=== PATIENT | female | born 1960 | race African-American/Black ===

== ENCOUNTER 2019-05-22 14:42 | Emergency (ER) | payer OTHER ==
--- OUTSIDE RECORDS SUMMARY | 2019-05-22 14:45 | XMS REPORT ---
:1960 [facility] Address [address] [place] [address] [address] [place] [address] Care Team Providers Name Role Phone Unavailable Unavailable Unavailable Problems This patient has no known problems. Allergies, Adverse Reactions, Alerts This patient has no known allergies or adverse reactions. Medications This patient has no known medications.
--- OUTSIDE RECORDS SUMMARY | 2019-05-22 14:45 | XMS REPORT | Summary of Care ---
:1960 Author Organization [facility] - [facility] Address [address] [place] [address] Care Team Providers Name Role Phone 1, Adc Lab Unavailable Unavailable Surinder Echols MD Unavailable Levy De Jesus Unavailable Provider, [facility] Unavailable Unavailable Abbie Chowdary Unavailable Chintan Palomino Primary Care Provider Reason for Visit Reason Comments New Evaluation ring worm Encounter Details Date Type Department Care Team Description 04/12/2019 Office Visit [facility] Yifan Whelan MD [address] [place] [phone] Abscess, neck (Primary Dx); Dermatology- Salvatore Dennis MD [address] [place] [address]. [place] [address] Central centrifugal scarring alopecia [facility] [address], [address] [place] [address] Allergies Active Allergy Reactions Severity Noted Date Comments Amoxicillin-Pot Other - See comments 03/30/2017 Tongue pain, Clavulanate swelling Cephalexin Itching, Rash 06/14/2017 Nitrofurantoin Dizziness 06/14/2017 Monohyd/M-Cryst Sulfa (Sulfonamide Hives 03/21/2007 Antibiotics) Tetracycline Rash 03/21/2007 Off balance, doesn't feel right. documented as of this encounter (statuses as of 04/12/2019) Medications Medication Sig Dispensed Refills Start Date End Date Status tiotropium (SPIRIVA WITH Inhale 1 30 capsule 2 06/04/2016 Active HANDIHALER) 18 mcg capsule daily. inhalation Estradiol (VAGIFEM) 10 mcg Insert 1 30 tablet 6 03/30/2017 Active tabletIndications: tablet into Post-menopause atrophic vagina vaginitis SEE-INSTRUCTIO NS. ipratropium 0.03 % nasal Use 2 Sprays 30 mL 11 02/02/2018 Active sprayIndications: Cough in each nostril 3 (three) times daily. fluticasone (FLONASE) 50 Use 2 Sprays 1 Bottle 11 02/02/2018 Active mcg/actuation nasal in each sprayIndications: Dyspnea nostril daily. on exertion, Upper airway cough syndrome, Gastroesophageal reflux disease without esophagitis ranitidine 300 mg Take 1 tablet 90 tablet 3 04/05/2018 Active tabletIndications: by mouth at Gastroesophageal reflux bedtime. disease, esophagitis presence not specified meloxicam 15 mg Take 1 tablet 30 tablet 5 04/17/2018 Active tabletIndications: by mouth Osteoarthritis of both daily. knees, unspecified osteoarthritis type levocetirizine 5 mg Take 1 tablet 30 tablet 3 06/03/2018 Active tabletIndications: by mouth every Post-nasal drip evening. Estradiol (VAGIFEM) 10 mcg Insert 1 8 tablet 5 06/16/2018 Active tablet tablet into vagina SEE-INSTRUCTIO NS. Twice a week Blood-Glucose Meter (BLOOD Use as 1 Kit 0 08/17/2018 Active GLUCOSE MONITORING) Kit directed, TID, DX:E11.9 blood sugar diagnostic Use as 100 Strip 0 08/17/2018 Active (BLOOD GLUCOSE TEST) strip directed, once daily, DX:E11.9 lancets 33 gauge Misc Use as 100 Each 0 08/17/2018 Active directed, TID, DX;E11.9 verapamil 100 mg 24 hr Take 1 capsule 90 capsule 3 10/10/2018 Active capsuleIndications: by mouth at Essential hypertension, bedtime. Generalized anxiety disorder with panic attacks, Carolina's cyst of knee, left hydrOXYzine 25 mg Take 1 tablet 120 tablet 3 10/14/2018 Active tabletIndications: Anxiety by mouth every 6 (six) hours as needed for Anxiety. traMADOL 50 mg Take 1 tablet 40 tablet 2 11/15/2018 Active tabletIndications: by mouth every Osteoarthritis of left 6 (six) hours knee, unspecified as needed for osteoarthritis type Pain (scale 4-6). atorvastatin 40 mg Take 1 tablet 30 tablet 5 12/22/2018 Active tabletIndications: Pure by mouth at hypercholesterolemia bedtime. fluticasone-salmeterol Inhale 1 Puff 60 Each 11 01/05/2019 Active (ADVAIR DISKUS) 250-50 every 12 mcg/dose inhalation disk (twelve) hours. 1 puff twice a day rinse mouth after use albuterol 90 mcg/actuation Inhale 2 Puffs 1 Inhaler 11 01/05/2019 Active inhaler every 6 (six) hours as needed for Wheezing or Shortness of Breath. ciprofloxacin HCl 500 mg Take 1 tablet 20 tablet 0 01/05/2019 Active tablet by mouth every 12 (twelve) hours. traMADOL 50 mg Take 1 tablet 40 tablet 2 02/17/2019 Active tabletIndications: by mouth every Arthritis of knee 6 (six) hours as needed for Pain (scale 4-6) or Pain (scale 7-10). ALPRAZolam 1 mg TAKE 1 TABLET 90 tablet 1 02/17/2019 Active tabletIndications: Anxiety BY MOUTH THREE TIMES DAILY STOOL SOFTENER 250 mg TAKE ONE 30 capsule 0 04/11/2019 Active capsuleIndications: CAPSULE BY Constipation, unspecified MOUTH EVERY constipation type DAY fluocinonide 0.05 % Apply to 20 mL 3 04/12/2019 Active solutionIndications: area(s) 2 Central centrifugal (two) times scarring alopecia daily. documented as of this encounter (statuses as of 04/12/2019) Active Problems Problem Noted Date Prediabetes 08/15/2018 Overactive bladder 05/27/2017 S/P hysterectomy 04/28/2017 Refractive error 03/05/2017 Early cataracts, bilateral 03/05/2017 Corneal arcus senilis, bilateral 03/05/2017 Family history of premature CAD 08/19/2016 Dyslipidemia 08/19/2016 Diastolic dysfunction 01/28/2016 Allergic rhinitis, unspecified allergic rhinitis type 12/20/2015 Dizziness 12/20/2015 Urethral stricture, unspecified location, unspecified stricture type 2015 Tobacco abuse disorder 12/08/2015 Fibromyalgia 12/08/2015 Hyperlipidemia 12/08/2015 Post-menopause atrophic vaginitis 12/08/2015 Hematuria, microscopic 12/08/2015 Depression 12/08/2015 Anxiety 12/08/2015 Facial pain 12/08/2015 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 COPD (chronic obstructive pulmonary disease) 11/08/2015 Pulmonary fibrosis 11/08/2015 Essential hypertension 10/17/2015 Urinary frequency 03/26/2008 Other unspecified back disorder 03/26/2008 Overview: Back stiffness (per patient) Functional disorder of stomach 03/26/2008 Overview: Discomfort in lower stomach (per patient) ICD10 Diagnosis Term Wool Hanker Utility Female genital symptoms 02/15/2008 Overview: ICD10 Diagnosis Term Wool Hanker Utility documented as of this encounter (statuses as of 04/12/2019) Resolved Problems Problem Noted Date Resolved Date Hematuria 12/20/2015 08/03/2016 Acute bronchitis, unspecified organism 11/08/2015 08/03/2016 Influenza with respiratory manifestation other than 02/15/2008 08/03/2016 pneumonia Overview: ICD10 Diagnosis Term Wool Hanker Utility documented as of this encounter (statuses as of 04/12/2019) Immunizations Name Administration Dates Next Due Pneumococcal 13 Conjugate, PCV13 (Prevnar 13) 08/15/2018 Pneumococcal Polysaccharide, PPSV23 (PNEUMOVAX) 06/04/2016 documented as of this encounter Social History Tobacco Use Types Packs/Day Years Used Date Former Smoker Quit: 01/07/2016 Smokeless Tobacco: Never Used Alcohol Use Drinks/Week oz/Week Comments Yes 0 Standard drinks or equivalent 0.0 Socially Sex Assigned at Date Recorded Not on file Job Start Date Occupation Industry Not on file Not on file Not on file Travel History Travel Start Travel End No recent travel history available. documented as of this encounter Last Filed Vital Signs Not on filedocumented in this encounter Progress Notes Salvatore Dennis MD - 04/12/2019 10:40 AM CDT Jessica Harrington is a 59 year old female Cc: ringworm on neck HPI Jessica Harrington is a 59 year old female with h/o CCCA who presents as a new patient, 02/03/16. - Itchy and tender bump on back of neck ongoing x 1 month. Patient thinks it is "ringworm". Patient had her son squeeze it before and it leaked clear fluid. Patient has tried treating with calamine lotion, listerine, tea tree oil without improvement. Notes her garcia will also run over it when cuttingher hair. 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 Currently flaring with itching. Patient asks for treatment. Histories Past Medical History: Diagnosis Date Abnormal uterine bleeding Allergic rhinitis, cause unspecified Anemia Anxiety disorder in conditions classified elsewhere Anxiety state, unspecified COPD (chronic obstructive pulmonary disease) slight COPD Depression Diastolic dysfunction 01/28/2016 Emphysema lung Esophageal reflux Essential hypertension 10/17/2015 Genital warts Leiomyoma of uterus Other and unspecified hyperlipidemia Pap smear abnormality of cervix Years ago STD (sexually transmitted disease) Unspecified essential hypertension Urinary incontinence Histories reviewed and as noted above. 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 Allergies Allergies Allergen Reactions Augmentin [Amoxicillin-Pot Clavulanate] Other - See comments Tongue pain, swelling Cephalexin Itching and Rash Macrobid [Nitrofurantoin Monohyd/M-Cryst] Dizziness Sulfa (Sulfonamide Antibiotics) Hives Tetracycline Rash Off balance, doesn't feel right. Medications Current Outpatient Medications on File Prior to Visit Medication Sig Dispense Refill STOOL SOFTENER 250 mg capsule TAKE ONE CAPSULE BY MOUTH EVERY DAY 30 capsule 0 ALPRAZolam 1 mg tablet TAKE 1 TABLET BY MOUTH THREE TIMES DAILY 90 tablet 1 traMADOL 50 mg tablet Take 1 tablet by mouth every 6 (six) hours as needed for Pain (scale 4-6) or Pain (scale 7-10). 40 tablet 2 albuterol 90 mcg/actuation inhaler Inhale 2 Puffs every 6 (six) hours as needed for Wheezing or Shortness of Breath. 1 Inhaler 11 ciprofloxacin HCl 500 mg tablet Take 1 tablet by mouth every 12 (twelve) hours. 20 tablet 0 fluticasone-salmeterol (ADVAIR DISKUS) 250-50 mcg/dose inhalation disk Inhale 1 Puff every 12 (twelve) hours. 1 puff twice a day rinse mouth after use 60 Each 11 atorvastatin 40 mg tablet Take 1 tablet by mouth at bedtime. 30 tablet 5 traMADOL 50 mg tablet Take 1 tablet by mouth every 6 (six) hours as needed for Pain (scale 4-6).40 tablet 2 hydrOXYzine 25 mg tablet Take 1 tablet by mouth every 6 (six) hours as needed for Anxiety. 120 tablet 3 verapamil 100 mg 24 hr capsule Take 1 capsule by mouth at bedtime. 90 capsule 3 blood sugar diagnostic (BLOOD GLUCOSE TEST) strip Use as directed, once daily, DX:E11.9 100 Strip 0 Blood-Glucose Meter (BLOOD GLUCOSE MONITORING) Kit Use as directed, TID, DX: E11.9 1 Kit 0 lancets 33 gauge Misc Use as directed, TID, DX;E11.9 100 Each 0 Estradiol (VAGIFEM) 10 mcg tablet Insert 1 tablet into vagina SEE- INSTRUCTIONS. Twice a week 8 tablet 5 levocetirizine 5 mg tablet Take 1 tablet by mouth every evening. 30 tablet 3 meloxicam 15 mg tablet Take 1 tablet by mouth daily. 30 tablet 5 ranitidine 300 mg tablet Take 1 tablet by mouth at bedtime. 90 tablet 3 fluticasone (FLONASE) 50 mcg/actuation nasal spray Use 2 Sprays in each nostril daily. 1 Bottle 11 ipratropium 0.03 % nasal spray Use 2 Sprays in each nostril 3 (three) times daily. 30 mL 11 Estradiol (VAGIFEM) 10 mcg tablet Insert 1 tablet into vagina SEE- INSTRUCTIONS. 30 tablet 6 tiotropium (SPIRIVA WITH HANDIHALER) 18 mcg inhalation Inhale 1 capsule daily. 30 capsule 2 No current facility-administered medications on file prior to visit. Review of Systems ROS: (-)=negative (+)=positive Constitutional: (-) Skin: itching (+), pain (+), growth (+) Immunosuppressed: (-) Physical Exam Constitutional: Pt appears well-developed and well-nourished. No distress. Skin: See image FACE: Negative EYES: Negative NOSE: Negative EARS: Negative SCALP: Positive NECK: Positive LELAND/LYMPH: Positive, Palpable 1cm firm postauricular lymph node (-)=Negative,(+)=Positive Actinic Keratosis (A): erythematous scaling papules Goodrich Hemaniogioma (CH): smooth red and purple papules Dermatitis Erythema (DE): mild to moderate erythema and scaling Dermatitis Lichenified (DL): lichenification and thickening Dermatitis Weeping (DW): weeping and excoriation Inflamed Seborrheic Keratosis (ISK): inflamed warty brown papules and plaques Millium (ML): Small white cystic papule Molluscum Contagiosum (MC): umbilicated papule Nevus Macular (NM): well circumscribed evenly pigmented macule Nevus Papular (PARK GUARD): well circumscribed evenly pigmented papule Psoriasis Circumscribed (PC): well circumscribed erythema and scaling Psoriasis Diffuse (PD): diffuse patches of erythema and scaling Seborrheic Keratosis (SK): verrucous brown papules and plaques Scar (SR): cicatricial change Verruca Vulgarus (W): warty hyperkeratotic papule Assessment/Plan 1. Kerion vs Abscess vs Ruptured EIC vs other - R posterior scalp - Suspect possible infectious etiology due to clinical picture of patient having palpable R post auricular lymph node I&D PROCEDURE - Verbal consent for I&D obtained. Risks and benefits of procedure discussed with patient. Localanesthesia obtained with 1% lidocaine with epinephrine. Simple I and D performed with #11 blade. Contents expressed minimal so wound culture performed and procedure aborted for incisional biopsy. INCISIONAL BIOPSY PROCEDURE x1 - Verbal consent was obtained. Discussed that scarring, infection, recurrence, pain, bleeding - are all possible side effects of the biopsy. - R posterior scalp Site anesthetized with lidocaine. A 1.0 x 0.5 insional biopsy was taken and sentto microbiology (Fungal Culture) and closed with 4-0 prolene. - Sutures to be removed in 7-10 days at the unit, wound care provided and discussed. 2. 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 - Start fluocinonide 0.05% solution BIDPRN symptoms itching/pain - Discussed doxycycline but patient notes allergies to tetracycline family of antibiotics. Patient was seen in clinic and plan of care discussed with Yifan Whelan MD RTC 2 weeks, 7-10 days S/R Salvatore Dennis MD [facility] Dermatology, PGY4 04/11/2019 20:49 documented in this encounter Plan of Treatment Date Type Specialty Care Team Description 04/24/2019 Nurse Visit Dermatology Visit, [facility] Dermatology Nurse 05/09/2019 Office Visit Orthopedic Surgery Reza Galo MD [id number] [place] [address] [phone] 05/25/2019 Office Visit Cardiology Jose Maria Brown MD [address]ARY [address] [place] [phone] 06/02/2019 Office Visit Orthopedic Surgery Reza Galo MD [id number] [place] [address] [phone] 06/27/2019 Office Visit Endocrinology Diabetes & Beverly Stack MD Metabolism 07/07/2019 Office Visit Pulmonary Disease Leonardo Garza DO [facility] [place] [phone] Name Type Priority Associated Diagnoses Order Schedule WOUND/ASPIRATE OR ABSCESS LAB Routine Abscess, neck Ordered: 04/12/2019 CULTURE FUNGUS (ROUTINE) CULTURE LAB Routine Abscess, neck Ordered: 04/12/2019 Health Maintenance Due Date Last Done Comments DTaP,Tdap,and Td Vaccines 1979 (1 - Tdap) Zoster Recombinant Vaccine 2010 (SHINGRIX) (1 of 2) LUNG CANCER SCREEN: 05/12/2017 05/12/2016 Recommended for age 55-80 with 30 + pack year history INFLUENZA VACCINE 05/16/2019 Postponed from 05/14/2019 (Patient Refused) MAMMOGRAM 09/12/2019 09/12/2018, 09/10/2017, 09/04/2016, Additional history exists PNEUMOCOCCAL 0-64 YEARS 06/04/2021 08/15/2018, 06/04/2016 COMBINED SERIES (3 of 3 - PPSV23) COLONOSCOPY 07/30/2021 07/30/2011 (Previously completed) PAP SMEAR Discontinued 03/19/2008 HEPATITIS C (HCV) SCREEN Completed 10/14/2016 documented as of this encounter Results Not on filedocumented in this encounter Visit Diagnoses Diagnosis Abscess, neck - Primary Cellulitis and abscess of neck Central centrifugal scarring alopecia Other alopecia documented in this encounter Insurance Payer Benefit Plan Subscriber ID Effective Phone Address Type / Group Dates [employer] UHC MEDICARE [id number] 2019-Pres Medicare Adv HEALTHCARE COMPLETE ent PPO MEDICARE CHOICE ADVANTAGE [facility] MEDICAID OF xxxxxxxxx 2019-Pres [phone] [place] ent [id number] [place] [address] documented as of this encounter
--- OUTSIDE RECORDS SUMMARY | 2019-05-22 14:45 | XMS REPORT | Summary of Care ---
:1960 Author Organization [facility] Address [address] [place] [address] Care Team Providers Name Role Phone 1, Adc Lab Unavailable Unavailable Surinder Echols MD Unavailable Levy De Jesus Unavailable Provider, [facility] Unavailable Unavailable Abbie Chowdary Unavailable Chintan Palomino Primary Care Provider Reason for Visit Reason Comments New Evaluation ring worm Encounter Details Date Type Department Care Team Description 04/12/2019 Office Visit [facility] Yifan Whelan MD [address] [place] [phone] Abscess, neck (Primary Dx); Dermatology- Salvatore Dennis MD [address] [place] [address]. [place] [address] Central centrifugal scarring alopecia [facility] [address] [place] [address] Allergies Active Allergy Reactions Severity [...] lower stomach (per patient) ICD10 Diagnosis Term Group Home Counselor Utility Female genital symptoms 02/15/2008 Overview: ICD10 Diagnosis Term Group Home Counselor Utility documented as of this encounter (statuses as of 04/12/2019) Resolved Problems Problem Noted Date Resolved Date Hematuria 12/20/2015 08/03/2016 Acute bronchitis, unspecified organism 11/08/2015 08/03/2016 Influenza with respiratory manifestation other than 02/15/2008 08/03/2016 pneumonia Overview: ICD10 Diagnosis Term Group Home Counselor Utility documented as of this encounter (statuses [...] Alopecia (CCCA) (biopsy 02/03/16) SH: lives in [facility] Allergies Allergies Allergen Reactions Augmentin [Amoxicillin-Pot [...] well circumscribed evenly pigmented macule Nevus Papular (DIRECTOR OF PRODUCT MARKETING): well circumscribed evenly pigmented papule Psoriasis Circumscribed [...] clinic and plan of care discussed with MD Salvatore Theodore MD [facility] Dermatology, PGY4 04/11/2019 20:49 documented in this encounter Plan of Treatment Date Type Specialty Care Team Description 04/24/2019 Nurse Visit Dermatology Visit, [facility] Dermatology Nurse 05/09/2019 Office Visit Orthopedic Surgery Reza Galo MD [address] [facility] [id number] [place] [address] [phone] 05/25/2019 Office Visit Cardiology Jose Maria Brown MD [address] [place] [phone] 06/02/2019 Office Visit Orthopedic Surgery Reza Galo MD [address] [facility] [id number] [place] [address] [phone] 06/27/2019 Office Visit Endocrinology Diabetes & Beverly Stack MD Metabolism 07/07/2019 Office Visit Pulmonary Disease Leonardo Garza, [address] [place] [phone] Name Type Priority Associated Diagnoses Order Schedule [...] Type / Group Dates [employer] UHC MEDICARE [id number] 2019-Pres Medicare Adv HEALTHCARE COMPLETE ent PPO MEDICARE CHOICE ADVANTAGE [facility] MEDICAID OF xxxxxxxxx 2019-Pres [phone] [place] ent [id number] [place] [address] documented as of this encounter
--- OUTSIDE RECORDS SUMMARY | 2019-05-22 14:45 | XMS REPORT | Summary of Care ---
:1960 Author Organization [facility] Address [address] [place] [address] Care Team Providers Name Role Phone 1, [facility] Unavailable Unavailable Surinder Echols MD Unavailable Levy De Jesus Unavailable Provider, [facility] Unavailable Unavailable Abbie Chowdary Unavailable Chintan Palomino Primary Care Provider Reason for Visit Reason Comments Refill Request Encounter Details Date Type Department Care Team Description 03/31/2019 Refill [facility] Urgent Leanna Greenberg FNP Refill Request Care [address] [place] [address] [place], [place] [id number] Allergies Active Allergy Reactions Severity Noted Date Comments Amoxicillin-Pot Other - See comments 03/30/2017 Tongue pain, Clavulanate swelling Cephalexin Itching, Rash 06/14/2017 Nitrofurantoin Dizziness 06/14/2017 Monohyd/M-Cryst Sulfa (Sulfonamide Hives 03/21/2007 Antibiotics) Tetracycline Rash 03/21/2007 Off balance, doesn't feel right. documented as of this encounter (statuses as of 04/11/2019) Medications Medication Sig Dispensed Refills Start End Status Date Date tiotropium (SPIRIVA WITH Inhale 1 30 capsule 2 Active HANDIHALER) 18 mcg capsule 6 inhalation daily. Estradiol (VAGIFEM) 10 Insert 1 30 tablet 6 Active mcg tabletIndications: tablet into 7 Post-menopause atrophic vagina vaginitis SEE-INSTRUCTI ONS. ipratropium 0.03 % nasal Use 2 Sprays 30 mL 11 Active sprayIndications: Cough in each 8 nostril 3 (three) times daily. fluticasone (FLONASE) 50 Use 2 Sprays 1 Bottle 11 Active mcg/actuation nasal in each 8 sprayIndications: nostril Dyspnea on exertion, daily. Upper airway cough syndrome, Gastroesophageal reflux disease without esophagitis ranitidine 300 mg Take 1 tablet 90 tablet 3 Active tabletIndications: by mouth at 8 Gastroesophageal reflux bedtime. disease, esophagitis presence not specified meloxicam 15 mg Take 1 tablet 30 tablet 5 Active tabletIndications: by mouth 8 Osteoarthritis of both daily. knees, unspecified osteoarthritis type levocetirizine 5 mg Take 1 tablet 30 tablet 3 Active tabletIndications: by mouth 8 Post-nasal drip every evening. Estradiol (VAGIFEM) 10 Insert 1 8 tablet 5 Active mcg tablet tablet into 8 vagina SEE-INSTRUCTI ONS. Twice a week Blood-Glucose Meter Use as 1 Kit 0 Active (BLOOD GLUCOSE directed, 8 MONITORING) Kit TID, DX:E11.9 blood sugar diagnostic Use as 100 Strip 0 Active (BLOOD GLUCOSE TEST) directed, 8 strip once daily, DX:E11.9 lancets 33 gauge Misc Use as 100 Each 0 Active directed, 8 TID, DX;E11.9 verapamil 100 mg 24 hr Take 1 90 capsule 3 Active capsuleIndications: capsule by 9 Essential hypertension, mouth at Generalized anxiety bedtime. disorder with panic attacks, Carolina's cyst of knee, left hydrOXYzine 25 mg Take 1 tablet 120 tablet 3 Active tabletIndications: by mouth 9 Anxiety every 6 (six) hours as needed for Anxiety. traMADOL 50 mg Take 1 tablet 40 tablet 2 Active tabletIndications: by mouth 9 Osteoarthritis of left every 6 (six) knee, unspecified hours as osteoarthritis type needed for Pain (scale 4-6). atorvastatin 40 mg Take 1 tablet 30 tablet 5 Active tabletIndications: Pure by mouth at 9 hypercholesterolemia bedtime. fluticasone-salmeterol Inhale 1 Puff 60 Each 11 Active (ADVAIR DISKUS) 250-50 every 12 9 mcg/dose inhalation disk (twelve) hours. 1 puff twice a day rinse mouth after use albuterol 90 Inhale 2 1 Inhaler 11 Active mcg/actuation inhaler Puffs every 6 9 (six) hours as needed for Wheezing or Shortness of Breath. ciprofloxacin HCl 500 mg Take 1 tablet 20 tablet 0 Active tablet by mouth 9 every 12 (twelve) hours. traMADOL 50 mg Take 1 tablet 40 tablet 2 Active tabletIndications: by mouth 9 Arthritis of knee every 6 (six) hours as needed for Pain (scale 4-6) or Pain (scale 7-10). ALPRAZolam 1 mg TAKE 1 TABLET 90 tablet 1 Active tabletIndications: BY MOUTH 9 Anxiety THREE TIMES DAILY STOOL SOFTENER 250 mg TAKE ONE 30 capsule 0 Active capsuleIndications: CAPSULE BY 9 Constipation, MOUTH EVERY unspecified constipation DAY type docusate sodium 250 mg Take 1 30 capsule 5 Discontinued capsule capsule by 9 019 mouth daily. documented as of this encounter (statuses as of 04/11/2019) Active Problems Problem Noted Date Prediabetes 08/15/2018 [...] lower stomach (per patient) ICD10 Diagnosis Term International Sales Manager Utility Female genital symptoms 02/15/2008 Overview: ICD10 Diagnosis Term International Sales Manager Utility documented as of this encounter (statuses as of 04/11/2019) Resolved Problems Problem Noted Date Resolved Date Hematuria 12/20/2015 08/03/2016 Acute bronchitis, unspecified organism 11/08/2015 08/03/2016 Influenza with respiratory manifestation other than 02/15/2008 08/03/2016 pneumonia Overview: ICD10 Diagnosis Term International Sales Manager Utility documented as of this encounter (statuses as of 04/11/2019) Immunizations Name Administration Dates Next Due Pneumococcal [...] Signs Not on filedocumented in this encounter Plan of Treatment Date Type Specialty Care Team Description 04/12/2019 Office Visit Dermatology Yifan Whelan MD [address] [place] [phone] Salvatore Dennis MD [address] [place] [phone] 04/12/2019 Office Visit Internal Medicine Chintan Palomino [address] [facility] [id number] [place], [place] [phone] 05/09/2019 Office Visit Orthopedic Surgery Reza Galo MD [address] [facility] [id number] [place] [address] [phone] 05/25/2019 Office Visit Cardiology Jose Maria Brown MD [address] [place] [phone] 06/02/2019 Office Visit Orthopedic Surgery Reza Galo MD [id number] [place] [address] [phone] 06/27/2019 Office Visit Endocrinology Diabetes & Beverly Stack MD Metabolism 07/07/2019 Office Visit Pulmonary Disease Leonardo Garza DO [address] [place] [address] Health Maintenance Due Date Last Done Comments [...] filedocumented in this encounter Visit Diagnoses Diagnosis Constipation, unspecified constipation type documented in this encounter Insurance Payer Benefit Plan Subscriber ID Effective Phone Address Type / Group Dates [facility] MEDIC[facility] [id number] 2019-Pres Medicare Adv HEALTHCARE COMPLETE ent PPO MEDICARE CHOICE ADVANTAGE [facility] MEDICAID OF xxxxxxxxx 2019-Pres [phone] [place] ent [address] [id number] [place] [address] documented as of this encounter
--- OUTSIDE RECORDS SUMMARY | 2019-05-22 14:45 | XMS REPORT | Summary of Care ---
:[address] [facility] Address [address] [place] [address] Care Team Providers Name Role Phone 1, [facility] Unavailable Unavailable Surinder Echols MD Unavailable Levy De Jesus Unavailable Provider, [facility] Unavailable Unavailable Abbie Chowdary Unavailable Chintan Palomino Primary Care Provider Reason for Visit Reason Comments New Evaluation ring worm Encounter Details Date Type Department Care Team Description 04/12/2019 Office Visit [facility] Yifan Whelan MD [address] [place] [phone] Abscess, neck (Primary Dx); Dermatology- Salvatore Dennis MD [address] [place] [address]. [place] [phone] Central centrifugal scarring alopecia [facility] [address] [place] [phone] Allergies Active Allergy Reactions Severity [...] lower stomach (per patient) ICD10 Diagnosis Term Packing Inspector Utility Female genital symptoms 02/15/2008 Overview: ICD10 Diagnosis Term Packing Inspector Utility documented as of this encounter (statuses as of 04/12/2019) Resolved Problems Problem Noted Date Resolved Date Hematuria 12/20/2015 08/03/2016 Acute bronchitis, unspecified organism 11/08/2015 08/03/2016 Influenza with respiratory manifestation other than 02/15/2008 08/03/2016 pneumonia Overview: ICD10 Diagnosis Term Packing Inspector Utility documented as of this encounter (statuses [...] 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 Dermatology, PGY4 04/11/2019 20:49 documented in this encounter Plan of Treatment Date Type Specialty Care Team Description 04/24/2019 Nurse Visit Dermatology Visit, [facility] Dermatology Nurse 05/09/2019 Office Visit Orthopedic Surgery Reza Galo MD [address] [facility] [id number] [place] [address] [phone] 05/25/2019 Office Visit Cardiology Jose Maria Brown MD [address] [place] [phone] 06/02/2019 Office Visit Orthopedic Surgery Reza Galo MD 301 [facility] [id number] [place] [address] [phone] 06/27/2019 Office Visit Endocrinology Diabetes & Beverly Stack MD Metabolism 07/07/2019 Office Visit Pulmonary Disease Leonardo Garza, [address] [place] [phone] Name Type Priority Associated Diagnoses Order Schedule [...] Type / Group Dates UNITED UHC MEDICARE [id number] 2019-Pres Medicare Adv HEALTHCARE COMPLETE ent PPO MEDICARE CHOICE ADVANTAGE [facility] MEDICAID OF xxxxxxxxx 2019-Pres [phone] [place] ent 900 [id number] [place] [address] documented as of this encounter
--- OUTSIDE RECORDS SUMMARY | 2019-05-22 14:46 | XMS REPORT | Summary of Care ---
:1960 Author Organization [facility] Address [address] [place] [address] Care Team Providers Name Role Phone 1, [facility] Unavailable Unavailable Surinder Echols MD Unavailable Levy De Jesus Unavailable Provider, [facility] Unavailable Unavailable Abbie Chowdary Unavailable Chintan Palomino Primary Care Provider Reason for Referral (Routine) Status Reason Specialty Diagnoses / Referred By Referred To Contact Procedures Contact New Request Psychiatry Diagnoses Panic disorder Chintan Palomino Psych Staff-Pcp Procedures CONSULT/REFERRAL PSYCHIATRY ADULT A Primary Care [address] [facility], [place], [place] [address] [address] [place], [place] Phone: [phone] Reason for Visit Reason Comments Hypertension Encounter Details Date Type Department Care Team Description 04/12/2019 Office Visit [facility] Internal Chintan Palomino Panic disorder (Primary Dx); Medicine- [place] [address] [facility] [address] Anxiety; Primary Care [place], [place] Chronic obstructive pulmonary disease, unspecified COPD type [address], [address] [address] [place] [address] Allergies Active Allergy Reactions Severity Noted Date Comments Amoxicillin-Pot Other - See comments 03/30/2017 Tongue pain, Clavulanate swelling Cephalexin Itching, Rash 06/14/2017 Nitrofurantoin Dizziness 06/14/2017 Monohyd/M-Cryst Sulfa (Sulfonamide Hives 03/21/2007 Antibiotics) Tetracycline Rash 03/21/2007 Off balance, doesn't feel right. documented as of this encounter (statuses as of 04/26/2019) Medications Medication Sig Dispensed Refills Start End Status Date Date Estradiol (VAGIFEM) 10 Insert 1 30 tablet [...] 6 (six) hours as needed for Anxiety. atorvastatin 40 mg Take 1 tablet 30 [...] needed for Wheezing or Shortness of Breath. traMADOL 50 mg Take 1 tablet 40 tablet 2 Active tabletIndications: by mouth 9 Arthritis of knee every 6 (six) hours as needed for Pain (scale 4-6) or Pain (scale 7-10). STOOL SOFTENER 250 mg TAKE ONE 30 capsule 0 Active capsuleIndications: CAPSULE BY 9 Constipation, MOUTH EVERY unspecified constipation DAY type fluocinonide 0.05 % Apply to 20 mL 3 Active solutionIndications: area(s) 2 9 Central centrifugal (two) times scarring alopecia daily. ALPRAZolam 1 mg TAKE 1 TABLET 90 tablet 1 Active tabletIndications: BY MOUTH 9 Anxiety THREE TIMES DAILY tiotropium (SPIRIVA WITH Inhale 1 30 capsule 11 Active HANDIHALER) 18 mcg capsule 9 inhalationIndications: daily. Chronic obstructive pulmonary disease, unspecified COPD type tiotropium (SPIRIVA WITH Inhale 1 30 capsule 2 Discontinued HANDIHALER) 18 mcg capsule 6 019 inhalation daily. traMADOL 50 mg Take 1 tablet 40 tablet 2 Discontinued tabletIndications: by mouth 9 019 Osteoarthritis of left every 6 (six) knee, unspecified hours as osteoarthritis type needed for Pain (scale 4-6). ciprofloxacin HCl 500 mg Take 1 tablet 20 tablet 0 Discontinued tablet by mouth 9 019 every 12 (twelve) hours. ALPRAZolam 1 mg TAKE 1 TABLET 90 tablet 1 Discontinued tabletIndications: BY MOUTH 9 019 Anxiety THREE TIMES DAILY documented as of this encounter (statuses as of 04/26/2019) Active Problems Problem Noted Date Prediabetes 08/15/2018 [...] lower stomach (per patient) ICD10 Diagnosis Term Machine Filler Shredder Utility Female genital symptoms 02/15/2008 Overview: ICD10 Diagnosis Term Machine Filler Shredder Utility documented as of this encounter (statuses as of 04/26/2019) Resolved Problems Problem Noted Date Resolved Date Hematuria 12/20/2015 08/03/2016 Acute bronchitis, unspecified organism 11/08/2015 08/03/2016 Influenza with respiratory manifestation other than 02/15/2008 08/03/2016 pneumonia Overview: ICD10 Diagnosis Term Machine Filler Shredder Utility documented as of this encounter (statuses as of 04/26/2019) Immunizations Name Administration Dates Next Due Pneumococcal 13 Conjugate, PCV13 (Prevnar 13) 08/15/2018 Pneumococcal Polysaccharide, PPSV23 (PNEUMOVAX) 06/04/2016 documented as of this encounter Social History Tobacco Use Types Packs/Day Years Used Date Former Smoker Cigarettes 0.5 39 04/12/1977 - 01/07/2016 Smokeless Tobacco: Never Used Alcohol Use Drinks/Week oz/Week Comments Yes 0 Standard drinks or equivalent 0.0 Socially Sex Assigned at Date Recorded Not on file Job Start Date Occupation Industry Not on file Not on file Not on file Travel History Travel Start Travel End No recent travel history available. documented as of this encounter Last Filed Vital Signs Vital Sign Reading Time Taken Comments Blood Pressure 123/81 04/12/2019 1:50 PM CDT Pulse 75 04/12/2019 1:50 PM CDT Temperature 37.4 C (99.4 F) 04/12/2019 1:50 PM CDT Respiratory Rate 18 04/12/2019 1:50 PM CDT Oxygen Saturation 100% 04/12/2019 1:50 PM CDT room air Inhaled Oxygen Concentration - - Weight 66.2 kg (146 lb) 04/12/2019 1:50 PM CDT Height 157.5 cm (5' 2") 04/12/2019 1:50 PM CDT Body Mass Index 26.7 04/12/2019 1:50 PM CDT documented in this encounter Progress Notes Chintan Palomino - 04/12/2019 1:45 PM CDT Internal Medicine Clinic Note 04/12/19 Chief Complaint: Hypertension HPI: Jessica Harrington is a 59 year old female with PMH of below presents for follow up visit of anxiety/depression bilateral knee pain and HTN. 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 . Previously patient developed memory loss with Effexor and thinks she still has side effects, last taken Effexor 2 years ago. Also reports she has not been taking lipitor, now taking OTC medication for HLD. She is recalcitrant to ssRI type medication. Regarding anxiety, started more than 15 years ago, from her ex-, failed citalopram, Effexor. Patient declines Paxil, prozac, zoloft HTN: reports her BP is controlled at home, denies chest pain change in vision or headache. "COPD" - restrictive defect on PFT with desat to 88 with exercise. Responds to spiriva/anticholinergics per her report. Leg - injhection not helpful. Outpatient Encounter Medications as of 04/12/2019 Medication Sig Dispense Refill ALPRAZolam 1 mg tablet TAKE 1 TABLET BY MOUTH THREE TIMES DAILY 90 tablet 1 tiotropium (SPIRIVA WITH HANDIHALER) 18 mcg inhalation Inhale 1 capsule daily. 30 capsule 11 fluocinonide 0.05 % solution Apply to area(s) 2 (two) times daily. 20 mL 3 STOOL SOFTENER 250 mg capsule TAKE ONE CAPSULE BY MOUTH EVERY DAY 30 capsule 0 traMADOL 50 mg tablet Take 1 tablet by mouth every 6 (six) hours as needed for Pain (scale 4-6) or Pain (scale 7-10). 40 tablet 2 [DISCONTINUED] ALPRAZolam 1 mg tablet TAKE 1 TABLET BY MOUTH THREE TIMES DAILY 90 tablet 1 albuterol 90 mcg/actuation inhaler Inhale 2 Puffs every 6 (six) hours as needed for Wheezing or Shortness of Breath. 1 Inhaler 11 fluticasone-salmeterol (ADVAIR DISKUS) 250-50 mcg/dose inhalation disk Inhale 1 Puff every 12 (twelve) hours. 1 puff twice a day rinse mouth after use 60 Each 11 [DISCONTINUED] ciprofloxacin HCl 500 mg tablet Take 1 tablet by mouth every 12 (twelve) hours. 20 tablet 0 [DISCONTINUED] docusate sodium 250 mg capsule Take 1 capsule by mouth daily. 30 capsule 5 atorvastatin 40 mg tablet Take 1 tablet by mouth at bedtime. 30 tablet 5 [DISCONTINUED] traMADOL 50 mg tablet Take 1 tablet by mouth every 6 (six) hours as needed for Pain (scale 4-6). 40 tablet 2 hydrOXYzine 25 mg tablet Take [...] into vagina SEE- INSTRUCTIONS. 30 tablet 6 [DISCONTINUED] tiotropium (SPIRIVA WITH HANDIHALER) 18 mcg inhalation Inhale 1 capsule daily. 30capsule 2 No facility-administered encounter medications on file as of 04/12/2019. Past Medical Hx: Past Medical History: Diagnosis Date Abnormal uterine [...] transmitted disease) Unspecified essential hypertension Urinary incontinence ROS: See HPI Physical Exam: Vitals: 04/12/19 1350 BP: 123/81 BP Location: Left arm Patient Position: Sitting BP CUFF SIZE: Adult Medium Pulse: 75 Resp: 18 Temp: 37.4 C (99.4 F) TempSrc: Oral SpO2: 100% Weight: 146 lb (66.2 kg) Height: 5' 2" (1.575 m) General: patient alert and in no acute distress Eyes: EOMI, anicteric Cardiovascular: Heart regular, rate, rhythm, no murmurs; no edema Respiratory: clear to auscultation bilaterally, no respiratory distress Musc: left knee with crepitus, minimal edema, normal ROM, left carolina cyst, unchanged from previous Chart Review (Labs / Radiology): See HPI ASSESSMENT/PLAN Jessica Harrington is a 58 year old female with PMH as above presenting with 1. Essential hypertension Well controlled, continue with - verapamil 100 mg 24 hr capsule; Take 1 capsule by mouth at bedtime. Dispense : 90 capsule; Refill:3 2. Generalized anxiety disorder with panic attacks Has been on xanax since 2006, reluctant to change, failed citalopram, effexor. Will referral to psychiatry - CONSULT/REFERRAL PSYCHIATRY ADULT - reminded her that I will not give BZD chronically iwthout psych eval. 3. Carolina's cyst of knee, left Stable, injection not helpful. NSAIDS for pain. Health Maintenance: - Mammogram (F 50-74 q2y): 08/2018 neg - Pap Smear (F 21-65 q3y/ F 30-65 + HPV q5y): s/p hysterectomy - Immunizations: - Influenza (q1y): 2018 - Pneumococcal (65+/ younger at risk): completed "COPD" - refill spiriva. Echocardiogram was ok. SOB cause unclear. documented in this encounter Plan of Treatment Date Type Specialty Care Team Description 05/09/2019 Office Visit Orthopedic Surgery Reza Galo MD [address] [phone] 05/25/2019 Office Visit Cardiology Jose Maria Brown MD [address] [phone] 06/02/2019 Office Visit Orthopedic Surgery Reza Galo MD [address] [facility] [id number] [place] [phone] 06/12/2019 Office Visit Dermatology Salvatore Dennis MD [address] [place] [phone] 06/27/2019 Office Visit Endocrinology Diabetes & Beverly Stack MD Metabolism 07/07/2019 Office Visit Pulmonary Disease Leonardo Garza, [address] [place] [phone] 07/14/2019 Office Visit Internal Medicine Chintan Palomino [address] [place] [address] [address] [place], [place] [phone] Health Maintenance Due Date Last Done Comments [...] filedocumented in this encounter Visit Diagnoses Diagnosis Panic disorder - Primary Panic disorder without agoraphobia Anxiety Anxiety state, unspecified Chronic obstructive pulmonary disease, unspecified COPD type documented in this encounter Insurance Payer Benefit Plan Subscriber ID Effective Phone Address Type / Group Dates UNITED UHC MEDICARE [id number] 2019-Pres Medicare Adv HEALTHCARE COMPLETE ent PPO MEDICARE CHOICE ADVANTAGE [facility] MEDICAID OF xxxxxxxxx 2019-Pres [phone] [address] [place] ent [phone] [id number] [place] [address] documented as of this encounter
--- OUTSIDE RECORDS SUMMARY | 2019-05-22 14:46 | XMS REPORT | Summary of Care ---
:1960 Author Organization [facility] - [facility] Address [address] [place] [address] 187[address] Care Team Providers Name Role Phone 1, [facility] Unavailable Unavailable Surinder Echols MD Unavailable Levy De Jesus Unavailable Provider, [facility] Unavailable Unavailable Abbie Chowdary Unavailable Chintan Palomino Primary Care Provider Reason for Visit Reason Comments New Evaluation ring worm Encounter Details Date Type Department Care Team Description 04/12/2019 Office Visit [facility] Yifan Whelan MD [address] [place] [address] Abscess, neck (Primary Dx); Dermatology- Salvatore Dennis MD [address] [place] [address]. [place] [address] Central centrifugal scarring alopecia [facility] [address], [address] [place] [address] Allergies Active Allergy Reactions Severity Noted Date Comments Amoxicillin-Pot Other - See comments 03/30/2017 Tongue pain, Clavulanate swelling Cephalexin Itching, Rash 06/14/2017 Nitrofurantoin Dizziness 06/14/2017 Monohyd/M-Cryst Sulfa (Sulfonamide Hives 03/21/2007 Antibiotics) Tetracycline Rash 03/21/2007 Off balance, doesn't feel right. documented as of this encounter (statuses as of 04/12/2019) Medications Medication Sig Dispensed Refills Start End [...] Central centrifugal (two) times scarring alopecia daily. tiotropium (SPIRIVA WITH Inhale 1 30 capsule [...] lower stomach (per patient) ICD10 Diagnosis Term Hand I Blocker Utility Female genital symptoms 02/15/2008 Overview: ICD10 Diagnosis Term Hand I Blocker Utility documented as of this encounter (statuses as of 04/12/2019) Resolved Problems Problem Noted Date Resolved Date Hematuria 12/20/2015 08/03/2016 Acute bronchitis, unspecified organism 11/08/2015 08/03/2016 Influenza with respiratory manifestation other than 02/15/2008 08/03/2016 pneumonia Overview: ICD10 Diagnosis Term Hand I Blocker Utility documented as of this encounter (statuses [...] CCCA who presents as a new patient, LV 02/03/16. 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/16) SH: lives in [facility] Allergies Allergies Allergen Reactions Augmentin [Amoxicillin-Pot Clavulanate] [...] well circumscribed evenly pigmented macule Nevus Papular (MILITARY SCIENCE INSTRUCTOR): well circumscribed evenly pigmented papule Psoriasis Circumscribed [...] weeks, 7-10 days S/R Salvatore Dennis MD [facility] Dermatology, PGY4 04/11/2019 20:49 documented in this encounter Plan of Treatment Date Type Specialty Care Team Description 04/24/2019 Nurse Visit Dermatology Visit, [facility] Dermatology Nurse 05/09/2019 Office Visit Orthopedic Surgery Reza Galo MD 301 [facility] [id number] [place] [address] [phone] 05/25/2019 Office Visit Cardiology Jose Maria Brown MD [address] [phone] 06/02/2019 Office Visit Orthopedic Surgery Reza Galo MD 301 [facility] [id number] [place] [address] [phone] 06/27/2019 Office Visit Endocrinology Diabetes & Beverly Stack MD Metabolism 07/07/2019 Office Visit Pulmonary Disease Leonardo Garza, [facility] [place] [phone] 07/14/2019 Office Visit Internal Medicine Chintan Palomino [address] [facility] [address] [place], [place] [phone] Name Type Priority Associated Diagnoses Order Schedule [...] Type / Group Dates UNITED UHC MEDICARE [id number] 2019-Pres Medicare Adv HEALTHCARE COMPLETE ent PPO MEDICARE CHOICE ADVANTAGE [facility] MEDICAID OF xxxxxxxxx 2019-Pres [phone] Medicaid [place] ent 900 [id number] [place] [address] documented as of this encounter
--- OUTSIDE RECORDS SUMMARY | 2019-05-22 14:46 | XMS REPORT | Summary of Care ---
:1960 Author Organization [facility] Address [address] [place] [address] Care Team Providers Name Role Phone Unavailable Primary Care Provider Unavailable Reason for Visit Reason Comments Fungus Encounter Details Date Type Department Care Team Description 04/26/2019 Case Management [facility] Salvatore Dennis MD Fungus Dermatology-[address] [place] [address] [address] [address] [place], [place] [phone] [address] [phone] Allergies Active Allergy Reactions Severity Noted Date Comments Amoxicillin-Pot Other - See comments 03/30/2017 Tongue pain, Clavulanate swelling Cephalexin Itching, Rash 06/14/2017 Nitrofurantoin Dizziness 06/14/2017 Monohyd/M-Cryst Sulfa (Sulfonamide Hives 03/21/2007 Antibiotics) Tetracycline Rash 03/21/2007 Off balance, doesn't feel right. documented as of this encounter (statuses as of 04/26/2019) Medications Medication Sig Dispensed Refills Start Date End Date Status Estradiol (VAGIFEM) 10 mcg Insert 1 30 [...] mg TAKE 1 TABLET 90 tablet 1 04/12/2019 Active tabletIndications: Anxiety BY MOUTH THREE TIMES DAILY tiotropium (SPIRIVA WITH Inhale 1 30 capsule 11 04/12/2019 Active HANDIHALER) 18 mcg capsule daily. inhalationIndications: Chronic obstructive pulmonary disease, unspecified COPD type terbinafine HCl 250 mg Take 1 tablet 28 tablet 0 04/26/2019 Active tabletIndications: Kerion by mouth daily 9 due to trichophyton for 28 days. ketoconazole 2 % Apply to 120 mL 1 04/26/2019 Active shampooIndications: Kerion area(s) once due to trichophyton daily as needed for Itching. documented as of this encounter (statuses as [...] lower stomach (per patient) ICD10 Diagnosis Term Ferry Hand Utility Female genital symptoms 02/15/2008 Overview: ICD10 Diagnosis Term Ferry Hand Utility documented as of this encounter (statuses as of 04/26/2019) Resolved Problems Problem Noted Date Resolved Date Hematuria 12/20/2015 08/03/2016 Acute bronchitis, unspecified organism 11/08/2015 08/03/2016 Influenza with respiratory manifestation other than 02/15/2008 08/03/2016 pneumonia Overview: ICD10 Diagnosis Term Ferry Hand Utility documented as of this encounter (statuses [...] Treatment Date Type Specialty Care Team Description 05/03/2019 Office Visit Dermatology Yifan Whelan MD 301 [place] [address] Salvatore Dennis MD [address] [place] [address] 05/09/2019 Office Visit Orthopedic Surgery Reza Galo MD [address] [phone] 05/25/2019 Office Visit Cardiology Jose Maria Brown MD [address] [phone] 06/02/2019 Office Visit Orthopedic Surgery Reza Galo MD [address] [phone] 06/27/2019 Office Visit Endocrinology Diabetes & Beverly Stack MD Metabolism 07/07/2019 Office Visit Pulmonary Disease Leonardo Garza DO [address] [place] [phone] 07/14/2019 Office Visit Internal Medicine Chintan Palomino 301 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
--- OUTSIDE RECORDS SUMMARY | 2019-05-22 14:46 | XMS REPORT | Summary of Care ---
:1960 Author Organization [facility] - [facility] Address [address] [place] [address] 32450 Care Team Providers Name Role Phone Chintan Palomino Massiel Primary Care Provider Reason for Visit Reason Comments NURSE VISIT Suture Removal Encounter Details Date Type Department Care Team Description 04/24/2019 Nurse Visit [facility] Leyda Duran MD 301 [facility] [id number] [place] [address] Encounter for removal Dermatology- Visit, [facility] Dermatology Nurse of sutures (Primary Effie Dx) [facility] [address] [facility], 5th [place] [address] Allergies Active Allergy Reactions Severity Noted Date Comments Amoxicillin-Pot Other - See comments 03/30/2017 Tongue pain, Clavulanate swelling Cephalexin Itching, Rash 06/14/2017 Nitrofurantoin Dizziness 06/14/2017 Monohyd/M-Cryst Sulfa (Sulfonamide Hives 03/21/2007 Antibiotics) Tetracycline Rash 03/21/2007 Off balance, doesn't feel right. documented as of this encounter (statuses as of 04/24/2019) Medications Medication Sig Dispensed Refills Start Date [...] obstructive pulmonary disease, unspecified COPD type documented as of this encounter (statuses as of 04/24/2019) Active Problems Problem Noted Date Prediabetes 08/15/2018 [...] lower stomach (per patient) ICD10 Diagnosis Term Digital Advisor Utility Female genital symptoms 02/15/2008 Overview: ICD10 Diagnosis Term Digital Advisor Utility documented as of this encounter (statuses as of 04/24/2019) Resolved Problems Problem Noted Date Resolved Date Hematuria 12/20/2015 08/03/2016 Acute bronchitis, unspecified organism 11/08/2015 08/03/2016 Influenza with respiratory manifestation other than 02/15/2008 08/03/2016 pneumonia Overview: ICD10 Diagnosis Term Digital Advisor Utility documented as of this encounter (statuses as of 04/24/2019) Immunizations Name Administration Dates Next Due Pneumococcal [...] on filedocumented in this encounter Progress Notes Karoline Boss MA - 04/24/2019 2:30 PM CDTPatient presents for suture removal. The wound is well healed without signs of infection. The sutures are removed. Return prn. 2 sutures were removed from the right side of head. Patient stated that she was concerned with the wound. She stated that she still feels a lump to the right side of the head. I had Dr. Wolf come in tosee it and Dr. Wolf stated that the wound looks good and that there was not infection And to followup with Dr. Russell. documented in this encounter Plan of Treatment Date Type Specialty Care Team Description 05/03/2019 Office Visit Dermatology Salvatore Dennis MD [address] [place] [address]. [place] [address] 05/09/2019 Office Visit Orthopedic Surgery Reza Galo MD 301 [facility] [id number] [place] [address] [phone] 05/25/2019 Office Visit Cardiology Jose Maria Brown MD [address] MARY [address] [place] [phone] 06/02/2019 Office Visit Orthopedic Surgery Reza Galo MD [address] [id number] [place] [address] [phone] 06/27/2019 Office Visit Endocrinology Diabetes & Beverly Stack MD Metabolism 07/07/2019 Office Visit Pulmonary Disease Leonardo Garza DO [address] [place] [phone] 07/14/2019 Office Visit Internal Medicine Chintan Palomino [address] [place], [place] 194085 Health Maintenance Due Date Last Done Comments [...] filedocumented in this encounter Visit Diagnoses Diagnosis Encounter for removal of sutures - Primary documented in this encounter Insurance Payer Benefit Plan Subscriber ID Effective Phone Address Type / Group Dates [facility] MEDICARE [id number] 2019-Pres Medicare Adv HEALTHCARE COMPLETE ent PPO MEDICARE CHOICE ADVANTAGE [facility] MEDICAID OF xxxxxxxxx 2019-Pres [phone] [address] Medicaid [place] ent [phone] [id number] [place] [address] documented as of this encounter
--- OUTSIDE RECORDS SUMMARY | 2019-05-22 14:47 | XMS REPORT | Summary of Care ---
:1960 Author Organization [facility] Address [address] [place] [address] Care Team Providers Name Role Phone 1, [...] CONSULT/REFERRAL PSYCHIATRY ADULT A Primary Care 301 [facility], [place], [place] [address] [place] [address] [place] Phone: [phone] Reason for Visit Reason Comments Hypertension Encounter Details Date Type Department Care Team Description 04/12/2019 Office Visit [facility] Internal Chintan Palomino Panic disorder (Primary Dx); Medicine- [place] 301 [facility] [address]67 Anxiety; Primary Care [place], [place] Chronic obstructive pulmonary disease, unspecified COPD type [address], [address] [place] [address] Allergies Active Allergy Reactions Severity [...] lower stomach (per patient) ICD10 Diagnosis Term Radio Electronics Officer Utility Female genital symptoms 02/15/2008 Overview: ICD10 Diagnosis Term Radio Electronics Officer Utility documented as of this encounter (statuses as of 04/26/2019) Resolved Problems Problem Noted Date Resolved Date Hematuria 12/20/2015 08/03/2016 Acute bronchitis, unspecified organism 11/08/2015 08/03/2016 Influenza with respiratory manifestation other than 02/15/2008 08/03/2016 pneumonia Overview: ICD10 Diagnosis Term Radio Electronics Officer Utility documented as of this encounter (statuses [...] she was prescribed Lexapro in attempt for terminal carman control, and follow up today for response. [...] Visit Orthopedic Surgery Reza Galo MD [address] [address] 05/25/2019 Office Visit Cardiology Jose Maria Brown MD [address] [address] 06/02/2019 Office Visit Orthopedic Surgery Reza Gaol MD 301 [facility] [id number] [place] [phone] 06/12/2019 Office Visit Dermatology Salvatore Dennis MD [address] [place] [phone] 06/27/2019 Office Visit Endocrinology Diabetes & Beverly Stack MD Metabolism 07/07/2019 Office Visit Pulmonary Disease Leonardo Garza, [address] [place] [address] 07/14/2019 Office Visit Internal Medicine Chintan Palomino [address] [place] [address] [address] [place], [place] [phone] Health Maintenance Due Date Last Done Comments [...] Type / Group Dates UNITED UHC MEDICARE [id number] 2019-Pres Medicare Adv HEALTHCARE COMPLETE ent PPO MEDICARE CHOICE ADVANTAGE [facility] MEDICAID OF xxxxxxxxx 2019-Pres [phone] [address] Medicaid [place] ent 900 [id number] [place] [address] documented as of this encounter
--- OUTSIDE RECORDS SUMMARY | 2019-05-22 14:47 | XMS REPORT | Summary of Care ---
:1960 Author Organization [facility] - [facility] Address [address] [place] [address] Care Team Providers Name Role Phone Pcp, Patient Does Not Have A Primary Care Provider Reason for Visit Reason Comments Refill Request Encounter Details Date Type Department Care Team Description 05/10/2019 Telephone [facility] Orthopaedic Reza Galo MD Refill Request Surgery- [place] [address] [place] [address] [id number] [address] [address] [place] [address] Allergies Active Allergy Reactions Severity Noted Date Comments Amoxicillin-Pot Other - See comments 03/30/2017 Tongue pain, Clavulanate swelling Cephalexin Itching, Rash 06/14/2017 Nitrofurantoin Dizziness 06/14/2017 Monohyd/M-Cryst Sulfa (Sulfonamide Hives 03/21/2007 Antibiotics) Tetracycline Rash 03/21/2007 Off balance, doesn't feel right. documented as of this encounter (statuses as of 05/12/2019) Medications Medication Sig Dispensed Refills Start End [...] bedtime. fluticasone-salmeterol Inhale 1 Puff 60 Each Active (ADVAIR DISKUS) 250-50 every 12 9 mcg/dose inhalation disk (twelve) hours. 1 puff twice a day rinse mouth after use albuterol 90 Inhale 2 1 Inhaler Active mcg/actuation inhaler Puffs every 6 9 (six) hours as needed for Wheezing or Shortness of Breath. STOOL SOFTENER 250 mg TAKE ONE 30 [...] mg Take 1 tablet 28 tablet 0 Active tabletIndications: by mouth 9 019 Kerion due to daily for 28 trichophyton days. ketoconazole 2 % Apply to 120 mL 1 Active shampooIndications: area(s) once 9 Kerion due to daily as trichophyton needed for Itching. traMADol 50 mg Take 1 tablet 40 tablet 0 Active tabletIndications: by mouth 9 Arthritis of knee every 6 (six) hours as needed for Pain (scale 4-6) or Pain (scale 7-10). traMADOL 50 mg Take 1 tablet 40 tablet 2 Discontinued tabletIndications: by mouth 9 019 Arthritis of knee every 6 (six) hours as needed for Pain (scale 4-6) or Pain (scale 7-10). documented as of this encounter (statuses as of 05/12/2019) Active Problems Problem Noted Date Prediabetes 08/15/2018 [...] lower stomach (per patient) ICD10 Diagnosis Term Cvicu Nurse Utility Female genital symptoms 02/15/2008 Overview: ICD10 Diagnosis Term Cvicu Nurse Utility documented as of this encounter (statuses as of 05/12/2019) Resolved Problems Problem Noted Date Resolved Date Hematuria 12/20/2015 08/03/2016 Acute bronchitis, unspecified organism 11/08/2015 08/03/2016 Influenza with respiratory manifestation other than 02/15/2008 08/03/2016 pneumonia Overview: ICD10 Diagnosis Term Cvicu Nurse Utility documented as of this encounter (statuses as of 05/12/2019) Immunizations Name Administration Dates Next Due Pneumococcal [...] Treatment Date Type Specialty Care Team Description 06/02/2019 Office Visit Orthopedic Surgery Reza Galo MD [address] [place] [address] [id number] [place] [address] [phone] 06/12/2019 Office Visit Dermatology Salvatore Dennis MD [address] [place] [address]. [place] [address] 06/27/2019 Office Visit Endocrinology Diabetes & Beverly Stack MD [facility] 07/07/2019 Office Visit Pulmonary Disease Leonardo Garza DO [address] [place] [address] [phone] 07/14/2019 Office Visit Internal Medicine Chintan Palomino [facility] [address] [place], [place] [phone] Health Maintenance Due Date Last Done Comments DTaP,Tdap,and Td Vaccines (1 - 1979 Tdap) Zoster Recombinant Vaccine 2010 (SHINGRIX) (1 of 2) LUNG CANCER SCREEN: Recommended 05/12/2017 05/12/2016 for age 55-80 with 30 + pack year history INFLUENZA VACCINE (#1) 2019 MAMMOGRAM 09/12/2019 09/12/2018, 09/10/2017, 09/04/2016, Additional history exists PNEUMOCOCCAL 0-64 YEARS COMBINED 06/04/2021 08/15/2018, 06/04/2016 SERIES (3 of 3 - PPSV23) COLONOSCOPY 07/30/2021 07/30/2011 (Previously completed) PAP SMEAR Discontinued 03/19/2008 HEPATITIS C (HCV) SCREEN Completed 10/14/2016 documented as of this encounter Results Not on filedocumented in this encounter Visit Diagnoses Diagnosis Arthritis of knee Unspecified arthropathy, lower leg documented in this encounter Insurance Payer Benefit Plan Subscriber ID Effective Phone Address Type / Group Dates [facility] MEDICARE [id number] 2019-Pres Medicare Adv HEALTHCARE COMPLETE ent PPO MEDICARE CHOICE ADVANTAGE [facility] MEDICAID OF xxxxxxxxx 2019-Pres [phone] Medicaid [place] ent [phone] [id number] [place] [address] documented as of this encounter
--- OUTSIDE RECORDS SUMMARY | 2019-05-22 14:47 | XMS REPORT | Summary of Care ---
:1960 Author Organization [facility] Address [address] [place] [address] Care Team Providers Name Role Phone Pcp, Patient Does Not Have A Primary Care Provider Reason for Visit Reason Comments Forms Encounter Details Date Type Department Care Team Description 05/10/2019 Telephone [facility] Cardiology- Jose Maria Brown MD Forms [place] [address], [address] [place] [address] [place] [address] Allergies Active Allergy Reactions Severity Noted Date Comments Amoxicillin-Pot Other - See comments 03/30/2017 Tongue pain, Clavulanate swelling Cephalexin Itching, Rash 06/14/2017 Nitrofurantoin Dizziness 06/14/2017 Monohyd/M-Cryst Sulfa (Sulfonamide Hives 03/21/2007 Antibiotics) Tetracycline Rash 03/21/2007 Off balance, doesn't feel right. 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 Furnace Operator Utility Female genital symptoms 02/15/2008 Overview: ICD10 Diagnosis Term Brazing Furnace Operator Utility documented as of this encounter (statuses as of 05/11/2019) Resolved Problems Problem Noted Date Resolved Date Hematuria 12/20/2015 08/03/2016 Acute bronchitis, unspecified organism 11/08/2015 08/03/2016 Influenza with respiratory manifestation other than 02/15/2008 08/03/2016 pneumonia Overview: ICD10 Diagnosis Term Brazing Furnace Operator Utility documented as of this encounter (statuses as of 05/11/2019) Immunizations Name Administration Dates Next Due Pneumococcal [...] Surgery Reza Galo MD 301 [facility] [address] [place] [address] [phone] 06/12/2019 Office Visit Dermatology Salvatore Dennis MD [address] [place] [address]. [place] [phone] 06/27/2019 Office Visit Endocrinology Diabetes & Beverly Stack MD Metabolism 07/07/2019 Office Visit Pulmonary Disease Leonardo Garza DO [address] [place] [phone] 07/14/2019 Office Visit Internal Medicine Chintan Palomino 301 [facility] [address] [place], [place] [address]25[address] Health Maintenance Due Date Last Done Comments [...] Results Not on filedocumented in this encounter Insurance Payer Benefit Plan Subscriber ID Effective Phone Address Type / Group Dates [place] UHC MEDICARE [id number] 2019-Pres Medicare Adv HEALTHCARE COMPLETE ent PPO MEDICARE CHOICE ADVANTAGE [facility] MEDICAID OF xxxxxxxxx 2019-Pres [phone] Medicaid [place] ent 900 [id number] [place] [address] documented as of this encounter
--- OUTSIDE RECORDS SUMMARY | 2019-05-22 14:47 | XMS REPORT | Summary of Care ---
:1960 Author Organization [facility] - [facility] Address [address] [place] [id number] Care Team Providers Name Role Phone Unavailable Primary Care Provider Unavailable Reason for Visit Reason Comments Rx Concern/Question Encounter Details Date Type Department Care Team Description 05/02/2019 Telephone [facility] Orthopaedic Reza Galo MD Rx Concern/Question Surgery- [facility] [address] [place] [address] [id number] [address] [address] [place] [phone] Allergies Active Allergy Reactions Severity Noted Date Comments Amoxicillin-Pot Other - See comments 03/30/2017 Tongue pain, Clavulanate swelling Cephalexin Itching, Rash 06/14/2017 Nitrofurantoin Dizziness 06/14/2017 Monohyd/M-Cryst Sulfa (Sulfonamide Hives 03/21/2007 Antibiotics) Tetracycline Rash 03/21/2007 Off balance, doesn't feel right. documented as of this encounter (statuses as of 05/08/2019) Medications Medication Sig Dispensed Refills Start Date End Date Status Estradiol (VAGIFEM) 10 mcg Insert 1 30 tablet 6 03/30/2017 Active tabletIndications: tablet into Post-menopause atrophic vagina vaginitis SEE-INSTRUCTIO NEYMAR. ipratropium 0.03 % nasal Use 2 Sprays [...] as of this encounter (statuses as of 05/08/2019) Active Problems Problem Noted Date Prediabetes 08/15/2018 [...] lower stomach (per patient) ICD10 Diagnosis Term Cafeteria Table Attendant Utility Female genital symptoms 02/15/2008 Overview: ICD10 Diagnosis Term Cafeteria Table Attendant Utility documented as of this encounter (statuses as of 05/08/2019) Resolved Problems Problem Noted Date Resolved Date Hematuria 12/20/2015 08/03/2016 Acute bronchitis, unspecified organism 11/08/2015 08/03/2016 Influenza with respiratory manifestation other than 02/15/2008 08/03/2016 pneumonia Overview: ICD10 Diagnosis Term Cafeteria Table Attendant Utility documented as of this encounter (statuses as of 05/08/2019) Immunizations Name Administration Dates Next Due Pneumococcal [...] Office Visit Orthopedic Surgery Reza Galo MD [address] [place] [address] [phone] 06/02/2019 Office Visit Orthopedic Surgery Reza Galo MD [address] [place] [address] [phone] 06/12/2019 Office Visit Dermatology Salvatore Dennis MD [address] [place] [phone] 06/27/2019 Office Visit Endocrinology Diabetes & Beverly Stack MD Metabolism 07/07/2019 Office Visit Pulmonary Disease Leonardo Garza DO [address] [place] [address] [phone] 07/14/2019 Office Visit Internal Medicine Chintan Palomino [address] [place] [address] [id number] [place] [address] [phone] Health Maintenance Due Date Last Done Comments [...] Effective Phone Address Type / Group Dates [facility] MEDICARE [id number] 2019-Pres Medicare Adv HEALTHCARE COMPLETE ent PPO MEDICARE CHOICE ADVANTAGE [facility] MEDICAID OF xxxxxxxxx 2019-Pres [phone] Medicaid [place] ent [id number] [place] [address] documented as of this encounter
[2019-05-22 15:20] LABS: Urine Blood NEGATIVE (NEG); Urine Glucose NEGATIVE (NEG); Urine Protein NEGATIVE (NEG); Urine pH 5.5 (5.0-7.0)
[2019-05-22 15:26] LABS: Urine RBC <5 /HPF (NONE SEEN)
[2019-05-22 15:27] LABS: Urine Bacteria 20-50 /HPF (<20); Urine Culture Reflex Order REFLEXED; Urine Mucus 3+ /HPF (NONE SEEN)
--- NOTE | 2019-05-22 16:07 | ER ---
Nurse's Notes [facility] Name: Jessica Harrington Age: 59 yrs Sex: Female : 1960 Arrival Date: 05/22/2019 Time: 14:50 Bed 20 Private MD: Diagnosis: Urinary tract infection, site not specified Presentation: 05/22 14:54 Presenting complaint: Patient states: "I just got done taking some antibiotics for aa5 dental work and now I think I have a yeast infection". Pt also reports urinary frequency. Transition of care: patient was not received from another setting of care. Onset of symptoms was May 2019. Risk Assessment: Do you want to hurt yourself or someone else? Patient reports no desire to harm self or others. Initial Sepsis Screen: Does the patient meet any 2 criteria? No. Patient's initial sepsis screen is negative. Does the patient have a suspected source of infection? No. Patient's initial sepsis screen is negative. Care prior to arrival: None. 14:54 Acuity: JE 4 aa5 14:54 Method Of Arrival: Ambulatory aa5 Triage Assessment: 15:00 General: Appears in no apparent distress. comfortable, Behavior is calm, cooperative, bp appropriate for age. Pain: Complains of pain in pelvis. EENT: No deficits noted. Neuro: No deficits noted. Cardiovascular: No deficits noted. Respiratory: No deficits noted. GI: No signs and/or symptoms were reported involving the gastrointestinal system. : Reports vaginal itching. Derm: No deficits noted. Musculoskeletal: No deficits noted. Historical: - Allergies: 14:58 Sulfa (Sulfonamide Antibiotics); aa5 - Home Meds: 14:58 Enalapril Oral [Active]; Xanax Oral [Active]; atorvastatin oral oral [Active]; aa5 Omeprazole Oral [Active]; Ranitidine Oral [Active]; - PMHx: 14:58 Hypertension; Anxiety; Hyperlipidemia; Acid Reflux; aa5 - PSHx: 14:58 Appendectomy; Tonsillectomy; ; exploratory sx; aa5 - Immunization history:: Pneumococcal vaccine is up to date, Flu vaccine is not up to date. - Social history:: Smoking status: Patient uses tobacco products, denies chronic smoking, but will smoke occasionally. - Ebola Screening: : No symptoms or risks identified at this time. Screenin:01 Abuse screen: Denies threats or abuse. Denies injuries from another. Nutritional bp screening: No deficits noted. Tuberculosis screening: No symptoms or risk factors identified. Fall Risk None identified. Assessment: 15:01 General: SEE TRIAGE NOTE. bp 16:26 Reassessment: PT D/C HOME AMBULATORY, DX WITH UTI AND YEAST INFECTION. bp Vital Signs: 14:58 BP 139 / 90; Pulse 78; Resp 16 S; Temp 98.3(TE); Pulse Ox 98% on R/A; Weight 63.5 kg aa5 (R); Height 5 ft. 2 in. (157.48 cm) (R); 16:27 BP 141 / 85; Pulse 82; Resp 17; Temp 98.5; Pulse Ox 98% ; bp 14:58 Body Mass Index 25.61 (63.50 kg, 157.48 cm) aa5 ED Course: 14:50 Patient arrived in ED. mr 14:54 Arm band placed on. aa5 14:55 Triage completed. aa5 15:00 Reza Farnsworth, LARRY is Primary Nurse. bp 15:01 Patient has correct armband on for positive identification. Bed in low position. Call bp light in reach. Side rails up X2. 15:02 Alex Dennis NP is PHCP. pm1 15:02 Miguelito Romeo MD is Attending Physician. pm1 15:13 Urine Microscopic Only Sent. mh5 16:27 No provider procedures requiring assistance completed. Patient did not have IV access bp during this emergency room visit. Administered Medications: No medications were administered Outcome: 16:06 Discharge ordered by MD. pm1 16:27 Discharged to home ambulatory. bp 16:27 Condition: stable 16:27 Discharge instructions given to patient, Instructed on discharge instructions, follow up and referral plans. medication usage, Demonstrated understanding of instructions, follow-up care, medications, Prescriptions given X 3. 16:28 Patient left the ED. bp Signatures: Elli Dailey mr PooleCrystal RN RN 5 Alex Dennis NP PRINT PRODUCTION ASSOCIATE pm1 Alisson Clark 5 Reza Farnsworth, LARRY RN bp Corrections: (The following items were deleted from the chart) 14:55 14:54 Presenting complaint: Patient states: "I just got done taking some antibiotics aa5 for dental work and now I think I have a yeast infection" aa5
--- NOTE | 2019-05-22 16:07 | EDPHYS ---
Physician Documentation [facility] Name: Jessica Harrington Age: 59 yrs Sex: Female : 1960 Arrival Date: 05/22/2019 Time: 14:50 Bed 20 Private MD: ED Physician Miguelito Romeo HPI: 05/22 15:22 This 59 yrs old Black Female presents to ER via Ambulatory with complaints of Urinary pm1 Problem. 15:22 The patient presents with itching and burning with urination. Onset: The pm1 symptoms/episode began/occurred yesterday. Modifying factors: The symptoms are alleviated by nothing, the symptoms are aggravated by urinating. Associated signs and symptoms: Pertinent positives: dysuria, Pertinent negatives: fever, nausea, vomiting. Severity of symptoms: in the emergency department the symptoms are actually worse. The patient has experienced similar episodes in the past, antibiotics give her yeast infections often. Patient also douched due to symptoms of yeast infection that gave some relief. Patient completed antibiotics, Cipro, for dental issues. Historical: - Allergies: 14:58 Sulfa (Sulfonamide Antibiotics); aa5 - Home Meds: 14:58 Enalapril Oral [Active]; Xanax Oral [Active]; atorvastatin oral oral [Active]; aa5 Omeprazole Oral [Active]; Ranitidine Oral [Active]; - PMHx: 14:58 Hypertension; Anxiety; Hyperlipidemia; Acid Reflux; aa5 - PSHx: 14:58 Appendectomy; Tonsillectomy; ; exploratory sx; aa5 - Immunization history:: Pneumococcal vaccine is up to date, Flu vaccine is not up to date. - Social history:: Smoking status: Patient uses tobacco products, denies chronic smoking, but will smoke occasionally. - Ebola Screening: : No symptoms or risks identified at this time. ROS: 15:22 Positive for burning with urination, vaginal itching, Negative for pelvic pain, pm1 flank pain. 15:22 Constitutional: Negative for fever, chills, and weight loss, Eyes: Negative for injury, pain, redness, and discharge, ENT: Negative for injury, pain, and discharge, Neck: Negative for injury, pain, and swelling, Cardiovascular: Negative for chest pain, palpitations, and edema, Respiratory: Negative for shortness of breath, cough, wheezing, and pleuritic chest pain, Abdomen/GI: Negative for abdominal pain, nausea, vomiting, diarrhea, and constipation, Back: Negative for injury and pain, MS/Extremity: Negative for injury and deformity, Skin: Negative for injury, rash, and discoloration, Neuro: Negative for headache, weakness, numbness, tingling, and seizure. Exam: 15:22 Constitutional: This is a well developed, well nourished patient who is awake, alert, pm1 and in no acute distress. Head/Face: Normocephalic, atraumatic. Chest/axilla: Normal chest wall appearance and motion. Nontender with no deformity. No lesions are appreciated. Cardiovascular: Regular rate and rhythm with a normal S1 and S2. No gallops, murmurs, or rubs. Normal PMI, no JVD. No pulse deficits. Respiratory: Lungs have equal breath sounds bilaterally, clear to auscultation and percussion. No rales, rhonchi or wheezes noted. No increased work of breathing, no retractions or nasal flaring. Abdomen/GI: Soft, non-tender, with normal bowel sounds. No distension or tympany. No guarding or rebound. No evidence of tenderness throughout. Back: No spinal tenderness. No costovertebral tenderness. Full range of motion. Skin: Warm, dry with normal turgor. Normal color with no rashes, no lesions, and no evidence of cellulitis. MS/ Extremity: Pulses equal, no cyanosis. Neurovascular intact. Full, normal range of motion. 15:22 Neuro: Orientation: is normal, Motor: is normal, moves all fours, Sensation: is normal, no obvious gross deficits. Vital Signs: 14:58 BP 139 / 90; Pulse 78; Resp 16 S; Temp 98.3(TE); Pulse Ox 98% on R/A; Weight 63.5 kg aa5 (R); Height 5 ft. 2 in. (157.48 cm) (R); 16:27 BP 141 / 85; Pulse 82; Resp 17; Temp 98.5; Pulse Ox 98% ; bp 14:58 Body Mass Index 25.61 (63.50 kg, 157.48 cm) aa5 MDM: 15:03 Patient medically screened. pm1 15:26 Data reviewed: vital signs. Data interpreted: Pulse oximetry: on room air is 98 %. pm1 Interpretation: normal. 16:04 Counseling: I had a detailed discussion with the patient and/or guardian regarding: the pm1 historical points, exam findings, and any diagnostic results supporting the discharge/admit diagnosis, lab results, the need for outpatient follow up, to return to the emergency department if symptoms worsen or persist or if there are any questions or concerns that arise at home. 05/22 15:03 Order name: Urine Microscopic Only; Complete Time: 15:57 pm1 05/22 15:13 Order name: Urine Dipstick--Ancillary (enter results); Complete Time: 15:57 bd 05/22 15:03 Order name: Urine Dipstick-Ancillary (obtain specimen); Complete Time: 15:07 pm1 05/22 15:03 Order name: Urine Test (obtain specimen); Complete Time: 15:07 pm1 05/22 15:31 Order name: Urine Culture EDMS Administered Medications: No medications were administered Disposition: 17:09 Co-signature as Attending Physician, Miguelito Romeo MD. rn Disposition: 05/22/19 16:06 Discharged to Home. Impression: Urinary tract infection, site not specified. - Condition is Stable. - Discharge Instructions: Urinary Tract Infection, Adult, Vaginal Yeast Infection, Adult. - Prescriptions for Pyridium 200 mg Oral Tablet - take 1 tablet by ORAL route every 8 hours for 3 days; 9 tablet. Diflucan 150 mg Oral Tablet - take 1 tablet by ORAL route one time for 1 day; 1 tablet. Macrobid 100 mg Oral Capsule - take 1 capsule by ORAL route every 12 hours for 7 days; 14 capsule. Ibuprofen 600 mg Oral Tablet - take 1 tablet by ORAL route every 6 hours As needed take with food; 30 tablet. - Medication Reconciliation Form, Thank You Letter, Antibiotic Education, Prescription Opioid Use form. - Follow up: Emergency Department; When: As needed; Reason: Worsening of condition. Follow up: Private Physician; When: 2 - 3 days; Reason: Recheck today's complaints, Continuance of care, Re-evaluation by your physician. - Problem is new. - Symptoms have improved. Signatures: Dispatcher [employer] EDMS Miguelito Romeo MD MD rn Calderon, Audri, RN RN aa5 Alex Dennis, ROSAURA RESIDENT PHYSICIAN IN RADIOLOGY pm1 Reza Farnsworth RN RN bp Corrections: (The following items were deleted from the chart) 16:28 16:06 05/22/2019 16:06 Discharged to Home. Impression: Urinary tract infection, site bp not specified. Condition is Stable. Forms are Medication Reconciliation Form, Thank You Letter, Antibiotic Education, Prescription Opioid Use. Follow up: Emergency Department; When: As needed; Reason: Worsening of condition. Follow up: Private Physician; When: 2 - 3 days; Reason: Recheck today's complaints, Continuance of care, Re-evaluation by your physician. Problem is new. Symptoms have improved. pm1
[2019-05-22 18:41] VITALS: O2SAT 98
[2019-05-22 18:43] VITALS: BP 141/85; TEMP 98.5
== END 2019-05-22 16:28 | disposition home or self-care (01) ==
LOC: ER 14:42
DX: N39.0 Urinary tract infection, site not specified (principal); I10 Essential (primary) hypertension; F41.9 Anxiety disorder, unspecified; E78.5 Hyperlipidemia, unspecified; Z88.2 Allergy status to sulfonamides
CPT/HCPCS: 81003; 81015; 87086; 87088; 99283

== ENCOUNTER 2019-06-28 06:34 | Emergency (ER) | payer OTHER ==
[2019-06-28 08:04] LABS: Absolute Lymphocytes (CBC) 2.1 K/uL (0.7-4.9); Basophils % 1.2 % (0-1.3); Hematocrit 44.2 % (36.0-45.0); Lymphocytes % 29.1 % (15.3-44.8); MPV 7.8 fL (7.6-11.3); RBC Red Blood Cell Count 5.12 M/uL (3.86-4.86)
[2019-06-28 08:20] LABS: ALT/SGPT 7 U/L (12-78); AST/SGOT 11 U/L (15-37); Albumin 4.3 g/dL (3.4-5.0); Alkaline Phosphatase 143 U/L (45-117); BUN Blood Urea Nitrogen 10 mg/dL (7-18); Bicarbonate 27 mmol/L (21-32); Bilirubin Direct 0.1 mg/dL (0-0.2); Bilirubin Total 0.6 mg/dL (0.2-1.0); Glucose Level 104 mg/dL (74-106); Lipase 70 U/L (73-393); Potassium 3.7 mmol/L (3.5-5.1); Sodium Level 140 mmol/L (136-145)
[2019-06-28] MEDS ORDERED: NA CHLORIDE 0.9% 0 ML ONE (08:22)
[2019-06-28] MEDS ORDERED: NA CHLORIDE 0.9% 1,000 ML ONE (08:35)
[2019-06-28 08:47] LABS: Urine Blood TRACE (NEG); Urine Glucose NEGATIVE (NEG); Urine Protein NEGATIVE (NEG)
--- NOTE | 2019-06-28 09:01 | ER ---
Nurse's Notes [facility] Name: Jessica Harrington Age: 59 yrs Sex: Female : 1960 Arrival Date: 06/28/2019 Time: 06:37 Bed 6 Private MD: Diagnosis: Diarrhea, unspecified Presentation: 06/28 06:52 Presenting complaint: Patient states: Indigestion x 2 days, took Milk of Magnesia for lp1 constipation with some relief but is now having lower abdominal pain; "I feel like I'm running a low grade fever since I have the chills". Transition of care: patient was not received from another setting of care. Onset of symptoms was June 28, 2019. Risk Assessment: Do you want to hurt yourself or someone else? Patient reports no desire to harm self or others. Initial Sepsis Screen: Does the patient meet any 2 criteria? No. Patient's initial sepsis screen is negative. Does the patient have a suspected source of infection? No. Patient's initial sepsis screen is negative. Care prior to arrival: None. 06:52 Method Of Arrival: Ambulatory lp1 06:52 Acuity: JE 3 lp1 Triage Assessment: 06:57 General: Appears in no apparent distress. Behavior is calm, cooperative. Pain: lp1 Complains of pain in right lower quadrant and left lower quadrant. GI: Abdomen is non-distended, Bowel sounds present X 4 quads. Abdomen is tender to palpation in right lower quadrant and left lower quadrant. Derm: Skin is intact, Skin is dry, Skin is normal. Historical: - Allergies: 06:57 Sulfa (Sulfonamide Antibiotics); lp1 - Home Meds: 06:57 Omeprazole Oral [Active]; Xanax 1 mg oral tab PRN for Anxiety [Active]; verapamil 100 lp1 mg Oral CPCT 1 cap once daily [Active]; Hydroxyzine Oral [Active]; - PMHx: 06:57 acid reflux; Anxiety; Hyperlipidemia; Hypertension; lp1 - PSHx: 06:57 Appendectomy; Tonsillectomy; ; Hysterectomy; lp1 - Immunization history:: Adult Immunizations up to date. - Social history:: Smoking status: Patient uses tobacco products, denies chronic smoking, but will smoke occasionally. - Ebola Screening: : No symptoms or risks identified at this time. Screenin:57 Abuse screen: Denies threats or abuse. Denies injuries from another. Nutritional lp1 screening: No deficits noted. Tuberculosis screening: No symptoms or risk factors identified. Fall Risk None identified. Assessment: 07:40 General: Appears in no apparent distress. comfortable, Behavior is calm, cooperative, sv appropriate for age. Pain: Complains of pain in left lower quadrant and right lower quadrant Pain currently is 2 out of 10 on a pain scale. Is intermittent. Neuro: Level of Consciousness is awake, alert, obeys commands, Oriented to person, place, time, situation, Moves all extremities. Full function. Respiratory: Respiratory effort is even, unlabored, Respiratory pattern is regular, symmetrical. GI: Reports lower abdominal pain, constipation, indigestion. Derm: Skin is normal. 08:36 Reassessment: Patient appears in no apparent distress at this time. No changes from sv previously documented assessment. Patient and/or family updated on plan of care and expected duration. Pain level reassessed. Patient is alert, oriented x 3, equal unlabored respirations, skin warm/dry/pink. Vital Signs: 06:55 BP 169 / 82; Pulse 71; Resp 18; Temp 98(O); Pulse Ox 100% on R/A; Weight 61.23 kg; lp1 Height 5 ft. 2 in. (157.48 cm); Pain 2/10; 08:05 BP 155 / 105; Pulse 62; Resp 16; Pulse Ox 100% ; sv 08:36 BP 155 / 90; Pulse 58; Resp 16; Pulse Ox 99% ; sv 09:43 BP 174 / 80; Pulse 58; Resp 17; Temp 97.6(TE); Pulse Ox 100% on R/A; mh5 06:55 Body Mass Index 24.69 (61.23 kg, 157.48 cm) lp1 ED Course: 06:37 Patient arrived in ED. ds1 06:42 Lil[facility]ay[facility]C [facility] kb 06:42 Miguelito Romeo MD is Attending Physician. kb 06:55 Triage completed. lp1 06:55 Arm band placed on. lp1 06:57 Patient has correct armband on for positive identification. lp1 07:41 Esperanza Gibbs RN is Primary Nurse. sv 07:45 Missed attempt(s): 22 gauge in right antecubital area. Bleeding controlled, band aid sv applied, catheter tip intact. 07:50 Inserted saline lock: 20 gauge in right wrist, using aseptic technique. Blood sv collected. Flushed right with 5 ml normal saline. 08:07 Awaiting lab results. sv 09:38 IV discontinued, Pressure dressing applied. mh5 09:40 No provider procedures requiring assistance completed. IV discontinued, intact, sg bleeding controlled, No redness/swelling at site. Pressure dressing applied. Administered Medications: 08:36 Drug: NS 0.9% 1000 ml Route: IV; Rate: 1000 ml; Site: right wrist; sv Outcome: 09:00 Discharge ordered by . kb 09:40 Discharged to home ambulatory, with family. sg 09:40 Condition: good 09:40 Discharge instructions given to patient, Instructed on discharge instructions, follow up and referral plans. safety practices, Demonstrated understanding of instructions, follow-up care. 09:44 Patient left the ED. sg Signatures: Liliana Tamayo, FORENSIC SCIENTIST-C FORENSIC SCIENTIST-CkEsperanza Mills RN RN sv Gay, Steven, RN RN Lorena Mcfadden Caro Garcia RN RN [facility] Alisson Clark [facility]
--- NOTE | 2019-06-28 09:01 | EDPHYS ---
Physician Documentation [facility] Name: Jessica Harrington Age: 59 yrs Sex: Female : 1960 Arrival Date: 06/28/2019 Time: 06:37 Bed 6 Private MD: ED Physician Miguelito Romeo HPI: 06/28 06:50 This 59 yrs old Black Female presents to ER via Unassigned with complaints of Abdominal kb Pain, Chills. 06:50 The patient presents with abdominal pain in the lower abdomen. Onset: The kb symptoms/episode began/occurred this morning. The symptoms do not radiate. Associated signs and symptoms: Pertinent positives: diarrhea. The symptoms are described as vague. Modifying factors: The symptoms are alleviated by nothing, the symptoms are aggravated by nothing. Severity of pain: At its worst the pain was moderate in the emergency department the pain is unchanged. The patient has not experienced similar symptoms in the past. The patient has not recently seen a physician. Pt reports she was feeling bloated and constipated so she took some milk of magnesia and now she has diarrhea. Reports she has also had chills and suprapubic discomfort. Came in because she was worried about getting dehydrated from the diarrhea. . Historical: - Allergies: 06:57 Sulfa (Sulfonamide Antibiotics); lp1 - Home Meds: 06:57 Omeprazole Oral [Active]; Xanax 1 mg oral tab PRN for Anxiety [Active]; verapamil 100 lp1 mg Oral CPCT 1 cap once daily [Active]; Hydroxyzine Oral [Active]; - PMHx: 06:57 acid reflux; Anxiety; Hyperlipidemia; Hypertension; lp1 - PSHx: 06:57 Appendectomy; Tonsillectomy; ; Hysterectomy; lp1 - Immunization history:: Adult Immunizations up to date. - Social history:: Smoking status: Patient uses tobacco products, denies chronic smoking, but will smoke occasionally. - Ebola Screening: : No symptoms or risks identified at this time. ROS: 06:50 Cardiovascular: Negative for chest pain, palpitations, and edema, Respiratory: Negative kb for shortness of breath, cough, wheezing, and pleuritic chest pain, Back: Negative for injury and pain, : Negative for injury, bleeding, discharge, and swelling, MS/Extremity: Negative for injury and deformity, Skin: Negative for injury, rash, and discoloration, Neuro: Negative for headache, weakness, numbness, tingling, and seizure. 06:50 Constitutional: Positive for chills. 06:50 Abdomen/GI: Positive for abdominal pain, diarrhea. Exam: 06:50 Constitutional: This is a well developed, well nourished patient who is awake, alert, kb and in no acute distress. Head/Face: Normocephalic, atraumatic. Neck: Trachea midline, no thyromegaly or masses palpated, and no cervical lymphadenopathy. Supple, full range of motion without nuchal rigidity, or vertebral point tenderness. No Meningismus. Chest/axilla: Normal chest wall appearance and motion. Nontender with no deformity. No lesions are appreciated. Cardiovascular: Regular rate and rhythm with a normal S1 and S2. No gallops, murmurs, or rubs. Normal PMI, no JVD. No pulse deficits. Respiratory: Lungs have equal breath sounds bilaterally, clear to auscultation and percussion. No rales, rhonchi or wheezes noted. No increased work of breathing, no retractions or nasal flaring. Abdomen/GI: Soft, non-tender, with normal bowel sounds. No distension or tympany. No guarding or rebound. No evidence of tenderness throughout. Back: No spinal tenderness. No costovertebral tenderness. Full range of motion. Skin: Warm, dry with normal turgor. Normal color with no rashes, no lesions, and no evidence of cellulitis. MS/ Extremity: Pulses equal, no cyanosis. Neurovascular intact. Full, normal range of motion. Neuro: Awake and alert, GCS 15, oriented to person, place, time, and situation. Cranial nerves II-XII grossly intact. Motor strength 5/5 in all extremities. Sensory grossly intact. Cerebellar exam normal. Normal gait. Vital Signs: 06:55 BP 169 / 82; Pulse 71; Resp 18; Temp 98(O); Pulse Ox 100% on R/A; Weight 61.23 kg; lp1 Height 5 ft. 2 in. (157.48 cm); Pain 2/10; 08:05 BP 155 / 105; Pulse 62; Resp 16; Pulse Ox 100% ; sv 08:36 BP 155 / 90; Pulse 58; Resp 16; Pulse Ox 99% ; sv 09:43 BP 174 / 80; Pulse 58; Resp 17; Temp 97.6(TE); Pulse Ox 100% on R/A; mh5 06:55 Body Mass Index 24.69 (61.23 kg, 157.48 cm) lp1 MDM: 06:42 Patient medically screened. kb 06:54 Data reviewed: vital signs, nurses notes. Data interpreted: Pulse oximetry: on room air kb is 100 %. Interpretation: normal. 08:58 Counseling: I had a detailed discussion with the patient and/or guardian regarding: the kb historical points, exam findings, and any diagnostic results supporting the discharge/admit diagnosis, lab results, the need for outpatient follow up, a family practitioner, to return to the emergency department if symptoms worsen or persist or if there are any questions or concerns that arise at home. ED course: Educated to increase fluids to stay hydrated. 06/28 06:48 Order name: Basic Metabolic Panel; Complete Time: 08:21 kb 06/28 06:48 Order name: CBC with Diff; Complete Time: 08:18 kb 06/28 06:48 Order name: Hepatic Function; Complete Time: 08:21 kb 06/28 06:48 Order name: Lipase; Complete Time: 08:21 kb 06/28 07:16 Order name: Urine Dipstick--Ancillary (enter results); Complete Time: 08:49 bd 06/28 06:48 Order name: IV Saline Lock; Complete Time: 07:58 kb 06/28 06:48 Order name: Labs collected and sent; Complete Time: 07:58 kb 06/28 06:48 Order name: Urine Dipstick-Ancillary (obtain specimen); Complete Time: 07:58 kb Administered Medications: 08:36 Drug: NS 0.9% 1000 ml Route: IV; Rate: 1000 ml; Site: right wrist; sv Disposition: 21:21 Co-signature as Attending Physician, Miguelito Romeo MD. rn Disposition: 06/28/19 09:00 Discharged to Home. Impression: Diarrhea, unspecified. - Condition is Stable. - Discharge Instructions: Diarrhea, Adult, [id number]. - Medication Reconciliation Form, Thank You Letter, Antibiotic Education, Prescription Opioid Use form. - Follow up: Private Physician; When: 2 - 3 days; Reason: Recheck today's complaints, Continuance of care, Re-evaluation by your physician. Follow up: Emergency Department; When: As needed; Reason: Worsening of condition. Signatures: Dispatcher [employer] EDLiliana Lua, REVIEWER SALES-C REVIEWER SALES-Esperanza Arenas, RN RN Kendrick Pemberton RN RN Miguelito Villela MD MD rn Pena, Laura, RN RN lp1 Corrections: (The following items were deleted from the chart) 09:44 09:00 06/28/2019 09:00 Discharged to Home. Impression: Diarrhea, unspecified. Condition sg is Stable. Forms are Medication Reconciliation Form, Thank You Letter, Antibiotic Education, Prescription Opioid Use. Follow up: Private Physician; When: 2 - 3 days; Reason: Recheck today's complaints, Continuance of care, Re-evaluation by your physician. Follow up: Emergency Department; When: As needed; Reason: Worsening of condition. kb
[2019-06-28 09:57] VITALS: BP 174/80; TEMP 97.6; O2SAT 100
== END 2019-06-28 09:44 | disposition home or self-care (01) ==
LOC: ER 06:34
DX: R19.7 Diarrhea, unspecified (principal); Z88.2 Allergy status to sulfonamides; K21.9 Gastro-esophageal reflux disease without esophagitis; Z72.0 Tobacco use; F41.9 Anxiety disorder, unspecified
CPT/HCPCS: 85025; 80048; 36415; 80076; 81003; 83690; 99284; J7030

== ENCOUNTER 2019-09-29 07:46 | Emergency (ER) | payer OTHER ==
--- OUTSIDE RECORDS SUMMARY | 2019-09-29 07:48 | XMS REPORT ---
:1960 [facility] Organization [facility] Address [address] [place] [address] [address] [place] [address] Care Team Providers Name Role Phone Unavailable Unavailable Unavailable Problems This patient has no known problems. Allergies, Adverse Reactions, Alerts This patient has no known allergies or adverse reactions. Medications This patient has no known medications.
[2019-09-29] MEDS ORDERED: NA CHLORIDE 0.9% 1,000 ML ONE (08:26)
[2019-09-29 08:52] LABS: Urine Blood TRACE (NEG); Urine Glucose NEGATIVE (NEG); Urine Protein NEGATIVE (NEG); Urine pH 7.5 (5.0-7.0)
[2019-09-29 08:55] LABS: Absolute Lymphocytes (CBC) 1.8 K/uL (0.7-4.9); Basophils % 0.7 % (0-1.3); Hematocrit 40.3 % (36.0-45.0); Lymphocytes % 23.2 % (15.3-44.8); MPV 7.8 fL (7.6-11.3); RBC Red Blood Cell Count 4.58 M/uL (3.86-4.86)
[2019-09-29 09:07] LABS: ALT/SGPT 12 U/L (12-78); AST/SGOT 12 U/L (15-37); Albumin 3.8 g/dL (3.4-5.0); Alkaline Phosphatase 114 U/L (45-117); BUN Blood Urea Nitrogen 9 mg/dL (7-18); Bicarbonate 30 mmol/L (21-32); Bilirubin Direct 0.2 mg/dL (0-0.2); Bilirubin Total 0.5 mg/dL (0.2-1.0); Glucose Level 81 mg/dL (74-106); Lipase 60 U/L (73-393); Potassium 3.7 mmol/L (3.5-5.1); Protein, Total 7.8 g/dL (6.4-8.2); Sodium Level 143 mmol/L (136-145)
[2019-09-29 09:11] LABS: Urine Bacteria <20 /HPF (<20); Urine Culture Reflex Order NOT NEEDED; Urine Mucus 1+ /HPF (NONE SEEN); Urine RBC <5 /HPF (NONE SEEN)
--- NOTE | 2019-09-29 09:12 | RAD REPORT ---
EXAM DESCRIPTION: US - Abdomen Exam Limited - 09/29/2019 9:02 am CLINICAL HISTORY: Abdominal pain. COMPARISON: None. FINDINGS: The gallbladder wall is not thickened. A gallstone is not seen. The biliary tree is normal caliber. IMPRESSION: Unremarkable gallbladder ultrasound.
--- NOTE | 2019-09-29 09:12 | RAD REPORT ---
EXAM DESCRIPTION: CT - Stone Protocol - 09/29/2019 9:02 am CLINICAL HISTORY: Abdominal pain. COMPARISON: None. TECHNIQUE: Computed axial tomography of the abdomen pelvis was obtained without oral or IV contrast. Lack of IV and oral contrast limits evaluation of solid organs, bowel, and vessels. Coronal reformat adeline images were obtained and reviewed. All CT scans are performed using dose optimization technique as appropriate and may include automated exposure control or mA/KV adjustment according to patient size. FINDINGS: A renal calculus is not seen. An ureteral calculus is not noted. A bladder calculus is not present. The liver, spleen, pancreas and adrenals appear grossly normal There is no evidence of diverticulitis. The appendix appears normal Small ventral hernia contains fat. Hysterectomy IMPRESSION: Negative for a genitourinary calculus
--- NOTE | 2019-09-29 09:17 | EDPHYS ---
Physician Documentation [facility] Name: Jessica Harrington Age: 59 yrs Sex: Female : 1960 Arrival Date: 09/29/2019 Time: 07:47 Bed 18 Private MD: CHANTEL Physician Juve Navarro HPI: 09/29 08:30 This 59 yrs old Black Female presents to ER via Ambulatory with complaints of Abdominal snw Pain. 08:30 The patient presents with abdominal pain in the right upper quadrant, right lower snw quadrant. Onset: The symptoms/episode began/occurred intermittent x 1 year. The symptoms do not radiate. Associated signs and symptoms: none. The symptoms are described as crampy, intermittent. Severity of pain: At its worst the pain was moderate. The patient has experienced similar episodes in the past, chronically. It is unknown whether or not the patient has recently seen a physician. Historical: - Allergies: 08:08 Sulfa (Sulfonamide Antibiotics); hb - Home Meds: 08:08 Hydroxyzine Oral [Active]; Omeprazole Oral [Active]; verapamil 100 mg Oral CPCT 1 cap hb once daily [Active]; Xanax 1 mg Oral tab PRN for Anxiety [Active]; Bentyl Oral [Active]; - PMHx: 08:08 acid reflux; Anxiety; Hyperlipidemia; Hypertension; hb - PSHx: 08:08 Appendectomy; Tonsillectomy; ; Hysterectomy; hb - Immunization history:: Adult Immunizations up to date. - Social history:: Smoking status: Patient/guardian denies using tobacco. - Ebola Screening: : No symptoms or risks identified at this time. ROS: 08:30 Constitutional: Negative for fever, chills, and weight loss, Eyes: Negative for injury, snw pain, redness, and discharge, ENT: Negative for injury, pain, and discharge, Neck: Negative for injury, pain, and swelling, Cardiovascular: Negative for chest pain, palpitations, and edema, Respiratory: Negative for shortness of breath, cough, wheezing, and pleuritic chest pain, Back: Negative for injury and pain, : Negative for injury, bleeding, discharge, and swelling, MS/Extremity: Negative for injury and deformity, Skin: Negative for injury, rash, and discoloration, Neuro: Negative for headache, weakness, numbness, tingling, and seizure. 08:30 Abdomen/GI: Positive for abdominal pain, of the right lower quadrant. Exam: 08:30 Constitutional: This is a well developed, well nourished patient who is awake, alert, snw and in no acute distress. Head/Face: Normocephalic, atraumatic. Eyes: Pupils equal round and reactive to light, extra-ocular motions intact. Lids and lashes normal. Conjunctiva and sclera are non-icteric and not injected. Cornea within normal limits. Periorbital areas with no swelling, redness, or edema. ENT: Nares patent. No nasal discharge, no septal abnormalities noted. Tympanic membranes are normal and external auditory canals are clear. Oropharynx with no redness, swelling, or masses, exudates, or evidence of obstruction, uvula midline. Mucous membranes moist. Neck: Trachea midline, no thyromegaly or masses palpated, and no cervical lymphadenopathy. Supple, full range of motion without nuchal rigidity, or vertebral point tenderness. No Meningismus. Chest/axilla: Normal chest wall appearance and motion. Nontender with no deformity. No lesions are appreciated. Cardiovascular: Regular rate and rhythm with a normal S1 and S2. No gallops, murmurs, or rubs. Normal PMI, no JVD. No pulse deficits. Respiratory: Lungs have equal breath sounds bilaterally, clear to auscultation and percussion. No rales, rhonchi or wheezes noted. No increased work of breathing, no retractions or nasal flaring. Back: No spinal tenderness. No costovertebral tenderness. Full range of motion. Skin: Warm, dry with normal turgor. Normal color with no rashes, no lesions, and no evidence of cellulitis. MS/ Extremity: Pulses equal, no cyanosis. Neurovascular intact. Full, normal range of motion. Neuro: Awake and alert, GCS 15, oriented to person, place, time, and situation. Cranial nerves II-XII grossly intact. Motor strength 5/5 in all extremities. Sensory grossly intact. Cerebellar exam normal. Normal gait. Psych: Awake, alert, with orientation to person, place and time. Behavior, mood, and affect are within normal limits. 08:30 Abdomen/GI: Inspection: Bowel sounds: hyperactive, in all quadrants, Palpation: mild abdominal tenderness, in the right lower quadrant. Vital Signs: 08:02 BP 140 / 85; Pulse 68; Resp 16; Temp 98.1; Pulse Ox 100% on R/A; Weight 74.84 kg; hb Height 5 ft. 2 in. (157.48 cm); Pain 4/10; 09:00 BP 136 / 82; Pulse 70; Resp 17; Temp 98.1; Pulse Ox 100% on R/A; Pain 4/10; sg 08:02 Body Mass Index 30.18 (74.84 kg, 157.48 cm) hb MDM: 08:14 Patient medically screened. [facility] 09:17 Data reviewed: vital signs, nurses notes. Data interpreted: Pulse oximetry: on room air snw is 100 %. Interpretation: normal. Counseling: I had a detailed discussion with the patient and/or guardian regarding: the historical points, exam findings, and any diagnostic results supporting the discharge/admit diagnosis, lab results, radiology results, the need for outpatient follow up, to return to the emergency department if symptoms worsen or persist or if there are any questions or concerns that arise at home. Special discussion: Based on the patient's Hx, exam, and Dx evaluation, there is no indication for emergent surgery or inpatient Tx. It is understood by the patient/guardian that if the Sx's persist or worsen they need to return immediately for re-evaluation. Based on the history and exam findings, there is no indication for further emergent testing or inpatient evaluation. I discussed with the patient/guardian the need to see the campus director for further evaluation of the symptoms. I discussed with the patient/guardian the need to see the primary care provider for further evaluation of the symptoms. 09/29 08:08 Order name: Urine Culture [facility] 09/29 08:08 Order name: Urine Microscopic Only; Complete Time: 09:13 [facility] 09/29 08:22 Order name: Basic Metabolic Panel; Complete Time: 09: [facility] 09/29 08:22 Order name: CBC with Diff; Complete Time: 09: [facility] 09/29 08:22 Order name: Hepatic Function; Complete Time: 09:13 [facility] 09/29 08:22 Order name: Lipase; Complete Time: 09: [facility] 09/29 08:08 Order name: CT Stone Protocol; Complete Time: 09: [facility] 09/29 08:08 Order name: Urine Dipstick-Ancillary (obtain specimen); Complete Time: 08:26 snw 09/29 08:22 Order name: US Abdomen Limited; Complete Time: 09:14 snw 09/29 08:24 Order name: Urine Dipstick--Ancillary (enter results); Complete Time: 09:01 eb 09/29 08:22 Order name: Labs collected and sent; Complete Time: 08:48 snw Administered Medications: 09:18 CANCELLED (Other Intervention Used): TORadol 30 mg IVP once snw 09:23 Drug: TORadol 30 mg Route: IM; Site: right ventrogluteal; sg 09:50 Follow up: Response: No adverse reaction; Pain is decreased sg 09:24 Not Given (NO IV ACCESS established, pt eating and drinking): NS 0.9% 1000 ml IV at 125 sg ml/hr continuous 09:24 CANCELLED (Duplicate Order): TORadol 30 mg IM once snw Disposition: 15:09 Co-signature as Attending Physician, Juve Navarro MD I agree with the assessment and sierra plan of care. Disposition: 09/29/19 09:15 Discharged to Home. Impression: Unspecified abdominal pain. - Condition is Stable. - Discharge Instructions: Sciatica, [id number], Abdominal Pain, Adult, Biliary Colic, Adult, Food Choices for Gastroesophageal Reflux Disease, Adult, Fat and Cholesterol Restricted Diet, Hypertension. - Prescriptions for Diclofenac Sodium 75 mg Oral Tablet Sustained Release - take 1 tablet by ORAL route 2 times per day; 30 tablet. - Medication Reconciliation Form, Thank You Letter, Antibiotic Education, Prescription Opioid Use form. - Follow up: Emergency Department; When: As needed; Reason: Worsening of condition. Follow up: Private Physician; When: 2 - 3 days; Reason: Recheck today's complaints, Continuance of care, Re-evaluation by your physician. Signatures: Dispatcher [employer] EDKendrick Pacheco RN RN sg Anderson, Corey, MD MD cha Therrien, Shelly, ALUMNI RELATIONS OFFICER-C ALUMNI RELATIONS OFFICER-Csnw Ly Figueroa RN RN Corrections: (The following items were deleted from the chart) 09:18 09:15 TORadol 30 mg IVP once ordered. snw snw 09:18 09:18 TORadol 30 mg IVP once ordered. snw snw 09:24 08:22 IV Saline Lock ordered. snw sg 09:24 09:23 TORadol 30 mg IM once ordered. sg sn 09:56 09:15 09/29/2019 09:15 Discharged to Home. Impression: Unspecified abdominal pain. sg Condition is Stable. Forms are Medication Reconciliation Form, Thank You Letter, Antibiotic Education, Prescription Opioid Use. Follow up: Emergency Department; When: As needed; Reason: Worsening of condition. Follow up: Private Physician; When: 2 - 3 days; Reason: Recheck today's complaints, Continuance of care, Re-evaluation by your physician. snw
--- NOTE | 2019-09-29 09:17 | ER ---
Nurse's Notes [facility] Name: Jessica Harrington Age: 59 yrs Sex: Female : 1960 Arrival Date: 09/29/2019 Time: 07:47 Bed 18 Private MD: Diagnosis: Unspecified abdominal pain Presentation: 09/29 08:04 Presenting complaint: Diffuse abdominal pain x 1 year, right sided pain 4/10 today. hb Also reports nausea and decreased appetite. Hx of diverticulitis. Transition of care: patient was not received from another setting of care. Onset of symptoms is unknown. Risk Assessment: Do you want to hurt yourself or someone else? Patient reports no desire to harm self or others. Initial Sepsis Screen: Does the patient meet any 2 criteria? No. Patient's initial sepsis screen is negative. Does the patient have a suspected source of infection? No. Patient's initial sepsis screen is negative. Care prior to arrival: None. 08:04 Method Of Arrival: Ambulatory hb 08:04 Acuity: JE 3 hb Historical: - Allergies: 08:08 Sulfa (Sulfonamide Antibiotics); hb - Home Meds: 08:08 Hydroxyzine Oral [Active]; Omeprazole Oral [Active]; verapamil 100 mg Oral CPCT 1 cap hb once daily [Active]; Xanax 1 mg Oral tab PRN for Anxiety [Active]; Bentyl Oral [Active]; - PMHx: 08:08 acid reflux; Anxiety; Hyperlipidemia; Hypertension; hb - PSHx: 08:08 Appendectomy; Tonsillectomy; ; Hysterectomy; hb - Immunization history:: Adult Immunizations up to date. - Social history:: Smoking status: Patient/guardian denies using tobacco. - Ebola Screening: : No symptoms or risks identified at this time. Screenin:15 Abuse screen: Denies threats or abuse. Denies injuries from another. Nutritional sg screening: No deficits noted. Tuberculosis screening: No symptoms or risk factors identified. Never had TB. Fall Risk None identified. Assessment: 08:15 General: Appears in no apparent distress. well groomed, well developed, well nourished, sg Behavior is calm, cooperative, appropriate for age. Pain: Complains of pain in abdomen Quality of pain is described as aching. Neuro: Level of Consciousness is awake, alert, obeys commands, Oriented to person, place, time, Road Grader are equal bilaterally Moves all extremities. Cardiovascular: Capillary refill is brisk in bilateral fingers Patient's skin is warm and dry. Chest pain is denied. Respiratory: Airway is patent Respiratory effort is even, unlabored, Respiratory pattern is regular, symmetrical. GI: Bowel sounds present X 4 quads. Abd is soft X 4 quads Reports tolerance of fluids, tolerance of food, pt requesting to eat candy bar at this time, pt instructed to please wait until test results are completed, pt stated understanding. : No signs and/or symptoms were reported regarding the genitourinary system. EENT: No signs and/or symptoms were reported regarding the EENT system. Derm: Skin is pink, warm \T\ dry. Musculoskeletal: No signs and/or symptoms reported regarding the musculoskeletal system. Vital Signs: 08:02 BP 140 / 85; Pulse 68; Resp 16; Temp 98.1; Pulse Ox 100% on R/A; Weight 74.84 kg; hb Height 5 ft. 2 in. (157.48 cm); Pain 4/10; 09:00 BP 136 / 82; Pulse 70; Resp 17; Temp 98.1; Pulse Ox 100% on R/A; Pain 4/10; sg 08:02 Body Mass Index 30.18 (74.84 kg, 157.48 cm) hb ED Course: 07:47 Patient arrived in ED. rg4 07:58 Kendrick Og, RN is Primary Nurse. sg 08:03 Arm band placed on. hb 08:05 Triage completed. hb 08:06 Sahra Brewer FNP-C [facility]. snw 08:06 Juve Navarro MD is Attending Physician. snw 08:15 Patient has correct armband on for positive identification. Placed in gown. Bed in low sg position. Call light in reach. Pulse ox on. NIBP on. Warm blanket given. Head of bed elevated. 08:25 Urine Dipstick--Ancillary (enter results) Sent. mh5 08:25 Urine Culture Sent. mh5 08:26 Urine Microscopic Only Sent. mh5 08:40 Initial lab(s) drawn, by me, sent to lab. Missed attempt(s): 22 gauge in right wrist. sg Bleeding controlled, band aid applied, catheter tip intact. 09:02 CT Stone Protocol In Process Unspecified. EDMS 09:03 US Abdomen Limited In Process Unspecified. EDMS 09:50 No provider procedures requiring assistance completed. Patient did not have IV access sg during this emergency room visit. Administered Medications: 09:18 CANCELLED (Other Intervention Used): TORadol 30 mg IVP once snw 09:23 Drug: TORadol 30 mg Route: IM; Site: right ventrogluteal; sg 09:50 Follow up: Response: No adverse reaction; Pain is decreased sg 09:24 Not Given (NO IV ACCESS established, pt eating and drinking): NS 0.9% 1000 ml IV at 125 sg ml/hr continuous 09:24 CANCELLED (Duplicate Order): TORadol 30 mg IM once snw Outcome: 09:15 Discharge ordered by MD. snw 09:50 Discharged to home ambulatory. sg 09:50 Condition: good 09:50 Discharge instructions given to patient, Instructed on discharge instructions, follow up and referral plans. medication usage, safety practices, Demonstrated understanding of instructions, follow-up care, medications, Prescriptions given X 1. 09:56 Patient left the ED. sg Addendum: 10/02/2019 15:31 Addendum: Culture Results: Positive urine culture. Patient was not prescribed s s antibiotics at discharge. Report given to WENDI for further evaluation and then to waiter/waitress dining car for follow up with patient. Phone call Attempt #1 called patient. Macrobid 100 mg PO BID x 10 days #20 prescribed by Sahra Brewer NP to [facility], [facility] in [place]. Signatures: Dispatcher [employer] EDDC Kendrick Og RN Sahra Cornejo, JAGDISH-C BILINGUAL COUNTER SALES RETAIL-Feleciaw Carol Lerner RN LARRY yL Figueroa, Clara Covarrubias RN Alisson Clark [facility]
[2019-09-29] MEDS ORDERED: KETOROLAC 30 MG/ML INJ ONE (09:21)
[2019-09-29 10:01] VITALS: TEMP 98.1; O2SAT 100
[2019-09-29 10:02] VITALS: BP 136/82
== END 2019-09-29 09:56 | disposition home or self-care (01) ==
LOC: ER 07:46
DX: R10.31 Right lower quadrant pain (principal); I10 Essential (primary) hypertension; E78.5 Hyperlipidemia, unspecified; F41.9 Anxiety disorder, unspecified; Z88.2 Allergy status to sulfonamides
CPT/HCPCS: 87088; 85025; 87086; 80048; 36415; 80076; 87077; 87186; 83690; 76377; 74176; 76705; 96372; 99284; J7030; 81003; 81015

== ENCOUNTER 2020-08-09 13:28 | Emergency (ER) | payer OTHER ==
--- OUTSIDE RECORDS SUMMARY | 2020-08-09 13:30 | XMS REPORT | Summary of Care ---
:1960 Author Organization [facility] Address [address] [place] [address] Care Team Providers Name Role Phone Massiel Palomino MD Primary Care Provider Reason for Visit Reason Comments Refill Request Encounter Details Date Type Department Care Team Description 05/13/2020 Refill Formerly [facility], 1928–1983 Urgent Mene Leanna arnold FNP Refill Request Care [address] [place] [address], [address] [place] [address] [place] [address] [phone] Allergies Active Allergy Reactions Severity Noted Date Comments Amoxicillin-Pot Other - See comments 03/30/2017 Tong ue pain, Clavulanate swelling Cephalexin Itching, Rash 06/14/2017 Nitrofurantoin Dizziness 06/14/2017 Monohyd/M-Cryst Sulfa (Sulfonamide Hives 03/21/2007 Antibiotics) Tetracycline Rash 03/21/2007 Off balance, doesn't feel ri ght. documented as of this encounter (statuses as of 05/14/2020) Medications Medication Sig Dispensed Refills Start Date End Date Status fluticasone (FLONASE) 50 Use 2 Sprays in 1 Bottle 11 8 Active mcg/actuation nasal each nostril sprayIndications: Dyspnea daily. on exertion, Upper airway cough syndrome, Gastroesophageal reflux disease without esophagitis levocetirizine 5 mg Take 1 tablet by 30 tablet 3 06/03/2018 Active tabletIndications: mouth every Post-nasal drip evening. albuterol 90 Inhale 2 Puffs 1 Inhaler 11 01/05/2019 A ctive mcg/actuation inhaler every 6 (six) hours as needed for Wheezing or Shortness of Breath. STOOL SOFTENER 250 mg TAKE ONE CAPSULE 30 capsule 0 04/11/2019 Active capsuleIndications: BY MOUTH EVERY Constipation, unspecified DAY constipation type ketoconazole 2 % Apply to 120 mL 6 06/12/2019 Ac tive shampooIndications: area(s) once Post-inflammatory daily as needed hyperpigmentation for Itching. fluocinonide 0.05 % Apply to 20 mL 3 06/12/2019 Active solutionIndications: area(s) 2 (two) Central centrifugal times daily. scarring alopecia Estradiol (VAGIFEM) 10 Insert 1 tablet 30 tablet 6 07/05/2019 Active mcg tabletIndications: into vagina 2 Post-menopause atrophic (two) times per vaginitis week for Other (vaginial). verapamil 100 mg 24 hr Take 1 capsule 90 capsule 3 07/14/2019 Active capsuleIndications: by mouth at Essential hypertension, bedtime. Generalized anxiety disorder with panic attacks, Carolina's cyst of knee, left peg-electrolyte soln Take as directed 4000 mL 0 10/16/2019 Active [id number] -5.86 gram before solutionIndications: colonoscopy Colon cancer screening, Gastroesophageal reflux disease, esophagitis presence not specified atorvastatin 40 mg Take 1 tablet by 90 tablet 5 10/25/2019 Active tabletIndications: Pure mouth at hypercholesterolemia bedtime. albuterol-ipratropium Inhale 1 Puff 4 3 Inhaler 11 01/04/2020 Active (COMBIVENT RESPIMAT) (four) times 20-100 mcg/actuation daily. inhalerIndications: Dyspnea on exertion fluticasone Inhale 1 Puff 60 Each 11 01/04/2020 Act zan propion-salmeterol every 12 (ADVAIR DISKUS) 250-50 (twelve) hours. mcg/dose inhalation 1 puff twice a diskIndications: Dyspnea day rinse mouth on exertion after use dicyclomine 10 mg 1 cap Q6h prn 60 capsule 3 01/24/2020 Active capsuleIndications: abdominal Abdominal cramping cramping pantoprazole 40 mg EC Take 1 tablet by 90 tablet 01/24/2020 Active tabletIndications: mouth daily. Dysphagia, unspecified type, Gastroesophageal reflux disease without esophagitis peg-electrolyte soln Take as directed 4000 mL 0 02/21/2020 Active [id number] -5.86 gram before solution colonoscopy ALPRAZolam 1 mg TAKE 1 TABLET BY 90 tablet 1 02/27/2020 Active tabletIndications: MOUTH THREE Anxiety TIMES DAILY NEEDED FOR ANXIETY modafinil 100 mg Take 1 tablet by 60 tablet 1 04/26/2020 Active tabletIndications: mouth daily. For Depression, unspecified 1 week then depression type increase to 200 mg by mouth daily metroNIDAZOLE 500 mg Take 1 tablet by 14 tablet 0 04/26/2020 Active tabletIndications: mouth 2 (two) Vaginal discharge times daily. documented as of this encounter (statuses as of 05/14/2020) Active Problems Problem Noted Date Heartburn 10/16/2019 Colon cancer screening 10/16/2019 Overview: Added automatically from request for lalita nasra [id number] Gastroesophageal reflux disease, esophagitis presence not specified 10/16/2019 Overview: Added automatically from request for lalita nasra [id number] Prediabetes 08/15/2018 Overactive bladder 05/27/2017 S/P hysterectomy 04/28/2017 Refractive error 03/05/2017 Early cataracts, bilateral 03/05/2017 Corneal arcus senilis, bilateral 03/05/2017 Family history of premature CAD 08/19/2016 Dyslipidemia 08/19/2016 Diastolic dysfunction 01/28/2016 Allergic rhinitis, unspecified allergic rhinitis type 12/20/2015 Dizziness 12/20/2015 Urethral stricture, unspecified location, unspecified stricture type 12/20/2015 Tobacco abuse disorder 12/08/2015 Fibromyalgia 12/08/2015 Hyperlipidemia 12/08/2015 Post-menopause atrophic vaginitis 12/08/2015 Hematuria, microscopic 12/08/2015 Depression 12/08/2015 Anxiety 12/08/2015 Facial pain 12/08/2015 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 COPD (chronic obstructive pulmonary disease) 6 Pulmonary fibrosis 11/08/2015 Essential hypertension 10/17/2015 Urinary frequency 03/26/2008 Other unspecified back disorder 03/26/2008 Overview: Back stiffness (per patient) Functional disorder of stomach 03/26/2008 Overview: Discomfort in lower stomach (per patient) ICD10 Diagnosis Term Bill Adjuster Utility Female genital symptoms 02/15/2008 Overview: ICD10 Diagnosis Term Bill Adjuster Utility documented as of this encounter (statuses as of 05/14/2020) Resolved Problems Problem Noted Date Resolved Date Hematuria 12/20/2015 08/03/2016 Acute bronchitis, unspecified organism 11/08/2015 1 10/03/2015 Influenza with respiratory manifestation other than 02/15/20 08 08/03/2016 pneumonia Overview: ICD10 Diagnosis Term Bill Adjuster Utility documented as of this encounter (statuses as of 05/14/2020) Immunizations Name Administration Dates Next Due Pneumococcal 13 Conjugate, PCV13 (Prevnar 13) 08/15/2018 Pneumococcal Polysaccharide, PPSV23 (PNEUMOVAX) 06/04/2016 documented as of this encounter Social History Tobacco Use Types Packs/Day Years Used Date Current Some Day Smoker Cigarettes 0.5 39 03/15 - 01/07/2016 Smokeless Tobacco: Never Used Alcohol Use Drinks/Week oz/Week Comments Yes 0 Standard drinks or equivalent 0.0 Socially Sex Assigned at Date Recorded Not on file COVID-19 Exposure Response Date Recorded In the last month, have you been in contact with No / Unsure 04/26/2020 10:46 AM CDT someone who was confirmed or suspected to have Coronavirus / COVID-19? documented as of this encounter Last Filed Vital Signs Not on filedocumented in this encounter Plan of Treatment Date Type Specialty Care Team Description 05/14/2020 Office Visit Obstetrics & Gynecology Alonzo Bustos MD [address] [place] [phone] 06/13/2020 Office Visit Cardiology Jose Maria Brown MD [address] [place] [phone] 06/14/2020 Office Visit Internal Medicine Anderson Palomino MD [address] [facility] [address] [place], [place] [address] 07/05/2020 Office Visit Pulmonary Disease Leonardo Garza DO [address] [place] [phone] 07/09/2020 Office Visit Endocrinology Diabetes & Carrillo Alvarez MD Metabolism [address] [place] [address] [phone] 08/20/2020 Office Visit Endocrinology Diabetes & Carrillo Alvarez MD Metabolism [address] [place] [address] [phone] Health Maintenance Due Date Last Done Comments DTaP,Tdap,and Td Vaccines (1 - 1979 Tdap) COLON CANCER SCREENING ANNUAL 2010 FIT/FOBT COLON CANCER SCREENING FIT DNA 2010 EVERY 3 YEARS COLON CANCER SCREENING 2010 SIGMOIDOSCOPY EVERY 5 YEARS Zoster Recombinant Vaccine 2010 (SHINGRIX) (1 of 2) LUNG CANCER SCREEN: Recommended 05/12/2017 05/12/2016 for age 55-80 with 30 + pack year history Breast Cancer Screening 09/12/2019 09/12/2018, 09/10/2017, (MAMMOGRAM) 09/04/2016, Additional history exists INFLUENZA VACCINE (#1) 2020 Depression Screening 03/06/2021 03/06/2020 PNEUMOCOCCAL 0-64 YEARS COMBINED 06/04/2021 08/15/2018, SERIES (3 of 3 - PPSV23) COLONOSCOPY 03/06/2030 03/06/2020, 07/30/2011 (Previously completed) Colorectal Cancer Screening 03/06/2030 PAP SMEAR Discontinued 03/19/2008 HEPATITIS C (HCV) SCREEN Completed 10/14/2016 documented as of this encounter Results Not on filedocumented in this encounter Visit Diagnoses Diagnosis Constipation, unspecified constipation t ype documented in this encounter Insurance Payer Benefit Plan / Subscriber ID Effective Phone Address T ype Group Dates [facility] MEDICARE [id number] 2019-Pre Medi care Adv HEALTHCARE COMPLETE sent PPO MEDICARE CHOICE [facility] MEDICAID OF [id number] 2019-Pre [phone] O BOX Medic aid [place] sent [phone] [id number] [place] [address] [facility] [id number] 2019-Pre P O BOX Beh avioral [facility] sent [id number] [employer] [place] [address] documented as of this encounter
--- OUTSIDE RECORDS SUMMARY | 2020-08-09 13:30 | XMS REPORT | Continuity of Care Document ---
:[address] [facility] t Address [address] [place] [address] [address] [place] [address] Care Team Providers Name Role Phone Unavailable Unavailable Unavailable Problems This patient has no known problems. Allergies, Adverse Reactions, Alerts This patient has no known allergies or adverse reactions. Medications This patient has no known medications. Procedures This patient has no known procedures. Results This patient has no known results.
--- OUTSIDE RECORDS SUMMARY | 2020-08-09 13:31 | XMS REPORT | Summary of Care ---
:1960 Author Organization [facility] Address [address] [place] [address] Care Team Providers Name Role Phone Massiel Palomino MD Primary Care Provider Reason for Visit Reason Comments Rx Concern/Question Encounter Details Date Type Department Care Team Description 05/15/2020 Telephone [facility] ADC Leonardo Garza DO Rx Concern/Question Pulmonary Clinic [address], [address] [place] [phone] Allergies Active Allergy Reactions Severity Noted Date Comments Amoxicillin-Pot Other - See comments 03/30/2017 Tong ue pain, Clavulanate swelling Cephalexin Itching, Rash 06/14/2017 Nitrofurantoin Dizziness 06/14/2017 Monohyd/M-Cryst Sulfa (Sulfonamide Hives 03/21/2007 Antibiotics) Tetracycline Rash 03/21/2007 Off balance, doesn't feel ri ght. documented as of this encounter (statuses as of 05/16/2020) Medications Medication Sig Dispensed Refills Start End Status Date Date fluticasone (FLONASE) Use 2 Sprays 1 Bottle 11 02/03/20 Active 50 mcg/actuation nasal in each 18 sprayIndications: nostril daily. Dyspnea on exertion, Upper airway cough syndrome, Gastroesophageal reflux disease without esophagitis levocetirizine 5 mg Take 1 tablet 30 tablet 3 06/03/20 Active tabletIndications: by mouth every 18 Post-nasal drip evening. albuterol 90 Inhale 2 Puffs 1 Inhaler 11 01/06/20 Ac tive mcg/actuation inhaler every 6 (six) 19 hours as needed for Wheezing or Shortness of Breath. STOOL SOFTENER 250 mg TAKE ONE 30 capsule 0 04/11/20 Active capsuleIndications: CAPSULE BY 19 Constipation, MOUTH EVERY unspecified DAY constipation type ketoconazole 2 % Apply to 120 mL 6 06/12/20 Act zan shampooIndications: area(s) once 19 Post-inflammatory daily as hyperpigmentation needed for Itching. 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 Estradiol (VAGIFEM) 10 Insert 1 30 tablet 6 07/05/20 Active mcg tabletIndications: tablet into 19 Post-menopause atrophic vagina 2 (two) vaginitis times per week for Other (vaginial). verapamil 100 mg 24 hr Take 1 capsule 90 capsule 3 07/14/20 Active capsuleIndications: by mouth at 19 Essential hypertension, bedtime. Generalized anxiety disorder with panic attacks, Carolina's cyst of knee, left peg-electrolyte soln Take as 4000 mL 0 10/16/19 Active [id number] -5.86 directed 20 gram before solutionIndications: colonoscopy Colon cancer screening, Gastroesophageal reflux disease, esophagitis presence not specified atorvastatin 40 mg Take 1 tablet 90 tablet 5 10/25/19 Active tabletIndications: Pure by mouth at 20 hypercholesterolemia bedtime. fluticasone Inhale 1 Puff 60 Each 11 01/04/20 Acti ve propion-salmeterol every 12 20 (ADVAIR DISKUS) 250-50 (twelve) mcg/dose inhalation hours. 1 puff diskIndications: twice a day Dyspnea on exertion rinse mouth after use dicyclomine 10 mg 1 cap Q6h prn 60 capsule 3 01/24/20 Active capsuleIndications: abdominal 20 Abdominal cramping cramping pantoprazole 40 mg EC Take 1 tablet 90 tablet 01/24/20 Active tabletIndications: by mouth 20 Dysphagia, unspecified daily. type, Gastroesophageal reflux disease without esophagitis peg-electrolyte soln Take as 4000 mL 0 02/21/20 Active [id number] -5.86 directed 20 gram solution before colonoscopy ALPRAZolam 1 mg TAKE 1 TABLET 90 tablet 1 02/27/20 Active tabletIndications: BY MOUTH THREE 20 Anxiety TIMES DAILY NEEDED FOR ANXIETY modafinil 100 mg Take 1 tablet 60 tablet 1 04/26/20 Active tabletIndications: by mouth 20 Depression, unspecified daily. For 1 depression type week then increase to 200 mg by mouth daily metroNIDAZOLE 500 mg Take 1 tablet 14 tablet 0 04/26/20 Active tabletIndications: by mouth 2 20 Vaginal discharge (two) times daily. albuterol-ipratropium Inhale 1 Puff 3 Inhaler 11 05/16/20 Active (COMBIVENT RESPIMAT) 4 (four) times 20 20-100 mcg/actuation daily. inhalerIndications: Dyspnea on exertion albuterol-ipratropium Inhale 1 Puff 3 Inhaler 11 01/04/20/ 3/2 Discontinued (COMBIVENT RESPIMAT) 4 (four) times 20 020 (Reorder) 20-100 mcg/actuation daily. 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 Female genital symptoms 02/15/2008 Overview: ICD10 Diagnosis 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 documented as of this encounter (statuses as of 05/16/2020) Resolved Problems Problem Noted Date Resolved Date Hematuria 12/20/2015 08/03/2016 Acute bronchitis, unspecified organism 11/08/2015 1 10/03/2015 Influenza with respiratory manifestation other than 02/15/20 08 08/03/2016 pneumonia Overview: ICD10 Diagnosis 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 documented as of this encounter Last Filed Vital Signs Not on filedocumented in this encounter Miscellaneous Notes Telephone Encounter - Leonor Shi MA - 05/16/2020 9:02 AM CDTPA received from [employer]. PA filled out and faxed to [phone] signed by Leonor Shi MA at 05/16/2020 9:07 AM CDTTelephone Encounter - Leonor Shi MA - 05/16/2020 8:41 AM CDTI have not received PA request for this medication for patient. Rx was sent back in 12/2019. I re-sent Rx so if a PA is needed the pharmacy can initiate it and send me the request. elephone Encounter - Latricia Berger - 05/15/2020 3:56 PM CDTPatient is checking on the status of the PA for albuterol-ipratropium (COMBIVENT RESPIMAT) 20-100 mcg/actuation inhaler to get 3 per month. [id number] - [place], [place] - [address] [facility] JAROD Vazquezamp; FRANCISCA [address] [facility] [phone] documented in this encounter Plan of Treatment Date Type Specialty Care Team Description 06/13/2020 Office Visit Cardiology Jose Maria Brown MD [address] [place] [phone] 06/14/2020 Office Visit Internal Medicine Chintan Palomino MD [address] [place], [place] [address] 07/05/2020 Office Visit Pulmonary Disease Leonardo Garza DO [address] [place] [address] [phone] 07/09/2020 Office Visit Endocrinology Diabetes & Carrillo Alvarez MD Metabolism [address] [place] [address] [phone] 08/20/2020 Office Visit Endocrinology Diabetes & Carrillo Alvarez MD Metabolism [facility] [place], [place] [phone] Health Maintenance Due Date Last Done Comments [...] filedocumented in this encounter Visit Diagnoses Diagnosis Dyspnea on exertion Other dyspnea and respiratory abnormalit y documented in this encounter Insurance Payer Benefit Plan / Subscriber ID Effective Phone Address T ype Group Dates [facility] MEDICARE [id number] 2019-Pre Medi care Adv HEALTHCARE COMPLETE sent PPO MEDICARE CHOICE ADVANTAGE [facility] MEDICAID OF [id number] 2019-Pre [phone] P O BOX Medic aid [place] sent [id number] [place] [address] [facility] [id number] 2019-Pre P O BOX Beh avioral [facility] sent [id number] [place] [address] documented as of this encounter
--- OUTSIDE RECORDS SUMMARY | 2020-08-09 13:31 | XMS REPORT | Summary of Care ---
:1960 Author Organization [facility] Address [address] [place] [address] Care Team Providers Name Role Phone Massiel Palomino MD Primary Care Provider Reason for Visit Reason Comments Results Encounter Details Date Type Department Care Team Description 05/16/2020 Telephone [facility] Asmita Bustos MD Results [facility] [phone] [place], [place] [address] 50-4665 [place] [address] Allergies Active Allergy Reactions Severity Noted Date Comments Amoxicillin-Pot Other - See comments 03/30/2017 Tong ue pain, Clavulanate swelling Cephalexin Itching, Rash 06/14/2017 Nitrofurantoin Dizziness 06/14/2017 Monohyd/M-Cryst Sulfa (Sulfonamide Hives 03/21/2007 Antibiotics) Tetracycline Rash 03/21/2007 Off balance, doesn't feel ri ght. documented as of this encounter (statuses as of 05/16/2020) Medications Medication Sig Dispensed Refills Start Date [...] Active tabletIndications: Pure mouth at hypercholesterolemia bedtime. fluticasone Inhale 1 Puff 60 [...] mouth 2 (two) Vaginal discharge times daily. albuterol-ipratropium Inhale 1 Puff 4 3 Inhaler 11 05/16/2020 Active (COMBIVENT RESPIMAT) (four) times 20-100 mcg/actuation daily. 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 Female genital symptoms 02/15/2008 Overview: ICD10 Diagnosis 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 elephone Encounter - José Desai - 05/16/2020 11:50 AM CDTPatient is requesting her UA results from Wednesday. documented in this encounter Plan of Treatment Date Type Specialty Care Team Description 06/13/2020 Office Visit Cardiology Jose Maria Brown MD [address] [address] 06/14/2020 Office Visit Internal Medicine Chintan Palomino MD [address] [place], [place] [address] [phone] 07/05/2020 Office Visit Pulmonary Disease Leonardo Garza DO [address] [place] [phone] 07/09/2020 Office Visit Endocrinology Diabetes & Carrillo Alvarez MD Metabolism [address] [place], [place] [phone] 08/20/2020 Office Visit Endocrinology Diabetes & AlvarezCarrillo MD Metabolism [address] [place], [place] [address] Health Maintenance Due Date Last Done Comments [...] Effective Phone Address T ype Group Dates [facility] MEDICARE [id number] 2019-Pre Medi care Adv HEALTHCARE COMPLETE sent PPO MEDICARE CHOICE ADVANTAGE [facility] MEDICAID OF [id number] 2019-Pre [phone] P O BOX Medic aid [place] sent [phone] [id number] [place] [address] [facility] [id number] 2019-Pre P O BOX Beh avioral [facility] sent [phone] [place] [address] documented as of this encounter
--- OUTSIDE RECORDS SUMMARY | 2020-08-09 13:31 | XMS REPORT | Summary of Care ---
:1960 Author Organization [facility] Address [address] [place] [address] Care Team Providers Name Role Phone Massiel Palomino MD Primary Care Provider Reason for Visit Reason Comments Rx Concern/Question Encounter Details Date Type Department Care Team Description 05/15/2020 Telephone [facility] ADC Leonardo Garza DO Rx Concern/Question Pulmonary Clinic [address] [place] [phone] Allergies Active Allergy Reactions Severity Noted Date [...] Added automatically from request for lalita nasra [id number] Gastroesophageal reflux disease, esophagitis presence not specified 10/16/2019 Overview: Added automatically from request for lalita nasra [id number] Prediabetes 08/15/2018 Overactive bladder 05/27/2017 S/P hysterectomy [...] lower stomach (per patient) ICD10 Diagnosis 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 elephone Encounter - Berger Latricia - 05/15/2020 3:56 PM CDTPatient is checking on the status of the PA for albuterol-ipratropium (COMBIVENT RESPIMAT) 20-100 mcg/actuation inhaler to get 3 per month. [id number] - [place], [place] - [address] [facility] V JAROD Vazquezamp; FRANCISCA [address] [facility] [address] documented in this encounter Plan of Treatment Date Type Specialty Care Team Description 06/13/2020 Office Visit Cardiology Jose Maria Brown MD [address] [place] [address] 06/14/2020 Office Visit Internal Medicine Chintan Palomino MD [address] [place], [place] [address] 07/05/2020 Office Visit Pulmonary Disease Leonardo Garza, DO 2660 [place] [address] [phone] 07/09/2020 Office Visit Endocrinology Diabetes & Carrillo Alvarez MD Metabolism 2660 [place], [place] [address] 08/20/2020 Office Visit Endocrinology Diabetes & Carrillo Alvarez MD Metabolism [facility] [place] [address] [phone] Health Maintenance Due Date Last Done Comments [...] Effective Phone Address T ype Group Dates [facility] MEDICARE [id number] 2019-Pre [facility] care Adv HEALTHCARE COMPLETE sent PPO MEDICARE CHOICE ADVANTAGE [facility] MEDICAID OF [id number] 2019-Pre [phone] Medic aid [place] sent [phone] [place] [address] [facility] [id number] 2019-Pre [address] BOX Beh avioral [facility] sent [id number] [place] [address] documented as of this encounter
--- OUTSIDE RECORDS SUMMARY | 2020-08-09 13:32 | XMS REPORT | Summary of Care ---
:[address] [facility] Address [address] [place] [address] Care Team Providers Name Role Phone Ashok Eckert MD Primary Care Provider Reason for Referral (Routine) Status Reason Specialty Diagnoses / Referred By Referred To Procedures Contact Contact Closed Obstetrics & Diagnoses Dyspareunia in female Chintan Palomino Gynecology Procedures CONSULT/REFERRAL COVER CUTTER Other (see comments) MD Massiel [address] [facility] [address] [place] [address] Reason for Visit Reason Comments Follow-up Encounter Details Date Type Department Care Team Description 04/26/2020 Office Visit [facility] Internal Chintan Palomino Dep ression, unspecified depression type (Primary Dx); Medicine- Jersey Rankin MD Anxiety; Primary Care Pavilio n [address] [address] Vaginal discharge; [address] , [place], [place] Dyspareu fausto in female [address] [address] [place], [place] [phone] [address] [phone] Allergies Active Allergy Reactions Severity Noted Date Comments Amoxicillin-Pot Other - See comments 03/30/2017 Tong ue pain, Clavulanate swelling Cephalexin Itching, Rash 06/14/2017 Nitrofurantoin Dizziness 06/14/2017 Monohyd/M-Cryst Sulfa (Sulfonamide Hives 03/21/2007 Antibiotics) Tetracycline Rash 03/21/2007 Off balance, doesn't feel ri ght. documented as of this encounter (statuses as of 05/17/2020) Medications Medication Sig Dispensed Refills Start End [...] 2 20 Vaginal discharge (two) times daily. Blood-Glucose Meter Use as 1 Kit 0 08/17/20 Discontinued (BLOOD GLUCOSE directed, TID, 18 020 MONITORING) Kit DX:E11.9 blood sugar diagnostic Use as 100 Strip 0 08/17/20 Discontinued (BLOOD GLUCOSE TEST) directed, once 18 020 strip daily, DX:E11.9 lancets 33 gauge Misc Use as 100 Each 0 08/17/20 Discontinued directed, TID, 18 020 DX;E11.9 traMADol 50 mg Take 1 tablet 40 tablet 3 06/30/20 D iscontinued tabletIndications: by mouth every 19 020 Osteoarthritis of left 6 (six) hours knee, unspecified as needed for osteoarthritis type Pain (scale 4-6). varenicline (CHANTIX Take one 0.5mg 1 Package 0 07/19/2004/13 Discontinued STARTING MONTH BOX) 0.5 tab by mouth 19 020 mg (11)- 1 mg (42) once daily for tabletIndications: 3 days, then Tobacco abuse one 0.5mg tab twice daily for 4 days, then one 1mg tab twice daily. varenicline 1 mg Take 1 tablet 60 tablet 07/19/20 Discontinued tabletIndications: by mouth 2 19 020 Tobacco abuse (two) times daily. Start after finishing starter pack clotrimazole 10 mg Take 1 tablet 70 Lozenge 0 10/25/19 Discontinued trocheIndications: by mouth 4 20 020 Mouth sores (four) times daily. naproxen 500 mg Take 1 tablet 30 tablet 0 11/07/19 Discontinued tabletIndications: by mouth 2 20 020 Sprain of ligaments of (two) times thoracic spine, initial daily with encounter meals. albuterol-ipratropium Inhale 1 Puff 3 Inhaler 11 01/04/20 090 11/12 Discontinued (COMBIVENT RESPIMAT) 4 (four) times 20 020 (Reorder) 20-100 mcg/actuation daily. inhalerIndications: Dyspnea on exertion documented as of this encounter (statuses as of 05/17/2020) Active Problems Problem Noted Date Heartburn 10/16/2019 Colon cancer screening 10/16/2019 Overview: Added automatically from request for lalita nasra [id number] Gastroesophageal reflux disease, esophagitis presence not specified 10/16/2019 Overview: Added automatically from request for lalita nasra [id number] Prediabetes 08/15/2018 Overactive bladder 05/27/2017 S/P hysterectomy [...] lower stomach (per patient) ICD10 Diagnosis Term Care Services Manager Utility Female genital symptoms 02/15/2008 Overview: ICD10 Diagnosis Term Care Services Manager Utility documented as of this encounter (statuses as of 05/17/2020) Resolved Problems Problem Noted Date Resolved Date Hematuria 12/20/2015 08/03/2016 Acute bronchitis, unspecified organism 11/08/2015 1 10/03/2015 Influenza with respiratory manifestation other than 02/15/20 08 08/03/2016 pneumonia Overview: ICD10 Diagnosis Term Care Services Manager Utility documented as of this encounter (statuses as of 05/17/2020) Immunizations Name Administration Dates Next Due Pneumococcal [...] Sign Reading Time Taken Comments Blood Pressure 126/86 04/26/2020 10:56 AM CDT Pulse 76 04/26/2020 10:56 AM CDT Temperature 36.8 C (98.2 F) 04/26/2020 10:56 AM CDT Respiratory Rate - - Oxygen Saturation 99% 04/26/2020 10:56 AM CDT room a ir Inhaled Oxygen Concentration - - Weight 59.9 kg (132 lb) 04/26/2020 10:56 AM CDT Height 157.5 cm (5' 2") 04/26/2020 10:56 AM CDT Body Mass Index 24.14 04/26/2020 10:56 AM CDT documented in this encounter Progress Notes Chintan Palomino MD - 04/26/2020 11:00 AM CDT Cc: Follow-up Jessica Harrington is a 60 year old female presenting to clinic for f/u for Anxiety/Palpitations Pt has hx of anxiety associated with palpitations. She states that she gets these symptoms occasionally. She uses alprazolam rather frequently, but has refills on her prescription. HTN Pt states that her b/p at home ranges around 130/80. She says that she is compliant with her medications. She denies headache, dizziness, weakness, swelling. - complains of same infection as previous. Allergies Jessica is allergic to augmentin [amoxicillin-pot clavulanate]; cephalexin; macrobid [nitrofurantoin monohyd/m-cryst]; sulfa (sulfonamide antibiotics); and tetracycline. BP 126/86 (BP Location: Right arm, Patient Position: Sitting, BP CUFF SIZE: Adult Medium) | Pulse 76 | Temp 36.8 C (98.2 F) (Temporal Artery) | Ht 5' 2" (1.575 m) | Wt 132 lb (59.9 kg) | LMP 09/13/1989 (Approximate) | SpO2 99% | BMI 24.14 kg/m Medications Outpatient Medications Prior to Visit Medication Sig Dispense Refill ALPRAZolam 1 mg tablet TAKE 1 TABLET BY MOUTH THREE TIMES DAILY NEEDED FOR ANXIETY 90 tablet 1 peg-electrolyte soln 236-22.74-6.74 -5.86 gram solution Take as directed before colonoscopy 4000mL 0 dicyclomine 10 mg capsule 1 cap Q6h prn abdominal cramping 60 capsule 3 pantoprazole 40 mg EC tablet Take 1 tablet by mouth daily. 90 tablet prn fluticasone propion-salmeterol (ADVAIR DISKUS) 250-50 mcg/dose inhalation disk Inhale 1 Puff every 12 (twelve) hours. 1 puff twice a day rinse mouth after use 60 Each 11 albuterol-ipratropium (COMBIVENT RESPIMAT) 20-100 mcg/actuation inhaler Inhale 1 Puff 4 (four) times daily. 3 Inhaler 11 naproxen 500 mg tablet Take 1 tablet by mouth 2 (two) times daily with meals. 30 tablet 0 atorvastatin 40 mg tablet Take 1 tablet by mouth at bedtime. 90 tablet 5 clotrimazole 10 mg douglas Take 1 tablet by mouth 4 (four) times daily. 70 Lozenge 0 peg-electrolyte soln 236-22.74-6.74 -5.86 gram solution Take as directed before colonoscopy 4000mL 0 varenicline (CHANTIX STARTING MONTH BOX) 0.5 mg (11)- 1 mg (42) tablet Take one 0.5mg tab by mouth once daily for 3 days, then one 0.5mg tab twice daily for 4 days, then one 1mg tab twice daily. 1 Package 0 varenicline 1 mg tablet Take 1 tablet by mouth 2 (two) times daily. Start after finishing starter pack 60 tablet prn verapamil 100 mg 24 hr capsule Take 1 capsule by mouth at bedtime. 90 capsule 3 Estradiol (VAGIFEM) 10 mcg tablet Insert 1 tablet into vagina 2 (two) times per week for Other (vaginial). 30 tablet 6 traMADol 50 mg tablet Take 1 tablet by mouth every 6 (six) hours as needed for Pain (scale 4-6).40 tablet 3 fluocinonide 0.05 % solution Apply to area(s) 2 (two) times daily. 20 mL 3 ketoconazole 2 % shampoo Apply to area(s) once daily as needed for Itching. 120 mL 6 STOOL SOFTENER 250 mg capsule TAKE ONE CAPSULE BY MOUTH EVERY DAY 30 capsule 0 albuterol 90 mcg/actuation inhaler Inhale 2 Puffs every 6 (six) hours as needed for Wheezing or Shortness of Breath. 1 Inhaler 11 blood sugar diagnostic (BLOOD GLUCOSE TEST) strip Use as directed, once daily, DX:E11.9 100 Strip 0 Blood-Glucose Meter (BLOOD GLUCOSE MONITORING) Kit Use as directed, TID, DX:E11.9 1 Kit 0 lancets 33 gauge Misc Use as directed, TID, DX;E11.9 100 Each 0 levocetirizine 5 mg tablet Take 1 tablet by mouth every evening. 30 tablet 3 fluticasone (FLONASE) 50 mcg/actuation nasal spray Use 2 Sprays in each nostril daily. 1 Bottle 11 No facility-administered medications prior to visit. Histories Past Medical History: Diagnosis Date Abnormal [...] transmitted disease) Unspecified essential hypertension Urinary incontinence Past Surgical History: Procedure Laterality Date ABDOMINAL HYSTERECTOMY 1990 APPENDECTOMY SECTION COLONOSCOPY N/A 03/06/2020 Surgeon: Flakito Stack MD; Location: Endoscopy ([facility]) OR Location ELBOW CLOSED REDUCTION WITH PERCUTANEOUS PINNING Left ESOPHAGOGASTRODUODENOSCOPY N/A 03/06/2020 Surgeon: Flakito Stack MD; Location: Endoscopy ([facility]) OR Location SALPINGO-OOPHORECTOMY TONSILLECTOMY 1991 Social History Socioeconomic History Marital status: Single Spouse name: Not on file Number of children: Not on file Years of education: Not on file Highest education level: Not on file Occupational History Not on file Social Needs Financial resource strain: Not on file Food insecurity Worry: Not on file Inability: Not on file Transportation needs Medical: Not on file Non-medical: Not on file Tobacco Use Smoking status: Current Some Day Smoker Packs/day: 0.50 Years: 39.00 Pack years: 19.50 Types: Cigarettes Start date: 04/12/1977 Last attempt to quit: 01/07/2016 Years since quittin.3 Smokeless tobacco: Never Used Substance and Sexual Activity Alcohol use: Yes Alcohol/week: 0.0 standard drinks Comment: Socially Drug use: No Sexual activity: Yes Partners: Male control/protection: Surgical Comment: FILI BSO Lifestyle Physical activity Days per week: Not on file Minutes per session: Not on file Stress: Not on file Relationships Social connections Talks on phone: Not on file Gets together: Not on file Attends sikh service: Not on file Active member of club or organization: Not on file Attends meetings of clubs or organizations: Not on file Relationship status: Not on file Intimate partner violence Fear of current or ex partner: Not on file Emotionally abused: Not on file Physically abused: Not on file Forced sexual activity: Not on file Other Topics Concern Not on file Social History Narrative Denies domestic violence or abuse Lives alone in [place] in an apartment. Son lives in [place]. Family History Problem Relation Age of Onset Hypertension Mother Arthritis Mother High cholesterol Mother Diabetes Mother Depression Mother Heart Mother Cancer Father Breast Cancer Maternal Aunt Asthma NoFHx defects NoFHx Genetic NoFHx Colon Cancer NoFHx Ovarian Cancer NoFHx Uterine Cancer NoFHx Mental retardation NoFHx Neurological NoFHx Osteoporosis NoFHx Psychiatry NoFHx Review of Systems Constitutional: Negative for chills and fever. Cardiovascular: Positive for palpitations. Negative for chest pain. Gastrointestinal: Negative for diarrhea, nausea and vomiting. Physical Exam Constitutional: She appears well-developed and well-nourished. HENT: Head: Normocephalic and atraumatic. Eyes: Conjunctivae and EOM are normal. Wt Readings from Last 6 Encounters: 05/14/20 131 lb 11.2 oz (59.7 kg) 04/26/20 132 lb (59.9 kg) 04/24/20 126 lb (57.2 kg) 03/06/20 126 lb (57.2 kg) 11/22/19 131 lb 6.4 oz (59.6 kg) 11/07/19 131 lb 3.2 oz (59.5 kg) Assessment/Plan Jessica Harrington is a 59 year old female presenting to clinic for: Sores in mouth - given clotrimazole, she thinks it is a fungus, I am not sure and we agreed to ENT evaluation before further testing. Has an outside founding partner, testing. Anxiety -Psych consult - tolerating hydroxyzine HTN -Verapamil 100 mg qd, excelloent today. verapmil seems tohave decreased palpitations. Health Maintainence Her body weight has been increasing a little since pandemic. continue meds. Outpatient Encounter Medications as of 04/26/2020 Medication Sig Dispense Refill metroNIDAZOLE 500 mg tablet Take 1 tablet by mouth 2 (two) times daily. 14 tablet 0 modafinil 100 mg tablet Take 1 tablet by mouth daily. For 1 week then increase to 200 mg by mouth daily 60 tablet 1 ALPRAZolam 1 mg tablet TAKE 1 TABLET BY MOUTH THREE TIMES DAILY NEEDED FOR ANXIETY 90 tablet 1 peg-electrolyte soln 236-22.74-6.74 -5.86 gram solution Take as directed before colonoscopy 4000mL 0 dicyclomine 10 mg capsule 1 cap Q6h prn abdominal cramping 60 capsule 3 pantoprazole 40 mg EC tablet Take 1 tablet by mouth daily. 90 tablet prn fluticasone propion-salmeterol (ADVAIR DISKUS) 250-50 mcg/dose inhalation disk Inhale 1 Puff every 12 (twelve) hours. 1 puff twice a day rinse mouth after use 60 Each 11 [DISCONTINUED] albuterol-ipratropium (COMBIVENT RESPIMAT) 20-100 mcg/actuation inhaler Inhale 1 Puff 4 (four) times daily. 3 Inhaler 11 [DISCONTINUED] naproxen 500 mg tablet Take 1 tablet by mouth 2 (two) times daily with meals. 30 tablet 0 atorvastatin 40 mg tablet Take 1 tablet by mouth at bedtime. 90 tablet 5 [DISCONTINUED] clotrimazole 10 mg douglas Take 1 tablet by mouth 4 (four) times daily. 70 Lozenge0 peg-electrolyte soln 236-22.74-6.74 -5.86 gram solution Take as directed before colonoscopy 4000mL 0 [DISCONTINUED] varenicline (CHANTIX STARTING MONTH BOX) 0.5 mg (11)- 1 mg (42) tablet Take one 0.5mg tab by mouth once daily for 3 days, then one 0.5mg tab twice daily for 4 days, then one 1mg tab twice daily. 1 Package 0 [DISCONTINUED] varenicline 1 mg tablet Take 1 tablet by mouth 2 (two) times daily. Start after finishing starter pack 60 tablet prn verapamil 100 mg 24 hr capsule Take 1 capsule by mouth at bedtime. 90 capsule 3 Estradiol (VAGIFEM) 10 mcg tablet Insert 1 tablet into vagina 2 (two) times per week for Other (vaginial). 30 tablet 6 [DISCONTINUED] traMADol 50 mg tablet Take 1 tablet by mouth every 6 (six) hours as needed for Pain (scale 4-6). 40 tablet 3 fluocinonide 0.05 % solution Apply to area(s) 2 (two) times daily. 20 mL 3 ketoconazole 2 % shampoo Apply to area(s) once daily as needed for Itching. 120 mL 6 STOOL SOFTENER 250 mg capsule TAKE ONE CAPSULE BY MOUTH EVERY DAY 30 capsule 0 albuterol 90 mcg/actuation inhaler Inhale 2 Puffs every 6 (six) hours as needed for Wheezing or Shortness of Breath. 1 Inhaler 11 [DISCONTINUED] blood sugar diagnostic (BLOOD GLUCOSE TEST) strip Use as directed, once daily, DX:E11.9 100 Strip 0 [DISCONTINUED] Blood-Glucose Meter (BLOOD GLUCOSE MONITORING) Kit Use as directed, TID, DX:E11.91 Kit 0 [DISCONTINUED] lancets 33 gauge Misc Use as directed, TID, DX;E11.9 100 Each 0 levocetirizine 5 mg tablet Take 1 tablet by mouth every evening. 30 tablet 3 fluticasone (FLONASE) 50 mcg/actuation nasal spray Use 2 Sprays in each nostril daily. 1 Bottle 11 No facility-administered encounter medications on file as of 04/26/2020. Wt Readings from Last 6 Encounters: 05/14/20 131 lb 11.2 oz (59.7 kg) 04/26/20 132 lb (59.9 kg) 04/24/20 126 lb (57.2 kg) 03/06/20 126 lb (57.2 kg) 11/22/19 131 lb 6.4 oz (59.6 kg) 11/07/19 131 lb 3.2 oz (59.5 kg) documented in this encounter Plan of Treatment Date Type Specialty Care Team Description 06/13/2020 Office Visit Cardiology Jose Maria Brown MD [address] [address] 06/14/2020 Office Visit Internal Medicine Chintan Palomino MD [address] [place], [place] [address] 07/05/2020 Office Visit Pulmonary Disease Leonardo Garza DO [address] [place] [address] [phone] 07/09/2020 Office Visit Endocrinology Diabetes & Carrillo Alvarez MD Metabolism [facility] [place] [address] [phone] 08/20/2020 Office Visit Endocrinology Diabetes & Carrillo Alvarez MD Metabolism [address] [place] [address] [phone] Health Maintenance Due Date Last Done Comments [...] filedocumented in this encounter Visit Diagnoses Diagnosis Depression, unspecified depression type - Primary Anxiety Anxiety state, unspecified Vaginal discharge Leukorrhea, not specified as infective Dyspareunia in female documented in this encounter Insurance Payer Benefit Plan Subscriber ID Effective Phone Address Typ e / Group Dates [facility] MEDICARE [id number] 2019-Pres Med icare Adv HEALTHCARE COMPLETE ent PPO MEDICARE CHOICE ADVANTAGE [facility] MEDICAID OF [id number] 2019-Pres [phone] Medi caid [place] ent [id number] [place] [address] [phone] [id number] (Work) documented as of this encounter
--- OUTSIDE RECORDS SUMMARY | 2020-08-09 13:32 | XMS REPORT | Summary of Care ---
:1960 Author Organization [facility] Address [address] [place] [address] Care Team Providers Name Role Phone Massiel Palomino MD Primary Care Provider Reason for Visit Reason Comments Rx Concern/Question Encounter Details Date Type Department Care Team Description 05/16/2020 Telephone [facility] ADC Leonardo Garza DO Rx Concern/Question Pulmonary Clinic [address] [place] [address] [phone] Allergies Active Allergy Reactions Severity Noted Date Comments Amoxicillin-Pot Other - See comments 03/30/2017 Tong ue pain, Clavulanate swelling Cephalexin Itching, Rash 06/14/2017 Nitrofurantoin Dizziness 06/14/2017 Monohyd/M-Cryst Sulfa (Sulfonamide Hives 03/21/2007 Antibiotics) Tetracycline Rash 03/21/2007 Off balance, doesn't feel ri ght. documented as of this encounter (statuses as of 05/17/2020) Medications Medication Sig Dispensed Refills Start Date [...] Added automatically from request for lalita nasra [id number] Gastroesophageal reflux disease, esophagitis presence not specified 10/16/2019 Overview: Added automatically from request for lalita nasra [id number] Prediabetes 08/15/2018 Overactive bladder 05/27/2017 S/P hysterectomy [...] lower stomach (per patient) ICD10 Diagnosis Term Behavioral Geneticist Utility Female genital symptoms 02/15/2008 Overview: ICD10 Diagnosis Term Behavioral Geneticist Utility documented as of this encounter (statuses as of 05/17/2020) Resolved Problems Problem Noted Date Resolved Date Hematuria 12/20/2015 08/03/2016 Acute bronchitis, unspecified organism 11/08/2015 1 10/03/2015 Influenza with respiratory manifestation other than 02/15/20 08 08/03/2016 pneumonia Overview: ICD10 Diagnosis Term Behavioral Geneticist Utility documented as of this encounter (statuses [...] Telephone Encounter - Leonor Shi MA - 05/17/2020 8:57 AM CDTSee previous telephone encounter elephone Encounter - Cindy Dietrich - 05/16/2020 4:37 PM CDT Patient calling to check on the PA for albuterol-ipratropium (COMBIVENT RESPIMAT) 20-100 mcg/actuation inhaler. Call back [phone] signed by Cindy Dietrich at 05/16/2020 4:38 PM CDTdocumented in this encounter Plan of Treatment Date Type Specialty Care Team Description 06/13/2020 Office Visit Cardiology Jose Maria Brown MD [address] [place] [phone] 06/14/2020 Office Visit Internal Medicine Chintan Palomino MD [address] [place], [place] [address] 07/05/2020 Office Visit Pulmonary Disease Aisha GarzabrettDO natalie [address] [place] [address] [phone] 07/09/2020 Office Visit Endocrinology Diabetes & Carrillo Alvarez MD Metabolism [address] [place], [place] [address] 08/20/2020 Office Visit Endocrinology Diabetes & Carrillo Alvarez MD Metabolism [address] [place], [place] [phone] Health Maintenance Due Date Last Done Comments [...] Effective Phone Address T ype Group Dates [facility] MEDICARE [id number] 2019-Pre [facility] care Adv HEALTHCARE COMPLETE sent PPO MEDICARE CHOICE ADVANTAGE [facility] MEDICAID OF [id number] 2019-Pre [phone] Medic aid [place] sent [id number] [place] [address] [facility] [id number] 2019-Pre [address] Beh avioral [facility] sent [phone] [place] [address] documented as of this encounter
--- OUTSIDE RECORDS SUMMARY | 2020-08-09 13:32 | XMS REPORT | Summary of Care ---
:1960 Author Organization [facility] - Health Address [address] [place] [address] Care Team Providers Name Role Phone Massiel Palomino MD Primary Care Provider Encounter Details Date Type Department Care Team Description 05/15/2020 Orders Only [facility] Doctor Unassigned, No [address] [facility] Name [place] [id number] [place] [address] Allergies Active Allergy Reactions Severity Noted Date [...] Added automatically from request for lalita nasra [id number] Gastroesophageal reflux disease, esophagitis presence not specified 10/16/2019 Overview: Added automatically from request for lalita nasra [id number] Prediabetes 08/15/2018 Overactive bladder 05/27/2017 S/P hysterectomy [...] lower stomach (per patient) ICD10 Diagnosis Term Supervisor Of Research Utility Female genital symptoms 02/15/2008 Overview: ICD10 Diagnosis Term Supervisor Of Research Utility documented as of this encounter (statuses as of 05/16/2020) Resolved Problems Problem Noted Date Resolved Date Hematuria 12/20/2015 08/03/2016 Acute bronchitis, unspecified organism 11/08/2015 1 10/03/2015 Influenza with respiratory manifestation other than 02/15/20 08 08/03/2016 pneumonia Overview: ICD10 Diagnosis Term Supervisor Of Research Utility documented as of this encounter (statuses [...] Jose Maria Brown MD [address] [address] 06/14/2020 Office Visit Internal Medicine Chintan Palomino MD [address] [place], [place] [address] 07/05/2020 Office Visit Pulmonary Disease Leonardo Garza, [address] [place] [phone] 07/09/2020 Office Visit Endocrinology Diabetes & Carrillo Alvarez MD Metabolism [address] [place] [address] [phone] 08/20/2020 Office Visit Endocrinology Diabetes & Carrillo Alvarez MD Metabolism [address] [place] [address] [phone] Health Maintenance Due Date Last Done Comments [...] Completed 10/14/2016 documented as of this encounter Procedures Procedure Name Priority Date/Time Associated Diagnosis Comme nts MEDICATION CORRESPONDENCE Routine 05/15/2020 12:01 AM CDT documented in this encounter Results Not on filedocumented in this encounter Insurance Payer Benefit Plan / Subscriber ID Effective Phone Address T ype Group Dates [facility] MEDICARE [id number] 2019-Pre Medi care Adv HEALTHCARE COMPLETE sent PPO MEDICARE CHOICE ADVANTAGE [facility] MEDICAID OF [id number] 2019-Pre [phone] BOX Medic aid [place] sent [phone] [place] [address] [facility] [id number] 2019-Pre P O BOX Beh avioral [facility] sent [id number] [place] [address] documented as of this encounter
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
--- OUTSIDE RECORDS SUMMARY | 2020-08-09 13:33 | XMS REPORT | Summary of Care ---
:1960 Author Organization [facility] - [facility] Address [address] [place] [address] Care Team Providers Name Role Phone Massiel Palomino MD Primary Care Provider Reason for Visit Reason Comments Assessment Encounter Details Date Type Department Care Team Description 05/17/2020 Telephone [facility] Women's Asmita Bustos MD Assessment Healthcare-[address] [phone] [place], [place] [phone] [phone] [place] [address] Allergies Active Allergy Reactions [...] Added automatically from request for lalita nasra [id number] Gastroesophageal reflux disease, esophagitis presence not specified 10/16/2019 Overview: Added automatically from request for lalita nasra [id number] Prediabetes 08/15/2018 Overactive bladder 05/27/2017 S/P hysterectomy [...] lower stomach (per patient) ICD10 Diagnosis Term Privacy Director Utility Female genital symptoms 02/15/2008 Overview: ICD10 Diagnosis Term Privacy Director Utility documented as of this encounter (statuses as of 05/17/2020) Resolved Problems Problem Noted Date Resolved Date Hematuria 12/20/2015 08/03/2016 Acute bronchitis, unspecified organism 11/08/2015 1 10/03/2015 Influenza with respiratory manifestation other than 02/15/20 08 08/03/2016 pneumonia Overview: ICD10 Diagnosis Term Privacy Director Utility documented as of this encounter (statuses [...] this encounter Miscellaneous Notes Telephone Encounter - Jennifer Davis RN - 05/17/2020 9:30 AM CDT Spoke /c patient. Pt ID by name and . Pt c/o lower back pain. Pt reports hx of UTIs and yeast. Pt states that she started Macrobid on her own, she states that she had some left over from a previous infection. Pt states that her symptoms have improved since she had taken one Macrobid. Pt states that she has 2 Macrobid pills left. Pt is requesting a prescription to continue Macrobid since she is going out of town next week. Advised patient that UA and C&S from her last visit were negative. Vaginal swab was positive foryeast. Advised patient that MD will not likely recommend continuing antibiotic because she does not have a documented UTI, but I will send message to her for advise. Advised patient that she may recommend treatment for yeast. Status: Final result Visible to patient: Yes (MyChart) Dx: Vaginal irritation Specimen Information: VAGINA; Fluid Component Ref Range & Units 3d ago Trichomonas vaginalis Negative Negative Jeanne species Negative Negative Jeanne glabrata Negative PositiveAbnormal Bacterial Vaginosis Negative Negative Pt verbalized understanding and agrees to POC. elephone Encounter - José Desai - 05/17/2020 8:20 AM CDTPatient c/o of back pain, she took some antibiotics that she had on hand. She would like to request a script. [employer] [id number] - [place], [place] - [address] [facility] [employer] documented in this encounter Plan of Treatment Date Type Specialty Care Team Description 06/13/2020 Office Visit Cardiology Jose Maria Brown MD [address] [place] [phone] 06/14/2020 Office Visit Internal Medicine Chintan Palomino MD [address] [place] [address] [address] [place], [place] [address] [phone] 07/05/2020 Office Visit Pulmonary Disease Leonardo Garza, [facility] [place] [phone] 07/09/2020 Office Visit Endocrinology Diabetes & Carrillo Alvarez MD Metabolism [address] [place] [phone] 08/20/2020 Office Visit Endocrinology Diabetes & Carrillo Alvarez MD Metabolism [address] [place] [address] [phone] Health Maintenance Due Date Last Done Comments DTaP,Tdap,and Td Vaccines ( - 1979 Tdap) COLON CANCER SCREENING ANNUAL [...] Effective Phone Address T ype Group Dates [facility] MEDICARE [id number] 2019-Pre Medi care Adv HEALTHCARE COMPLETE sent PPO MEDICARE CHOICE ADVANTAGE [facility] MEDICAID OF [id number] 2019-Pre [phone] BOX Medic aid [place] sent [phone] [place] [address] [facility] [id number] 2019-Pre P O BOX Beh avioral [facility] sent [phone] [place] [address] documented as of this encounter
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
--- OUTSIDE RECORDS SUMMARY | 2020-08-09 13:34 | XMS REPORT | Summary of Care ---
:1960 Author Organization [facility] Address [address] [place] [address] Care Team Providers Name Role Phone Massiel Palomino MD Primary Care Provider Reason for Visit Reason Comments Rx Concern/Question Encounter Details Date Type Department Care Team Description 05/17/2020 Telephone [facility] Internal Chintan Palomino, Rx Concern/Question Medicine- [place] [facility] [address] [place] [address] [address] [facility] [address], [place], [place] [address] [address] [place] [address] [phone] Allergies Active Allergy Reactions Severity Noted Date Comments Amoxicillin-Pot Other - See comments 03/30/2017 Tong ue pain, Clavulanate swelling Cephalexin Itching, Rash 06/14/2017 Nitrofurantoin Dizziness 06/14/2017 Monohyd/M-Cryst Sulfa (Sulfonamide Hives 03/21/2007 Antibiotics) Tetracycline Rash 03/21/2007 Off balance, doesn't feel ri ght. documented as of this encounter (statuses as of 05/17/2020) Medications Medication Sig Dispensed Refills Start End Date Status Date fluticasone (FLONASE) 50 Use 2 Sprays in 1 Bottle 11 Active mcg/actuation nasal each nostril 8 sprayIndications: Dyspnea daily. on exertion, Upper airway cough syndrome, Gastroesophageal reflux disease without esophagitis levocetirizine 5 mg Take 1 tablet by 30 tablet 3 Active tabletIndications: mouth every 8 Post-nasal drip evening. albuterol 90 Inhale 2 Puffs 1 Inhaler 11 Ac tive mcg/actuation inhaler every 6 (six) 9 hours as needed for Wheezing or Shortness of Breath. STOOL SOFTENER 250 mg TAKE ONE CAPSULE 30 capsule 0 Active capsuleIndications: BY MOUTH EVERY 9 Constipation, unspecified DAY constipation type ketoconazole 2 % Apply to 120 mL 6 Act zan shampooIndications: area(s) once 9 Post-inflammatory daily as needed hyperpigmentation for Itching. fluocinonide 0.05 % Apply to 20 mL 3 Active solutionIndications: area(s) 2 (two) 9 Central centrifugal times daily. scarring alopecia Estradiol (VAGIFEM) 10 Insert 1 tablet 30 tablet 6 Active mcg tabletIndications: into vagina 2 9 Post-menopause atrophic (two) times per vaginitis week for Other (vaginial). verapamil 100 mg 24 hr Take 1 capsule 90 capsule 3 Active capsuleIndications: by mouth at 9 Essential hypertension, bedtime. Generalized anxiety disorder with panic attacks, Carolina's cyst of knee, left peg-electrolyte soln Take as directed 4000 mL 0 Active 236-22.74-6.74 -5.86 gram before 0 solutionIndications: colonoscopy Colon cancer screening, Gastroesophageal reflux disease, esophagitis presence not specified atorvastatin 40 mg Take 1 tablet by 90 tablet 5 Active tabletIndications: Pure mouth at 0 hypercholesterolemia bedtime. fluticasone Inhale 1 Puff 60 Each 11 Acti ve propion-salmeterol every 12 0 (ADVAIR DISKUS) 250-50 (twelve) hours. mcg/dose inhalation 1 puff twice a diskIndications: Dyspnea day rinse mouth on exertion after use pantoprazole 40 mg EC Take 1 tablet by 90 tablet Active tabletIndications: mouth daily. 0 Dysphagia, unspecified type, Gastroesophageal reflux disease without esophagitis peg-electrolyte soln Take as directed 4000 mL 0 Active 236-22.74-6.74 -5.86 gram before 0 solution colonoscopy modafinil 100 mg Take 1 tablet by 60 tablet 1 Active tabletIndications: mouth daily. For 0 Depression, unspecified 1 week then depression type increase to 200 mg by mouth daily metroNIDAZOLE 500 mg Take 1 tablet by 14 tablet 0 Active tabletIndications: mouth 2 (two) 0 Vaginal discharge times daily. albuterol-ipratropium Inhale 1 Puff 4 3 Inhaler 11 Active (COMBIVENT RESPIMAT) (four) times 0 20-100 mcg/actuation daily. inhalerIndications: Dyspnea on exertion clidinium-chlordiazepoxid Take 1-2 100 capsule 1 Active e (LIBRAX, WITH capsules by 0 CLINIDIUM,) 5-2.5 mg mouth 3 (three) capsuleIndications: times daily as Esophageal spasm needed for Pain (scale 1-3) or Pain (scale 4-6). documented as of this encounter (statuses as of 05/17/2020) Active Problems Problem Noted Date Heartburn 10/16/2019 Colon cancer screening 10/16/2019 Overview: Added automatically from request for lalita nasra [id number] Gastroesophageal reflux disease, esophagitis presence not specified 10/16/2019 Overview: Added automatically from request for lalita nasra [id number] Prediabetes 08/15/2018 Overactive bladder 05/27/2017 S/P hysterectomy [...] lower stomach (per patient) ICD10 Diagnosis Term Rubber Process Hand Utility Female genital symptoms 02/15/2008 Overview: ICD10 Diagnosis Term Rubber Process Hand Utility documented as of this encounter (statuses as of 05/17/2020) Resolved Problems Problem Noted Date Resolved Date Hematuria 12/20/2015 08/03/2016 Acute bronchitis, unspecified organism 11/08/2015 1 10/03/2015 Influenza with respiratory manifestation other than 02/15/20 08 08/03/2016 pneumonia Overview: ICD10 Diagnosis Term Rubber Process Hand Utility documented as of this encounter [...] this encounter Miscellaneous Notes Telephone Encounter - Leyda Steen, LARRY - 05/17/2020 4:30 PM CDTSpoke with and he advised he would like for patient to try the librax with clindium as directed and then if patient takes as directed and she has panic issues and feels she needs to take a xanax she can but he does not want patient taking xanax every day throughout the day. Spoke with patient and explained this. She states she will try the librax as directed to and that she will only take the xanax as needed. States she will Be needing a refill of xanax on the and will be calling next week for the refill. States she is very scared to be without the xanax. Called librax with clididium to the pharmacy as on NOV. Explained to patient how wants her to take the medications. Pt verbalized undertsanding elephone Encounter - Leyda Steen RN - 05/17/2020 3:50 PM CDT has denied increasing xanax Chintan Palomino MD 12:39 PM Note Well, this a good reason to change to a medication that does the same things, but stays at least a little active for 24 hours. She should take this new medication every morning and up to twice a day for symptoms - or if she knows something will set the problem off. We titrate up. The medication also contains a medication more specific for the esophagus. It will need to be called in, it cannot be faxed. Pt states she does not want to switch from xanax to librax. States xanax works well for her and she does not want to stop the xanax and start librax unless both of them can be taken together elephone Encounter - Betsy Phillips - 05/17/2020 2:11 PM CDTPatient is calling back regarding change in medication. documented in this encounter Plan of Treatment Date Type Specialty Care Team Description 06/13/2020 Office Visit Cardiology Jose Maria Brown MD [address]ARY [address] [place] [phone] 06/14/2020 Office Visit Internal Medicine Chintan Palomino MD [address] [place], [place] [address] 07/05/2020 Office Visit Pulmonary Disease Leonardo Garza DO [address] [place] [phone] 07/09/2020 Office Visit Endocrinology Diabetes & Carrillo Alvarez MD Metabolism [address] [place] [address] [phone] 08/20/2020 Office Visit Endocrinology Diabetes & Carrillo Alvarez MD Metabolism [address] [place] [address] [phone] Health Maintenance Due Date Last Done Comments [...] Effective Phone Address T ype Group Dates [facility] MEDICARE [id number] 2019-Pre Medi care Adv HEALTHCARE COMPLETE sent PPO MEDICARE CHOICE ADVANTAGE [place] MEDICAID OF [id number] 2019-Pre [phone] Medic aid [place] sent [phone] [place] [address] [facility] [id number] 2019-Pre [address] Beh [facility]ioral [facility] sent [id number] [place] [address] documented as of this encounter
--- OUTSIDE RECORDS SUMMARY | 2020-08-09 13:34 | XMS REPORT | Summary of Care ---
:1960 Author Organization [facility] - [facility] Address [address] [place] [address] Care Team Providers Name Role Phone Massiel Palomino MD Primary Care Provider Reason for Visit Reason Comments Rx Concern/Question ALPRAZolam 1 mg tablet Encounter Details Date Type Department Care Team Description 05/15/2020 Telephone [facility] Internal Chintan Palomino, Rx Concern/Question Medicine- [place] JORGE (ALPRAZolam 1 mg Primary Care Pavilio n [address] [facility] RTK67 tablet) [address] , [place] [address] [address] [place] [address] Allergies Active Allergy Reactions Severity Noted Date Comments Amoxicillin-Pot Other - See comments 03/30/2017 Juan Jose ue pain, Clavulanate swelling Cephalexin Itching, Rash [...] 2 20 Vaginal discharge (two) times daily. clidinium-chlordiazepox Take 1-2 100 capsule 1 05/17/20 Active alva (LIBRAX, WITH capsules by 20 CLINIDIUM,) 5-2.5 mg mouth 3 capsuleIndications: (three) times Esophageal spasm daily as needed for Pain (scale 1-3) or Pain (scale 4-6). dicyclomine 10 mg 1 cap Q6h prn 60 capsule 3 01/24/2005/17/ Discontinued capsuleIndications: abdominal 2019 (Reorder) Abdominal cramping cramping ALPRAZolam 1 mg TAKE 1 TABLET 90 tablet 1 02/27/2005/17/ Discontinued tabletIndications: BY MOUTH THREE 2019 (Reorder) Anxiety TIMES DAILY NEEDED FOR ANXIETY documented as of this encounter (statuses as of 05/17/2020) Active Problems Problem Noted Date Heartburn 10/16/2019 Colon cancer screening 10/16/2019 Overview: Added automatically from request for lalita nasra [id number] Gastroesophageal reflux disease, esophagitis presence not specified 10/16/2019 Overview: Added automatically from request for lalita nasra [id number] Prediabetes 08/15/2018 Overactive bladder 05/27/2017 S/P hysterectomy [...] lower stomach (per patient) ICD10 Diagnosis Term Workers Compensation Paralegal Utility Female genital symptoms 02/15/2008 Overview: ICD10 Diagnosis Term Workers Compensation Paralegal Utility documented as of this encounter (statuses as of 05/17/2020) Resolved Problems Problem Noted Date Resolved Date Hematuria 12/20/2015 08/03/2016 Acute bronchitis, unspecified organism 11/08/2015 1 10/03/2015 Influenza with respiratory manifestation other than 02/15/20 08 08/03/2016 pneumonia Overview: ICD10 Diagnosis Term Workers Compensation Paralegal Utility documented as of this encounter (statuses [...] this encounter Miscellaneous Notes Telephone Encounter - Chintan Palomino MD - 05/17/2020 12:37 PM CDTWell, this a good reason to change to [...] be called in, it cannot be faxed. elephone Encounter - Leyda Steen RN - 05/16/2020 3:37 PM CDTPt calling again today asking about her medication please advise elephone Encounter - Leyda Steen RN - 05/15/2020 2:47 PM CDT Spoke with patient states she had her colonoscopy on yesterday. States she was told that she has really bad reflux but other than that they could not find anything. Gi doctors states patients reflux iseffecting her anxiety bad. States she has been experiencing bad reflux and will get tightness in herback and cannot get relief until she burps. States she has been taking 2 xanax at a time and noticedthat this helps her body relax and she is able to burp and release the reflux. States she counted her pills earlier today and she has about 20 pills left and is not due for her refill until the . States she used to get 120 pills a month a long time ago before she lost her insurance and was not able to see . States she would like for to prescribe 20 more pills and change directions to take two tabs tid and then this would hold her over until her next refill. Pt wants to know if after that can she start getting the script for xanax 1mg two po tid # 120 from now on since this medication helps both diagnosis the reflux and the anxiety. elephone Encounter - Betsy Phillips - 05/15/2020 2:38 PM CDT Patient wants to know if Dr. Garcia will increase the qty of her she's been having to take two a day. ALPRAZolam 1 mg tablet documented in this encounter Plan of Treatment Date Type Specialty Care Team Description 06/13/2020 Office Visit Cardiology Jose Maria Brown MD [address] [place] [address] 06/14/2020 Office Visit Internal Medicine Chintan Palomino MD [address] [place] [address] 07/05/2020 Office Visit Pulmonary Disease Leonardo Garza DO [address] [place] [address] [phone] 07/09/2020 Office Visit Endocrinology Diabetes & Carrillo Alvarez MD Metabolism 2660 [place], [place] [address] 08/20/2020 Office Visit Endocrinology Diabetes & Carrillo Alvarez MD Metabolism [address]60 [place], [place] [phone] Health Maintenance Due Date Last Done Comments [...] filedocumented in this encounter Visit Diagnoses Diagnosis Esophageal spasm - Primary Dyskinesia of esophagus documented in this encounter Insurance Payer Benefit Plan / Subscriber ID Effective Phone Address T e Group Dates [facility] MEDICARE [id number] 2019-Pre Medi care Adv HEALTHCARE COMPLETE sent PPO MEDICARE CHOICE ADVANTAGE [facility] MEDICAID OF [id number] 2019-Pre [phone] O BOX Medic aid [place] sent [id number] [place] [address] [facility] [id number] 2019-Pre P O BOX Beh avioral [facility] sent [phone] [place] [address] documented as of this encounter
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
--- OUTSIDE RECORDS SUMMARY | 2020-08-09 13:35 | XMS REPORT | Summary of Care ---
:1960 Author Organization [facility] Address [address] [place] [address] Care Team Providers Name Role Phone Massiel Palomino MD Primary Care Provider Reason for Visit Reason Comments Rx Concern/Question Encounter Details Date Type Department Care Team Description 05/15/[address] [facility] ADC Leonardo Garza DO Rx Concern/Question Pulmonary Clinic [address] [place] [phone] Allergies Active Allergy Reactions Severity Noted Date Comments Amoxicillin-Pot Other - See comments 03/30/2017 Tong ue pain, Clavulanate swelling Cephalexin Itching, Rash 06/14/2017 Nitrofurantoin Dizziness 06/14/2017 Monohyd/M-Cryst Sulfa (Sulfonamide Hives 03/21/2007 Antibiotics) Tetracycline Rash 03/21/2007 Off balance, doesn't feel ri ght. documented as of this encounter (statuses as of 05/23/2020) Medications Medication Sig Dispensed Refills Start End [...] albuterol-ipratropium Inhale 1 Puff 3 Inhaler 11 01/04/200 3/2 Discontinued (COMBIVENT RESPIMAT) 4 (four) times [...] as of this encounter (statuses as of 05/23/2020) Active Problems Problem Noted Date Heartburn 10/16/2019 Colon cancer screening 10/16/2019 Overview: Added automatically from request for lalita nasra [id number] Gastroesophageal reflux disease, esophagitis presence not specified 10/16/2019 Overview: Added automatically from request for lalita nasra [id number] Prediabetes 08/15/2018 Overactive bladder 05/27/2017 S/P hysterectomy [...] lower stomach (per patient) ICD10 Diagnosis Term Learning Program Manager Utility Female genital symptoms 02/15/2008 Overview: ICD10 Diagnosis Term Learning Program Manager Utility documented as of this encounter (statuses as of 05/23/2020) Resolved Problems Problem Noted Date Resolved Date Hematuria 12/20/2015 08/03/2016 Acute bronchitis, unspecified organism 11/08/2015 1 10/03/2015 Influenza with respiratory manifestation other than 02/15/20 08 08/03/2016 pneumonia Overview: ICD10 Diagnosis Term Learning Program Manager Utility documented as of this encounter (statuses as of 05/23/2020) Immunizations Name Administration Dates Next Due Pneumococcal [...] Telephone Encounter - Leonor Shi MA - 05/23/2020 9:47 AM CDTNote received from [employer] stating "This medication or product is on your plan's list of covered drugs. Prior Authorization is not required at this time." Note will be scanned into patients chart elephone Encounter - Leonor Shi MA - 05/16/2020 9:02 AM CDTPA received from [facility]. PA filled out and faxed to [phone] elephone Encounter - Leonor Shi MA - 05/16/2020 [...] the PA for albuterol-ipratropium (COMBIVENT RESPIMAT) 20-100 mcg /actuation inhaler to get 3 per month. [id number] - [place], [place] - [address] [facility]; [place] [address] [facility] [phone] documented in this encounter Plan of Treatment Date Type Specialty Care Team Description 06/13/2020 Office Visit Cardiology Jose Maria Brown MD [address] [place] [phone] 06/14/2020 Office Visit Internal Medicine Chintan Palomino MD [address] [facility] [facility] [address] [place], [place] [address] 07/05/2020 Office Visit Pulmonary Disease Leonardo Garza DO [address] [place] [phone] 07/09/2020 Office Visit Endocrinology Diabetes & Carrillo Alvarez MD [address] [place], [place] [phone] 08/20/2020 Office Visit Endocrinology Diabetes & Carrilol Alvarez MD Metabolism [address] [place] [address] [phone] Health Maintenance Due Date Last Done Comments [...] Effective Phone Address T ype Group Dates [facility] MEDICARE [id number] 2019-Pre Medi care Adv HEALTHCARE COMPLETE sent PPO MEDICARE CHOICE ADVANTAGE [facility] MEDICAID OF [id number] 2019-Pre [phone] O BOX Medic aid [place] sent [phone] [place] [address] [facility] [id number] 2019-Pre P O BOX Beh avioral [facility] sent [phone] [place] [address] documented as of this encounter
--- OUTSIDE RECORDS SUMMARY | 2020-08-09 13:35 | XMS REPORT | Summary of Care ---
:1960 Author Organization [facility] - [facility] Address [address] [place] [address] Care Team Providers Name Role Phone Massiel Palomino MD Primary Care Provider Reason for Visit Reason Comments Authorization chlordiazepoxide/clidinium 5 -2.5 mg Encounter Details Date Type Department Care Team Description 05/24/2020 Telephone [facility] [place] Rankin MD (chlordiazepoxide/clidin Primary Care Pavilio n [address] [facility] [address] ium 5-2.5 mg) [address] [facility], [place], [place] [address] [place] [address] [phone] [address] [phone] Allergies Active Allergy Reactions Severity Noted Date Comments Amoxicillin-Pot Other - See comments 03/30/2017 Juan Jose usolange pain, Clavulanate swelling Cephalexin Itching, Rash 06/14/2017 Nitrofurantoin Dizziness 06/14/2017 Monohyd/M-Cryst Sulfa (Sulfonamide Hives 03/21/2007 Antibiotics) Tetracycline Rash 03/21/2007 Off balance, doesn't feel ri ght. 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 Female genital symptoms 02/15/2008 Overview: ICD10 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 documented as of this encounter (statuses as of 05/24/2020) Resolved Problems Problem Noted Date Resolved Date Hematuria 12/20/2015 08/03/2016 Acute bronchitis, unspecified organism 11/08/2015 1 10/03/2015 Influenza with respiratory manifestation other than 02/15/20 08 08/03/2016 pneumonia Overview: ICD10 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 Call us at Status Sent to [facility] chlordiazePOXIDE-Clidinium 5-2.5MG capsules Form [facility] Electronic Prior Authorization Form (2016 NCPDP) elephone Encounter - Betsy Phillips - 05/24/2020 8:00 AM CDTclidinium-chlordiazepoxide (LIBRAX, WITH CLINIDIUM,) 5-2.5 mg capsule medication needs PA PLEASE CALL [phone] ID#[id number]. documented in this encounter Plan of Treatment Date Type Specialty Care Team Description 06/13/2020 Office Visit Cardiology Jose Maria Brown MD [address] [phone] 06/14/2020 Office Visit Internal Medicine Chintan Palomino MD [address] [place], [place] [address] 07/05/2020 Office Visit [place] [address] [place] [address] [phone] 07/09/2020 Office Visit Endocrinology Diabetes & Carrillo Alvarez MD Metabolism [address] [place] [phone] 08/20/2020 Office Visit Endocrinology Diabetes & Carrillo Alvarez MD Metabolism [address] [place] [phone] Health Maintenance Due Date Last Done Comments [...] Phone Address T ype Group Dates [facility] MEDICARE [id number] 2019-Pre Medi care Adv HEALTHCARE COMPLETE sent PPO MEDICARE CHOICE ADVANTAGE [facility] MEDICAID OF [id number] 2019-Pre [phone] O BOX Medic aid [place] sent [phone] [place] [address] [facility] [id number] 2019-Pre P O BOX Beh avioral [facility] sent [phone] [place] [address] documented as of this encounter
--- OUTSIDE RECORDS SUMMARY | 2020-08-09 13:35 | XMS REPORT | Summary of Care ---
:1960 Author Organization [facility] Address [address] [place] [address] Care Team Providers Name Role Phone Massiel Palomino MD Primary Care Provider Reason for Visit Reason Comments Notification Leyda Encounter Details Date Type Department Care Team Description 05/30/2020 Telephone [facility] Internal Chintan Palomino, Notification (Leyda) Medicine- [place] JORGE Primary Care Pavilio n [address] [place] [address] [address] , [place] [address] [address] [place] [address] Allergies Active Allergy Reactions Severity Noted Date Comments Amoxicillin-Pot Other - See comments 03/30/2017 Tong ue pain, Clavulanate swelling Cephalexin Itching, Rash 06/14/2017 Nitrofurantoin Dizziness 06/14/2017 Monohyd/M-Cryst Sulfa (Sulfonamide Hives 03/21/2007 Antibiotics) Tetracycline Rash 03/21/2007 Off balance, doesn't feel ri ght. 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 Female genital symptoms 02/15/2008 Overview: ICD10 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 documented as of this encounter (statuses as of 05/30/2020) Resolved Problems Problem Noted Date Resolved Date Hematuria 12/20/2015 08/03/2016 Acute bronchitis, unspecified organism 11/08/2015 1 10/03/2015 Influenza with respiratory manifestation other than 02/15/20 08 08/03/2016 pneumonia Overview: ICD10 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 documented in this encounter Plan of Treatment Date Type Specialty Care Team Description 06/13/2020 Office Visit Cardiology Jose Maria Brown MD [address] [place] [phone] 06/14/2020 Office Visit Internal Medicine Chintan Palomino MD [address] [place], [place] [address] 07/05/2020 Office Visit Pulmonary Disease Leonardo Garza DO [address] [place] [phone] 07/09/2020 Office Visit Endocrinology Diabetes & Carrillo Alvarez MD Metabolism [address] [place], [place] [address] 08/20/2020 Office Visit Endocrinology Diabetes & Carrillo Alvarez MD Metabolism [address] [place] [address] Health Maintenance Due Date Last [...] Effective Phone Address T ype Group Dates [facility] MEDICARE [id number] 2019-Pre [facility] care Adv HEALTHCARE COMPLETE sent PPO MEDICARE CHOICE ADVANTAGE [facility] MEDICAID OF [id number] 2019-Pre [phone] O BOX Medic aid [place] sent [id number] [place] [address] [facility] [id number] 2019-Pre P O BOX Beh avioral [facility] sent [phone] [place] [address] documented as of this encounter
--- OUTSIDE RECORDS SUMMARY | 2020-08-09 13:36 | XMS REPORT | Summary of Care ---
:1960 Author Organization [facility] - [facility] Address [address] [place] [address] Care Team Providers Name Role Phone Massiel Palomino MD Primary Care Provider Reason for Visit Reason Comments Refill Request ALPRAZolam 1 mg tablet Encounter Details Date Type Department Care Team Description 05/28/2020 Telephone [facility] Internal Chintan Palomino, Refill Request Medicine- [place] JORGE (ALPRAZolam 1 mg tablet Primary Care Pavilio n [address] [facility] [address] ) [address] [place] [address] [address] [place] [address] Allergies Active Allergy Reactions Severity Noted Date Comments Amoxicillin-Pot Other - See comments 03/30/2017 Tong ue pain, Clavulanate swelling Cephalexin Itching, Rash 06/14/2017 Nitrofurantoin Dizziness 06/14/2017 Monohyd/M-Cryst Sulfa (Sulfonamide Hives 03/21/2007 Antibiotics) Tetracycline Rash 03/21/2007 Off balance, doesn't feel ri ght. documented as of this encounter (statuses as of 06/04/2020) Medications Medication Sig Dispensed Refills Start End [...] Pain (scale 1-3) or Pain (scale 4-6). 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 Female genital symptoms 02/15/2008 Overview: ICD10 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 documented as of this encounter (statuses as of 06/04/2020) Resolved Problems Problem Noted Date Resolved Date Hematuria 12/20/2015 08/03/2016 Acute bronchitis, unspecified organism 11/08/2015 1 10/03/2015 Influenza with respiratory manifestation other than 02/15/20 08 08/03/2016 pneumonia Overview: ICD10 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 documented as of this encounter (statuses as of 06/04/2020) Immunizations Name Administration Dates Next Due Pneumococcal [...] Telephone Encounter - Leyda Steen RN - 06/04/2020 11:05 AM CDTLetter provided by to ask insurance to reconsider covering medication librax with clinidium Called insurance to get the fax number to send the letter at [phone] Was provided fax number [phone] signed by Leyda Steen RN at 06/04/2020 11:09 AM CDTTelephone Encounter - Leyda Steen RN - 06/03/2020 2:23 PM CDTPlease advise on letter of medical necessity so that we can fax it to insurance for reconsideration of approval on librax elephone Encounter - Leyda Steen RN - 05/30/2020 10:53 AM CDTSpoke with patient states she spoke with her insurance and they advised that the librax was denied but that it could possibly be appealed if explains further why patient would benefit from the medication. Will ask to write a letter explaining medical necessity. The insurance did state this was a plan exclusion but can try again with letter. Pt also said the phone number to call is [phone] Pt is also asking about refill on xanax. States she will be out tomorrow. States she comes about every 3 months to be seen and wants to know if a couple of refills can be given to prevent her from having to call up here so often. elephone Encounter - Leyda Steen RN - 05/29/2020 12:01 PM CDTPts insurance would not cover the librax fyi even after a prior auth was done it is excluded from the plan Telephone Encounter - Betsy Phillips - 05/28/2020 12:40 PM CDTALPRAZolam 1 mg tablet Patient is requesting at least a three month supply so she would not have tocall every month. documented in this encounter Plan of Treatment Date Type Specialty Care Team Description 06/13/2020 Office Visit Cardiology Jose Maria Brown MD [address] [place] [phone] 06/14/2020 Office Visit Internal Medicine Chintan Palomino MD [address] [facility] [address] [place] [address] 07/05/2020 Office Visit Pulmonary Disease Leonardo Garza DO [address] [place] [phone] 07/09/2020 Office Visit Endocrinology Diabetes & Carrillo Alvarez MD Metabolism [address] [place] [address] [phone] 08/20/2020 Office Visit Endocrinology Diabetes & Carrillo Alvarez MD Metabolism [address] [place], [place] [address] Health Maintenance Due Date Last Done Comments [...] filedocumented in this encounter Visit Diagnoses Diagnosis Anxiety Anxiety state, unspecified documented in this encounter Insurance Payer Benefit Plan / Subscriber ID Effective Phone Address T ype Group Dates [facility] MEDICARE [id number] 2019-Pre Medi care Adv HEALTHCARE COMPLETE sent PPO MEDICARE CHOICE ADVANTAGE [facility] MEDICAID OF [id number] 2019-Pre [phone] B[address] Medic aid [place] sent [id number] [place] [address] [facility] [id number] 2019-Pre P [address] BOX Beh avioral [facility] sent [id number] [facility] [place] [address] documented as of this encounter
--- OUTSIDE RECORDS SUMMARY | 2020-08-09 13:36 | XMS REPORT | Summary of Care ---
:1960 Author Organization [facility] - [facility] Address [address] [place] [address] Care Team Providers Name Role Phone Massiel Palomino MD Primary Care Provider Reason for Visit Reason Comments Notification Leyda Encounter Details Date Type Department Care Team Description 05/30/2020 Telephone [facility] Internal Chintan Palomino, Notification (Leyda) Medicine- [place] JORGE Primary Care Pavilio n [address] [place] [address] [address] , [place] [address] [address] [place] [address] Allergies Active Allergy Reactions Severity [...] Added automatically from request for lalita nasra [id number] Gastroesophageal reflux disease, esophagitis presence not specified 10/16/2019 Overview: Added automatically from request for lalita nasra [id number] Prediabetes 08/15/2018 Overactive bladder 05/27/2017 S/P hysterectomy [...] lower stomach (per patient) ICD10 Diagnosis 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 Female genital symptoms 02/15/2008 Overview: ICD10 Diagnosis 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 documented as of this encounter (statuses as of 06/04/2020) Resolved Problems Problem Noted Date Resolved Date Hematuria 12/20/2015 08/03/2016 Acute bronchitis, unspecified organism 11/08/2015 1 10/03/2015 Influenza with respiratory manifestation other than 02/15/20 08 08/03/2016 pneumonia Overview: ICD10 Diagnosis 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 documented as of this encounter (statuses [...] Brown MD [address] [place] [phone] 06/14/2020 Office Visit Internal Medicine Chintan Palomino MD [address] [place], [place] [address] 07/05/2020 Office Visit Pulmonary Disease Leonardo Garza DO [address] [place] [phone] 07/09/2020 Office Visit Endocrinology Diabetes & Carrillo Alvarez MD Metabolism [address] [place], [place] [phone] 08/20/2020 Office Visit Endocrinology Diabetes & Carrillo Alvarez MD Metabolism [address] [place] [address] Health Maintenance Due Date Last [...] ype Group Dates [facility] MEDICARE [id number] 2019-Pre [facility] care Adv HEALTHCARE COMPLETE sent PPO MEDICARE CHOICE ADVANTAGE [facility] MEDICAID OF [id number] 2019-Pre [phone] O BOX Medic aid [place] sent [phone] [id number] [place] [address] [facility] [id number] 2019-Pre P O BOX Beh avioral [facility] BE[facility]IOR[facility] sent [phone] [place] [address] documented as of this encounter
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
--- OUTSIDE RECORDS SUMMARY | 2020-08-09 13:37 | XMS REPORT | Summary of Care ---
:1960 Author Organization [facility] - [facility] Address [address] [place] [address] Care Team Providers Name Role Phone Massiel Palomino MD Primary Care Provider Reason for Visit Reason Comments Refill Request Encounter Details Date Type Department Care Team Description 06/12/2020 Telephone [facility] Dermatology- Leyda Duran MD Refill Request [id number] [place] [address] [place] [address], [address] [place] [address] [place] [address] Allergies Active Allergy Reactions Severity Noted Date Comments Amoxicillin-Pot Other - See comments 03/30/2017 Tong ue pain, Clavulanate swelling Cephalexin Itching, Rash 06/14/2017 Nitrofurantoin Dizziness 06/14/2017 Monohyd/M-Cryst Sulfa (Sulfonamide Hives 03/21/2007 Antibiotics) Tetracycline Rash 03/21/2007 Off balance, doesn't feel ri ght. documented as of this encounter (statuses as of 06/13/2020) Medications Medication Sig Dispensed Refills Start End [...] as of this encounter (statuses as of 06/13/2020) Active Problems Problem Noted Date Heartburn 10/16/2019 Colon cancer screening 10/16/2019 Overview: Added automatically from request for lalita nasra [id number] Gastroesophageal reflux disease, esophagitis presence not specified 10/16/2019 Overview: Added automatically from request for lalita nasra [id number] Prediabetes 08/15/2018 Overactive bladder 05/27/2017 S/P hysterectomy [...] lower stomach (per patient) ICD10 Diagnosis Term Property Field Inspector Utility Female genital symptoms 02/15/2008 Overview: ICD10 Diagnosis Term Property Field Inspector Utility documented as of this encounter (statuses as of 06/13/2020) Resolved Problems Problem Noted Date Resolved Date Hematuria 12/20/2015 08/03/2016 Acute bronchitis, unspecified organism 11/08/2015 1 10/03/2015 Influenza with respiratory manifestation other than 02/15/20 08 08/03/2016 pneumonia Overview: ICD10 Diagnosis Term Property Field Inspector Utility documented as of this encounter (statuses as of 06/13/2020) Immunizations Name Administration Dates Next Due Pneumococcal [...] this encounter Miscellaneous Notes Telephone Encounter - Emi Taylor - 06/12/2020 3:32 PM CDT Ketoconazole 2% shampoo---fluocinonide 0.05 % solution needs a refill call back [phone] - [address] [facility] [address] Vazquezamp; SYBIL CASILLAS [phone] (Phone) documented in this encounter Plan of Treatment Date Type Specialty Care Team Description 06/19/2020 Office Visit Internal Medicine Chintan Palomino MD [address] [place] [phone] 07/05/2020 Office Visit Pulmonary Disease Leonardo Garza DO [address] [place] [phone] 07/09/2020 Office Visit Endocrinology Diabetes & Carrillo Alvarez MD Metabolism [address] [place], [place] [phone] 08/20/2020 Office Visit Endocrinology Diabetes & Carrillo Alvarez MD Metabolism [address] [place] [address] Health Maintenance Due Date Last [...] Effective Phone Address T ype Group Dates [facility] MEDICARE [id number] 2019-Pre Medi care Adv HEALTHCARE COMPLETE sent PPO MEDICARE CHOICE [facility] MEDICAID OF [id number] 2019-Pre [phone] Medic aid [place] sent [phone] [place] [address] [facility] [id number] 2019-Pre [address] Beh avioral [facility] sent [phone] [email or web address] [address] documented as of this encounter
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
--- OUTSIDE RECORDS SUMMARY | 2020-08-09 13:37 | XMS REPORT | Summary of Care ---
:1960 Author Organization [facility] - [facility] Address [address] [place] [address] Care Team Providers Name Role Phone Massiel Palomino MD Primary Care Provider Reason for Visit Reason Comments Refill Request Rx Concern/Question Talk To Nurse Encounter Details Date Type Department Care Team Description 06/11/2020 Telephone [facility] Internal Chintan Palomino, Refill Request; Rx Medicine- [place] JORGE Concern/Question; Talk Primary Care Pavilio n [address] [facility] [address] To Nurse [address] [facility], [place] [address] [address] [place] [address] Allergies Active Allergy Reactions Severity [...] Added automatically from request for lalita nasra [id number] Gastroesophageal reflux disease, esophagitis presence not specified 10/16/2019 Overview: Added automatically from request for lalita nasra [id number] Prediabetes 08/15/2018 Overactive bladder 05/27/2017 S/P hysterectomy [...] lower stomach (per patient) ICD10 Diagnosis Term 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 Utility Female genital symptoms 02/15/2008 Overview: ICD10 Diagnosis Term 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 She is waiting on the insurance to see if the letter will get the medication approved. elephone Encounter - CesarSanjuana - 06/11/2020 2:46 PM CDTMedication: clidinium-chlordiazepoxide (LIBRAX, WITH CLINIDIUM,) 5-2.5 mg capsule Was sent to [facility] but patient wants it sent to [facility] instead. Son is going to out of pocket pay until medication can get approved with [facility] [place] documented in this encounter Plan of Treatment Date Type Specialty Care Team Description 06/19/2020 Office Visit Internal Medicine Chintan Palomino MD [address] [place], [place] [address] 07/05/2020 Office Visit Pulmonary Disease Leonardo Garza, [address] [place] [address] [phone] 07/09/2020 Office Visit Endocrinology Diabetes & Carrillo Alvarez MD Metabolism [address] [place] [address] [phone] 08/20/2020 Office Visit Endocrinology Diabetes & Carrillo Alvarez MD Metabolism [address] [place] [address] [phone] Health Maintenance Due Date Last Done Comments [...] ype Group Dates [facility] MEDICARE [id number] 2019-Pre Medi care Adv HEALTHCARE COMPLETE sent PPO MEDICARE CHOICE ADVANTAGE [facility] MEDICAID OF [id number] 2019-Pre [phone] Medic aid [place] sent [phone] [place] [address] [facility] [id number] 2019-Pre [address] BOX Beh avioral [facility] sent [phone] [place] [address] documented as of this encounter
--- OUTSIDE RECORDS SUMMARY | 2020-08-09 13:38 | XMS REPORT | Summary of Care ---
:1960 Author Organization [facility] Address [address] [place] [address] Care Team Providers Name Role Phone Massiel Palomino MD Primary Care Provider Reason for Referral (Routine) Status Reason Specialty Diagnoses / Referred By Referred To Procedures Contact Contact New Request Psychiatry Diagnoses Anxiety Chintan Palomino Procedures CONSULT/REFERRAL PSYCHIATRY ADULT MD Massiel [address] [facility] [address] [place] [address] Reason for Visit Reason Comments Refill Request Encounter Details Date Type Department Care Team Description 06/24/2020 Telephone [facility] Internal Matt Palomino MD Refill Request [address] [place] [address] [address] , [address] [place] [address] Allergies Active Allergy Reactions Severity Noted Date Comments Amoxicillin-Pot Other - See comments 03/30/2017 Tong ue pain, Clavulanate swelling Cephalexin Itching, Rash 06/14/2017 Nitrofurantoin Dizziness 06/14/2017 Monohyd/M-Cryst Sulfa (Sulfonamide Hives 03/21/2007 Antibiotics) Tetracycline Rash 03/21/2007 Off balance, doesn't feel ri ght. documented as of this encounter (statuses as of 06/25/2020) Medications Medication Sig Dispensed Refills Start End [...] Pain (scale 1-3) or Pain (scale 4-6). azelastine 137 mcg (0.1 Use 1 [place] in 30 mL 1 Active %) nasal each nostril 2 0 sprayIndications: (two) times Allergic rhinitis due to daily. Use in pollen, unspecified each nostril as seasonality directed ipratropium 0.03 % nasal Use 2 Sprays in 30 mL 3 Active sprayIndications: each nostril 0 Allergic rhinitis due to daily. On waking pollen, unspecified and repeat seasonality before bed time ALPRAZolam 1 mg TAKE 1 TABLET BY 90 tablet 0 Active tabletIndications: MOUTH THREE 0 Anxiety TIMES DAILY prn anxiety documented as of this encounter (statuses as of 06/25/2020) Active Problems Problem Noted Date Heartburn 10/16/2019 Colon cancer screening 10/16/2019 Overview: Added automatically from request for lalita hammnods [id number] Gastroesophageal reflux disease, esophagitis presence not specified 10/16/2019 Overview: Added automatically from request for lalita hammonds [id number] Prediabetes 08/15/2018 Overactive bladder 05/27/2017 S/P hysterectomy [...] lower stomach (per patient) ICD10 Diagnosis Term Hiv Prevention Specialist Utility Female genital symptoms 02/15/2008 Overview: ICD10 Diagnosis Term Hiv Prevention Specialist Utility documented as of this encounter (statuses as of 06/25/2020) Resolved Problems Problem Noted Date Resolved Date Hematuria 12/20/2015 08/03/2016 Acute bronchitis, unspecified organism 11/08/2015 1 10/03/2015 Influenza with respiratory manifestation other than 02/15/20 08 08/03/2016 pneumonia Overview: ICD10 Diagnosis Term Hiv Prevention Specialist Utility documented as of this encounter (statuses as of 06/25/2020) Immunizations Name Administration Dates Next Due Pneumococcal [...] been in contact with No / Unsure 06/19/2020 3:01 PM CDT someone who was confirmed or suspected to have Coronavirus / COVID-19? documented as of this encounter Last Filed Vital Signs Not on filedocumented in this encounter Miscellaneous Notes Telephone Encounter - Chintan Palomino MD - 06/25/2020 9:57 AM CDTThe hope is we will begin to transition away from this medication as the use of Librax kicks in. Will refer to psych for anxiety with panic/agoraphobia as well. Telephone Encounter - Leyda Steen, LARRY - 06/24/2020 1:00 PM CDTRouting to elephone Encounter - Letty Clark - 06/24/2020 12:53 PM CDTPortbebeto Mirta Harrington is a 60 year old female Patient is calling requesting a refill on Rx Alprazolam. Please contact at [phone] Thank You [place] [address] - [facility] AT [employer] [facility] [employer] [facility] N JAROD Vazquezamp; SYBIL CASILLAS documented in this encounter Plan of Treatment Date Type Specialty Care Team Description 07/05/2020 Office Visit Pulmonary Disease Leonardo Garza, DO [address] [place] [address] 07/10/2020 Appointment Radiology Chintan Palomino MD [address] [place] [address] 07/10/2020 Appointment Radiology Chintan Palomino MD [address] [place] [address] 07/19/2020 Office Visit Internal Medicine Chintan Palomino MD [address] [place] [address] 08/20/2020 Office Visit Endocrinology Diabetes & Alvarez, Carrillo burks MD Metabolism [address] [place] [address] [phone] 12/04/2020 Appointment Vascular Sonography Kenia, Jadyn Cardio Vascular 12/04/2020 Appointment Echocardiograph Raman, Jadyn Echo-Vascular Room 1 - 12/12/2020 Office Visit Cardiology Jose Maria Brown MD [address]ARY [address] [place] [address] Health Maintenance Due Date Last Done [...] Effective Phone Address T ype Group Dates [facility] MEDICARE [id number] 2019-Pre Medi care Adv HEALTHCARE COMPLETE sent PPO MEDICARE CHOICE ADVANTAGE [facility] MEDICAID OF [id number] 2019-Pre [phone] Medic aid [place] sent [phone] [place] [address] [facility] [id number] 2019-Pre [address] BOX Beh avioral [facility] sent [phone] [facility] [place] [address] documented as of this encounter
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
--- OUTSIDE RECORDS SUMMARY | 2020-08-09 13:38 | XMS REPORT | Summary of Care ---
:1960 Author Organization [facility] Address [address] [place] [address] Care Team Providers Name Role Phone Massiel Palomino MD Primary Care Provider Reason for Referral (Routine) Status Reason Specialty Diagnoses / Referred By Referred To Contact Procedures Contact New Request Psychiatry Diagnoses Anxiety Chintan Palomino Psych Staff-Pcp Procedures CONSULT/REFERRAL PSYCHIATRY JAILYN Rankin MD Primary Care [address] [place] [address] [address], [place], [place] [address] [address] [place], [place] Phone: [phone] Fax: Reason for Visit Reason Comments Refill Request Encounter Details Date Type Department Care Team Description 06/24/2020 Telephone [facility] Internal Matt Palomino MD Refill Request [address] [place] [address] [address], [phone] [address] [place] [address] Allergies Active Allergy Reactions Severity Noted Date Comments Amoxicillin-Pot Other - See comments 03/30/2017 Tong ue pain, Clavulanate swelling Cephalexin Itching, Rash 06/14/2017 Nitrofurantoin Dizziness 06/14/2017 Monohyd/M-Cryst Sulfa (Sulfonamide Hives 03/21/2007 Antibiotics) Tetracycline Rash 03/21/2007 Off balance, doesn't feel ri ght. documented as of this encounter (statuses as of 06/26/2020) Medications Medication Sig Dispensed Refills Start End [...] 4-6). 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 Telephone Encounter - Leyda Steen RN - 06/24/2020 1:00 PM CDTRouting to md elephone Encounter - Letty Clark - 06/24/2020 12:53 PM CDTPortia Mirta Harrington is a 60 year old female Patient is calling requesting a refill on Rx Alprazolam. Please contact at [phone] Thank You BAHMAN [address] - [facility] AT [facility] N [address] Vazquezamp; SYBIL BARAHONA documented in this encounter Plan of Treatment Date Type Specialty Care Team Description 07/05/2020 Office Visit Pulmonary Disease Leonardo Garza, DO [address] [place] [phone] 07/10/2020 Appointment Radiology Chintan Palomino MD [address] [place] [address] 555 07/10/2020 Appointment Radiology Chintan Palomino MD [address] [place] [address] 77 555 07/19/2020 Office Visit Internal Medicine Chintan Palomino MD [address] [place], [place] [address] 08/20/2020 Office Visit Endocrinology Diabetes & AlvarezCarrillo MD Metabolism [address] [place] [address] [phone] 12/04/2020 Appointment Vascular Sonography Tech, [facility] Cardio Vascular 12/04/2020 Appointment Echocardiograph Pc, [facility] Echo-Vascular Room 1 - 12/12/2020 Office Visit Cardiology Jose Maria Brown MD [address] [phone] Health Maintenance Due Date Last [...] Effective Phone Address T ype Group Dates [facility] MEDICARE [id number] 2019-Pre Medi care Adv HEALTHCARE COMPLETE sent PPO MEDICARE CHOICE ADVANTAGE [facility] MEDICAID OF [id number] 2019-Pre [phone] Medic aid [place] sent [id number] [place] [address] [facility] [id number] 2019-Pre [address] B[address] Beh avioral [facility] sent [phone] [place] [address] documented as of this encounter
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
--- OUTSIDE RECORDS SUMMARY | 2020-08-09 13:39 | XMS REPORT | Summary of Care ---
:1960 Author Organization [facility] Address [address] [place] [address] Care Team Providers Name Role Phone Massiel Palomino MD Primary Care Provider Reason for Visit Reason Comments Follow-up 5mo Encounter Details Date Type Department Care Team Description 07/05/2020 Office Visit [facility] ADC Leonardo Garza DO Dyspnea on exertion Pulmonary Clinic [address] [place] [address] (Primary Dx) [address] [place] [address] , [facility] [address] [place] [phone] Allergies Active Allergy Reactions Severity Noted Date Comments Amoxicillin-Pot Other - See comments 03/30/2017 Tong ue pain, Clavulanate swelling Cephalexin Itching, Rash 06/14/2017 Nitrofurantoin Dizziness 06/14/2017 Monohyd/M-Cryst Sulfa (Sulfonamide Hives 03/21/2007 Antibiotics) Tetracycline Rash 03/21/2007 Off balance, doesn't feel ri ght. documented as of this encounter (statuses as of 07/05/2020) Medications Medication Sig Dispensed Refills Start End Status Date Date fluticasone (FLONASE) Use 2 Sprays 1 Bottle 11 02/03/20 Active 50 mcg/actuation nasal in each 18 sprayIndications: nostril daily. Dyspnea on exertion, Upper airway cough syndrome, Gastroesophageal reflux disease without esophagitis albuterol 90 Inhale 2 Puffs 1 Inhaler [...] Pure by mouth at 20 hypercholesterolemia bedtime. pantoprazole 40 mg EC Take 1 tablet 90 tablet 01/24/20 Active tabletIndications: by mouth 20 Dysphagia, unspecified daily. type, Gastroesophageal reflux disease without esophagitis modafinil 100 mg Take 1 tablet 60 [...] 4-6). azelastine 137 mcg (0.1 Use 1 [place] in 30 mL 1 06/19/20 Active %) [...] mg TAKE 1 TABLET 90 tablet 0 06/28/20 Active tabletIndications: BY MOUTH THREE 20 Anxiety TIMES DAILY prn anxiety albuterol 90 Inhale 2 Puffs 3 Inhaler 11 07/05/20 Ac tive mcg/actuation every 6 (six) 20 inhalerIndications: hours as Dyspnea on exertion needed for Wheezing or Shortness of Breath. fluticasone Inhale 1 Puff 60 Each 11 07/05/20 Acti ve propion-salmeteroL every 09 01 (ADVAIR DISKUS) 250-50 (twelve) mcg/dose inhalation hours. 1 puff diskIndications: twice a day Dyspnea on exertion rinse mouth after use levocetirizine 5 mg Take 1 tablet 30 tablet 11 07/05/20 Active tablet by mouth every 20 evening. levocetirizine 5 mg Take 1 tablet 30 tablet 3 06/03/2007/05/ Discontinued tabletIndications: by mouth every 2019 (Reorder) Post-nasal drip evening. fluticasone Inhale 1 Puff 60 Each 11 01/04/2007/05/ Disc ontinued propion-salmeterol every 09 01 2020 ( Reorder) (ADVAIR DISKUS) 250-50 (twelve) mcg/dose inhalation hours. 1 puff diskIndications: twice a day Dyspnea on exertion rinse mouth after use peg-electrolyte soln Take as 4000 mL 0 02/21/2007/05/ Discontinued 236-22.74-6.74 -5.86 directed 2019 (Duplicate) gram solution before colonoscopy documented as of this encounter (statuses as of 07/05/2020) Active Problems Problem Noted Date Heartburn 10/16/2019 Colon cancer screening 10/16/2019 Overview: Added automatically from request for lalita nasra [id number] Gastroesophageal reflux disease, esophagitis presence not specified 10/16/2019 Overview: Added automatically from request for lalita nasra [id number] Prediabetes 08/15/2018 Overactive bladder 05/27/2017 S/P hysterectomy [...] lower stomach (per patient) ICD10 Diagnosis Term Video Photographer Utility Female genital symptoms 02/15/2008 Overview: ICD10 Diagnosis Term Video Photographer Utility documented as of this encounter (statuses as of 07/05/2020) Resolved Problems Problem Noted Date Resolved Date Hematuria 12/20/2015 08/03/2016 Acute bronchitis, unspecified organism 11/08/2015 1 10/03/2015 Influenza with respiratory manifestation other than 02/15/20 08 08/03/2016 pneumonia Overview: ICD10 Diagnosis Term Video Photographer Utility documented as of this encounter (statuses as of 07/05/2020) Immunizations Name Administration Dates Next Due Pneumococcal [...] been in contact with No / Unsure 07/05/2020 8:58 AM CDT someone who was confirmed or suspected to have Coronavirus / COVID-19? documented as of this encounter Last Filed Vital Signs Vital Sign Reading Time Taken Comments Blood Pressure 118/86 07/05/2020 9:30 AM CDT Pulse 84 07/05/2020 9:30 AM CDT Temperature - - Respiratory Rate 18 07/05/2020 9:30 AM CDT Oxygen Saturation 97% 07/05/2020 9:30 AM CDT Inhaled Oxygen Concentration - - Weight 60.6 kg (133 lb 8 oz) 07/05/2020 9:30 AM CDT Height 157.5 cm (5' 2") 07/05/2020 9:30 AM CDT Body Mass Index 24.42 07/05/2020 9:30 AM CDT documented in this encounter Progress Notes Leonardo Garza DO - 07/05/2020 9:20 AM CDT [facility] Chief Complaint: Dyspnea History of Present Illness: Jessica Harrington is a 60 year old female here for follow up of dyspnea symptoms essentially unchanged. Get short of breath with exertion about 1.5 blocks. Improved with rest. Wants to switch back to albuterol from Combivent. Past Medical History: has a past medical history of Abnormal uterine bleeding, Allergic rhinitis, cause unspecified, Anemia, Anxiety disorder in conditions classified elsewhere, Anxiety state, unspecified, COPD (chronic obstructive pulmonary disease), Depression, Diastolic dysfunction (01/28/2016), Emphysema lung, Esophageal reflux, Essential hypertension (10/17/2015), Genital warts, Leiomyoma of uterus, Other and unspecified hyperlipidemia, Pap smear abnormality of cervix, STD (sexually transmitted disease), Unspecified essential hypertension, and Urinary incontinence. She also has no past medical history of Anesthesia complication, Asthma, Autoimmune disorder, Blood dyscrasia, Breast disorder, Cancer, Clotting disorder, Coronary artery disease, Diabetes mellitus, Endocrine disorder, Endometriosis, Female infertility, Genital herpes, Heart murmur, Hormone disorder, Kidney disease, Liver disease, Menstrual disorder, Osteoporosis, Rh incompatibility, Seizures, Sickle cell anemia, Superficial thrombophlebitis, Thyroid disease, Transfusion history, Trauma, or Tuberculosis. Past Surgical History: has a past surgical history that includes abdominal hysterectomy (1990); tonsillectomy (1991); appendectomy; section; salpingo-oophorectomy; elbow closed reduction withpercutaneous pinning (Left); esophagogastroduodenoscopy (N/A, 03/06/2020); and colonoscopy (N/A, 03/06/2020). Family History: family history includes Arthritis in her mother; Breast Cancer in her maternal aunt;Cancer in her father; Depression in her mother; Diabetes in her mother; Heart in her mother; High cholesterol in her mother; Hypertension in her mother. Social History: reports that she has been smoking cigarettes. She started smoking about 43 years ago. She has a 19.50 pack-year smoking history. She has never used smokeless tobacco. She reports current alcohol use. She reports that she does not use drugs. Review of Systems: Review of Systems Constitutional: Negative. HENT: Positive for postnasal drip. Eyes: Negative. Respiratory: Positive for shortness of breath. Cardiovascular: Negative. Gastrointestinal: Negative. Genitourinary: Negative. Musculoskeletal: Negative. Skin: Negative. Neurological: Negative. Psychiatric/Behavioral: Negative. Endocrine: Endocrine negative Objective: BP 118/86 (BP Location: Left arm, Patient Position: Sitting, BP CUFF SIZE: Adult Medium) | Pulse 84 | Resp 18 | Ht 5' 2" (1.575 m) | Wt 133 lb 8 oz (60.6 kg) | LMP 09/13/1989 (Approximate) | [id number]% | BMI 24.42 kg/m Physical Exam Constitutional: She is oriented to person, place, and time. She appears well- developed and well-nourished. HENT: Head: Normocephalic and atraumatic. Eyes: Conjunctivae and EOM are normal. Neck: Normal range of motion. Neck supple. Cardiovascular: Normal rate and regular rhythm. Pulmonary/Chest: Effort normal and breath sounds normal. Abdominal: Soft. Bowel sounds are normal. Musculoskeletal: Normal range of motion. Neurological: She is alert and oriented to person, place, and time. Skin: Skin is warm and dry. Psychiatric: She has a normal mood and affect. Her behavior is normal. Judgment and thought content normal. Labs/Studies: Copied from prior note and reviewed Echo: normal EF, pseudonormal diastolic function PFT: moderate restrictive ventilatory defect CT chest - emphysematous changes Assessment: Jessica Harrington is a 60 year old female with: ICD-10-CM ICD-9-CM 1. Dyspnea on exertion R06.00 786.09 Suspect deconditioning and/or cardiac Although patient has no evidence of COPD on PFT does have improvement with bronchodilators Plan: Switch to albuterol PRN D/c Combivent Advair BID CXR Follow up 6 months documented in this encounter Plan of Treatment Date Type Specialty Care Team Description 07/10/2020 Appointment Radiology Chintan Palomino MD [address] [place] [address] 07/10/2020 Appointment Radiology Chintan Palomino MD [address] [place] [address] 77 555 07/19/2020 Office Visit Internal Medicine Chintan Palomino MD [address] [place] [address] 77 555 08/20/2020 Office Visit Endocrinology Diabetes & AlvarezCarrillo MD Metabolism [address] [place] [address] [phone] 12/04/2020 Appointment Vascular Sonography [facility], [facility] Cardio Vascular 12/04/2020 Appointment Echocardiograph Pc, [facility] Echo-Vascular Room 1 - 12/12/2020 Office Visit Cardiology Jose Maria Brown MD [address] [facility] [address] [place] [phone] 01/03/2021 Office Visit Pulmonary Disease Leonardo Garza DO [address] [place] [phone] Name Type Priority Associated Diagnoses Order S chedule XR CHEST 2 VW IMAGING Routine Dyspnea on exertion Expecte d: 07/05/2020, Expires: 07/05/2021 Health Maintenance Due Date Last Done Comments [...] encounter Visit Diagnoses Diagnosis Dyspnea on exertion - Primary Other dyspnea and respiratory abnormalit y documented in this encounter Insurance Payer Benefit Plan / Subscriber ID Effective Phone Address T ype Group Dates [facility] [id number] 2020-Pre Medica re HEALTHCARE - HEALTHCARE sent Adv HM O MANAGED DUAL COMPLETE MEDICARE HMO [facility] MEDICAID OF [id number] 2019-Pres [phone] [place] ent [phone] [place] [address] [phone] (Work) documented as of this encounter
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
--- OUTSIDE RECORDS SUMMARY | 2020-08-09 13:40 | XMS REPORT | Summary of Care ---
:1960 Author Organization [facility] - [facility] Address [address] [place] [address] Care Team Providers Name Role Phone Massiel Palomino MD Primary Care Provider Reason for Visit Reason Comments Authorization clidinium-chlordiazepoxide ( LIBRAX, WITH CLINIDIUM Encounter Details Date Type Department Care Team Description 07/10/2020 Telephone [facility] Internal Chintan Palomino [facility] horization Medicine- Jersey Rankin MD (clidinium-chlordiazepox Primary Care [facility] 301 [facility] [address] alva (LIBRAX, WITH [address], [place], [place] CLINIDIU M) [address] [address] [place], [place] [phone] [address] [phone] Allergies Active Allergy Reactions Severity Noted Date Comments Amoxicillin-Pot Other - See comments 03/30/2017 Tong ue pain, Clavulanate swelling Cephalexin Itching, Rash 06/14/2017 Nitrofurantoin Dizziness 06/14/2017 Monohyd/M-Cryst Sulfa (Sulfonamide Hives 03/21/2007 Antibiotics) Tetracycline Rash 03/21/2007 Off balance, doesn't feel ri ght. documented as of this encounter (statuses as of 07/11/2020) Medications Medication Sig Dispensed Refills Start End [...] tabletIndications: Pure mouth at 0 hypercholesterolemia bedtime. pantoprazole 40 mg EC Take 1 tablet by 90 tablet Active tabletIndications: mouth daily. 0 Dysphagia, unspecified type, Gastroesophageal reflux disease without esophagitis modafinil 100 mg Take 1 tablet by [...] 4-6). azelastine 137 mcg (0.1 Use 1 [place] in 30 mL 1 Active %) nasal [...] THREE 0 Anxiety TIMES DAILY prn anxiety albuterol 90 Inhale 2 Puffs 3 Inhaler 11 Ac tive mcg/actuation every 6 (six) 0 inhalerIndications: hours as needed Dyspnea on exertion for Wheezing or Shortness of Breath. fluticasone Inhale 1 Puff 60 Each 11 Acti ve propion-salmeteroL every 12 0 (ADVAIR DISKUS) 250-50 (twelve) hours. mcg/dose inhalation 1 puff twice a diskIndications: Dyspnea day rinse mouth on exertion after use levocetirizine 5 mg Take 1 tablet by 30 tablet 11 Active tablet mouth every 0 evening. documented as of this encounter (statuses as of 07/11/2020) Active Problems Problem Noted Date Heartburn 10/16/2019 Colon cancer screening 10/16/2019 Overview: Added automatically from request for lalita nasra [id number] Gastroesophageal reflux disease, esophagitis presence not specified 10/16/2019 Overview: Added automatically from request for lalita nasra [id number] Prediabetes 08/15/2018 Overactive bladder 05/27/2017 S/P hysterectomy [...] lower stomach (per patient) ICD10 Diagnosis Term Administrative Dietitian Utility Female genital symptoms 02/15/2008 Overview: ICD10 Diagnosis Term Administrative Dietitian Utility documented as of this encounter (statuses as of 07/11/2020) Resolved Problems Problem Noted Date Resolved Date Hematuria 12/20/2015 08/03/2016 Acute bronchitis, unspecified organism 11/08/2015 1 10/03/2015 Influenza with respiratory manifestation other than 02/15/20 08 08/03/2016 pneumonia Overview: ICD10 Diagnosis Term Administrative Dietitian Utility documented as of this encounter (statuses as of 07/11/2020) Immunizations Name Administration Dates Next Due Pneumococcal [...] been in contact with No / Unsure 07/10/2020 1:13 PM CDT someone who was confirmed or suspected to have Coronavirus / COVID-19? documented as of this encounter Last Filed Vital Signs Not on filedocumented in this encounter Miscellaneous Notes Telephone Encounter - Servando Traore MA - 07/11/2020 10:36 AM CDTPA completed on covermymeds can take up 72 hours for approval or denial. Vargas: [id number] PA Telephone Encounter - PanguitchBetsy - 07/10/2020 11:47 AM CDTPATIENT NEEDS A pa ON MEDICATION clidinium-chlordiazepoxide (LIBRAX, WITH CLINIDIUM documented in this encounter Plan of Treatment Date Type Specialty Care Team Description 07/19/2020 Office Visit Internal Medicine Chintan Palomino MD [address] [place], [place] [address] 08/20/2020 Office Visit Endocrinology Diabetes & AlvarezCarrillo MD [facility] [address] [place] [address] [phone] 12/04/2020 Appointment Vascular Sonography Tech, [facility] Cardio V[facility] 12/04/2020 Appointment Echocardiograph Pc, [facility] Echo-Vascular Room 1 - 12/12/2020 Office Visit Cardiology Jose Maria Brown MD [address] [place] [phone] 01/03/2021 Office Visit Pulmonary Disease Leonardo Garza, [facility] [place] [phone] Health Maintenance Due Date Last Done Comments DTaP,Tdap,and Td Vaccines (1 - 1979 Tdap) COLON CANCER SCREENING ANNUAL 2010 FIT/FOBT COLON CANCER SCREENING FIT DNA 2010 EVERY 3 YEARS COLON CANCER SCREENING 2010 SIGMOIDOSCOPY EVERY 5 YEARS Zoster Recombinant Vaccine 2010 (SHINGRIX) (1 of 2) LUNG CANCER SCREEN: Recommended 05/12/2017 05/12/2016 for age 55-80 with 30 + pack year history INFLUENZA VACCINE (#1) 2020 Depression Screening 03/06/2021 03/06/2020 PNEUMOCOCCAL 0-64 YEARS COMBINED 06/04/2021 08/15/2018, SERIES (3 of 3 - PPSV23) Breast Cancer Screening 07/10/2021 07/10/2020, 09/12/2018, (MAMMOGRAM) 09/10/2017, Additional history exists COLONOSCOPY 03/06/2030 03/06/2020, 07/30/2011 (Previously completed) Colorectal Cancer Screening 03/06/2030 PAP SMEAR Discontinued 03/19/2008 HEPATITIS C (HCV) SCREEN Completed 10/14/2016 documented as of this encounter Results Not on filedocumented in this encounter Insurance Payer Benefit Plan / Subscriber ID Effective Phone Address T [facility] Group [facility] [id number] 2020-Pr Medicar e Adv HEALTHCARE - HEALTHCARE esent HMO MANAGED DUAL COMPLETE MEDICARE HMO [place] MEDICAID OF [id number] 2019-Pre [phone] Medic aid [place] sent [phone] [place] [address] [facility] [id number] 2019-Pre [address] BOX Beh [facility] sent [id number] [place] [address] documented as of this encounter
--- OUTSIDE RECORDS SUMMARY | 2020-08-09 13:40 | XMS REPORT | Summary of Care ---
:1960 Author Organization [facility] Address [address] [place] [address] Care Team Providers Name Role Phone Massiel Palomino MD Primary Care Provider Reason for Referral Radiology Services (Routine) Status Reason Specialty Diagnoses / Referred By Referred To Procedures Contact Contact Closed Diagnostic Diagnoses care home (current) use of hormonal contraceptives Current use of proton pump inhibitor Osteopenia, unspecified location Cihntan Palomino Radiology Procedures DEXA AXIAL (HIP AND SPINE) MD Massiel [address] [address] [address] Reason for Visit Radiology Services (Routine) Status Reason Specialty Diagnoses / Referred By Referred To Procedures Contact Contact Closed Diagnostic Diagnoses 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 azelastine 137 mcg (0.1 Use 1 [place] in 30 mL 1 Active %) nasal [...] albuterol 90 Inhale 2 Puffs 3 Inhaler Ac tive mcg/actuation every 6 (six) 0 inhalerIndications: hours as needed Dyspnea on exertion for Wheezing or Shortness of Breath. 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 Utility Female genital symptoms 02/15/2008 Overview: ICD10 Diagnosis Term Watch Assembly Instructor Utility documented as of this encounter (statuses as of 07/11/2020) Resolved Problems Problem Noted Date Resolved Date Hematuria 12/20/2015 08/03/2016 Acute bronchitis, unspecified organism 11/08/2015 1 10/03/2015 Influenza with respiratory manifestation other than 02/15/20 08 08/03/2016 pneumonia Overview: ICD10 Diagnosis Term Watch Assembly Instructor Utility documented as of this encounter (statuses [...] Chintan Palomino MD [address] [place] [address] 08/20/2020 Office Visit Endocrinology Diabetes & Carrillo Alvarez MD [address] [phone] 12/04/2020 Appointment Vascular Sonography Tech, [facility] Cardio Vascular 12/04/2020 Appointment Echocardiograph Pc, Adc Echo-Vascular Room 1 - 12/12/2020 Office Visit Cardiology Jose Maria Brown MD [address] [phone] 01/03/2021 Office Visit Pulmonary Disease Leonardo Garza DO [address] [place] [phone] Health Maintenance Due Date Last Done [...] Name Priority Date/Time Associated Diagnosis Comme nts DEXA AXIAL (HIP Routine 07/10/2020 1:58 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 pump inhibitor Osteopenia, unspecified location documented in this encounter Results DEXA AXIAL (HIP AND SPINE) (07/10/2020 1:58 PM CDT) Specimen Narrative Performed At This result has an attachment that is no t available. HISTORY: Osteopenia. PACS/VR/DOSE TECHNIQUE: Bone density estimation is done using DEXA scan, over the right hip and lumbar spines. FINDINGS: Details of the results are enclosed for your review. The summary is as follows. RIGHT HIP: BMD value is 0.827 gm/sq cm, with T-score of -1.4. Est imated BMD in the neck is 0.837 g/sq cm with T score of -1.4. LUMBAR SPINES: Average BMD value from L1 through L4 is 0.885 gm/sq cm , with T-score - 2.5. 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 ASSESSMENT: WHO-definitions: T-score normal: +/- 1 SD around the mean osteopenia: >1 to 2.4 SD below the mean osteoporosis: >2.5 SD below the mean Fracture risk doubles for each 1.5 SD below the mean. Procedure Note [facility], Radiant Results Inft User - 2019 2:12 PM CDT HISTORY: Osteopenia. TECHNIQUE: Bone density estimation is do ne using DEXA scan, over the right hip and lumbar spines. FINDINGS: Details of the results are enc losed for your review. The summary is as follows. RIGHT HIP: BMD value is 0.827 gm/sq cm, with T-scor e of -1.4. Estimated BMD in the neck is 0.837 g/sq cm with T score of -1 .4. LUMBAR SPINES: Average BMD value from L1 through L4 is 0.885 gm/sq cm, with T-score - 2.5. CONCLUSION: Mild osteoporosis in lumbar spines and m ild osteopenia in the right femur. ASSESSMENT: WHO-definitions: T-score normal: +/- 1 SD around the mean osteopenia: >1 to 2.4 SD below the mean osteoporosis: >2.5 SD below the mean Fracture risk doubles for each 1.5 SD be low the mean. 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
--- OUTSIDE RECORDS SUMMARY | 2020-08-09 13:40 | XMS REPORT | Summary of Care ---
:1960 Author Organization [facility] Address [address] [place] [address] Care Team Providers Name Role Phone Massiel Palomino MD Primary Care Provider Reason for Visit Reason Comments Follow-up 5mo Encounter Details Date Type Department Care Team Description 07/05/2020 Office Visit [facility] ADC Leonardo Garza DO Dyspnea on exertion [facility] [address] [place] [address] (Primary Dx) [address] [place] [address] , [facility] [address] [place] [phone] Allergies Active Allergy Reactions Severity Noted [...] 4-6). azelastine 137 mcg (0.1 Use 1 [place] in 30 mL 1 06/19/20 Active %) [...] Added automatically from request for lalita nasra [id number] Gastroesophageal reflux disease, esophagitis presence not specified 10/16/2019 Overview: Added automatically from request for lalita nasar [id number] Prediabetes 08/15/2018 Overactive bladder 05/27/2017 S/P hysterectomy [...] lower stomach (per patient) ICD10 Diagnosis Term Chief Cook Utility Female genital symptoms 02/15/2008 Overview: ICD10 Diagnosis Term Chief Cook Utility documented as of this encounter (statuses as of 07/05/2020) Resolved Problems Problem Noted Date Resolved Date Hematuria 12/20/2015 08/03/2016 Acute bronchitis, unspecified organism 11/08/2015 1 10/03/2015 Influenza with respiratory manifestation other than 02/15/20 08 08/03/2016 pneumonia Overview: ICD10 Diagnosis Term Chief Cook Utility documented as of this encounter (statuses [...] Garza DO - 07/05/2020 9:20 AM CDT [facility] Interventional Pulmonology Clinic Chief Complaint: Dyspnea History [...] (60.6 kg) | LMP 09/13/1989 (Approximate) | HrB488% | BMI 24.42 kg/m Physical Exam Constitutional: [...] Chintan Palomino MD [address] [place] [address] 07/10/2020 Appointment Radiology Chintan Palomino MD [address] [place] [address] 07/19/2020 Office Visit Internal Medicine Chintan Palomino MD [address] [place] [address] 08/20/2020 Office Visit Endocrinology Diabetes & AlvarezCarrillo MD Metabolism [address] [place] [address] [phone] 12/04/2020 Appointment Vascular Sonography [facility], [facility] Cardio Vascular 12/04/2020 Appointment Echocardiograph Pc, Adc Echo-Vascular Room 1 - 12/12/2020 Office Visit Cardiology Jose Maria Brown MD [address] [facility] [address] [place] [phone] 01/03/2021 Office Visit Pulmonary Disease Leonardo Garza DO [address] [place] [phone] Name Type Priority Associated Diagnoses Order S [...] T ype Group Dates [facility] [id number] 2020-Pre Medica re HEALTHCARE - HEALTHCARE sent Adv HM O MANAGED DUAL COMPLETE MEDICARE HMO [facility] MEDICAID OF [id number] 2019-Pres [phone] [address] Medi caid [place] ent [phone] [place] [address] [phone] (Work) documented as of this encounter
--- OUTSIDE RECORDS SUMMARY | 2020-08-09 13:40 | XMS REPORT | Summary of Care ---
:1960 Author Organization [facility] Address [address] [place] [address] Care Team Providers Name Role Phone Massiel Palomino MD Primary Care Provider Reason for Visit Reason Comments Refill Request Encounter Details Date Type Department Care Team Description 07/19/2020 Telephone [facility] Internal Matt Palomino MD Refill Request [id number] [place] [address] [address] , [address] [place] [address] Allergies Active Allergy Reactions Severity Noted Date Comments Amoxicillin-Pot Other - See comments 03/30/2017 Tong ue pain, Clavulanate swelling Cephalexin Itching, Rash 06/14/2017 Nitrofurantoin Dizziness 06/14/2017 Monohyd/M-Cryst Sulfa (Sulfonamide Hives 03/21/2007 Antibiotics) Tetracycline Rash 03/21/2007 Off balance, doesn't feel ri ght. documented as of this encounter (statuses as of 07/19/2020) Medications Medication Sig Dispensed Refills Start End Status Date Date fluticasone (FLONASE) Use 2 Sprays 1 Bottle 11 02/03/20 Active 50 mcg/actuation nasal in each 18 sprayIndications: nostril Dyspnea on exertion, daily. 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 verapamil 100 mg 24 hr Take 1 90 capsule 3 07/14/20 Active capsuleIndications: capsule by 19 Essential hypertension, mouth at Generalized anxiety bedtime. disorder with panic attacks, Carolina's cyst of knee, left atorvastatin 40 mg Take 1 90 tablet 5 10/25/19 A ctive tabletIndications: Pure tablet by 20 hypercholesterolemia mouth at bedtime. pantoprazole 40 mg EC Take 1 90 tablet 01/24/20 Active tabletIndications: tablet by 20 Dysphagia, unspecified mouth daily. type, Gastroesophageal reflux disease without esophagitis modafinil 100 mg Take 1 60 tablet 1 04/26/20 Act zan tabletIndications: tablet by 20 Depression, unspecified mouth daily. depression type For 1 week then increase to 200 mg by mouth daily metroNIDAZOLE 500 mg Take 1 14 tablet 0 04/26/20 Active tabletIndications: tablet by 20 Vaginal discharge mouth 2 (two) times daily. albuterol-ipratropium Inhale 1 3 Inhaler 11 05/16/20 Active (COMBIVENT RESPIMAT) Puff 4 20 20-100 mcg/actuation (four) times inhalerIndications: daily. Dyspnea on exertion azelastine 137 mcg (0.1 Use 1 [place] 30 mL 1 06/19/20 Active %) nasal in each 20 sprayIndications: nostril 2 Allergic rhinitis due (two) times to pollen, unspecified daily. Use seasonality in each nostril as directed ipratropium 0.03 % Use 2 Sprays 30 mL 3 06/19/20 Active nasal sprayIndications: in each 20 Allergic rhinitis due nostril to pollen, unspecified daily. On seasonality waking and repeat before bed time ALPRAZolam 1 mg TAKE 1 90 tablet 0 06/28/20 Acti ve tabletIndications: TABLET BY 20 Anxiety MOUTH THREE TIMES DAILY prn anxiety albuterol 90 Inhale 2 3 Inhaler 11 07/05/20 Active mcg/actuation Puffs every 20 inhalerIndications: 6 (six) Dyspnea on exertion hours as needed for Wheezing or Shortness of Breath. fluticasone Inhale 1 60 Each 11 07/05/20 Active propion-salmeteroL Puff every 20 (ADVAIR DISKUS) 250-50 12 (twelve) mcg/dose inhalation hours. 1 diskIndications: puff twice a Dyspnea on exertion day rinse mouth after use levocetirizine 5 mg Take 1 30 tablet 11 07/05/20 Active tablet tablet by 20 mouth every evening. fluconazole (DIFLUCAN) Take 1 3 tablet 0 07/19/20 Active 150 mg tablet by 20 tabletIndications: mouth every Yeast infection other day. Estradiol (VAGIFEM) 10 Insert 1 20 tablet 3 07/19/20 Active mcg tabletIndications: tablet into 20 Post-menopause atrophic vagina vaginitis daily. For 2 wks, then twice a week clidinium-chlordiazepox Take 1-2 100 capsule 1 07/19/20 Active alva (LIBRAX, WITH capsules by 20 CLINIDIUM,) 5-2.5 mg mouth 3 capsuleIndications: (three) Esophageal spasm times daily as needed for Pain (scale 4-6). clidinium-chlordiazepox Take 1-2 100 capsule 1 07/19/20 11/0 6/2 Discontinued alva (LIBRAX, WITH capsules by 20 020 (Reorder) CLINIDIUM,) 5-2.5 mg mouth 3 capsuleIndications: (three) Esophageal spasm times daily as needed for Pain (scale 4-6). 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 documented as of this encounter (statuses as of 07/19/2020) Resolved Problems Problem Noted Date Resolved Date Hematuria 12/20/2015 08/03/2016 Acute bronchitis, unspecified organism 11/08/2015 1 10/03/2015 Influenza with respiratory manifestation other than 02/15/20 08 08/03/2016 pneumonia Overview: ICD10 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 [address] 08/20/2020 Office Visit Endocrinology Diabetes & Carrillo Alvarez MD [facility] [address] [place] [address] 10/23/2020 Office Visit Internal Medicine Anderson Palomino MD [address] [place], [place] [address] 12/04/2020 Appointment Vascular Sonography Tech, [facility] Cardio Vascular 12/04/2020 Appointment Echocardiograph Pc, [facility] Echo-Vascular Room 1 - 12/12/2020 Office Visit Cardiology Jose Maria Brown MD [address] [address] 01/03/2021 Office Visit Pulmonary Disease Leonardo Garza DO [address] [place] [address] Health Maintenance Due Date Last [...] this encounter Visit Diagnoses Diagnosis Esophageal spasm Dyskinesia of esophagus documented in this encounter Insurance Payer Benefit Plan / Subscriber ID Effective Phone Address [facility] [id number] 2020-Pr Medicar e Adv HEALTHCARE - HEALTHCARE esent HMO MANAGED DUAL COMPLETE MEDICARE HMO [facility] MEDICAID OF [id number] 2019-Pre [phone] Medic aid [place] sent [phone] [place] [address] [employer] [employer] [id number] 2019-Pre [address] Beh avioral [facility] BEHAVIORAL sent [id number] [employer] [place] [address] documented as of this encounter
--- OUTSIDE RECORDS SUMMARY | 2020-08-09 13:40 | XMS REPORT | Summary of Care ---
:1960 Author Organization [facility] Address [address] [place] [address] Care Team Providers Name Role Phone Massiel Palomino MD Primary Care Provider Reason for Referral Radiology Services (Routine) Status Reason Specialty Diagnoses / Referred By Referred To Procedures Contact Contact Closed Diagnostic Diagnoses Encounter for screening mammogram for malignant neoplasm of breast Chintan Palomino Radiology Procedures BI SCREENING MAMMOGRAM BILATERAL MD Massiel [address] [address] Reason for Visit Radiology Services (Routine) Status Reason Specialty Diagnoses / Referred By Referred To Procedures Contact Contact Closed Diagnostic Diagnoses Encounter for screening mammogram for malignant neoplasm of breast Chintan Palomino Radiology Procedures BI SCREENING MAMMOGRAM BILATERAL MD Massiel [address] [address] Encounter Details Date Type Department Care Team Description 07/10/2020 Hospital Encounter [facility] Anderson Palomino AAle Breast Nicoli eldon JORGE [address] [place] [address] Dr zuluaga [address] [address] [address] [place], [place] [address] Allergies Active Allergy Reactions Severity Noted Date [...] 4-6). 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 documented as of this encounter (statuses as of 07/11/2020) Resolved Problems Problem Noted Date Resolved Date Hematuria 12/20/2015 08/03/2016 Acute bronchitis, unspecified organism 11/08/2015 1 10/03/2015 Influenza with respiratory manifestation other than 02/15/20 08 08/03/2016 pneumonia Overview: ICD10 Diagnosis 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 documented as of this encounter (statuses [...] Palomino MD [address] [place], [place] [address] 08/20/2020 Office Visit Endocrinology Diabetes & Carrillo Alvarez MD [facility] [address] [place] [address] 12/04/2020 Appointment Vascular Sonography Tech, [facility] Cardio Vascular 12/04/2020 Appointment Echocardiograph Pc, [facility] Echo-Vascular Room 1 - 12/12/2020 Office Visit Cardiology Jose Maria Brown MD [address] [address] 01/03/2021 Office Visit [place] [address] [place] [address] Health Maintenance Due Date Last Done [...] Name Priority Date/Time Associated Diagnosis Comme nts BI SCREENING Routine 07/10/2020 2:11 PM Encounter for Results for this MAMMOGRAM BILATERAL CDT screening mammogram p rocedure are in for malignant the results neoplasm of breast section. documented in this encounter Results BI SCREENING MAMMOGRAM BILATERAL (07/10/2020 2:11 PM CDT) Specimen Narrative Performed At This result has an attachment that is no t available. Examination: PACS BI SCREENING MAMMOGRAM BILATERAL History: Patient is 60 year old and is seen for: Screening. Computer-aided detection (CAD) utilized. Comparisons: 09/12/2018 BI SCREENING MAMMOGRAM BILATER AL, 09/10/2017 DIGITAL MAMMOGRAM, SCREENING, 09/04/2016 DIGITAL MAMMO GRAM, SCREENING, 07/15/2015 DIGITAL MAMMOGRAM, SCREENING, and 1 DIGITAL MAMMOGRAM, SCREENING Findings: The breasts have scattered areas of fibroglandular den sity. Right There is a focal asymmetry seen in the lower inner shoshana drant of the right breast in the anterior depth on the CC view. Compared to the previous study, there are no significant changes. Bilateral There are vascular calcifications seen in both breasts . Impression: No signs of malignancy. Recommendation: Annual mammographic follow-up - Left Annual mammographic follow-up - Right BI-RADS Category: Left 1 - Negative Right 2 - Benign Performing Organization Address City/State/Zipcode Phone Number PACS documented in this encounter Visit Diagnoses Diagnosis Encounter for screening mammogram for ma lignant neoplasm of breast Other screening mammogram documented in this encounter Insurance Payer Benefit Plan / Subscriber ID Effective Phone Address T ype Group Dates [facility] [id number] 2020-Pre Medica re HEALTHCARE - HEALTHCARE sent Adv HM O MANAGED DUAL COMPLETE MEDICARE HMO [place] OF [id number] 2019-Pres [phone] Medi caid [place] [phone] [place] [address] [phone] [id number] (Work) documented as of this encounter
--- OUTSIDE RECORDS SUMMARY | 2020-08-09 13:41 | XMS REPORT | Summary of Care ---
:1960 Author Organization [facility] Address [address] [place] [address] Care Team Providers Name Role Phone Massiel Palomino MD Primary Care Provider Reason for Referral (Routine) Status Reason Specialty Diagnoses / Referred By Referred To Procedures Contact Contact New Request Dermatology Diagnoses Skin nodule Chintan Palomino Procedures CONSULT/REFERRAL DERMATOLOGY MD Massiel [address] [facility] [address] [place] [address] Reason for Visit Reason Comments Follow-up bp control/ leg pain Encounter Details Date Type Department Care Team Description 07/19/2020 Office Visit [facility] Internal Chintan Palomino n nodule (Primary Dx); Medicine- Jersey Rankin MD Major depressive disorder, single episod e, mild; Primary Care Pavilio n [address] [facility] [facility] [address] Need for vaccination; [address] , [place], [place] Esophage al spasm; [address] [address] Yeast infection; [place], [place] [phone] Post-menopause atrophic vaginitis [address] [phone] Allergies Active Allergy Reactions Severity Noted Date Comments Amoxicillin-Pot Other - See comments 03/30/2017 Tong ue pain, Clavulanate swelling Cephalexin Itching, Rash 06/14/2017 Nitrofurantoin Dizziness 06/14/2017 Monohyd/M-Cryst Sulfa (Sulfonamide Hives 03/21/2007 Antibiotics) Tetracycline Rash 03/21/2007 Off balance, doesn't feel ri ght. documented as of this encounter (statuses as of 07/28/2020) Medications Medication Sig Dispensed Refills Start End [...] knee, left atorvastatin 40 mg Take 1 tablet 90 [...] 20-100 mcg/actuation daily. inhalerIndications: Dyspnea on exertion azelastine 137 mcg (0.1 Use 1 [place] in 30 mL 1 06/19/20 Active %) nasal each nostril 2 20 sprayIndications: (two) times Allergic rhinitis due daily. Use in to pollen, unspecified each nostril seasonality as directed ipratropium 0.03 % Use 2 Sprays 30 mL 3 06/19/20 Active nasal sprayIndications: in each 20 Allergic rhinitis due nostril daily. to pollen, unspecified On waking and seasonality repeat before bed time albuterol 90 Inhale 2 Puffs 3 Inhaler 11 07/05/20 Ac tive mcg/actuation every 6 (six) 20 inhalerIndications: hours as Dyspnea on exertion needed for Wheezing or Shortness of Breath. fluticasone Inhale 1 Puff 60 Each 11 07/05/20 Acti ve propion-salmeteroL every 12 20 (ADVAIR DISKUS) 250-50 (twelve) mcg/dose inhalation hours. 1 puff diskIndications: twice a day Dyspnea on exertion rinse mouth after use levocetirizine 5 mg Take 1 tablet 30 tablet 11 07/05/20 Active tablet by mouth every 20 evening. Estradiol (VAGIFEM) 10 Insert 1 20 tablet 3 07/19/20 Active mcg tabletIndications: tablet into 20 Post-menopause atrophic vagina daily. vaginitis For 2 wks, then twice a week Estradiol (VAGIFEM) 10 Insert 1 30 tablet 6 07/05/2007/19/ Discontinued mcg tabletIndications: tablet into 2019 (Reorder) Post-menopause atrophic vagina 2 (two) vaginitis times per week for Other (vaginial). peg-electrolyte soln Take as 4000 mL 0 10/16/1907/19/ Discontinued 236-22.74-6.74 -5.86 directed 2019 gram before solutionIndications: colonoscopy Colon cancer screening, Gastroesophageal reflux disease, esophagitis presence not specified clidinium-chlordiazepox Take 1-2 100 capsule 1 05/17/20 11/ Discontinued alva (LIBRAX, WITH capsules by 2019 (Reorder) CLINIDIUM,) 5-2.5 mg mouth 3 capsuleIndications: (three) times Esophageal spasm daily as needed for Pain (scale 1-3) or Pain (scale 4-6). ALPRAZolam 1 mg TAKE 1 TABLET 90 tablet 0 06/28/2007/26/ Discontinued tabletIndications: BY MOUTH THREE 20 2020 (Reorder) Anxiety TIMES DAILY prn anxiety clidinium-chlordiazepox Take 1-2 100 capsule 1 07/19/20 11/0 6/ Discontinued alva (LIBRAX, WITH capsules by 2019 (Reorder) CLINIDIUM,) 5-2.5 mg mouth 3 capsuleIndications: (three) times Esophageal spasm daily as needed for Pain (scale 4-6). fluconazole (DIFLUCAN) Take 1 tablet 3 tablet 0 07/19/20 11/ / Discontinued 150 mg by mouth every 2019 (Reor maria de jesus) tabletIndications: other day. Yeast infection documented as of this encounter (statuses as of 07/28/2020) Active Problems Problem Noted Date Heartburn 10/16/2019 Colon cancer screening 10/16/2019 Overview: Added automatically from request for lalita nasra [id number] Gastroesophageal reflux disease, esophagitis presence not specified 10/16/2019 Overview: Added automatically from request for lalita nasra [id number] Prediabetes 08/15/2018 Overactive bladder 05/27/2017 S/P hysterectomy [...] lower stomach (per patient) ICD10 Diagnosis Term [employer] Exchange Architect Utility Female genital symptoms 02/15/2008 Overview: ICD10 Diagnosis Term [employer] Exchange Architect Utility documented as of this encounter (statuses as of 07/28/2020) Resolved Problems Problem Noted Date Resolved Date Hematuria 12/20/2015 08/03/2016 Acute bronchitis, unspecified organism 11/08/2015 1 10/03/2015 Influenza with respiratory manifestation other than 02/15/20 08 08/03/2016 pneumonia Overview: ICD10 Diagnosis Term [employer] Exchange Architect Utility documented as of this encounter (statuses as of 07/28/2020) Immunizations Name Administration Dates Next Due Pneumococcal [...] Sign Reading Time Taken Comments Blood Pressure 138/92 07/19/2020 2:33 PM RESUME WRITER Pulse 69 07/19/2020 2:33 PM RESUME WRITER Temperature 37.2 C (98.9 F) 07/19/2020 2:30 PM RESUME WRITER Respiratory Rate 16 07/19/2020 2:30 PM RESUME WRITER Oxygen Saturation 100% 07/19/2020 2:30 PM RESUME WRITER Inhaled Oxygen Concentration - - Weight 60.8 kg (134 lb) 07/19/2020 2:30 PM RESUME WRITER Height 149.9 cm (4' 11") 07/19/2020 2:30 PM RESUME WRITER Body Mass Index 27.06 07/19/2020 2:30 PM RESUME WRITER documented in this encounter Progress Notes Chintan Palomino MD - 07/19/2020 2:15 PM CST Cc: Follow-up (bp control/ leg pain ) Jessica Harrington is a 60 year old [...] as she has considerable IBS as well. Will continue to try and wean alprazolam. HTN Pt states that her b/p at home ranges around 130/80. She says that she is compliant with her medications. She denies headache, dizziness, weakness, swelling. - complains of same infection as previous. Allergies Jessica is allergic to augmentin [amoxicillin-pot clavulanate]; cephalexin; macrobid [nitrofurantoin monohyd/m-cryst]; sulfa (sulfonamide antibiotics); and tetracycline. BP (!) 138/92 | Pulse 69 | Temp 37.2 C (98.9 F) | Resp 16 | Ht 4' 11" (1.499 m) | Wt 134 lb(60.8 kg) | LMP 09/13/1989 (Approximate) | SpO2 100% | BMI 27.06 kg/m Medications Outpatient Medications Prior to Visit Medication Sig Dispense Refill albuterol 90 mcg/actuation inhaler Inhale 2 Puffs every 6 (six) hours as needed for Wheezing or Shortness of Breath. 3 Inhaler 11 fluticasone propion-salmeteroL (ADVAIR DISKUS) 250-50 mcg/dose inhalation disk Inhale 1 Puff every 12 (twelve) hours. 1 puff twice a day rinse mouth after use 60 Each 11 levocetirizine 5 mg tablet Take 1 tablet by mouth every evening. 30 tablet 11 ALPRAZolam 1 mg tablet TAKE 1 TABLET BY MOUTH THREE TIMES DAILY prn anxiety 90 tablet 0 azelastine 137 mcg (0.1 %) nasal spray Use 1 [place] in each nostril 2 (two) times daily. Use in each nostril as directed 30 mL 1 ipratropium 0.03 % nasal spray Use 2 Sprays in each nostril daily. On waking and repeat before bed time 30 mL 3 clidinium-chlordiazepoxide (LIBRAX, WITH CLINIDIUM,) 5-2.5 mg capsule [...] mg by mouth daily 60 tablet 1 pantoprazole 40 mg EC tablet Take 1 tablet by mouth daily. 90 tablet prn atorvastatin 40 mg tablet Take 1 tablet [...] or Shortness of Breath. 1 Inhaler 11 fluticasone (FLONASE) 50 mcg/actuation nasal spray Use [...] Location: Endoscopy ([facility]) OR Location SALPINGO-OOPHORECTOMY TONSILLECTOMY 1992 Social History Socioeconomic History Marital status: Single [...] Last attempt to quit: 01/07/2016 Years since quittin.5 Smokeless tobacco: Never Used Substance and Sexual [...] file Gets together: Not on file Attends yazdanism service: Not on file Active member of [...] [place] in an apartment. Son lives in [place]. Family History Problem Relation Age of Onset [...] took over a month to get it. BP (!) 138/92 | Pulse 69 | Temp 37.2 C (98.9 F) | Resp 16 | Ht 4' 11" (1.499 m) | Wt 134 lb(60.8 kg) | LMP 09/13/1989 (Approximate) | SpO2 100% | BMI 27.06 kg/m Physical Exam Constitutional: She appears well-developed and well-nourished. HENT: Head: Normocephalic and atraumatic. Eyes: Conjunctivae and EOM are normal. Wt Readings from Last 6 Encounters: 07/19/20 134 lb (60.8 kg) 07/05/20 133 lb 8 oz (60.6 kg) 06/27/20 133 lb (60.3 kg) 06/19/20 133 lb (60.3 kg) 06/13/20 130 lb 9.6 oz (59.2 kg) 05/14/20 131 lb 11.2 oz (59.7 kg) Assessment/Plan Jessica Harrington is a 60 year old female presenting to clinic for: GI problems - sores in mouth resolved. She has less IBS on current meds. Complains of "yeast infection" vaginal candidiasis -Psych consult - has not seen - tolerating hydroxyzine HTN -Verapamil 100 mg qd, lightly higher today. verapmil seems tohave decreased palpitations. Health Maintenance Body weight with headache slow rise. Wt Readings from Last 6 Encounters: 07/19/20 134 lb (60.8 kg) 07/05/20 133 lb 8 oz (60.6 kg) 06/27/20 133 lb (60.3 kg) 06/19/20 133 lb (60.3 kg) 06/13/20 130 lb 9.6 oz (59.2 kg) 05/14/20 131 lb 11.2 oz (59.7 kg) continue meds. Outpatient Encounter Medications as of 07/19/2020 Medication Sig Dispense Refill Estradiol (VAGIFEM) 10 mcg tablet Insert 1 tablet into vagina daily. For 2 wks, then twice a week 20 tablet 3 [DISCONTINUED] clidinium-chlordiazepoxide (LIBRAX, WITH CLINIDIUM,) 5-2.5 mg capsule Take 1-2 capsules by mouth 3 (three) times daily as needed for Pain (scale 4-6). 100 capsule 1-2 [DISCONTINUED] fluconazole (DIFLUCAN) 150 mg tablet Take 1 tablet by mouth every other day. 3 tablet 0 albuterol 90 mcg/actuation inhaler Inhale 2 Puffs every 6 (six) hours as needed for Wheezing or Shortness of Breath. 3 Inhaler 11 fluticasone propion-salmeteroL (ADVAIR DISKUS) 250-50 mcg/dose inhalation disk Inhale 1 Puff every 12 (twelve) hours. 1 puff twice a day rinse mouth after use 60 Each 11 levocetirizine 5 mg tablet Take 1 tablet by mouth every evening. 30 tablet 11 [DISCONTINUED] ALPRAZolam 1 mg tablet TAKE 1 TABLET BY MOUTH THREE TIMES DAILY prn anxiety 90 tablet 0 azelastine 137 mcg (0.1 %) nasal spray Use 1 [place] in each nostril 2 (two) times daily. Use in each nostril as directed 30 mL 1 ipratropium 0.03 % nasal spray Use 2 Sprays in each nostril daily. On waking and repeat before bed time 30 mL 3 [DISCONTINUED] clidinium-chlordiazepoxide (LIBRAX, WITH CLINIDIUM,) 5-2.5 mg capsule Take 1-2 capsules by mouth 3 (three) times daily as needed for Pain (scale 1-3) or Pain (scale 4-6). 100 capsule1-2 albuterol-ipratropium (COMBIVENT RESPIMAT) 20-100 mcg/actuation inhaler Inhale 1 Puff 4 (four) times daily. 3 Inhaler 11 metroNIDAZOLE 500 mg tablet Take 1 tablet by mouth 2 (two) times daily. 14 tablet 0 modafinil 100 mg tablet Take 1 tablet by mouth daily. For 1 week then increase to 200 mg by mouth daily 60 tablet 1 pantoprazole 40 mg EC tablet Take 1 tablet by mouth daily. 90 tablet prn atorvastatin 40 mg tablet Take 1 tablet by mouth at bedtime. 90 tablet 5 [DISCONTINUED] peg-electrolyte soln 236-22.74-6.74 -5.86 gram solution Take as directed before colonoscopy 4000 mL 0 verapamil 100 mg 24 hr capsule Take 1 capsule by mouth at bedtime. 90 capsule 3 [DISCONTINUED] Estradiol (VAGIFEM) 10 mcg tablet Insert 1 [...] or Shortness of Breath. 1 Inhaler 11 fluticasone (FLONASE) 50 mcg/actuation nasal spray Use 2 Sprays in each nostril daily. 1 Bottle 11 No facility-administered encounter medications on file as of 07/19/2020. Wt Readings from Last 6 Encounters: 07/19/20 134 lb (60.8 kg) 07/05/20 133 lb 8 oz (60.6 kg) 06/27/20 133 lb (60.3 kg) 06/19/20 133 lb (60.3 kg) 06/13/20 130 lb 9.6 oz (59.2 kg) 05/14/20 131 lb 11.2 oz (59.7 kg) ME WRITER documented in this encounter Plan of Treatment Date Type Specialty Care Team Description 08/02/2020 Office Visit Dermatology Chad Sharpe MD [address] [place] [address]. [place] [address] 08/20/2020 Office Visit Endocrinology Diabetes & AlvarezCarrillo MD [address] [address] 10/23/2020 Office Visit Internal Medicine Anderson Palomino MD [address] [place] [address] [address] [place], [place] [address] 12/04/2020 Appointment Vascular Sonography Tech, [facility] Cardio Vascular 12/04/2020 Appointment Echocardiograph Pc, [facility] Echo-Vascular Room 1 - 12/12/2020 Office Visit Cardiology Jose Maria Brown MD [facility] E HOSPTAL [address] [address] 01/03/2021 Office Visit Pulmonary Disease Leonardo Garza DO [address] [place] [phone] Health Maintenance Due Date Last Done Comments [...] filedocumented in this encounter Visit Diagnoses Diagnosis Skin nodule - Primary Localized superficial swelling, mass, or lump Major depressive disorder, single episod e, mild Need for vaccination Need for prophylactic vaccination and in oculation against unspecified single disease Esophageal spasm Dyskinesia of esophagus Yeast infection Other and unspecified mycoses Post-menopause atrophic vaginitis Postmenopausal atrophic vaginitis documented in this encounter Insurance Payer Benefit Plan / Subscriber ID Effective Phone Address T ype Group [facility] [id number] 2020-Pre Medica re HEALTHCARE - HEALTHCARE sent Adv HM O MANAGED DUAL COMPLETE MEDICARE HMO TM[facility] MEDICAID OF [id number] 2019-Pres [phone] Medi caid [place] ent [id number] [place] [address] [phone] [id number] (Work) documented as of this encounter
--- OUTSIDE RECORDS SUMMARY | 2020-08-09 13:41 | XMS REPORT | Summary of Care ---
:1960 Author Organization [facility] Address [address] [place] [address] Care Team Providers Name Role Phone Massiel Palomino MD Primary Care Provider Reason for Visit Reason Comments Rx Concern/Question refills Encounter Details Date Type Department Care Team Description 07/26/2020 Telephone [facility] Internal Chintan Palomino, Rx Concern/Question Medicine- [place] JORGE (refills) [facility] [address] [place] [address] [address] [place] , [place] [address] [address] [place] [address] Allergies Active Allergy Reactions Severity Noted Date Comments Amoxicillin-Pot Other - See comments 03/30/2017 Tong ue pain, Clavulanate swelling Cephalexin Itching, Rash 06/14/2017 Nitrofurantoin Dizziness 06/14/2017 Monohyd/M-Cryst Sulfa (Sulfonamide Hives 03/21/2007 Antibiotics) Tetracycline Rash 03/21/2007 Off balance, doesn't feel ri ght. documented as of this encounter (statuses as of 07/26/2020) Medications Medication Sig Dispensed Refills Start End [...] exertion azelastine 137 mcg (0.1 Use 1 [place] 30 mL 1 06/19/20 Active %) nasal [...] tablet tablet by 20 mouth every evening. Estradiol (VAGIFEM) 10 Insert 1 20 tablet 3 07/19/20 Active mcg tabletIndications: tablet into 20 Post-menopause atrophic vagina vaginitis daily. For 2 wks, then twice a week clidinium-chlordiazepox Take 1-2 100 capsule 1 07/19/20 Active alva (LIBRAX, WITH capsules by 20 CLINIDIUM,) 5-2.5 mg mouth 3 capsuleIndications: (three) Esophageal spasm times daily as needed for Pain (scale 4-6). fluconazole (DIFLUCAN) Take 1 3 tablet 0 07/26/20 Active 150 mg tablet by 20 tabletIndications: mouth every Yeast infection other day. fluconazole (DIFLUCAN) Take 1 3 tablet 0 07/19/20 Discontinued 150 mg tablet by 20 020 (Reorder) tabletIndications: mouth every Yeast infection other day. 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 Female genital symptoms 02/15/2008 Overview: ICD10 Diagnosis Term Keymod[employer] Machine Tender Utility documented as of this encounter (statuses as of 07/26/2020) Resolved Problems Problem Noted Date Resolved Date Hematuria 12/20/2015 08/03/2016 Acute bronchitis, unspecified organism 11/08/2015 1 10/03/2015 Influenza with respiratory manifestation other than 02/15/20 08 08/03/2016 pneumonia Overview: ICD10 Diagnosis Term Keymodule Assembly Machine Tender Utility documented as of this encounter (statuses as of 07/26/2020) Immunizations Name Administration Dates Next Due Pneumococcal [...] this encounter Miscellaneous Notes Telephone Encounter - [place], Betsy Shen 07/26/2020 8:27 AM CSTPatient is calling again for her refills she states she is will be out today and tomorrow is Wednesday. documented in this encounter Plan of Treatment Date Type Specialty Care Team Description 08/02/2020 Office Visit Dermatology Chad Sharpe MD [address] [place] [phone] 08/20/2020 Office Visit Endocrinology Diabetes & Carrillo Alvarez MD Metabolism [address] [place] [address] 10/23/2020 Office Visit Internal Medicine Anderson Palomino MD [address] [place], [place] [address] 12/04/2020 Appointment Vascular Sonography Tech, [facility] Cardio Vascular 12/04/2020 Appointment Echocardiograph Pc, [facility] Echo-Vascular Room 1 - 12/12/2020 Office Visit Cardiology Jose Maria Brown MD [address] [address] 01/03/2021 Office Visit Pulmonary Disease Leonardo Garza DO [address] [place] [address] Health Maintenance Due Date Last [...] filedocumented in this encounter Visit Diagnoses Diagnosis Yeast infection Other and unspecified mycoses documented in this encounter Insurance Payer Benefit Plan / Subscriber ID Effective Phone Address T e Group Dates [facility] [id number] 2020-Pr Medicar e Adv HEALTHCARE - HE[facility]CARE [facility]TE MEDIC[facility] O [facility] MEDICAID OF [id number] 2019-Pre [phone] Medic aid [place] sent [id number] [place] [address] [facility] [id number] 2019-Pre [address] BOX Beh avioral [facility]IOR[facility] sent [id number] [place] [address] documented as of this encounter
--- OUTSIDE RECORDS SUMMARY | 2020-08-09 13:41 | XMS REPORT | Summary of Care ---
:1960 Author Organization [facility] Address [address] [place] [address] Care Team Providers Name Role Phone Massiel Palomino MD Primary Care Provider Reason for Visit Reason Comments Refill Request ALPRAZolam Encounter Details Date Type Department Care Team Description 07/26/2020 Refill [facility] Internal Chintan Palomino, Refill Request Medicine- [place] JORGE (ALPRAZolam ) Primary Care Pavilio n [address] [facility] [address] , [place] [address] [address] [place] [address] Allergies Active Allergy Reactions Severity [...] albuterol 90 Inhale 2 1 Inhaler 11 04/25/20 Active mcg/actuation inhaler Puffs every 19 6 [...] exertion azelastine 137 mcg (0.1 Use 1 [place] 30 mL 1 06/19/20 Active %) nasal in each 20 sprayIndications: nostril 2 Allergic rhinitis due (two) times to pollen, unspecified daily. Use seasonality in each nostril as directed ipratropium 0.03 % Use 2 Sprays 30 mL 3 06/19/20 Active nasal sprayIndications: in each 20 Allergic rhinitis due nostril to pollen, unspecified daily. On seasonality waking and repeat before bed time albuterol 90 Inhale 2 3 Inhaler 11 [...] For 2 wks, then twice a week fluconazole (DIFLUCAN) Take 1 3 tablet 0 07/26/20 Active 150 mg tablet by 20 tabletIndications: mouth every Yeast infection other day. ALPRAZolam 1 mg TAKE 1 90 tablet 0 07/26/20 Acti ve tabletIndications: TABLET BY 20 Anxiety MOUTH THREE TIMES DAILY prn anxiety ALPRAZolam 1 mg TAKE 1 90 tablet 0 06/28/20 Disc ontinued tabletIndications: TABLET BY 20 020 ( Reorder) Anxiety MOUTH THREE TIMES DAILY prn anxiety clidinium-chlordiazepox Take 1-2 100 capsule 1 07/19/2007/142 Discontinued alva (LIBRAX, WITH capsules by 20 020 CLINIDIUM,) 5-2.5 mg mouth 3 capsuleIndications: (three) Esophageal spasm times daily as needed for Pain (scale 4-6). 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 Utility Female genital symptoms 02/15/2008 Overview: ICD10 Diagnosis Term Advertising Material Distributor Utility documented as of this encounter (statuses as of 07/26/2020) Resolved Problems Problem Noted Date Resolved Date Hematuria 12/20/2015 08/03/2016 Acute bronchitis, unspecified organism 11/08/2015 1 10/03/2015 Influenza with respiratory manifestation other than 02/15/20 08 08/03/2016 pneumonia Overview: ICD10 Diagnosis Term Advertising Material Distributor Utility documented as of this encounter (statuses [...] this encounter Miscellaneous Notes Telephone Encounter - Mariaelena Botello - 07/26/2020 3:30 PM CSTJessica Harrington is a 60 year old female is calling for ALPRAZolam refill. Thank you. elephone Encounter - Katherine Pnea - 07/26/2020 3:18 PM CSTJessica Harrington is a 60 year old female Patient is calling stating that she is out of Rx ALPRAZolam 1 mg needing refill sent to [address] [facility] [address] documented in this encounter Plan of Treatment Date Type Specialty Care Team Description 08/02/2020 Office Visit Dermatology Chad Sharpe MD [address] [place], [place] [address]. [place] [address] 08/20/2020 Office Visit Endocrinology Diabetes & Carrillo Alvarez MD [address] [address] 10/23/2020 Office Visit Internal Medicine Anderson Palomino MD [address] [facility] [address] [place], [place] [address] 12/04/[address] [facility] Cardio Vascular 12/04/2020 Appointment Echocardiograph Pc, [facility] Echo-Vascular Room 1 - 12/12/2020 Office Visit Cardiology Jose Maria Brown MD [address] [address] 01/03/2021 Office Visit Pulmonary Disease Leonardo Garza DO [address] [place] [address] Health Maintenance Due Date Last [...] Plan / Subscriber ID Effective Phone Address [facility] [id number] 2020-Pr Medicar e Adv HEALTHCARE - HEALTHCARE esent HMO MANAGED DUAL COMPLETE MEDICARE HMO [place] MED[place] [id number] 2019-Pre [phone] Medic aid [place] sent [id number] [place] [address] [facility] [id number] 2019-Pre [address] BOX Beh avioral [facility]AL BEHAVIORAL sent [id number] [place] [address] documented as of this encounter
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
--- OUTSIDE RECORDS SUMMARY | 2020-08-09 13:42 | XMS REPORT | Summary of Care ---
:[address] [facility] Address [address] [place] [address] Care Team Providers Name Role Phone Massiel Palomino MD Primary Care Provider Reason for Visit Reason Comments Refill Request tramadol 50 mg Encounter Details Date Type Department Care Team Description 07/22/2020 Telephone [facility] [place] [facility] Surgical Reza Galo, Angeliai ll Request Specialties - Chanellet on (tramadol 50 mg) [address] [place] [address], [address] [place] [address] [address] [place] [address] [place], [place] [phone] [address] [phone] Allergies Active Allergy Reactions Severity Noted Date Comments Amoxicillin-Pot Other - See comments 03/30/2017 Tong ue pain, Clavulanate swelling Cephalexin Itching, Rash 06/14/2017 Nitrofurantoin Dizziness 06/14/2017 Monohyd/M-Cryst Sulfa (Sulfonamide Hives 03/21/2007 Antibiotics) Tetracycline Rash 03/21/2007 Off balance, doesn't feel ri ght. documented as of this encounter (statuses as of 07/31/2020) Medications Medication Sig Dispensed Refills Start End [...] exertion azelastine 137 mcg (0.1 Use 1 [place] 30 mL 1 06/19/20 Active %) nasal [...] For 2 wks, then twice a week ALPRAZolam 1 mg TAKE 1 90 tablet 0 06/28/20 Disc ontinued tabletIndications: TABLET BY 20 020 ( Reorder) Anxiety MOUTH THREE TIMES DAILY prn anxiety fluconazole (DIFLUCAN) Take 1 3 tablet 0 07/19/20 Discontinued 150 mg tablet by 20 020 (Reorder) tabletIndications: mouth every Yeast infection other day. clidinium-chlordiazepox Take 1-2 100 capsule 1 07/19/2007/14 3/2 Discontinued alva (LIBRAX, WITH capsules by 20 020 CLINIDIUM,) 5-2.5 mg mouth 3 capsuleIndications: (three) Esophageal spasm times daily as needed for Pain (scale 4-6). documented as of this encounter (statuses as of 07/31/2020) Active Problems Problem Noted Date Heartburn 10/16/2019 Colon cancer screening 10/16/2019 Overview: Added automatically from request for lalita nasra [id number] Gastroesophageal reflux disease, esophagitis presence not specified 10/16/2019 Overview: Added automatically from request for lalita nasra [id number] Prediabetes 08/15/2018 Overactive bladder 05/27/2017 S/P hysterectomy [...] lower stomach (per patient) ICD10 Diagnosis Term Ski Patrol Utility Female genital symptoms 02/15/2008 Overview: ICD10 Diagnosis Term Ski Patrol Utility documented as of this encounter (statuses as of 07/31/2020) Resolved Problems Problem Noted Date Resolved Date Hematuria 12/20/2015 08/03/2016 Acute bronchitis, unspecified organism 11/08/2015 1 10/03/2015 Influenza with respiratory manifestation other than 02/15/20 08 08/03/2016 pneumonia Overview: ICD10 Diagnosis Term Ski Patrol Utility documented as of this encounter (statuses as of 07/31/2020) Immunizations Name Administration Dates Next Due Pneumococcal [...] this encounter Miscellaneous Notes Telephone Encounter - Amanda Pickard LVN - 07/22/2020 12:21 PM CSTRouted to for refill request. elephone Encounter - GarretAlfredaa - 07/22/2020 10:44 AM PORT SURVEYOR Patient is requesting refill on her tramadol 50 mg. Please advise. documented in this encounter Plan of Treatment Date Type Specialty Care Team Description 08/02/2020 Office Visit Dermatology Sonya Carlos MD [address] [place] [phone] Chad Sharpe MD [address] [place] [address]. [place] [address] 08/20/2020 Office Visit Endocrinology Diabetes & Carrillo Alvarez MD [facility] [address] [place] [address] 10/23/2020 Office Visit Internal Medicine Anderson Palomino MD [address] [facility] [address] [place], [place] [address] 12/04/2020 Appointment Vascular Sonography Tech, Adc Cardio Vascular 12/04/2020 Appointment Echocardiograph Pc, Adc Echo-Vascular Room 1 - 12/12/2020 Office Visit Cardiology Jose Maria Brown MD [address] [address] 01/03/2021 Office Visit Pulmonary Disease Leonardo Garza DO [address] [place] [address] Health Maintenance Due Date Last [...] Effective Phone Address T e Group Dates [facility] [id number] 2020-Pr Medicar e Adv HEALTHCARE - HEALTHCARE esent HMO MANAGED DUAL COMPLETE MEDICARE HMO [place] MEDICAID OF [id number] 2019-Pre [phone] O BOX Medic aid [place] sent [phone] [place] [address] [facility] [id number] 2019-Pre P O BOX Beh avioral [facility] sent [phone] [place] [address] documented as of this encounter
--- OUTSIDE RECORDS SUMMARY | 2020-08-09 13:42 | XMS REPORT | Summary of Care ---
:1960 Author Organization [facility] Address [address] [place] [address] Care Team Providers Name Role Phone Massiel Palomino MD Primary Care Provider Reason for Visit Reason Comments Authorization CHLORDIAZEPOXIDE CLIDINIUM 5 -2.5 MG Encounter Details Date Type Department Care Team Description 07/30/2020 Telephone [facility]- [place] Rankin MD (CHLORDIAZEPOXIDE Primary Care Pavilio n [address] [facility] [address] CLIDINIUM 5-2.5 MG) [address] [place] , [place], [place] [address] [place] [address] [phone] [address] [phone] Allergies Active Allergy Reactions Severity Noted Date Comments Amoxicillin-Pot Other - See comments 03/30/2017 Tong ue pain, Clavulanate swelling Cephalexin Itching, Rash 06/14/2017 Nitrofurantoin Dizziness 06/14/2017 Monohyd/M-Cryst Sulfa (Sulfonamide Hives 03/21/2007 Antibiotics) Tetracycline Rash 03/21/2007 Off balance, doesn't feel ri ght. documented as of this encounter (statuses as of 08/01/2020) Medications Medication Sig Dispensed Refills Start Date End Date Status fluticasone (FLONASE) 50 Use 2 Sprays 1 Bottle 11 02/02/2018 Active mcg/actuation nasal in each sprayIndications: Dyspnea nostril daily. on exertion, Upper airway cough syndrome, Gastroesophageal reflux disease without esophagitis albuterol 90 mcg/actuation Inhale 2 Puffs 1 Inhaler 11 01/06/20 19 Active inhaler every 6 (six) hours as needed for Wheezing or Shortness of Breath. STOOL SOFTENER 250 mg TAKE ONE 30 capsule 0 04/11/2019 Active capsuleIndications: CAPSULE BY Constipation, unspecified MOUTH EVERY constipation type DAY ketoconazole 2 % Apply to 120 mL 6 06/12/2019 Ac tive shampooIndications: area(s) once Post-inflammatory daily as hyperpigmentation needed for Itching. 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 verapamil 100 mg 24 hr Take 1 capsule 90 capsule 3 07/14/2019 Active capsuleIndications: by mouth at Essential hypertension, bedtime. Generalized anxiety disorder with panic attacks, Carolina's cyst of knee, left atorvastatin 40 mg Take 1 tablet 90 tablet 5 10/25/2019 Active tabletIndications: Pure by mouth at hypercholesterolemia bedtime. pantoprazole 40 mg EC Take 1 tablet 90 tablet 01/24/2020 Active tabletIndications: by mouth Dysphagia, unspecified daily. type, Gastroesophageal reflux disease without esophagitis modafinil 100 mg Take 1 tablet 60 tablet 1 04/26/2020 Active tabletIndications: by mouth Depression, unspecified daily. For 1 depression type week then increase to 200 mg by mouth daily metroNIDAZOLE 500 mg Take 1 tablet 14 tablet 0 04/26/2020 Active tabletIndications: Vaginal by mouth 2 discharge (two) times daily. albuterol-ipratropium Inhale 1 Puff 3 Inhaler 11 05/16/2020 Active (COMBIVENT RESPIMAT) 4 (four) times 20-100 mcg/actuation daily. inhalerIndications: Dyspnea on exertion azelastine 137 mcg (0.1 %) Use 1 [place] in 30 mL 1 06/19/20 20 Active nasal sprayIndications: each nostril 2 Allergic rhinitis due to (two) times pollen, unspecified daily. Use in seasonality each nostril as directed ipratropium 0.03 % nasal Use 2 Sprays 30 mL 3 06/19/2020 Active sprayIndications: Allergic in each rhinitis due to pollen, nostril daily. unspecified seasonality On waking and repeat before bed time albuterol 90 mcg/actuation Inhale 2 Puffs 3 Inhaler 11 07/05/20 20 Active inhalerIndications: every 6 (six) Dyspnea on exertion hours as needed for Wheezing or Shortness of Breath. fluticasone Inhale 1 Puff 60 Each 11 07/05/2020 Act zan propion-salmeteroL (ADVAIR every 12 DISKUS) 250-50 mcg/dose (twelve) inhalation hours. 1 puff diskIndications: Dyspnea twice a day on exertion rinse mouth after use levocetirizine 5 mg tablet Take 1 tablet 30 tablet 11 0 Active by mouth every evening. Estradiol (VAGIFEM) 10 mcg Insert 1 20 tablet 3 07/19/2020 Active tabletIndications: tablet into Post-menopause atrophic vagina daily. vaginitis For 2 wks, then twice a week fluconazole (DIFLUCAN) 150 Take 1 tablet 3 tablet 0 0 Active mg tabletIndications: by mouth every Yeast infection other day. ALPRAZolam 1 mg TAKE 1 TABLET 90 tablet 0 07/26/2020 Active tabletIndications: Anxiety BY MOUTH THREE TIMES DAILY prn anxiety documented as of this encounter (statuses as of 08/01/2020) Active Problems Problem Noted Date Heartburn 10/16/2019 Colon cancer screening 10/16/2019 Overview: Added automatically from request for lalita nasra [id number] Gastroesophageal reflux disease, esophagitis presence not specified 10/16/2019 Overview: Added automatically from request for lalita nasra [id number] Prediabetes 08/15/2018 Overactive bladder 05/27/2017 S/P hysterectomy [...] lower stomach (per patient) ICD10 Diagnosis Term Warehouse Order Filler Utility Female genital symptoms 02/15/2008 Overview: ICD10 Diagnosis Term Warehouse Order Filler Utility documented as of this encounter (statuses as of 08/01/2020) Resolved Problems Problem Noted Date Resolved Date Hematuria 12/20/2015 08/03/2016 Acute bronchitis, unspecified organism 11/08/2015 1 10/03/2015 Influenza with respiratory manifestation other than 02/15/20 08 08/03/2016 pneumonia Overview: ICD10 Diagnosis Term Warehouse Order Filler Utility documented as of this encounter (statuses as of 08/01/2020) Immunizations Name Administration Dates Next Due Pneumococcal [...] this encounter Miscellaneous Notes Telephone Encounter - Chrissie Nassar RN - 07/30/2020 9:34 AM CSTPA initiated for clidinium-chlordiazepoxide (suzanne) GAMA: [id number] Pt 1960 Dx Code F41.9 Last Name Len WALKER was DENIED, The requested medication/product is excluded from Part D prescription coverage under Medicare rules. Please refer to your Evidence of Coverage (EOC) section that references Part D drug coverage in your pharmacy plan documents for more information elephone Encounter - [place], Betsy Rankin - 07/30/2020 7:44 AM CSTPA ON CHLORDIAZEPOXIDE-CLIDINIUM 5-2.5 MG GAMA:[id number] NAME:TRISTON :1960 documented in this encounter Plan of Treatment Date Type Specialty Care Team Description 08/02/2020 Office Visit Dermatology Sonya Carlos MD [address] [place] [address] Chad Sharpe MD [address] [place] [address]. [place] [address] 08/20/2020 Office Visit Endocrinology Diabetes & Alvarez, Carrillo burks MD [address] [address] 10/23/2020 Office Visit Internal Medicine Anderson Palomino MD [address] [facility] [address] [place] [address] 12/04/2020 Appointment Vascular Sonography Tech, [facility] Cardio Vascular 12/04/2020 Appointment Echocardiograph Pc, [facility] Echo-Vascular Room 1 - 12/12/2020 Office Visit Cardiology Jose Maria Brown MD [address] [address] 01/03/2021 Office Visit Pulmonary Disease Leonardo Garza DO [address] [place] [address] Health Maintenance Due Date Last Done [...] / Subscriber ID Effective Phone Address T [facility] [id number] 2020-Pr Medicar e Adv HEALTHCARE - HEALTHCARE esent HMO MANAGED DUAL COMPLETE MEDICARE HMO [place] MEDICAID OF [id number] 2019-Pre [phone] O BOX Medic aid [place] sent [id number] [place] [address] [facility] [id number] 2019-Pre P O BOX Beh avioral [facility] BE[facility]IOR[facility] sent [phone] [place] [address] documented as of this encounter
--- OUTSIDE RECORDS SUMMARY | 2020-08-09 13:43 | XMS REPORT | Summary of Care ---
:1960 Author Organization [facility] Address [address] [place] [address] Care Team Providers Name Role Phone Massiel Palomino MD Primary Care Provider Reason for Visit Reason Comments Refill Request ALPRAZolam 1 mg tablet Encounter Details Date Type Department Care Team Description 07/23/2020 Refill [facility] Internal Chintan Palomino, Refill Request Medicine- Jersey JORGE (ALPRAZolam 1 mg tablet) Primary Care Pavilio n [address] [facility] [address] , [place] [address] [address] [place] [address] Allergies Active Allergy Reactions Severity Noted Date Comments Amoxicillin-Pot Other - See comments 03/30/2017 Juan Jose ue pain, Clavulanate swelling Cephalexin Itching, Rash 06/14/2017 Nitrofurantoin Dizziness 06/14/2017 Monohyd/M-Cryst Sulfa (Sulfonamide Hives 03/21/2007 Antibiotics) Tetracycline Rash 03/21/2007 Off balance, doesn't feel ri ght. documented as of this encounter (statuses as of 08/02/2020) Medications Medication Sig Dispensed Refills Start End [...] exertion azelastine 137 mcg (0.1 Use 1 [place] 30 mL 1 06/19/20 Active %) nasal [...] anxiety clidinium-chlordiazepox Take 1-2 100 capsule 1 07/19/2007/14/2 Discontinued alva (LIBRAX, WITH capsules by 20 020 CLINIDIUM,) 5-2.5 mg mouth 3 capsuleIndications: (three) Esophageal spasm times daily as needed for Pain (scale 4-6). documented as of this encounter (statuses as of 08/02/2020) Active Problems Problem Noted Date Heartburn 10/16/2019 Colon cancer screening 10/16/2019 Overview: Added automatically from request for lalita nasra [id number] Gastroesophageal reflux disease, esophagitis presence not specified 10/16/2019 Overview: Added automatically from request for lalita nasra [id number] Prediabetes 08/15/2018 Overactive bladder 05/27/2017 S/P hysterectomy [...] lower stomach (per patient) ICD10 Diagnosis Term Gate Mortiser Operator Utility Female genital symptoms 02/15/2008 Overview: ICD10 Diagnosis Term Gate Mortiser Operator Utility documented as of this encounter (statuses as of 08/02/2020) Resolved Problems Problem Noted Date Resolved Date Hematuria 12/20/2015 08/03/2016 Acute bronchitis, unspecified organism 11/08/2015 1 10/03/2015 Influenza with respiratory manifestation other than 02/15/20 08 08/03/2016 pneumonia Overview: ICD10 Diagnosis Term Gate Mortiser Operator Utility documented as of this encounter (statuses as of 08/02/2020) Immunizations Name Administration Dates Next Due Pneumococcal [...] this encounter Miscellaneous Notes Telephone Encounter - MoraBetsy - 07/23/2020 8:38 AM CSTPatient is requesting additional refills on the diflucan because she can't get into Dr. Christianson office until . elephone Encounter - Sanjuana Cesar - 07/23/2020 8:14 AM CSTALPRAZolam 1 mg tablet and a refill on fluconazole (DIFLUCAN) 150 mg tablet. UATE STUDENT documented in this encounter Plan of Treatment Date Type Specialty Care Team Description 08/02/2020 Office Visit Dermatology Sonya Carlos MD [address] [place] [phone] Chad Sharpe MD [address] [place] [address]. [place] [address] 08/20/2020 Office Visit Endocrinology Diabetes & Carrillo Alvarez MD [facility] [address] [place] [address] 10/23/2020 Office Visit Internal Medicine Anderson Palomino MD 301 [facility] [address] [place], [place] [address] 12/04/2020 Appointment Vascular Sonography Tech, [facility] Cardio Vascular 12/04/2020 Appointment Echocardiograph Pc, Adc Echo-Vascular Room 1 - 12/12/2020 Office Visit Cardiology Jose Maria Brown MD [address] [address] 01/03/2021 Office Visit Pulmonary Disease Leonardo Garza DO [address] [place] [address] Health Maintenance Due Date Last [...] Visit Diagnoses Diagnosis Anxiety Anxiety state, unspecified Yeast infection Other and unspecified mycoses documented in this encounter Insurance Payer Benefit Plan / Subscriber ID Effective Phone Address T [facility] [id number] 2020-Pr Medicar e Adv HEALTHCARE - HEALTHCARE esent HMO MANAGED DUAL COMPLETE MEDICARE HMO [place] MEDICAID OF [id number] 2019-Pre [phone] O BOX Medic aid [place] sent [id number] [place] [address] [facility] [id number] 2019-Pre P O BOX Beh avioral [facility] BEHAVIOR[facility] sent [phone] [place] [address] documented as of this encounter
--- OUTSIDE RECORDS SUMMARY | 2020-08-09 13:43 | XMS REPORT | Summary of Care ---
:1960 Author Organization [facility] - [facility] Address [address] [place] [address] Care Team Providers Name Role Phone Massiel Palomino MD Primary Care Provider Reason for Visit Reason Comments Rx Concern/Question CHLORDIAZEPOXIDE-CLIDINIUM 5 -2.5 MG Encounter Details Date Type Department Care Team Description 08/02/2020 Telephone [facility] Internal Chintan Palomino, Rx Concern/Question Medicine- [place] JORGE (CHLORDIAZEPOXIDE-CLIDI Primary Care Pavilio n [address] [facility] RTK67 NIUM 5-2.5 MG) [address], [place] [address] [address] [place] [address] Allergies Active Allergy Reactions Severity Noted Date Comments Amoxicillin-Pot Other - See comments 03/30/2017 Tong ue pain, Clavulanate swelling Cephalexin Itching, Rash 06/14/2017 Nitrofurantoin Dizziness 06/14/2017 Monohyd/M-Cryst Sulfa (Sulfonamide Hives 03/21/2007 Antibiotics) Tetracycline Rash 03/21/2007 Off balance, doesn't feel ri ght. documented as of this encounter (statuses as of 08/02/2020) Medications Medication Sig Dispensed Refills Start Date [...] azelastine 137 mcg (0.1 %) Use 1 [place] in 30 mL 1 06/19/20 20 Active [...] Inhale 2 Puffs 3 Inhaler 11 07/05/20 Active inhalerIndications: every 6 (six) Dyspnea on [...] Added automatically from request for lalita nasra [id number] Gastroesophageal reflux disease, esophagitis presence not specified 10/16/2019 Overview: Added automatically from request for lalita nasra [id number] Prediabetes 08/15/2018 Overactive bladder 05/27/2017 S/P hysterectomy [...] lower stomach (per patient) ICD10 Diagnosis Term 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 Operator Utility Female genital symptoms 02/15/2008 Overview: ICD10 Diagnosis Term 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 Operator Utility documented as of this encounter (statuses as of 08/02/2020) Resolved Problems Problem Noted Date Resolved Date Hematuria 12/20/2015 08/03/2016 Acute bronchitis, unspecified organism 11/08/2015 1 10/03/2015 Influenza with respiratory manifestation other than 02/15/20 08 08/03/2016 pneumonia Overview: ICD10 Diagnosis Term 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 Operator Utility documented as of this encounter [...] Telephone Encounter - Servando Traore MA - 08/02/2020 10:30 AM CSTSee encounter 07/30/2020 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 [place] [address] 08/20/2020 Office Visit Endocrinology Diabetes & AlvarezCarrillo MD [address] [address] [phone] 10/23/2020 Office Visit Internal Medicine Anderson Palomino MD [address] [facility] [address] [place], [place] [address] 12/04/2020 Appointment Vascular Sonography Tech, Adc Cardio Vascular 12/04/2020 Appointment Echocardiograph Pc, Adc Echo-Vascular Room 1 - 12/12/2020 Office Visit Cardiology Jose Maria Brown MD [address] [address] 01/03/2021 Office Visit Pulmonary Disease Leonardo Garza DO [address] [place] [phone] Health Maintenance Due Date Last Done Comments [...] / Subscriber ID Effective Phone Address T [facility] [id number] 2020-Pr Medicar e Adv HEALTHCARE - HEALTHCARE esent HMO MANAGED DUAL COMPLETE MEDICARE HMO HP MEDICAID OF [id number] 2019-Pre [phone] B[address] Medic aid [place] sent [id number] [place] [address] [facility] [id number] 2019-Pre P O BOX [facility] sent [id number] [place] [address] documented as of this encounter
--- OUTSIDE RECORDS SUMMARY | 2020-08-09 13:43 | XMS REPORT | Summary of Care ---
:1960 Author Organization [facility] Address [address] [place] [address] Care Team Providers Name Role Phone Massiel Palomino MD Primary Care Provider Reason for Visit Reason Comments Skin Check (Routine) Status Reason Specialty Diagnoses / Referred By Referred To Procedures Contact Contact New Request Dermatology Diagnoses Skin nodule Chintan Palomino Procedures CONSULT/REFERRAL DERMATOLOGY MD Massiel [address] [place] [address] [address] [place] [address] Encounter Details Date Type Department Care Team Description 08/02/2020 Office Visit [facility] Sonya Carlos MD [address] [place] [phone] Seborrheic keratosis (Primary Dx); Dermatology- Leyda Duran MD [address] [place] [address] [id number] [place], [place] [phone] Central centrifugal scarring alopecia [place] Chad Sharpe MD [address] [place] [address]. [place] [address] [facility] [address] [facility], [address]th [place] [address] Allergies Active Allergy Reactions Severity Noted Date Comments Amoxicillin-Pot Other - See comments 03/30/2017 Juan Jose ue pain, Clavulanate swelling Cephalexin Itching, Rash 06/14/2017 Nitrofurantoin Dizziness 06/14/2017 Monohyd/M-Cryst Sulfa (Sulfonamide Hives 03/21/2007 Antibiotics) Tetracycline Rash 03/21/2007 Off balance, doesn't feel ri ght. documented as of this encounter (statuses as of 08/05/2020) Medications Medication Sig Dispensed Refills Start End Status Date Date fluticasone (FLONASE) 50 Use 2 Sprays 1 Bottle 11 02/03/20 Active mcg/actuation nasal in each 18 sprayIndications: nostril [...] CAPSULE BY 19 Constipation, MOUTH EVERY unspecified constipation DAY type verapamil 100 mg 24 hr Take 1 [...] exertion azelastine 137 mcg (0.1 Use 1 [place] 30 mL 1 06/19/20 Active %) nasal in each 20 sprayIndications: nostril 2 Allergic rhinitis due to (two) times pollen, unspecified daily. Use seasonality in each nostril as directed ipratropium 0.03 % nasal Use 2 Sprays 30 mL 3 06/19/20 Active sprayIndications: in each 20 Allergic rhinitis due to nostril pollen, unspecified daily. On seasonality waking and repeat before bed time albuterol 90 Inhale 2 3 Inhaler 11 07/05/20 Active mcg/actuation Puffs every 20 inhalerIndications: 6 (six) Dyspnea on exertion hours as needed for Wheezing or Shortness of Breath. fluticasone Inhale 1 60 Each 11 07/05/20 Active propion-salmeteroL Puff every 20 (ADVAIR DISKUS) 250-50 12 (twelve) mcg/dose inhalation hours. 1 diskIndications: Dyspnea puff twice a on exertion day rinse mouth after use [...] Active 150 mg tablet by 20 tabletIndications: Yeast mouth every infection other day. ALPRAZolam 1 mg TAKE 1 90 tablet 0 07/26/20 Acti ve tabletIndications: TABLET BY 20 Anxiety MOUTH THREE TIMES DAILY prn anxiety ketoconazole 2 % shampoo Apply to 120 mL 3 08/02/20 Active area(s) once 20 daily as needed for Itching. 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 ketoconazole 2 % Apply to 120 mL 6 06/12/20 Dis continued shampooIndications: area(s) once 19 020 (Reorder) Post-inflammatory daily as hyperpigmentation needed for Itching. fluocinonide 0.05 % Apply to 20 mL 3 06/12/20 Discontinued solutionIndications: area(s) 2 19 020 (Reorder) Central centrifugal (two) times scarring alopecia daily. documented as of this encounter (statuses as of 08/05/2020) Active Problems Problem Noted Date Heartburn 10/16/2019 Colon cancer screening 10/16/2019 Overview: Added automatically from request for lalita nasra [id number] Gastroesophageal reflux disease, esophagitis presence not specified 10/16/2019 Overview: Added automatically from request for lalita nasra [id number] Prediabetes 08/15/2018 Overactive bladder 05/27/2017 S/P hysterectomy [...] lower stomach (per patient) ICD10 Diagnosis Term Directional Bore Operator Utility Female genital symptoms 02/15/2008 Overview: ICD10 Diagnosis Term Directional Bore Operator Utility documented as of this encounter (statuses as of 08/05/2020) Resolved Problems Problem Noted Date Resolved Date Hematuria 12/20/2015 08/03/2016 Acute bronchitis, unspecified organism 11/08/2015 1 10/03/2015 Influenza with respiratory manifestation other than 02/15/20 08 08/03/2016 pneumonia Overview: ICD10 Diagnosis Term Directional Bore Operator Utility documented as of this encounter (statuses as of 08/05/2020) Immunizations Name Administration Dates Next Due Pneumococcal [...] on filedocumented in this encounter Progress Notes Chad Sharpe MD - 08/02/2020 2:15 PM CST Dermatology Clinic Note Cc: growths HPI Jessica Harrington is a 60 year old female who presents for evaluation of a growths on her right forearm and arm and right leg present for months. Denies any associated pain, itching, or bleeding. No previous treatments. Histories Past Medical History: Diagnosis Date Abnormal [...] transmitted disease) Unspecified essential hypertension Urinary incontinence SH: Lives in [place] Allergies Allergies Allergen Reactions Augmentin [Amoxicillin-Pot Clavulanate] Other - See comments Tongue pain, swelling Cephalexin Itching and Rash Macrobid [Nitrofurantoin Monohyd/M-Cryst] Dizziness Sulfa (Sulfonamide Antibiotics) Hives Tetracycline Rash Off balance, doesn't feel right. Medications Current Outpatient Medications on File Prior to Visit Medication Sig Dispense Refill ALPRAZolam 1 mg tablet TAKE 1 TABLET BY MOUTH THREE TIMES DAILY prn anxiety 90 tablet 0 fluconazole (DIFLUCAN) 150 mg tablet Take 1 tablet by mouth every other day. 3 tablet 0 Estradiol (VAGIFEM) 10 mcg tablet Insert 1 tablet into vagina daily. For 2 wks, then twice a week 20 tablet 3 albuterol 90 mcg/actuation inhaler Inhale 2 Puffs every 6 (six) hours as needed for Wheezing or Shortness of Breath. 3 Inhaler 11 fluticasone propion-salmeteroL (ADVAIR DISKUS) 250-50 mcg/dose inhalation disk Inhale 1 Puff every 12 (twelve) hours. 1 puff twice a day rinse mouth after use 60 Each 11 levocetirizine 5 mg tablet Take 1 tablet by mouth every evening. 30 tablet 11 azelastine 137 mcg (0.1 %) nasal spray Use 1 [place] in each nostril 2 (two) times daily. Use in each nostril as directed 30 mL 1 ipratropium 0.03 % nasal spray Use 2 Sprays in each nostril daily. On waking and repeat before bed time 30 mL 3 albuterol-ipratropium (COMBIVENT RESPIMAT) 20-100 mcg/actuation inhaler Inhale [...] by mouth at bedtime. 90 tablet 5 verapamil 100 mg 24 hr capsule Take 1 capsule by mouth at bedtime. 90 capsule 3 STOOL SOFTENER 250 mg capsule TAKE ONE CAPSULE BY MOUTH EVERY DAY 30 capsule 0 albuterol 90 mcg/actuation inhaler Inhale 2 Puffs every 6 (six) hours as needed for Wheezing or Shortness of Breath. 1 Inhaler 11 fluticasone (FLONASE) 50 mcg/actuation nasal spray Use 2 Sprays in each nostril daily. 1 Bottle 11 No current facility-administered medications on file prior to visit. Review of Systems (-) = negative (+) = positive Constitutional: pain (-) Skin: growths (+), itching (-) Physical Exam LMP 09/13/1989 (Approximate) Positive (+), Negative (-) General : No acute distress, awake, well developed, well nourished Psychiatric: Normal affect, mood, judgement, and thought content Neuro: Alert, oriented to person, place, situation FACE: Negative SCALP: Positive RIGHT ARM: See image RIGHT LEG: Positive (-)=Negative,(+)=Positive Actinic Keratosis (A): erythematous scaling papules [...] well circumscribed evenly pigmented macule Nevus Papular (BUILDING SPECIALIST): well circumscribed evenly pigmented papule Psoriasis Circumscribed (PC): well circumscribed erythema and scaling Psoriasis Diffuse (PD): diffuse patches of erythema and scaling Seborrheic Keratosis (SK): verrucous brown papules and plaques Scar (SR): cicatricial change Verruca Vulgarus (W): warty hyperkeratotic papule Assessment/Plan 1. Seborrheic Keratoses - right arm and leg - Discussed likely etiology, expected course and management options with patient - Benign, reassurance offered - discussed that LN2 will likely cause hypopigmentation and best to monitor but patient assists on LN2 and is fine with risk of hypopigmentation - LN2 offered 2. 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 Abigail Sharpe MD PGY 4 Dermatology Resident INSTRUCTOR documented in this encounter Plan of Treatment Date Type Specialty Care Team Description 08/16/2020 Office Visit Dermatology Chad Sharpe MD [address] [place] [phone] 08/20/2020 Office Visit Endocrinology Diabetes & Carrillo Alvarez MD [id number] [place], [place] [phone] 10/23/2020 Office Visit Internal Medicine Anderson Palomino MD [address] [place], [place] [address] 12/04/2020 Appointment Vascular Sonography [place], Jadyn Cardio Vascular 12/04/2020 Appointment Echocardiograph Pc, Adc Echo-Vascular Room 1 - 12/12/2020 Office Visit Cardiology Jose Maria Brown MD [address] [place] [phone] 01/03/2021 Office Visit Pulmonary Disease Leonardo Garza DO [address] [place] [address] Health Maintenance Due Date Last [...] filedocumented in this encounter Visit Diagnoses Diagnosis Seborrheic keratosis - Primary Other seborrheic keratosis Central centrifugal scarring alopecia Other alopecia documented in this encounter Insurance Payer Benefit Plan / Subscriber ID Effective Phone Address T ype Group Dates [facility] [id number] 2020-Pre Medica re HEALTHCARE - HEALTHCARE sent Adv HM O MANAGED DUAL COMPLETE MEDICARE HMO TMHP MEDICAID OF [id number] 2019-Pres [phone] Medi caid [place] ent [id number] [place] [address] [phone] (Work) documented as of this encounter
--- OUTSIDE RECORDS SUMMARY | 2020-08-09 13:43 | XMS REPORT | Summary of Care ---
:1960 Author Organization [facility] Address [address] [place] [address] Care Team Providers Name Role Phone Massiel Palomino MD Primary Care Provider Reason for Visit Reason Comments Skin Check (Routine) Status Reason Specialty Diagnoses / Referred By Referred To Procedures Contact Contact New Request Dermatology Diagnoses Skin nodule Chintan Palomino Procedures CONSULT/REFERRAL DERMATOLOGY MD Massiel [address] [place] [address] [address] [place] [address] Encounter Details Date Type Department Care Team Description 08/02/2020 Office Visit [facility] Sonya Carlos MD [address] [place] [phone] Seborrheic keratosis (Primary Dx); Dermatology- Leyda Duran MD [address] [place] [address] [id number] [place], [place] [phone] Central centrifugal scarring alopecia [place] Chad Sharpe MD [address] [place] [address]. [place] [phone] [facility] [address] [facility], 5th [place] [address] Allergies Active Allergy Reactions Severity [...] exertion azelastine 137 mcg (0.1 Use 1 [place] 30 mL 1 06/19/20 Active %) nasal [...] Added automatically from request for lalita nasra [id number] Gastroesophageal reflux disease, esophagitis presence not specified 10/16/2019 Overview: Added automatically from request for lalita nasra [id number] Prediabetes 08/15/2018 Overactive bladder 05/27/2017 S/P hysterectomy [...] lower stomach (per patient) ICD10 Diagnosis Term Production Recorder Utility Female genital symptoms 02/15/2008 Overview: ICD10 Diagnosis Term Production Recorder Utility documented as of this encounter (statuses as of 08/05/2020) Resolved Problems Problem Noted Date Resolved Date Hematuria 12/20/2015 08/03/2016 Acute bronchitis, unspecified organism 11/08/2015 1 10/03/2015 Influenza with respiratory manifestation other than 02/15/20 08 08/03/2016 pneumonia Overview: ICD10 Diagnosis Term Production Recorder Utility documented as of this encounter (statuses [...] essential hypertension Urinary incontinence SH: Lives in [place] Allergies Allergies Allergen Reactions Augmentin [Amoxicillin-Pot Clavulanate] [...] mcg (0.1 %) nasal spray Use 1 [place] in each nostril 2 (two) times daily. [...] well circumscribed evenly pigmented macule Nevus Papular (SUPPLY CHAIN TECH): well circumscribed evenly pigmented papule Psoriasis Circumscribed [...] Abigail Sharpe MD PGY 4 Dermatology Resident STERED RESPIRATORY THERAPIST documented in this encounter Plan of Treatment Date Type Specialty Care Team Description 08/16/2020 Office Visit Dermatology Chad Sharpe MD [address] [place] [phone] 08/20/2020 Office Visit Endocrinology Diabetes & Carrillo Alvarez MD [phone] [place], [place] [phone] 10/23/2020 Office Visit Internal Medicine Anderson Palomino MD [address] [place], [place] [address] 12/04/2020 Appointment Vascular Sonography [place], Jadyn Cardio Vascular 12/04/2020 Appointment Echocardiograph Pc, Adc Echo-Vascular Room 1 - 12/12/2020 Office Visit Cardiology Jose Maria Brown MD [address] [place] [phone] 01/03/2021 Office Visit Pulmonary Disease Leonardo Garza DO [address] [place] [address] Health Maintenance Due Date Last [...] Effective Phone Address T ype Group Dates [facility] [id number] 2020-Pre Medica re HEALTHCARE - HEALTHCARE sent Adv HM O MANAGED DUAL COMPLETE MEDICARE HMO TMHP MEDICAID OF [id number] 2019-Pres [phone] Medi caid [place] ent [phone] [place] [address] [phone] (Work) documented as of this encounter
[2020-08-09 14:27] LABS: Urine Bacteria <20 /HPF (<20); Urine Mucus 2+ /HPF (NONE SEEN); Urine RBC <5 /HPF (NONE SEEN)
[2020-08-09 14:52] LABS: Absolute Lymphocytes (CBC) 2.5 K/uL (0.7-4.9); Hematocrit 39.8 % (36.0-45.0); Lymphocytes % 29.8 % (15.3-44.8); MPV 8.1 fL (7.6-11.3); RBC Red Blood Cell Count 4.52 M/uL (3.86-4.86)
[2020-08-09 15:00] LABS: ALT/SGPT 11 U/L (12-78); AST/SGOT 14 U/L (15-37); Albumin 3.8 g/dL (3.4-5.0); Alkaline Phosphatase 121 U/L (45-117); BUN Blood Urea Nitrogen 8 mg/dL (7-18); Bicarbonate 30 mmol/L (21-32); Bilirubin Direct < 0.1 mg/dL (0-0.2); Bilirubin Total 0.3 mg/dL (0.2-1.0); Glucose Level 91 mg/dL (74-106); Lipase 130 U/L (73-393); Potassium 3.6 mmol/L (3.5-5.1); Protein, Total 7.7 g/dL (6.4-8.2); Sodium Level 145 mmol/L (136-145)
[2020-08-09 15:08] LABS: Urine Blood TRACE (NEG); Urine Glucose NEGATIVE (NEG); Urine Protein NEGATIVE (NEG); Urine pH 5.5 (5.0-7.0)
--- NOTE | 2020-08-09 15:56 | RAD REPORT ---
EXAM DESCRIPTION: CT - Abdomen Pelvis W Contrast - 08/09/2020 3:38 pm CLINICAL HISTORY: Abdominal pain COMPARISON: September 2019 TECHNIQUE: Computed axial tomography of the abdomen pelvis was obtained. 100 cc Isovue-300 was admin istered intravenously. Oral contrast was not requested which limits evaluation of bowel. All CT scans are performed using dose optimization technique as appropriate and may include automated exposure control or mA/KV adjustment according to patient size. FINDINGS: The liver, spleen, pancreas, adrenal and kidneys appear unremarkable. There is no evidence of diverticulitis. . Hysterectomy. Appendectomy. Mild gastric distention. Mild anterior subluxation L5 on S1. Small perium bilical hernia IMPRESSION: Mild gastric distention
--- NOTE | 2020-08-09 16:13 | ER ---
Nurse's Notes [facility] Name: Jessica Harrington Age: 60 yrs Sex: Female : 1960 Arrival Date: 08/09/2020 Time: 13:32 Bed 16 Private MD: Diagnosis: Generalized abdominal pain-right lateral Presentation: 08/09 13:48 Chief complaint: Patient states: right sided abd pain all week, pain worsens when she iw stretches, pain wraps around to back , has hx of yeast infection, may be having the start of UTI. Coronavirus screen: At this time, the client does not indicate any symptoms associated with coronavirus-19. Ebola Screen: Patient negative for fever greater than or equal to 101.5 degrees Fahrenheit, and additional compatible Ebola Virus Disease symptoms Patient denies exposure to infectious person. Patient denies travel to an Ebola-affected area in the 21 days before illness onset. No symptoms or risks identified at this time. Initial Sepsis Screen: Does the patient meet any 2 criteria? No. Patient's initial sepsis screen is negative. Does the patient have a suspected source of infection? No. Patient's initial sepsis screen is negative. Risk Assessment: Do you want to hurt yourself or someone else? Patient reports no desire to harm self or others. Onset of symptoms was August 06, 2020. 13:48 Method Of Arrival: Ambulatory iw 13:48 Acuity: JE 3 iw Historical: - Allergies: 13:51 Sulfa (Sulfonamide Antibiotics); iw - Home Meds: 13:51 Bentyl Oral [Active]; Hydroxyzine Oral [Active]; Omeprazole Oral [Active]; verapamil iw 100 mg Oral CPCT 1 cap once daily [Active]; Xanax 1 mg Oral tab PRN for Anxiety [Active]; - PMHx: 13:51 acid reflux; Anxiety; Hyperlipidemia; Hypertension; iw - PSHx: 13:51 Appendectomy; Tonsillectomy; ; Hysterectomy; iw - Immunization history:: Adult Immunizations. - Social history:: Smoking status: Patient reports the use of cigarette tobacco products, denies chronic smoking, but will smoke occasionally. Screenin:00 Abuse screen: Denies threats or abuse. Denies injuries from another. Nutritional ca1 screening: No deficits noted. Tuberculosis screening: No symptoms or risk factors identified. Fall Risk IV access (20 points). Assessment: 14:00 General: Appears in no apparent distress. comfortable, Behavior is calm, cooperative, ca1 appropriate for age. Pain: Complains of pain in right lower quadrant Pain currently is 7 out of 10 on a pain scale. Pain began a week ago. Neuro: Level of Consciousness is awake, alert, obeys commands, Oriented to person, place, time, situation. Cardiovascular: Heart tones S1 S2 present Capillary refill < 3 seconds Patient's skin is warm and dry. Respiratory: Airway is patent Respiratory effort is even, unlabored, Respiratory pattern is regular, symmetrical, Breath sounds are clear bilaterally. GI: Abdomen is flat, non-distended, Bowel sounds present X 4 quads. Abd is soft X 4 quads Abdomen is tender to palpation in right lower quadrant. : Reports burning with urination, urinary frequency, vaginal itching, since a week. EENT: No deficits noted. No signs and/or symptoms were reported regarding the EENT system. Derm: Skin is intact, is healthy with good turgor, Skin is pink, warm \T\ dry. Musculoskeletal: Circulation, motion, and sensation intact. Capillary refill < 3 seconds. 15:02 Reassessment: Patient appears in no apparent distress at this time. Patient and/or ca1 family updated on plan of care and expected duration. Pain level reassessed. Patient is alert, oriented x 3, equal unlabored respirations, skin warm/dry/pink. 16:00 Reassessment: Patient appears in no apparent distress at this time. Patient and/or ca1 family updated on plan of care and expected duration. Pain level reassessed. Patient is alert, oriented x 3, equal unlabored respirations, skin warm/dry/pink. Vital Signs: 13:48 BP 116 / 68; Pulse 72; Resp 16; Temp 97.6; Pulse Ox 100% on R/A; Weight 60.33 kg; iw Height 5 ft. 2 in. (157.48 cm); Pain 5/10; 15:05 BP 123 / 76; Pulse 62; Resp 16 S; Pulse Ox 100% on R/A; ca1 16:00 BP 110 / 76; Pulse 65; Resp 16 S; Pulse Ox 100% on R/A; ca1 13:48 Body Mass Index 24.33 (60.33 kg, 157.48 cm) iw ED Course: 13:32 Patient arrived in ED. mr 13:50 Triage completed. iw 13:51 Arm band placed on. iw 13:58 Liliana Tamayo FNP-C is [facility]. kb 13:58 Maikol Spencer MD is Attending Physician. kb 14:00 Patient has correct armband on for positive identification. Placed in gown. Bed in low ca1 position. Call light in reach. Side rails up X 1. Pulse ox on. NIBP on. Warm blanket given. 14:09 Deena Roldan, RN is Primary Nurse. ca1 14:30 Missed attempt(s): 22 gauge in left antecubital area. Bleeding controlled, band aid mt applied, catheter tip intact. 14:30 Initial lab(s) drawn, by me, sent to lab. mt 15:15 Inserted saline lock: 22 gauge in right wrist, using aseptic technique. ca1 15:37 CT Abd/Pelvis - IV Contrast Only In Process Unspecified. EDMS 16:39 No provider procedures requiring assistance completed. ca1 16:44 IV discontinued, intact, bleeding controlled, No redness/swelling at site. Pressure ca1 dressing applied. Administered Medications: No medications were administered Outcome: 16:12 Discharge ordered by MD. kb 16:44 Discharged to home ambulatory. ca1 16:44 Condition: stable 16:44 Discharge instructions given to patient, Instructed on discharge instructions, follow up and referral plans. medication usage, Demonstrated understanding of instructions, follow-up care, medications, Prescriptions given X 1. 16:45 Patient left the ED. ca1 Signatures: Dispatcher [employer] EDMS Liliana Tamayo FNP-C [employer]-Stefano Dailey Elli Lexy Mcbride RN RN iw [place], [place] Deena Roldan RN RN ca1 Corrections: (The following items were deleted from the chart) 13:52 13:48 Pulse 72bpm; Resp 16bpm; Pulse Ox 100% RA; Temp 97.6F; 60.33 kg; Height 5 ft. 2 iw in.; BMI: 24.3; Pain 5/10; iw
--- NOTE | 2020-08-09 16:13 | EDPHYS ---
Physician Documentation [facility] Name: Jessica Harrington Age: 60 yrs Sex: Female : 1960 Arrival Date: 08/09/2020 Time: 13:32 Bed 16 Private MD: ED Physician Maikol Spencer HPI: 08/09 16:44 This 60 yrs old Black Female presents to ER via Ambulatory with complaints of Flank kb Pain, Acid Reflex, Vaginal problem. 16:45 The patient presents with abdominal pain in the right upper quadrant, right lower kb quadrant. Onset: The symptoms/episode began/occurred 1 week(s) ago. The symptoms do not radiate. Associated signs and symptoms: none. The symptoms are described as constant. Modifying factors: The symptoms are alleviated by nothing, the symptoms are aggravated by stretching. Severity of pain: At its worst the pain was moderate in the emergency department the pain is unchanged. The patient has not experienced similar symptoms in the past. The patient has not recently seen a physician. Historical: - Allergies: 13:51 Sulfa (Sulfonamide Antibiotics); iw - Home Meds: 13:51 Bentyl Oral [Active]; Hydroxyzine Oral [Active]; Omeprazole Oral [Active]; verapamil iw 100 mg Oral CPCT 1 cap once daily [Active]; Xanax 1 mg Oral tab PRN for Anxiety [Active]; - PMHx: 13:51 acid reflux; Anxiety; Hyperlipidemia; Hypertension; iw - PSHx: 13:51 Appendectomy; Tonsillectomy; ; Hysterectomy; iw - Immunization history:: Adult Immunizations. - Social history:: Smoking status: Patient reports the use of cigarette tobacco products, denies chronic smoking, but will smoke occasionally. ROS: 16:44 Constitutional: Negative for fever, chills, and weight loss, Cardiovascular: Negative kb for chest pain, palpitations, and edema, Respiratory: Negative for shortness of breath, cough, wheezing, and pleuritic chest pain, Back: Negative for injury and pain, MS/Extremity: Negative for injury and deformity, Skin: Negative for injury, rash, and discoloration, Neuro: Negative for headache, weakness, numbness, tingling, and seizure. 16:44 Abdomen/GI: Positive for abdominal pain, Negative for nausea, vomiting, and diarrhea. Exam: 16:44 Constitutional: This is a well developed, well nourished patient who is awake, alert, kb and in no acute distress. Head/Face: Normocephalic, atraumatic. Chest/axilla: Normal chest wall appearance and motion. Nontender with no deformity. No lesions are appreciated. Cardiovascular: Regular rate and rhythm with a normal S1 and S2. No gallops, murmurs, or rubs. Normal PMI, no JVD. No pulse deficits. Respiratory: Lungs have equal breath sounds bilaterally, clear to auscultation and percussion. No rales, rhonchi or wheezes noted. No increased work of breathing, no retractions or nasal flaring. Back: No spinal tenderness. No costovertebral tenderness. Full range of motion. Skin: Warm, dry with normal turgor. Normal color with no rashes, no lesions, and no evidence of cellulitis. MS/ Extremity: Pulses equal, no cyanosis. Neurovascular intact. Full, normal range of motion. Neuro: Awake and alert, GCS 15, oriented to person, place, time, and situation. Cranial nerves II-XII grossly intact. Motor strength 5/5 in all extremities. Sensory grossly intact. Cerebellar exam normal. Normal gait. 16:44 Abdomen/GI: Inspection: abdomen appears normal, Bowel sounds: normal, in all quadrants, Palpation: soft, in all quadrants, mild abdominal tenderness, in the anterior aspect of right lateral abdomen. Vital Signs: 13:48 BP 116 / 68; Pulse 72; Resp 16; Temp 97.6; Pulse Ox 100% on R/A; Weight 60.33 kg; iw Height 5 ft. 2 in. (157.48 cm); Pain 5/10; 15:05 BP 123 / 76; Pulse 62; Resp 16 S; Pulse Ox 100% on R/A; ca1 16:00 BP 110 / 76; Pulse 65; Resp 16 S; Pulse Ox 100% on R/A; ca1 13:48 Body Mass Index 24.33 (60.33 kg, 157.48 cm) iw MDM: 13:59 Patient medically screened. kb 16:12 Data reviewed: vital signs, nurses notes. Data interpreted: Pulse oximetry: on room air kb is 100 %. Interpretation: normal. Counseling: I had a detailed discussion with the patient and/or guardian regarding: the historical points, exam findings, and any diagnostic results supporting the discharge/admit diagnosis, lab results, radiology results, the need for outpatient follow up, a family practitioner, to return to the emergency department if symptoms worsen or persist or if there are any questions or concerns that arise at home. 08/09 13:59 Order name: Urine Microscopic Only; Complete Time: 14:31 kb 08/09 14:14 Order name: Basic Metabolic Panel; Complete Time: 15:03 kb 08/09 14:14 Order name: CBC with Diff; Complete Time: 15:03 kb 08/09 14:14 Order name: Hepatic Function; Complete Time: 15:03 kb 08/09 14:14 Order name: Lipase; Complete Time: 15:03 kb 08/09 14:29 Order name: Urine Culture [facility] 08/09 13:59 Order name: Urine Dipstick-Ancillary (obtain specimen); Complete Time: 14:26 kb 08/09 14:14 Order name: IV Saline Lock; Complete Time: 15:15 kb 08/09 14:14 Order name: Labs collected and sent; Complete Time: 14:37 kb 08/09 14:14 Order name: CT Abd/Pelvis - IV Contrast Only; Complete Time: 15:58 kb 08/09 14:51 Order name: Urine Dipstick--Ancillary (enter results); Complete Time: 15:09 eb Administered Medications: No medications were administered Disposition: 18:36 Co-signature as Attending Physician, Maikol Spencer MD. ma2 Disposition: 08/09/20 16:12 Discharged to Home. Impression: Generalized abdominal pain - right lateral. - Condition is Stable. - Discharge Instructions: Abdominal Pain, Adult, [id number]. - Prescriptions for Bentyl 20 mg Oral Tablet - take 1 tablet by ORAL route every 6 hours As needed; 20 tablet. - Medication Reconciliation Form, Thank You Letter, Antibiotic Education, Prescription Opioid Use form. - Follow up: Emergency Department; When: As needed; Reason: Worsening of condition. Follow up: Private Physician; When: 2 - 3 days; Reason: Recheck today's complaints, Continuance of care, Re-evaluation by your physician. Signatures: Dispatcher MedChest[facility] HospitalLiliana Lua, [place] DUBON-Lexy Becerril RN RN iw Alzahri, Mohammad, MD MD ma2 Deena Roldan RN RN ca1 Corrections: (The following items were deleted from the chart) 16:45 16:12 08/09/2020 16:12 Discharged to Home. Impression: Generalized abdominal pain - ca1 right lateral. Condition is Stable. Forms are Medication Reconciliation Form, Thank You Letter, Antibiotic Education, Prescription Opioid Use. Follow up: Emergency Department; When: As needed; Reason: Worsening of condition. Follow up: Private Physician; When: 2 - 3 days; Reason: Recheck today's complaints, Continuance of care, Re-evaluation by your physician. kb
[2020-08-09 17:17] VITALS: TEMP 97.6; O2SAT 100
[2020-08-09 17:24] VITALS: BP 110/76
== END 2020-08-09 16:45 | disposition home or self-care (01) ==
LOC: ER 13:28
DX: R10.84 Generalized abdominal pain (principal); F17.210 Nicotine dependence, cigarettes, uncomplicated; I10 Essential (primary) hypertension; E78.5 Hyperlipidemia, unspecified; F41.9 Anxiety disorder, unspecified; Z88.2 Allergy status to sulfonamides
CPT/HCPCS: 87088; 85025; 87086; 80048; 36415; 80076; 83690; 74177; 99284; Q9967; 81003; 81015

== ENCOUNTER 2020-08-23 17:15 | Emergency (ER) | payer OTHER ==
--- OUTSIDE RECORDS SUMMARY | 2020-08-23 17:18 | XMS REPORT | Continuity of Care Document ---
:1960 Author Organization [facility] t Address [address] [place] [address] Care Team Providers Name Role Phone Georgette JORGE, A Attending Clinician Iraj JORGE, A Attending Clinician Problems This patient has no known problems. Allergies, Adverse Reactions, Alerts This patient has no known allergies or adverse reactions. Medications This patient has no known medications. Procedures This patient has no known procedures. Encounters Start End Encounter Admission Attending Care Care Encounter Source Date/Time Date/Time Type Type Clinicians Facility Department ID 2020-08-20 2020-08-20 RefJOSE Figueroa [id number] 00:00:00 00:00:00 Chintan Massiel PRIMARY [id number] CARE [id number] PAVILLION [id number] 2020-08-19 2020-08-19 Telephone Emanuel Galo [id number] 00:00:00 00:00:00 Reza Massiel Pediatric [id number] s and [id number] Adult [id number] Primary [facility] Results This patient has no known results.
--- OUTSIDE RECORDS SUMMARY | 2020-08-23 17:29 | XMS REPORT | Summary of Care ---
:1960 Author Organization [facility] Address [address] [place] [address] Care Team Providers Name Role Phone Massiel Palomino MD Primary Care Provider Reason for Visit Reason Comments Refill Request Encounter Details Date Type Department Care Team Description 08/16/2020 Refill [facility] Internal Matt Palomino MD Refill Request [id number] [place] [address] [address] , [address] [facility] [address] [place] [address] [phone] Allergies Active Allergy Reactions Severity Noted Date Comments Amoxicillin-Pot Other - See comments 03/30/2017 Tong ue pain, Clavulanate swelling Cephalexin Itching, Rash 06/14/2017 Nitrofurantoin Dizziness 06/14/2017 Monohyd/M-Cryst Sulfa (Sulfonamide Hives 03/21/2007 Antibiotics) Tetracycline Rash 03/21/2007 Off balance, doesn't feel ri ght. documented as of this encounter (statuses as of 08/19/2020) Medications Medication Sig Dispensed Refills Start End [...] Constipation, MOUTH EVERY unspecified constipation DAY type atorvastatin 40 mg Take 1 tablet 90 tablet 5 Active tabletIndications: Pure by mouth at 0 hypercholesterolemia bedtime. pantoprazole 40 mg EC Take 1 tablet 90 tablet Active tabletIndications: by mouth 0 Dysphagia, unspecified daily. type, Gastroesophageal reflux disease without esophagitis modafinil 100 mg Take 1 tablet 60 tablet 1 Active tabletIndications: by mouth 0 Depression, unspecified daily. For 1 depression type week then increase to 200 mg by mouth daily metroNIDAZOLE 500 mg Take 1 tablet 14 tablet 0 Active tabletIndications: by mouth 2 0 Vaginal discharge (two) times daily. albuterol-ipratropium Inhale 1 Puff 3 Inhaler 11 Active (COMBIVENT RESPIMAT) 4 (four) 0 20-100 mcg/actuation times daily. inhalerIndications: Dyspnea on exertion azelastine 137 mcg (0.1 Use 1 [place] 30 mL 1 Active %) nasal in each 0 sprayIndications: nostril 2 Allergic rhinitis due to (two) times pollen, unspecified daily. Use in seasonality each nostril as directed ipratropium 0.03 % nasal Use 2 Sprays 30 mL 3 Active sprayIndications: in each 0 Allergic rhinitis due to nostril pollen, unspecified daily. On seasonality waking and repeat before bed time albuterol 90 Inhale 2 3 Inhaler 11 Active mcg/actuation Puffs every 6 0 inhalerIndications: (six) hours Dyspnea on exertion as needed for Wheezing or Shortness of Breath. fluticasone Inhale 1 Puff 60 Each 11 Acti ve propion-salmeteroL every 12 0 (ADVAIR DISKUS) 250-50 (twelve) mcg/dose inhalation hours. 1 puff diskIndications: Dyspnea twice a day on exertion rinse mouth after use levocetirizine 5 mg Take 1 tablet 30 tablet 11 Active tablet by mouth 0 every evening. Estradiol (VAGIFEM) 10 Insert 1 20 tablet 3 Active mcg tabletIndications: tablet into 0 Post-menopause atrophic vagina daily. vaginitis For 2 wks, then twice a week ALPRAZolam 1 mg TAKE 1 TABLET 90 tablet 0 Active tabletIndications: BY MOUTH 0 Anxiety THREE TIMES DAILY prn anxiety ketoconazole 2 % shampoo Apply to 120 mL 3 Active area(s) once 0 daily as needed for Itching. 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 fluconazole (DIFLUCAN) Take 1 tablet 3 tablet 4 Active 150 mg by mouth 0 tabletIndications: Yeast every other infection day. VERAPAMIL 100 mg 24 hr TAKE 1 90 capsule 1 Active capsuleIndications: CAPSULE BY 0 Essential hypertension, MOUTH AT Generalized anxiety BEDTIME disorder with panic attacks, Carolina's cyst of knee, left verapamil 100 mg 24 hr Take 1 90 capsule 3 Discontinued capsuleIndications: capsule by 9 020 Essential hypertension, mouth at Generalized anxiety bedtime. 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 Female genital symptoms 02/15/2008 Overview: ICD10 Diagnosis Term 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 documented as of this encounter (statuses as of 08/19/2020) Resolved Problems Problem Noted Date Resolved Date Hematuria 12/20/2015 08/03/2016 Acute bronchitis, unspecified organism 11/08/2015 1 10/03/2015 Influenza with respiratory manifestation other than 02/15/20 08 08/03/2016 pneumonia Overview: ICD10 Diagnosis Term 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 documented in this encounter Plan of Treatment Date Type Specialty Care Team Description 08/20/2020 Office Visit Endocrinology Diabetes & Alvarez, Carrillo burks MD Metabolism [address] [place] [address] [phone] 10/23/2020 Office Visit Internal Medicine Chintan Palomino MD [address] [place], [place] [address] 12/04/2020 Appointment Vascular Sonography Jadyn Aquino Cardio Vascular 12/04/2020 Appointment Echocardiograph Pc, Adc Echo-Vascular Room 1 - 12/12/2020 Office Visit Cardiology Jose Maria Brown MD [address] [place] [address] [place] [phone] 01/03/2021 Office Visit Pulmonary Disease Leonardo Garza DO [address] [place] [phone] Health Maintenance Due Date Last Done Comments [...] this encounter Visit Diagnoses Diagnosis Essential hypertension Unspecified essential hypertension 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
--- OUTSIDE RECORDS SUMMARY | 2020-08-23 17:30 | XMS REPORT | Summary of Care ---
:1960 Author Organization [facility] - [facility] Address [address] [place] [address] Care Team Providers Name Role Phone Massiel Palomino MD Primary Care Provider Reason for Visit Reason Comments Skin Check Encounter Details Date Type Department Care Team Description 08/16/2020 Office Visit [facility] Sonya Carlos MD [address] [place] [phone] Seborrheic keratosis (Primary Dx); Dermatology- Chad Sharpe MD [address] [place] [address]. [place] [address] Neoplasm of uncertain behavior of skin [facility] [address] [facility], 5th [place] [address] Allergies Active Allergy Reactions Severity [...] exertion azelastine 137 mcg (0.1 Use 1 [place] 30 mL 1 Active %) nasal in [...] 0 tabletIndications: Yeast every other infection day. verapamil 100 mg 24 hr Take 1 90 capsule 3 Discontinued capsuleIndications: capsule by 9 020 Essential hypertension, mouth at Generalized anxiety bedtime. 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 Female genital symptoms 02/15/2008 Overview: ICD10 Diagnosis Term 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 documented as of this encounter (statuses as of 08/19/2020) Resolved Problems Problem Noted Date Resolved Date Hematuria 12/20/2015 08/03/2016 Acute bronchitis, unspecified organism 11/08/2015 1 10/03/2015 Influenza with respiratory manifestation other than 02/15/20 08 08/03/2016 pneumonia Overview: ICD10 Diagnosis Term 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 Denies pain or pruritus. At she had LN2, with some improvement, flatter, but persistent. Histories Past Medical History: Diagnosis Date Abnormal [...] essential hypertension Urinary incontinence SH: Lives in [place] [id number], Allergies Allergies Allergen Reactions Augmentin [Amoxicillin-Pot Clavulanate] Other - See comments Tongue pain, swelling Cephalexin Itching and Rash Macrobid [Nitrofurantoin Monohyd/M-Cryst] Dizziness Sulfa (Sulfonamide Antibiotics) Hives Tetracycline Rash Off balance, doesn't feel right. Medications Current Outpatient Medications on File Prior to Visit Medication Sig Dispense Refill fluocinonide 0.05 % solution Apply to area(s) 2 (two) times daily. 60 mL 2 ketoconazole 2 % shampoo Apply to area(s) once daily as needed for Itching. 120 mL 3 ALPRAZolam 1 mg tablet TAKE 1 TABLET BY MOUTH THREE TIMES DAILY prn anxiety 90 tablet 0 Estradiol (VAGIFEM) 10 mcg tablet [...] mcg (0.1 %) nasal spray Use 1 [place] in each nostril 2 (two) times daily. [...] (+) = positive Constitutional: pain (-) Skin: itching (-), growth (+) Physical Exam [facility] 09/13/1989 (Approximate) Positive (+), Negative (-) Consitutional: Appears stated age, in no acute distress Pulmonary: No increased work of breathing Psychiatric: Appropriate mood and affect RIGHT ARM: See image RIGHT LEG: Positive [...] well circumscribed evenly pigmented macule Nevus Papular (ADMINISTRATIVE SUPPORT MANAGER): well circumscribed evenly pigmented papule Psoriasis Circumscribed (PC): well circumscribed erythema and scaling Psoriasis Diffuse (PD): diffuse patches of erythema and scaling Seborrheic Keratosis (SK): verrucous brown papules and plaques Scar (SR): cicatricial change Verruca Vulgarus (W): warty hyperkeratotic papule Assessment/Plan 1. Neoplasm of undetermined behavior of the skin Biopsy site: R lower lateral leg Size: 1.0 DDX: SK vs blue nevus - Discussed differential diagnosis, prognosis and diagnostic/management options - TANGENTIAL BIOPSY: Risks discussed (pain, infection, bleeding, scarring). Verbal consent obtained.Area prepped with alcohol. Local anesthesia obtained with 1% lidocaine with epinephrine. 1.0 cm tangential biopsy performed. Specimen sent to pathology for analysis. Patient to be contacted with results. Hemostasis obtained with aluminum chloride. Petrolatum and bandage applied. Wound care discussed. 2. 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 Chad Sharpe, and Dr. Valverde who performed and/or ordered the services described here-in. Anthony Paredes 08/16/2020 16:05 I, Dr. Swami Sharpe, personally performed and/or ordered the services described in this documentation, as scribed above by Anthony Paredes in my presence, and it is both accurate and complete. Swami Annemarie MD PGY 4 Dermatology Resident SENIOR RESEARCH SCIENTIST documented in this encounter Plan of Treatment Date Type Specialty Care Team Description 08/20/2020 Office Visit Endocrinology Diabetes & Carrillo Alvarez MD Metabolism [address] [place] [address] 10/23/2020 Office Visit Internal Medicine Chintan Palomino MD [address] [place] [address] 12/04/2020 Appointment Vascular Sonography Tech, Jadyn Cardio Vascular 12/04/2020 Appointment Echocardiograph Pc, Adc Echo-Vascular Room 1 - 12/12/2020 Office Visit Cardiology Jose Maria Brown MD [address] [place] [phone] 01/03/2021 Office Visit Pulmonary Disease Leonardo Garza DO [address] [place] [address] Health Maintenance Due Date Last [...] Seborrheic keratosis - Primary Other seborrheic keratosis Neoplasm of uncertain behavior of skin documented in this encounter Insurance Payer Benefit Plan / Subscriber ID Effective Phone Address T ype Group Dates [facility] [id number] 2020-Pre Medica re HEALTHCARE - HEALTHCARE sent Adv HM O MANAGED DUAL COMPLETE MEDICARE HMO TMHP MEDICAID OF [id number] 2019-Pres [phone] Medi caid [place] ent [id number] [place] [address] [phone] (Work) documented as of this encounter
--- OUTSIDE RECORDS SUMMARY | 2020-08-23 17:30 | XMS REPORT | Summary of Care ---
:1960 Author Organization [facility] - [facility] Address [address] [place] [address] Care Team Providers Name Role Phone Massiel Palomino MD Primary Care Provider Reason for Visit Reason Comments Skin Check Encounter Details Date Type Department Care Team Description 08/16/2020 Office Visit [facility] Sonya Carlos MD [address] [place] [phone] Seborrheic keratosis (Primary Dx); Dermatology- Chad Sharpe MD [address] [place] [address]. [place] [address] Neoplasm of uncertain behavior of skin [facility] [address] [facility], 5th [place] [address] Allergies Active Allergy Reactions Severity [...] exertion azelastine 137 mcg (0.1 Use 1 [place] 30 mL 1 Active %) nasal in [...] Added automatically from request for lalita nasra [id number] Gastroesophageal reflux disease, esophagitis presence not specified 10/16/2019 Overview: Added automatically from request for lalita nasra [id number] Prediabetes 08/15/2018 Overactive bladder 05/27/2017 S/P hysterectomy [...] stomach (per patient) ICD10 Diagnosis Term 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 Female genital symptoms 02/15/2008 Overview: ICD10 Diagnosis Term 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 documented as of this encounter (statuses as of 08/19/2020) Resolved Problems Problem Noted Date Resolved Date Hematuria 12/20/2015 08/03/2016 Acute bronchitis, unspecified organism 11/08/2015 1 10/03/2015 Influenza with respiratory manifestation other than 02/15/20 08 08/03/2016 pneumonia Overview: ICD10 Diagnosis Term 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 [...] Skin: itching (-), growth (+) Physical Exam [facility] 09/13/1989 (Approximate) Positive (+), Negative (-) Consitutional: [...] well circumscribed evenly pigmented macule Nevus Papular (REPAIRER SHOE STICKS): well circumscribed evenly pigmented papule Psoriasis Circumscribed [...] Swami Annemarie MD PGY 4 Dermatology Resident E CARE ASSISTANT documented in this encounter Plan of Treatment Date Type Specialty Care Team Description 08/20/2020 Office Visit Endocrinology Diabetes & Carrillo Alvarez MD Metabolism [address] [place] [address] 10/23/2020 Office Visit Internal Medicine Chintan Palomnio MD [address] [place] [address] 12/04/2020 Appointment Vascular Sonography Tech, Jadyn Cardio Vascular 12/04/2020 Appointment Echocardiograph Pc, Adc Echo-Vascular Room 1 - 12/12/2020 Office Visit Cardiology Jose Maria Brown MD [address] [place] [phone] 01/03/2021 Office Visit Pulmonary Disease Leonardo Garza DO [address] [place] [address] Health Maintenance Due Date Last [...] Phone Address T ype Group Dates [facility] [id number] 2020-Pre Medica re HEALTHCARE - HEALTHCARE sent Adv HM O MANAGED DUAL COMPLETE MEDICARE HMO TMHP MEDICAID OF [id number] 2019-Pres [phone] Medi caid [place] ent [phone] [id number] [place] [address] [phone] (Work) documented as of this encounter
--- OUTSIDE RECORDS SUMMARY | 2020-08-23 17:30 | XMS REPORT | Summary of Care ---
:1960 Author Organization [facility] Address [address] [place] [address] Care Team Providers Name Role Phone Massiel Palomino MD Primary Care Provider Reason for Referral (Routine) Status Reason Specialty Diagnoses / Procedures Referred By Melany linkerred To Contact Contact New Request Gastroenterology Diagnoses Esophageal spasm Gastroesophageal reflux disease without esophagitis Georgette, Procedures CONSULT/REFERRAL GASTROENTEROLOGY Chintan Rankin MD [address] [facility] [address] [place] [address] Reason for Visit Reason Comments Rx Concern/Question PA ON CHLORDIAZEPOXIDE-CLIDI NIUM 5-2.5 MG Encounter Details Date Type Department Care Team Description 08/16/[address] [facility] Internal Chintan Palomino, Rx Concern/Question (DENISE See- [place] JORGE ON [facility] n [address] [place] [address] CHLORDIAZEPOXIDE-CLIDIN [address], [place] [address] IUM 5-2.5 MG) [address] [place] [address] Allergies Active Allergy Reactions Severity [...] DAY type atorvastatin 40 mg Take 1 90 tablet [...] exertion azelastine 137 mcg (0.1 Use 1 [place] 30 mL 1 06/19/20 Active %) nasal [...] scarring alopecia daily. fluconazole (DIFLUCAN) Take 1 3 tablet 4 08/16/20 Active 150 mg tablet by 20 tabletIndications: Yeast mouth every infection other day. verapamil 100 mg 24 hr Take 1 90 capsule 3 07/14/20 Discontinued capsuleIndications: capsule by 19 020 Essential hypertension, mouth at Generalized anxiety bedtime. disorder with panic attacks, Carolina's cyst of knee, left fluconazole (DIFLUCAN) Take 1 3 tablet 0 07/26/20 Discontinued 150 mg tablet by 20 020 (Reorder) tabletIndications: Yeast mouth every infection other day. 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 documented as of this encounter (statuses as of 08/19/2020) Resolved Problems Problem Noted Date Resolved Date Hematuria 12/20/2015 08/03/2016 Acute bronchitis, unspecified organism 11/08/2015 1 10/03/2015 Influenza with respiratory manifestation other than 02/15/20 08 08/03/2016 pneumonia Overview: ICD10 Diagnosis Term 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 She also is requesting additional refills on Diflucan because she can not get sooner appointment with Dr. Christianson earliest was 10/14/20. Patient is waiting in the waiting room to speak with Dr. Garcia or Leyda. documented in this encounter Plan of Treatment Date Type Specialty Care Team Description 08/20/2020 Office Visit Endocrinology Diabetes & Carrillo Alvarez MD Metabolism [address] [place] [address] 10/23/2020 Office Visit Internal Medicine Chintan Palomino MD [address] [place] [address] 12/04/2020 Appointment Vascular Sonography [facility], [facility] Cardio Vascular 12/04/2020 Appointment Echocardiograph Pc, Adc Echo-Vascular Room 1 - 12/12/2020 Office Visit Cardiology Jose Maria Brown MD [address] [place] [phone] 01/03/2021 Office Visit Pulmonary Disease Leonardo Garza, DO [address] [place] [address] Health Maintenance Due Date Last [...] Esophageal spasm - Primary Dyskinesia of esophagus Yeast infection Other and unspecified mycoses Gastroesophageal reflux disease without esophagitis Esophageal reflux documented in this encounter Insurance Payer Benefit Plan / Subscriber ID Effective Phone Address [facility] [id number] 2020-Pr Medicar e Adv HEALTHCARE - HEALTHCARE esent HMO MANAGED DUAL COMPLETE MEDICARE HMO [facility] MEDICAID OF [id number] 2019-Pre [phone]OX Medic aid [place] sent [phone] [place] [address] [facility] [id number] 2019-Pre P O BOX Beh avioral [facility]IOR[facility] sent [id number] [place] [address] documented as of this encounter
--- OUTSIDE RECORDS SUMMARY | 2020-08-23 17:30 | XMS REPORT | Summary of Care ---
:1960 Author Organization [facility] - [facility] Address [address] [place] [address] Care Team Providers Name Role Phone Massiel Palomino MD Primary Care Provider Reason for Visit Reason Comments Refill Request Tramadrol Encounter Details Date Type Department Care Team Description 08/19/2020 Telephone [facility] Orthopaedic Reza Galo R efmike Request Surgery- Emanuel JORGE (Tramadrol) 2019 [facility] [address] [place] [address] [id number] [place], [place] [address] Allergies Active Allergy Reactions Severity Noted Date Comments Amoxicillin-Pot Other - See comments 03/30/2017 Tong ue pain, Clavulanate swelling Cephalexin Itching, Rash 06/14/2017 Nitrofurantoin Dizziness 06/14/2017 Monohyd/M-Cryst Sulfa (Sulfonamide Hives 03/21/2007 Antibiotics) Tetracycline Rash 03/21/2007 Off balance, doesn't feel ri ght. documented as of this encounter (statuses as of 08/19/2020) Medications Medication Sig Dispensed Refills Start Date [...] Constipation, unspecified MOUTH EVERY constipation type DAY atorvastatin 40 mg Take 1 tablet 90 [...] azelastine 137 mcg (0.1 %) Use 1 [place] in 30 mL 1 06/19/20 Active nasal sprayIndications: each nostril 2 Allergic [...] BY MOUTH THREE TIMES DAILY prn anxiety ketoconazole 2 % shampoo Apply to 120 mL 3 08/02/2020 Active area(s) once daily as needed for Itching. fluocinonide 0.05 % Apply to 60 mL 2 08/02/2020 Active solutionIndications: area(s) 2 Central centrifugal (two) times scarring alopecia daily. fluconazole (DIFLUCAN) 150 Take 1 tablet 3 tablet 4 0 Active mg tabletIndications: by mouth every Yeast infection other day. VERAPAMIL 100 mg 24 hr TAKE 1 CAPSULE 90 capsule 1 08/19/2020 Active capsuleIndications: BY MOUTH AT Essential hypertension, BEDTIME Generalized anxiety disorder with panic attacks, Carolina's cyst of knee, left traMADoL 50 mg Take 1 tablet 28 tablet 0 08/19/2020 Active tabletIndications: acute by mouth every 0 pain 6 (six) hours as needed for Pain (scale 7-10) for up to 7 days. 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 Pearl regarding this call. 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 documented in this encounter Plan of Treatment Date Type Specialty Care Team Description 08/20/2020 Office Visit Endocrinology Diabetes & Carrillo Alvarez MD [facility] [address] [place] [address] [phone] 10/23/2020 Office Visit Internal Medicine Chintan Plaomino MD [address] [place], [place] [address] 12/04/2020 Appointment Vascular Sonography Jadyn Aquino Cardio Vascular 12/04/2020 Appointment Echocardiograph Pc, Adc Echo-Vascular Room 1 - 12/12/2020 Office Visit Cardiology Jose Maria Brown MD [address] [place] [phone] 01/03/2021 Office Visit Pulmonary Disease Leonardo Garza DO [address] [place] [phone] Health Maintenance Due Date Last Done Comments [...] filedocumented in this encounter Visit Diagnoses Diagnosis Patellofemoral arthritis of left knee - Primary Unspecified arthropathy, lower leg documented in this encounter Insurance Payer Benefit Plan / Subscriber ID Effective Phone Address T ype Group Dates [facility] [id number] 2020-Pr Medicar e Adv HEALTHCARE - HEALTHCARE esent HMO MANAGED DUAL COMPLETE MED[place] OF [id number] 2019-Pre [phone] O BOX Medic aid [place] sent [id number] [place] [address] [facility] [id number] 2019-Pre P O BOX Beh avioral [facility]AL BEHAVIORAL sent [id number] [place] [address] documented as of this encounter
--- OUTSIDE RECORDS SUMMARY | 2020-08-23 17:32 | XMS REPORT | Summary of Care ---
:1960 Author Organization [facility] Address [address] [place] [id number] Care Team Providers Name Role Phone Massiel Palomino MD Primary Care Provider Reason for Visit Reason Comments Medication Problem PA ON CHLORDIAZEPOXIDE-CLIDI NIUM 5-2.5 MG Encounter Details Date Type Department Care Team Description 08/20/2020 Refill [facility] Internal Chintan Palomino, Medication Problem ([place] Medicine- [place] JORGE ON Primary [facility] n [address] [facility] [address] CHLORDIAZEPOXIDE-CLIDINI [address] , [place] [address] UM 5-2.5 MG) [address] [place] [address] Allergies Active Allergy Reactions Severity Noted Date Comments Amoxicillin-Pot Other - See comments 03/30/2017 Juan Jose usolange pain, Clavulanate swelling Cephalexin Itching, Rash 06/14/2017 Nitrofurantoin Dizziness 06/14/2017 Monohyd/M-Cryst Sulfa (Sulfonamide Hives 03/21/2007 Antibiotics) Tetracycline Rash 03/21/2007 Off balance, doesn't feel ri ght. documented as of this encounter (statuses as of 08/20/2020) Medications Medication Sig Dispensed Refills Start Date [...] azelastine 137 mcg (0.1 %) Use 1 [place] in 30 mL 1 06/19/20 Active nasal [...] Breath. 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 Female genital symptoms 02/15/2008 Overview: ICD10 Diagnosis 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 documented as of this encounter (statuses as of 08/20/2020) Resolved Problems Problem Noted Date Resolved Date Hematuria 12/20/2015 08/03/2016 Acute bronchitis, unspecified organism 11/08/2015 1 10/03/2015 Influenza with respiratory manifestation other than 02/15/20 08 08/03/2016 pneumonia Overview: ICD10 Diagnosis 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 Medication is not covered under medicare part D. States it is excluded. . Rep states there are notes on patient's chart where this medication has been denied several denials.This medication will not be covered. Pt notified. Pt states she is speaking with insurance right nowand she will get back with us that they never received the appeal letter. Our office received noticeback in May that the medication was still denied and excluded from the plan. This is the thirdattempt our office has tried to get this medication approved with the same outcome. Pt was told lastweek by Alise CENTENO that wants patient to see GI to determine the next steps and what medication should be used. Will include patient advocate so she is aware. Pt continues asking for our office to look into appealing this medication. Our office has already tried. elephone Encounter - Leyda Steen RN - 08/20/2020 10:08 AM CSTCalled insurance to follow up on medication librax being denied in the past with prior auth and appeal letter. We received notice that the medication is excluded from patient's plan. 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 documented in this encounter Plan of Treatment Date Type Specialty Care Team Description 08/20/2020 Office Visit Endocrinology Diabetes & Carrillo Alvarez MD Metabolism [address] [place] [address] 10/23/2020 Office Visit Internal Medicine Chintan Palomino MD [address] [facility] [address] [place], [place] [address] 12/04/2020 Appointment Vascular Sonography Tech, Adc Cardio Vascular 12/04/2020 Appointment Echocardiograph Pc, Adc Echo-Vascular Room 1 - 12/12/2020 Office Visit Cardiology Jose Maria Brown MD [address] [place] [phone] 01/03/2021 Office Visit Pulmonary Disease Leonardo Garza DO [address] [place] [address] Health Maintenance Due Date Last [...] Effective Phone Address T ype Group Dates [facility] [id number] 2020-Pr Medicar e Adv HEALTHCARE - HEALTHCARE esent HMO MANAGED DUAL COMPLETE MEDICARE HMO [place] MEDICAID OF [id number] 2019-Pre [phone] Medic aid [place] sent [phone] [facility] [place] [address] [facility] [id number] 2019-Pre P O BOX [facility] sent [phone] [facility] [place] [address] documented as of this encounter
--- OUTSIDE RECORDS SUMMARY | 2020-08-23 17:32 | XMS REPORT | Summary of Care ---
:1960 Author Organization [facility] Address [address] [place] [address] Care Team Providers Name Role Phone Massiel Palomino MD Primary Care Provider Reason for Visit Reason Comments Refill Request Tramadrol Encounter Details Date Type Department Care Team Description 08/19/2020 Telephone [facility] Orthopaedic Reza Galo R efmike Request Surgery- Emanuel JORGE (Tramadrol) [address] [address] [address] [place] [address] [id number] [place], [place] [id number] Allergies Active Allergy Reactions Severity Noted Date [...] azelastine 137 mcg (0.1 %) Use 1 [place] in 30 mL 1 06/19/20 Active nasal [...] Added automatically from request for lalita nasra [id number] Gastroesophageal reflux disease, esophagitis presence not specified 10/16/2019 Overview: Added automatically from request for lalita nasra [id number] Prediabetes 08/15/2018 Overactive bladder 05/27/2017 S/P hysterectomy [...] lower stomach (per patient) ICD10 Diagnosis Term Community Health Promoter Utility Female genital symptoms 02/15/2008 Overview: ICD10 Diagnosis Term Community Health Promoter Utility documented as of this encounter (statuses as of 08/20/2020) Resolved Problems Problem Noted Date Resolved Date Hematuria 12/20/2015 08/03/2016 Acute bronchitis, unspecified organism 11/08/2015 1 10/03/2015 Influenza with respiratory manifestation other than 02/15/20 08 08/03/2016 pneumonia Overview: ICD10 Diagnosis Term Community Health Promoter Utility documented as of this encounter (statuses [...] this encounter Miscellaneous Notes Telephone Encounter - Betsy Orellana LVN - 08/20/2020 8:30 [address]STDr. Pearl refilled patient's tramadol. Called patient to let her know that since she's to follow upas needed and hasn't seen MD in over a year that this was the last refill for tramadol. Pt stated that now that it's cold and she has arthritis they help. Explained we understand but it is a narcotic and could not keep ordering it for her since she's not seeing MD at this point. elephone Encounter - Amanda Marie RN - 08/19/2020 3:[address] Pearl regarding this call. 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 Telephone Encounter - Aakash Collazo - 08/19/2020 8:35 AM CSTPatient calling in requesting a refill for traMADol 50 mg tablet documented in this encounter Plan of Treatment Date Type Specialty Care Team Description 08/20/2020 Office Visit Endocrinology Diabetes & Alvarez, Carrillo burks MD [facility] [address] [place] [address] [phone] 10/23/2020 Office Visit Internal Medicine Chintan Palomino MD [address] [place], [place] [address] 12/04/2020 Appointment Vascular Sonography Tech, Adc Cardio Vascular 12/04/2020 Appointment Echocardiograph Pc, Adc Echo-Vascular Room 1 - 12/12/2020 Office Visit Cardiology Jose Maria Brown MD [address] [place] [phone] 01/03/2021 Office Visit Pulmonary Disease Leonardo Garza DO [address] [place] [address] [phone] Health Maintenance Due Date Last Done Comments [...] / Subscriber ID Effective Phone Address T [facility] Group Dates [facility] [id number] 2020-Pr Medicar e Adv HEALTHCARE [facility]IC[facility] H[facility] MEDICAID OF [id number] 2019-Pre [phone] O B[address] Medic aid [place] sent [id number] [facility] [place] [address] [facility] [id number] 2019-Pre P O BOX [facility] sent [phone] [place] [address] documented as of this encounter
[2020-08-23 20:33] LABS: Absolute Lymphocytes (CBC) 2.8 K/uL (0.7-4.9); Basophils % 1.2 % (0-1.3); Hematocrit 39.1 % (36.0-45.0); Lymphocytes % 38.1 % (15.3-44.8); MPV 8.3 fL (7.6-11.3)
[2020-08-23 20:41] LABS: Protime INR 1.04
[2020-08-23 20:50] LABS: ALT/SGPT 7 U/L (12-78); AST/SGOT 12 U/L (15-37); Albumin 3.8 g/dL (3.4-5.0); Alkaline Phosphatase 113 U/L (45-117); BUN Blood Urea Nitrogen 9 mg/dL (7-18); Bicarbonate 27 mmol/L (21-32); Bilirubin Direct < 0.1 mg/dL (0-0.2); Bilirubin Total 0.2 mg/dL (0.2-1.0); CKMB Creatine Kinase MB < 1.0 ng/mL (0.3-3.6); Creatine Phosphokinase 100 U/L (26-192); Glucose Level 95 mg/dL (74-106); Lipase 82 U/L (73-393); Magnesium 2.1 mg/dL (1.8-2.4); NT PRO-BNP 149 pg/mL (<125); Potassium 3.2 mmol/L (3.5-5.1); Protein, Total 7.5 g/dL (6.4-8.2); Sodium Level 145 mmol/L (136-145); Troponin (Emerg Dept Use Only) < 0.02 ng/mL (0.0-0.045)
--- NOTE | 2020-08-23 21:11 | RAD REPORT ---
EXAM DESCRIPTION: RAD - Chest Single View - 08/23/2020 8:05 pm CLINICAL HISTORY: COPD COMPARISON: Two view chest August 2008 TECHNIQUE: AP portable chest image was obtained 08/23/2020 8:05 pm . FINDINGS: No mass or consolidation. Interstitial markings are not significantly different from eileen rison. The baseline prominence could mask minimal edema or infiltrate. Heart size is upper normal and stable. Pulmonary vasculature similar to comparison. No measurable pleural effusion and no pneumotho rax. No acute bony abnormality seen. No acute aortic findings suspected. IMPRESSION: No acute cardiopulmonary process. No specific findings that would elevate concern for CO VID-19 pneumonia. Chest is not significantly different from comparison. Baseline interstitial pattern could mask early interstitial edema or infiltrate.
--- NOTE | 2020-08-23 21:15 | ER ---
Nurse's Notes [facility] Name: Jessica Harrington Age: 60 yrs Sex: Female : 1960 Arrival Date: 08/23/2020 Time: 17:19 Bed 19 Private MD: Diagnosis: Contact with and (suspected) exposure to communicable [id number] Presentation: 08/23 17:59 Chief complaint: Patient states: was around someone who had covid and was informed em today, pt reports some anxiety and mild shortness of breath, denies any other symptoms. Coronavirus screen: Client denies travel out of the [place] in the last 14 days. Ebola Screen: Patient negative for fever greater than or equal to 101.5 degrees Fahrenheit, and additional compatible Ebola Virus Disease symptoms Patient denies exposure to infectious person. Patient denies travel to an Ebola-affected area in the 21 days before illness onset. No symptoms or risks identified at this time. Initial Sepsis Screen: Does the patient meet any 2 criteria? No. Patient's initial sepsis screen is negative. Does the patient have a suspected source of infection? No. Patient's initial sepsis screen is negative. Risk Assessment: Do you want to hurt yourself or someone else? Patient reports no desire to harm self or others. Onset of symptoms was August 23, 2020. 17:59 Method Of Arrival: Ambulatory em 17:59 Acuity: JE 3 em Historical: - Allergies: 18:03 Sulfa (Sulfonamide Antibiotics); em - PMHx: 18:03 acid reflux; Anxiety; Hyperlipidemia; Hypertension; em - PSHx: 18:03 Appendectomy; Tonsillectomy; Hysterectomy; ; em - Immunization history:: Adult Immunizations up to date. - Social history:: Smoking status: Patient reports the use of cigarette tobacco products, smokes one-half pack cigarettes per day. Screenin:35 Abuse screen: Denies threats or abuse. Denies injuries from another. Nutritional sg screening: No deficits noted. Tuberculosis screening: No symptoms or risk factors identified. Never had TB. Fall Risk None identified. Assessment: 18:00 General: Appears in no apparent distress. comfortable, slender, well groomed, well sg developed, well nourished, Behavior is calm, cooperative, appropriate for age. Pain: Denies pain. Neuro: Level of Consciousness is awake, alert, obeys commands, Oriented to person, place, time, Speech is normal, Facial symmetry appears normal. Cardiovascular: Patient's skin is warm and dry. Chest pain is denied. Respiratory: Airway is patent Respiratory effort is even, unlabored, Respiratory pattern is regular, symmetrical. GI: No signs and/or symptoms were reported involving the gastrointestinal system. : No signs and/or symptoms were reported regarding the genitourinary system. EENT: No signs and/or symptoms were reported regarding the EENT system. Derm: Skin is pink, warm \T\ dry. Musculoskeletal: Circulation, motion, and sensation intact. Range of motion: intact in all extremities. 21:20 Reassessment: [phone] is a good contact number for COVID 19 results. dm5 Vital Signs: 17:59 BP 131 / 87; Pulse 85; Resp 16; Temp 98.7; Pulse Ox 99% on R/A; Weight 60.78 kg; Height em 5 ft. 2 in. (157.48 cm); Pain 0/10; 17:59 Body Mass Index 24.51 (60.78 kg, 157.48 cm) em ED Course: 17:19 Patient arrived in ED. ag5 18:00 Patient has correct armband on for positive identification. Bed in low position. Call sg light in reach. pt instructed to remove bra for xray procedures. awake overnight monitor on. Pulse ox on. NIBP on. Warm blanket given. Head of bed elevated. 18:02 Triage completed. em 18:03 Arm band placed on. em 19:16 Janusz Bardales MD is Attending Physician. tw4 19:24 Juve Rockwell PA is PHCP. cp 19:26 Kendrick Og, LARRY is Primary Nurse. sg 20:05 XRAY CXR (1 view) In Process Unspecified. EDMS 20:20 Inserted saline lock: 20 gauge in right hand, using aseptic technique. Blood collected. dh4 20:21 Strep Sent. dh4 20:21 Flu Sent. dh4 21:30 No provider procedures requiring assistance completed. IV discontinued, intact, sg bleeding controlled, No redness/swelling at site. Pressure dressing applied. Administered Medications: 21:19 Drug: Potassium Effervescent Tablet 50 mEq Route: PO; sg Outcome: 21:15 Discharge ordered by . cp 21:30 Discharged to home ambulatory, with family. sg 21:30 Condition: good 21:30 Discharge instructions given to patient, family, Instructed on discharge instructions, follow up and referral plans. safety practices, Demonstrated understanding of instructions, follow-up care. 21:35 Patient left the ED. dm5 Addendum: 08/28/2020 16:26 Addendum: COVID-19 Result: Negative result given to RN to notify pt. Notified pt of a a5 negative COVID 19 swab results. Pt advised that even with a negative test result they should remain in isolation until symptom free for 3 days without medication. Pt also advised to return to the ED for worsening symptoms. Signatures: Dispatcher [employer] EDMS Radha Kwok RN LARRY dm5 Kendrick Og RN RN sg Munoz, Edgar RN Crystal Nixon RN RN aa5 Juve Rockwell PA PA cp Wadley, Terrence, MD MD 4 Tyson Granado Wang Gonzalez [facility] Corrections: (The following items were deleted from the chart) 08/23 21:16 20:21 CORONAVIRUS+MR.LAB.BRZ drawn and sent. [address]
--- NOTE | 2020-08-23 21:15 | EDPHYS ---
Physician Documentation [facility] Name: Jessica Harrington Age: 60 yrs Sex: Female : 1960 Arrival Date: 08/23/2020 Time: 17:19 Bed 19 Private MD: ED Physician Janusz Bardales HPI: 08/23 19:58 This 60 yrs old Black Female presents to ER via Ambulatory with complaints of COPD cp Exacerbation. 19:58 The patient has shortness of breath at rest. cp 19:58 Onset: The symptoms/episode began/occurred today, shortly after being informed that she cp was in contact with someone who tested positive for COVID-19. Patient reports she took a Xanax that has helped. Associated signs and symptoms: Pertinent negatives: chest pain, productive cough, fever. Historical: - Allergies: 18:03 Sulfa (Sulfonamide Antibiotics); em - PMHx: 18:03 acid reflux; Anxiety; Hyperlipidemia; Hypertension; em - PSHx: 18:03 Appendectomy; Tonsillectomy; Hysterectomy; ; em - Immunization history:: Adult Immunizations up to date. - Social history:: Smoking status: Patient reports the use of cigarette tobacco products, smokes one-half pack cigarettes per day. ROS: 20:00 Constitutional: Negative for body aches, chills, fever, poor PO intake. cp 20:00 Eyes: Negative for injury, pain, redness, and discharge. cp 20:00 ENT: Negative for ear pain, sore throat, difficulty swallowing, difficulty handling secretions. 20:00 Cardiovascular: Negative for chest pain, edema, palpitations. 20:00 Respiratory: Positive for shortness of breath, Negative for cough, wheezing. 20:00 Abdomen/GI: Negative for abdominal pain, nausea, vomiting, and diarrhea. 20:00 Back: Negative for radiated pain. 20:00 Neuro: Negative for altered mental status, dizziness, headache, syncope, weakness. 20:00 All other systems are negative. Exam: 19:37 ECG was reviewed by the Attending Physician. cp 20:05 Constitutional: The patient appears in no acute distress, alert, awake, cp non-diaphoretic, non-toxic, well developed, well nourished. 20:05 Head/Face: Normocephalic, atraumatic. cp 20:05 Eyes: Periorbital structures: appear normal, Conjunctiva: normal, no exudate, no injection, Lids and lashes: appear normal, bilaterally. 20:05 ENT: External ear(s): are unremarkable, Nose: is normal, Posterior pharynx: Airway: no evidence of obstruction, patent. 20:05 Chest/axilla: Inspection: normal, Palpation: is normal, no crepitus, no tenderness. 20:05 Cardiovascular: Rate: normal, Rhythm: regular, Edema: is not appreciated, JVD: is not appreciated. 20:05 Respiratory: the patient does not display signs of respiratory distress, Respirations: normal, no use of accessory muscles, no retractions, labored breathing, is not present, Breath sounds: are clear throughout, no decreased breath sounds. 20:05 Abdomen/GI: Inspection: abdomen appears normal, Palpation: abdomen is soft and non-tender, in all quadrants. 20:05 Neuro: Orientation: to person, place \T\ time. Mentation: is normal, Motor: moves all fours, strength is normal. Vital Signs: 17:59 BP 131 / 87; Pulse 85; Resp 16; Temp 98.7; Pulse Ox 99% on R/A; Weight 60.78 kg; Height em 5 ft. 2 in. (157.48 cm); Pain 0/10; 17:59 Body Mass Index 24.51 (60.78 kg, 157.48 cm) em MDM: 19:26 Patient medically screened. cp 21:14 Data reviewed: vital signs, nurses notes, lab test result(s), EKG, radiologic studies, cp plain films. 21:14 Differential diagnosis: Bronchitis pneumonia, pulmonary edema, Pulmonary Embolism cp Sepsis Unstable Angina. Test interpretation: by ED physician or midlevel provider: ECG. Counseling: I had a detailed discussion with the patient and/or guardian regarding: the historical points, exam findings, and any diagnostic results supporting the discharge/admit diagnosis, lab results, radiology results, to return to the emergency department if symptoms worsen or persist or if there are any questions or concerns that arise at home. 08/23 19:20 Order name: Blood Culture Adult (2) [facility] 08/23 19:20 Order name: [facility]; Complete Time: 21:08 4 08/23 21:13 Interpretation: Normal except: K 3.2; CL 111. cp 08/23 19:20 Order name: CBC with Diff; Complete Time: 20:43 tw4 08/23 20:43 Interpretation: Reviewed. 08/23 19:20 Order name: Ckmb; Complete Time: 21:08 tw4 08/23 19:20 Order name: CPK; Complete Time: 21:08 tw4 08/23 19:20 Order name: Hepatic Function; Complete Time: 21:08 tw4 08/23 21:14 Interpretation: Normal except: AST 12; ALT 7; GLOB 3.7; A/G 1.0. 08/23 19:20 Order name: Lipase; Complete Time: 21:08 tw4 08/23 19:20 Order name: Magnesium; Complete Time: 21:08 tw4 08/23 19:20 Order name: NT PRO-BNP; Complete Time: 21:08 tw4 08/23 21:13 Interpretation: Abnormal: NT PRO-BNP 149. 08/23 19:20 Order name: PT-INR; Complete Time: 21:08 tw4 08/23 19:20 Order name: Ptt, Activated; Complete Time: 21:08 4 08/23 19:20 Order name: Troponin (emerg Dept Use Only); Complete Time: 21:08 tw4 08/23 19:21 Order name: Flu tw4 08/23 19:20 Order name: XRAY CXR (1 view); Complete Time: 21:12 4 08/23 21:13 Interpretation: Report reviewed. 08/23 19:20 Order name: EKG; Complete Time: 19:21 4 08/23 19:20 Order name: Cardiac monitoring; Complete Time: 19:30 4 08/23 19:20 Order name: EKG - Nurse/Tech; Complete Time: 19:30 4 08/23 19:20 Order name: IV Saline Lock; Complete Time: 19:30 4 08/23 19:20 Order name: Labs collected and sent; Complete Time: 19:31 4 08/23 19:20 Order name: O2 Per Protocol; Complete Time: 19:31 4 08/23 19:20 Order name: O2 Sat Monitoring; Complete Time: 19:31 4 08/23 19:21 Order name: Strep tw 08/23 19:21 Order name: Document PUI#; Complete Time: 19:26 4 08/23 19:21 Order name: Droplet/Contact Precautions; Complete Time: :4 08/23 19:21 Order name: [facility] [phone]/ ; Complete Time: :4 08/23 21:22 Order name: CORONAVIRUS EDMS EC:37 Rate is 68 beats/min. Rhythm is regular. NC interval is normal. QRS interval is normal. cp QT interval is normal. T waves are Inverted in leads V2, V3. Interpreted by me. Reviewed by me. Administered Medications: :19 Drug: Potassium Effervescent Tablet 50 mEq Route: PO; Disposition: 08/24 03:00 Co-signature as Attending Physician, Janusz Bardales MD I agree with the assessment and 4 plan of care. Disposition: 08/23/20 21:15 Discharged to Home. Impression: Contact with and (suspected) exposure to communicable diseases - COVID-19. - Condition is Stable. - Discharge Instructions: COVID-19. - Medication Reconciliation Form, Thank You Letter, Antibiotic Education, Prescription Opioid Use form. - Follow up: Private Physician; When: 1 - 2 days; Reason: Worsening of condition. - Problem is new. - Symptoms have improved. Signatures: Dispatcher [employer] Radha Conklin, RN LARRY dm5 Kendrick Og RN RN Bird Marte RN RN em Page, Corey, PA PA cp Wadley, Terrence, MD MD tw4 Corrections: (The following items were deleted from the chart) 08/23 21:16 19:22 CORONAVIRUS+MR.LAB.BRZ ordered. [facility] EDMS 21:35 21:15 08/23/2020 21:15 Discharged to Home. Impression: Contact with and (suspected) dm5 exposure to communicable diseases - COVID-19. Condition is Stable. Forms are Medication Reconciliation Form, Thank You Letter, Antibiotic Education, Prescription Opioid Use. Follow up: Private Physician; When: 1 - 2 days; Reason: Worsening of condition. Problem is new. Symptoms have improved. cp
[2020-08-23] MEDS ORDERED: POTASSIUM 25 MEQ EFFERV TAB ONE (21:31)
[2020-08-28 08:42] VITALS: BP 131/87; TEMP 98.7; O2SAT 99
== END 2020-08-23 21:35 | disposition home or self-care (01) ==
LOC: ER 17:15
DX: R06.02 Shortness of breath (principal); Z20.828 Contact with and (suspected) exposure to other viral communicable diseases; I10 Essential (primary) hypertension; F17.210 Nicotine dependence, cigarettes, uncomplicated; Z88.2 Allergy status to sulfonamides
CPT/HCPCS: 93005; 87040 ×2; 87070; 85025; 80048; 36415; 83735; 82550; 85610; 80076; 87081; 85730; 84484; 82553; 83690; 83880; 87804 ×2; 71045; 99284; U0002

== ENCOUNTER 2020-08-31 11:13 | Emergency (ER) | payer OTHER ==
--- OUTSIDE RECORDS SUMMARY | 2020-08-31 11:16 | XMS REPORT | Continuity of Care Document ---
:1960 Author Organization [facility] t Address [address] [place] [address] Care Team Providers Name Role Phone Kayla CARDENAS Attending Clinician Georgette JORGE, A Attending Clinician Iraj JORGE, A Attending Clinician Problems This patient has no known problems. Allergies, Adverse Reactions, Alerts This patient has no known allergies or adverse reactions. Medications This patient has no known medications. Procedures This patient has no known procedures. Encounters Start End Encounter Admission Attending Care Care Encounter Source Date/Time Date/Time Type Type Clinicians Facility Department ID 2020-08-28 2020-08-28 Refill [facility] [id number] 00:00:00 00:00:00 Leonardo Vann [id number] [place] [id number] Professio [id number] [address] 2020-08-27 2020-08-27 Patient [facility] [id number] 00:00:00 00:00:00 Secure Msg Chintan A PRIMARY [id number] CARE [id number] PAVILLION [id number] [id number] 2020-08-26 2020-08-26 Telephone [facility] [id number] 00:00:00 00:00:00 Chintan A PRIMARY [id number] CARE [id number] PAVILLION [id number] 2020-08-22 2020-08-[address] [facility] [id number] 00:00:00 00:00:00 Chintan A PRIMARY [id number] CARE [id number] PAVILLION [id number] 2020-08-20 2020-08-[address] [facility] [id number] 00:00:00 00:00:00 Chintan A PRIMARY [id number] CARE [id number] PAVILLION [id number] 2020-08-19 2020-08-19 Telephone Emanuel Galo [id number] 00:00:00 00:00:00 Reza A Pediatric [id number] s and [id number] Adult [phone] Primary [facility] Results This patient has no known results.
--- OUTSIDE RECORDS SUMMARY | 2020-08-31 11:31 | XMS REPORT | Summary of Care ---
:1960 Author Organization [facility] Address [address] [place] [address] Care Team Providers Name Role Phone Massiel Palomino MD Primary Care Provider Reason for Visit Reason Comments Refill Request ALPRAZolam 1 mg tablet Encounter Details Date Type Department Care Team Description 08/22/2020 Refill [facility] Internal Chintan Palomino, Refill Request Medicine- [place] JORGE (ALPRAZolam 1 mg tablet) Primary Care Pavilio n [address] [facility] [address] , [place] [address] [address] [place] [address] Allergies Active Allergy Reactions Severity Noted Date Comments Amoxicillin-Pot Other - See comments 03/30/2017 Juan Jose ue pain, Clavulanate swelling Cephalexin Itching, Rash 06/14/2017 Nitrofurantoin Dizziness 06/14/2017 Monohyd/M-Cryst Sulfa (Sulfonamide Hives 03/21/2007 Antibiotics) Tetracycline Rash 03/21/2007 Off balance, doesn't feel ri ght. documented as of this encounter (statuses as of 08/27/2020) Medications Medication Sig Dispensed Refills Start End [...] exertion azelastine 137 mcg (0.1 Use 1 [place] 30 mL 1 06/19/20 Active %) nasal [...] For 2 wks, then twice a week ketoconazole 2 % shampoo Apply to 120 mL 3 08/02/20 Active area(s) once 20 daily as needed for Itching. 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 fluconazole (DIFLUCAN) Take 1 3 tablet 4 08/16/20 Active 150 mg tablet by 20 tabletIndications: Yeast mouth every infection other day. VERAPAMIL 100 mg 24 hr TAKE 1 90 capsule 1 08/19/20 Active capsuleIndications: CAPSULE BY 20 Essential hypertension, MOUTH AT Generalized anxiety BEDTIME disorder with panic attacks, Carolina's cyst of knee, left ALPRAZolam 1 mg TAKE 1 90 tablet 0 08/27/20 Acti ve tabletIndications: TABLET BY 20 Anxiety MOUTH THREE TIMES DAILY prn anxiety ALPRAZolam 1 mg TAKE 1 90 tablet 0 07/26/20 Disc ontinued tabletIndications: TABLET BY 20 020 ( Reorder) Anxiety MOUTH THREE TIMES DAILY prn anxiety traMADoL 50 mg Take 1 28 tablet 0 08/19/20 Expir ed tabletIndications: acute tablet by 20 020 pain mouth every 6 (six) hours as needed for Pain (scale 7-10) for up to 7 days. Indications: acute pain documented as of this encounter (statuses as of 08/27/2020) Active Problems Problem Noted Date Heartburn 10/16/2019 Colon cancer screening 10/16/2019 Overview: Added automatically from request for lalita nasra [id number] Gastroesophageal reflux disease, esophagitis presence not specified 10/16/2019 Overview: Added automatically from request for lalita nasra [id number] Prediabetes 08/15/2018 Overactive bladder 05/27/2017 S/P hysterectomy [...] lower stomach (per patient) ICD10 Diagnosis Term Broiler Manager Utility Female genital symptoms 02/15/2008 Overview: ICD10 Diagnosis Term Broiler Manager Utility documented as of this encounter (statuses as of 08/27/2020) Resolved Problems Problem Noted Date Resolved Date Hematuria 12/20/2015 08/03/2016 Acute bronchitis, unspecified organism 11/08/2015 1 10/03/2015 Influenza with respiratory manifestation other than 02/15/20 08 08/03/2016 pneumonia Overview: ICD10 Diagnosis Term Broiler Manager Utility documented as of this encounter (statuses as of 08/27/2020) Immunizations Name Administration Dates Next Due Pneumococcal [...] Notes Telephone Encounter - Mariaelena Botello - 08/26/2020 4:44 PM CSTPortbebeto Mirta Harrington is a 60 year old female is calling for refill status. thank you. elephone Encounter - Mariaelena Botello - 08/26/2020 3:30 PM CSTJessica Mirta Harrington is a 60 year old female is calling for ALPRAZolam refill. Thank you BAHMAN [address] Arnav OLIVERA AT [facility] Arnav SALASamp; SYBIL CASILLAS elephone Encounter - HumphreyBetsy - 08/22/2020 11:21 AM CSTALPRAZolam 1 mg tablet calling to see why it has not been called in documented in this encounter Plan of Treatment Date Type Specialty Care Team Description 10/23/2020 Office Visit Internal Medicine Anderson Palomino MD [address] [place] [address] 12/04/2020 Appointment Vascular Sonography Tech, Adc Cardio Vasc ular 12/04/2020 Appointment Echocardiograph Pc, Adc Echo-Vascular Susy m 1 - 12/12/2020 Office Visit Cardiology Jose Maria Brown MD [address] [phone] 01/03/2021 Office Visit Pulmonary Disease Leonardo Garza, [address] [place] [phone] Health Maintenance Due Date Last Done [...] / Subscriber ID Effective Phone Address [facility] [id number] 2020-Pr Medicar e Adv HEALTHCARE - HEALTHCARE esent HMO MANAGED DUAL COMPLETE MEDICARE HMO [place] MEDICAID OF [id number] 2019-Pre [phone] O BOX Medic aid [place] sent [phone] [place] [address] [facility] [id number] 2019-Pre P O BOX Beh avioral [facility] sent [phone] [place] [address] documented as of this encounter
--- OUTSIDE RECORDS SUMMARY | 2020-08-31 11:32 | XMS REPORT | Summary of Care ---
:1960 Author Organization [facility] Address [address] [place] [address] Care Team Providers Name Role Phone Massiel Palomino MD Primary Care Provider Reason for Visit Reason Comments Refill Request Encounter Details Date Type Department Care Team Description 08/28/2020 Refill [facility] ADC Pulmonary Leonardo Garza DO Refill Request Clinic [address] Susy Cohn [address] [place] [phone] Allergies Active Allergy Reactions Severity Noted Date Comments Amoxicillin-Pot Other - See comments 03/30/2017 Juan Jose usolange pain, Clavulanate swelling Cephalexin Itching, Rash 06/14/2017 Nitrofurantoin Dizziness 06/14/2017 Monohyd/M-Cryst Sulfa (Sulfonamide Hives 03/21/2007 Antibiotics) Tetracycline Rash 03/21/2007 Off balance, doesn't feel ri ght. documented as of this encounter (statuses as of 08/29/2020) Medications Medication Sig Dispensed Refills Start Date [...] azelastine 137 mcg (0.1 %) Use 1 [place] in 30 mL 1 06/19/20 Active nasal [...] knee, left ALPRAZolam 1 mg TAKE 1 TABLET 90 tablet 0 08/27/2020 Active tabletIndications: Anxiety BY MOUTH THREE TIMES DAILY prn anxiety documented as of this encounter (statuses as of 08/29/2020) Active Problems Problem Noted Date Heartburn 10/16/2019 Colon cancer screening 10/16/2019 Overview: Added automatically from request for lalita nasra [id number] Gastroesophageal reflux disease, esophagitis presence not specified 10/16/2019 Overview: Added automatically from request for lalita nasra [id number] Prediabetes 08/15/2018 Overactive bladder 05/27/2017 S/P hysterectomy [...] lower stomach (per patient) ICD10 Diagnosis Term Applied Researcher Utility Female genital symptoms 02/15/2008 Overview: ICD10 Diagnosis Term Applied Researcher Utility documented as of this encounter (statuses as of 08/29/2020) Resolved Problems Problem Noted Date Resolved Date Hematuria 12/20/2015 08/03/2016 Acute bronchitis, unspecified organism 11/08/2015 1 10/03/2015 Influenza with respiratory manifestation other than 02/15/20 08 08/03/2016 pneumonia Overview: ICD10 Diagnosis Term Applied Researcher Utility documented as of this encounter (statuses as of 08/29/2020) Immunizations Name Administration Dates Next Due Pneumococcal [...] this encounter Miscellaneous Notes Telephone Encounter - Urbano Wylie - 08/28/2020 10:27 AM CSTPatient states she had 200 mcg for albuterol. Please advise. documented in this encounter Plan of Treatment Date Type Specialty Care Team Description 08/30/2020 Office Visit Internal Medicine Anderson Palomino MD [address] [address] [place] [address] 555 10/23/2020 Office Visit Internal Medicine Anderson Palomino MD [address] [place], [place] [address] 12/04/2020 Appointment Vascular Sonography Tech, Adc Cardio Vasc ular 12/04/2020 Appointment Echocardiograph Pc, Adc Echo-Vascular Susy m 1 - 12/12/2020 Office Visit Cardiology Jose Maria Brown MD [address] [place] [phone] 01/03/2021 Office Visit Pulmonary Disease Kayla AishabrettnatalieDO [address] [place] [phone] Health Maintenance Due Date Last Done Comments [...] Effective Phone Address T ype Group Dates [facility] [id number] 2020-Pr Medicar e Adv HEALTHCARE - HEALTHCARE esent HMO MANAGED DUAL COMPLETE MEDICARE HMO [place] MEDICAID OF [id number] 2019-Pre [phone] O BOX Medic aid [place] sent [phone] [place] [address] [facility] [id number] 2019-Pre P O BOX Beh avioral [facility] sent [phone] [place] [address] documented as of this encounter
--- OUTSIDE RECORDS SUMMARY | 2020-08-31 11:32 | XMS REPORT | Summary of Care ---
:1960 Author Organization [facility] Address [address] [place] [address] Care Team Providers Name Role Phone Massiel Palomino MD Primary Care Provider Encounter Details Date Type Department Care Team Description 08/27/2020 Patient Secure [facility] Internal Anderson Palomino, [facility] Primary Care Pavilio n [address] [place] [address] [address] , [place] [address] [address] [place] [address] Allergies Active Allergy Reactions Severity Noted Date Comments Amoxicillin-Pot Other - See comments 03/30/2017 Tong ue pain, Clavulanate swelling Cephalexin Itching, Rash 06/14/2017 Nitrofurantoin Dizziness 06/14/2017 Monohyd/M-Cryst Sulfa (Sulfonamide Hives 03/21/2007 Antibiotics) Tetracycline Rash 03/21/2007 Off balance, doesn't feel ri ght. 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 Utility Female genital symptoms 02/15/2008 Overview: ICD10 Diagnosis Term 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 Utility documented as of this encounter (statuses as of 08/27/2020) Resolved Problems Problem Noted Date Resolved Date Hematuria 12/20/2015 08/03/2016 Acute bronchitis, unspecified organism 11/08/2015 1 10/03/2015 Influenza with respiratory manifestation other than 02/15/20 08 08/03/2016 pneumonia Overview: ICD10 Diagnosis Term 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 Utility documented as of this encounter (statuses [...] Anderson Palomino MD [address] [place] [address] 555 10/23/2020 Office Visit Internal Medicine Anderson Palomino MD [address] [place] [address] 77 555 12/04/2020 Appointment Vascular Sonography Tech, Adc Cardio Vasc ular 12/04/2020 Appointment Echocardiograph Pc, Adc Echo-Vascular Susy m 1 - 12/12/2020 Office Visit Cardiology Jose Maria Brown MD [address] [place], [place] [address] [phone] 01/03/2021 Office Visit Pulmonary Disease Leonardo Garza, [address] [place] [address] [phone] Health Maintenance Due Date Last Done Comments [...] Effective Phone Address T ype Group Dates [facility] [id number] 2020-Pr Medicar e Adv HEALTHCARE - HEALTHCARE esent HMO MANAGED DUAL COMPLETE MEDICARE HMO [facility] MEDICAID OF [id number] 2019-Pre [phone] O BOX Medic aid [place] sent [phone] [place] [address] [facility] [id number] 2019-Pre P O BOX Beh avioral [facility] sent [phone] [place] [address] documented as of this encounter
--- OUTSIDE RECORDS SUMMARY | 2020-08-31 11:32 | XMS REPORT | Summary of Care ---
:1960 Author Organization [facility] Address [address] [place] [address] Care Team Providers Name Role Phone Massiel Palomino MD Primary Care Provider Reason for Visit Reason Comments Refill Request Talk To Nurse Encounter Details Date Type Department Care Team Description 08/26/2020 Telephone [facility] Internal Chintan Palomino, Refill Request; Talk To Medicine- [place] JORGE Nurse Primary Care [address] , [place] [address] [address] [place] [address] Allergies Active Allergy Reactions Severity [...] exertion azelastine 137 mcg (0.1 Use 1 [place] 30 mL 1 06/19/20 Active %) nasal [...] Anxiety MOUTH THREE TIMES DAILY prn anxiety documented as of this encounter (statuses as of 08/27/2020) Active Problems Problem Noted Date Heartburn 10/16/2019 Colon cancer screening 10/16/2019 Overview: Added automatically from request for lalita nasra [id number] Gastroesophageal reflux disease, esophagitis presence not specified 10/16/2019 Overview: Added automatically from request for lalita nasra [id number] Prediabetes 08/15/2018 Overactive bladder 05/27/2017 S/P hysterectomy [...] lower stomach (per patient) ICD10 Diagnosis Term Plate 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 Utility Female genital symptoms 02/15/2008 Overview: ICD10 Diagnosis Term Plate Setter Utility documented as of this encounter (statuses as of 08/27/2020) Resolved Problems Problem Noted Date Resolved Date Hematuria 12/20/2015 08/03/2016 Acute bronchitis, unspecified organism 11/08/2015 1 10/03/2015 Influenza with respiratory manifestation other than 02/15/20 08 08/03/2016 pneumonia Overview: ICD10 Diagnosis Term Plate Setter Utility documented as of this encounter (statuses [...] this encounter Miscellaneous Notes Telephone Encounter - Sanjuana Cesar - 08/27/2020 8:25 AM CSTPt called again to check the status of her medication refill request. States she is completely out. elephone Encounter - Sanjuana Cesar - 08/26/2020 4:56 PM CSTPt called to check the status of her medication refill. Please advise. PT is out. elephone Encounter - Betsy Phillips - 08/26/2020 8:27 AM CSTALPRAZolam 1 mg tablet calling to see why it has not been called in.patient is upset that medicationhas not been approved. documented in this encounter Plan of Treatment Date Type Specialty Care Team Description 08/30/2020 Office Visit Internal Medicine Anderson Palomino MD [address] [place] [address] 10/23/2020 Office Visit Internal Medicine Anderson Palomino MD [address] [place] [address] 555 12/04/2020 Appointment Vascular Sonography Tech, Adc Cardio Vasc ular 12/04/2020 Appointment Echocardiograph Pc, Adc Echo-Vascular Susy m 1 - 12/12/2020 Office Visit Cardiology Jose Maria Brown MD [address] [place] [phone] 01/03/2021 Office Visit Pulmonary Disease Leonardo Garza, DO [facility] [place] [address] Health Maintenance Due Date Last [...] Effective Phone Address T e Group Dates [facility] [id number] 2020-Pr Medicar e Adv HEALTHCARE - HEALTHCARE esent HMO MANAGED DUAL COMPLETE MEDICARE HMO [facility] MEDICAID OF [id number] 2019-Pre [phone] O BOX Medic aid [place] sent [phone] [place] [address] [facility] [id number] 2019-Pre P O BOX Beh avioral [facility] sent [phone] [email or web address] [address] documented as of this encounter
[2020-08-31 12:07] LABS: Absolute Lymphocytes (CBC) 2.2 K/uL (0.7-4.9); Basophils % 0.7 % (0-1.3); Hematocrit 43.6 % (36.0-45.0); Lymphocytes % 32.2 % (15.3-44.8); MPV 8.2 fL (7.6-11.3); RBC Red Blood Cell Count 4.91 M/uL (3.86-4.86)
[2020-08-31] MEDS ORDERED: LIDOCAINE VISCOUS 2% SOLN 15 ML UDC ONE (12:16)
[2020-08-31] MEDS ORDERED: MAGNES/ALUMIN/SIMET 30ML UCUP ONE (12:16)
[2020-08-31 12:22] LABS: ALT/SGPT 7 U/L (12-78); AST/SGOT 24 U/L (15-37); Alkaline Phosphatase 128 U/L (45-117); BUN Blood Urea Nitrogen 11 mg/dL (7-18); Bicarbonate 29 mmol/L (21-32); Bilirubin Direct 0.1 mg/dL (0-0.2); Bilirubin Total 0.5 mg/dL (0.2-1.0); Glucose Level 83 mg/dL (74-106); Lipase 62 U/L (73-393); Potassium 3.8 mmol/L (3.5-5.1); Protein, Total 8.2 g/dL (6.4-8.2); Sodium Level 142 mmol/L (136-145)
--- NOTE | 2020-08-31 13:12 | RAD REPORT ---
EXAM DESCRIPTION: CT - Abdomen Pelvis W Contrast - 08/31/2020 12:40 pm CLINICAL HISTORY: ABD PAIN COMPARISON: <Comparisons> TECHNIQUE: Biphasic, helical CT imaging of the abdomen and pelvis was performed following 100 ml non -ionic IV contrast. No oral contrast given. All CT scans are performed using dose optimization technique as appropriate and may include automated exposure control or mA/KV adjustment according to patient size. FINDINGS: No suspicious findings in the lung bases. Liver attenuation is borderline fatty infiltrated. No focal liver lesions seen. Portal vein is normal . No pancreas or peripancreatic abnormality seen. No splenomegaly or focal splenic finding. Gallbladd er and biliary tree are also without suspicious finding. Symmetric renal function is seen with no hydronephrosis or suspicious renal mass. No pyelonephritis o r acute parenchymal process. No bladder abnormalities. No adrenal abnormalities. Uterus is absent. Ov philippe are absent or atrophic. No adnexal abnormalities. Very little content is present within the lumen of the stomach. This accentuates the wall thickness l imiting the ability to evaluate for gastritis. A focal mass is not identified. No duodenitis or duode nal abnormality seen. Small bowel and large bowel loops are nondilated. Moderate stool volume through out the colon. Very little identifiable diverticulosis. The appendix is not clearly seen. There are n umerous clips at the tip of the cecum presumably prior appendectomy. No free air, free fluid or inflammatory stranding. No mass or bulky lymphadenopathy. Small abdomin al wall defect is present inferior right of the umbilicus. A minimal amount of fat extends through th e hernia defect. No bowel involvement. No suspicious bony findings. Disc and bony degenerative changes are present. No pathologic bone proce ss. IMPRESSION: No obstruction, free air or surgically emergent findings identifiable. The lack of gastric lumen content exaggerates gastric wall thickness limiting ability to assess gastr itis. No duodenitis, pancreatitis or other findings for epigastric pain. Appendectomy clips are evident. No acute findings seen in the right lower quadrant.
--- NOTE | 2020-08-31 13:15 | ER ---
Nurse's Notes [facility] Name: Jessica Harrington Age: 60 yrs Sex: Female : 1960 Arrival Date: 08/31/2020 Time: 11:15 Bed 8 Private MD: Diagnosis: Gastritis, unspecified Presentation: 08/31 11:28 Chief complaint: Patient states: epigastric and RLQ pain, abd bloating, RLE "sensation" sv started when she was seen here a few days ago. Took Pepto Bismol today and had some relief. Last BM 2 days ago. Coronavirus screen: Client denies travel out of the [place] in the last 14 days. At this time, the client does not indicate any symptoms associated with coronavirus-19. The client reports previous COVID testing was negative. Ebola Screen: No symptoms or risks identified at this time. Initial Sepsis Screen: Does the patient meet any 2 criteria? No. Patient's initial sepsis screen is negative. Does the patient have a suspected source of infection? No. Patient's initial sepsis screen is negative. Risk Assessment: Do you want to hurt yourself or someone else? Patient reports no desire to harm self or others. Onset of symptoms was August 2020. 11:28 Method Of Arrival: Ambulatory sv 11:28 Acuity: JE 3 sv Historical: - Allergies: 11:30 Sulfa (Sulfonamide Antibiotics); sv - PMHx: 11:30 acid reflux; Anxiety; Hyperlipidemia; Hypertension; sv - PSHx: 11:30 Appendectomy; Tonsillectomy; Hysterectomy; ; sv - Immunization history:: Adult Immunizations up to date. - Social history:: Smoking status: Patient reports the use of cigarette tobacco products, denies chronic smoking, but will smoke occasionally. - Family history:: not pertinent. - Hospitalizations: : No recent hospitalization is reported. Screenin:42 Abuse screen: Denies threats or abuse. Nutritional screening: No deficits noted. tw2 Tuberculosis screening: No symptoms or risk factors identified. Fall Risk None identified. Assessment: 11:47 General: Appears in no apparent distress. slender, well groomed, Behavior is calm, tw2 cooperative, appropriate for age. Pain: Complains of pain in right upper quadrant and right lower quadrant Pain does not radiate. Neuro: Level of Consciousness is awake, alert, obeys commands, Oriented to person, place, time, situation. Cardiovascular: Capillary refill < 3 seconds Patient's skin is warm and dry. Respiratory: Airway is patent Respiratory effort is even, unlabored, Respiratory pattern is regular, symmetrical. GI: Bowel sounds present X 4 quads. Abd is soft X 4 quads Reports bloating. : No signs and/or symptoms were reported regarding the genitourinary system. EENT: No signs and/or symptoms were reported regarding the EENT system. Derm: No signs and/or symptoms reported regarding the dermatologic system. Musculoskeletal: Range of motion: intact in all extremities. 13:44 Reassessment: Patient appears in no apparent distress at this time. Patient and/or tw2 family updated on plan of care and expected duration. Pain level reassessed. Patient is alert, oriented x 3, equal unlabored respirations, skin warm/dry/pink. Patient states feeling better. Vital Signs: 11:28 BP 129 / 97; Pulse 83; Resp 16; Temp 97.2; Pulse Ox 99% ; Weight 61.23 kg; Height 5 ft. sv 2 in. (157.48 cm); Pain 5/10; 12:00 BP 141 / 87; Pulse 81; Resp 17; Pulse Ox 100% on R/A; tw2 13:44 BP 144 / 81; Pulse 72; Resp 17; Pulse Ox 100% on R/A; tw2 11:28 Body Mass Index 24.69 (61.23 kg, 157.48 cm) sv ED Course: 11:15 Patient arrived in ED. rg4 11:17 Bed in low position. Call light in reach. Adult w/ patient. Pulse ox on. NIBP on. Warm tw2 blanket given. 11:18 Miguelito Romeo MD is Attending Physician. rn 11:30 Triage completed. sv 11:31 Arm band placed on. sv 11:47 Ofelia Harvey, LARRY is Primary Nurse. tw2 11:57 Missed attempt(s): 22 gauge in left antecubital area. blood collected. Bleeding tw2 controlled, band aid applied, catheter tip intact. 12:10 Inserted saline lock: 22 gauge in left forearm, using aseptic technique. tw2 12:40 CT Abd/Pelvis - IV Contrast Only In Process Unspecified. EDMS 14:03 IV discontinued, intact, bleeding controlled, No redness/swelling at site. Pressure tw2 dressing applied. 14:03 No provider procedures requiring assistance completed. ll1 Administered Medications: 12:00 Drug: GI Cocktail without - (Maalox Suspension 30 ml, Lidocaine Liquid 2 % 15 tw2 ml) Route: PO; 14:04 Follow up: Response: No adverse reaction; RASS: Alert and Calm (0) 1 Outcome: 13:14 Discharge ordered by . rn 14:04 Discharged to home ambulatory. 1 14:04 Condition: stable 14:04 Discharge instructions given to patient, Instructed on discharge instructions, follow up and referral plans. Demonstrated understanding of instructions, follow-up care. 14:04 Patient left the ED. 1 Signatures: Dispatcher [employer] Esperanza Carmichael, RN RN Miguelito Nava MD MD rn Wise, Tara, RN RN tw2 Clara Collazo rg4 Aly Bustos RN RN [facility]
--- NOTE | 2020-08-31 13:15 | EDPHYS ---
Physician Documentation [facility] Name: Jessica Harrington Age: 60 yrs Sex: Female : 1960 Arrival Date: 08/31/2020 Time: 11:15 Bed 8 Private MD: ED Physician Miguelito Romeo HPI: 08/31 11:38 This 60 yrs old Black Female presents to ER via Ambulatory with complaints of Abdominal rn Pain. 11:38 The patient presents with abdominal pain in the epigastric area, right lower quadrant. rn Onset: The symptoms/episode began/occurred 1 week(s) ago. The symptoms do not radiate. Associated signs and symptoms: Pertinent positives: diarrhea, Pertinent negatives: nausea and vomiting, blood in stools, fever, hematuria, shortness of breath. The symptoms are described as achy, burning. Modifying factors: The symptoms are alleviated by nothing, the symptoms are aggravated by nothing. Severity of pain: At its worst the pain was mild in the emergency department the pain is unchanged. The patient has experienced similar episodes in the past. The patient has been recently seen by a physician:. Reports seen here about 2 weeks ago for same pain, pain since then, not improving, no fever/vomiting, + diarrhea. Has seen her PCP and GI, told to take antacids and given pain medication. Reports abd bloating. No blood in stool. Takes pantoprazole daily. . Historical: - Allergies: 11:30 Sulfa (Sulfonamide Antibiotics); sv - PMHx: 11:30 acid reflux; Anxiety; Hyperlipidemia; Hypertension; sv - PSHx: 11:30 Appendectomy; Tonsillectomy; Hysterectomy; ; sv - Immunization history:: Adult Immunizations up to date. - Social history:: Smoking status: Patient reports the use of cigarette tobacco products, denies chronic smoking, but will smoke occasionally. - Family history:: not pertinent. - Hospitalizations: : No recent hospitalization is reported. ROS: 11:38 Constitutional: Negative for fever, chills, and weight loss, Eyes: Negative for injury, rn pain, redness, and discharge, Neck: Negative for injury, pain, and swelling, Cardiovascular: Negative for chest pain, palpitations, and edema, Respiratory: Negative for shortness of breath, cough, wheezing, and pleuritic chest pain, Abdomen/GI: + abd pain and diarrhea Back: Negative for injury and pain, : Negative for injury, bleeding, discharge, and swelling, MS/Extremity: Negative for injury and deformity, Skin: Negative for injury, rash, and discoloration, Neuro: Negative for headache, weakness, numbness, tingling, and seizure. Exam: 11:38 Constitutional: This is a well developed, well nourished patient who is awake, alert, rn and in no acute distress. Ambulatory to room without assistance. Head/Face: Normocephalic, atraumatic. Cardiovascular: Regular rate and rhythm. No pulse deficits. Respiratory: No increased work of breathing, no retractions or nasal flaring. Abdomen/GI: soft, non-tender Skin: Warm, dry MS/ Extremity: Pulses equal, no cyanosis. Neuro: Awake and alert, GCS 15, oriented to person, place, time, and situation. Cranial nerves II-XII grossly intact. Motor strength 5/5 in all extremities. Sensory grossly intact. Cerebellar exam normal. Normal gait. Vital Signs: 11:28 BP 129 / 97; Pulse 83; Resp 16; Temp 97.2; Pulse Ox 99% ; Weight 61.23 kg; Height 5 ft. sv 2 in. (157.48 cm); Pain 5/10; 12:00 BP 141 / 87; Pulse 81; Resp 17; Pulse Ox 100% on R/A; tw2 13:44 BP 144 / 81; Pulse 72; Resp 17; Pulse Ox 100% on R/A; tw2 11:28 Body Mass Index 24.69 (61.23 kg, 157.48 cm) sv MDM: 11:18 Patient medically screened. rn 13:13 Differential diagnosis: gastritis, gastroesophageal reflux disease, non-specific abd rn pain, pancreatitis, Peptic Ulcer Disease, Perf. Duodenal Ulcer, Perf. Gastric Ulcer. Data reviewed: vital signs, nurses notes, old medical records, lab test result(s), radiologic studies, CT scan, and as a result, I will discharge patient. Counseling: I had a detailed discussion with the patient and/or guardian regarding: the historical points, exam findings, and any diagnostic results supporting the discharge/admit diagnosis, lab results, radiology results, the need for outpatient follow up, to return to the emergency department if symptoms worsen or persist or if there are any questions or concerns that arise at home. Response to treatment: the patient's symptoms have markedly improved after treatment, and as a result, I will discharge patient. Special discussion: I discussed with the patient/guardian in detail that at this point there is no indication for admission to the hospital. It is understood, however, that if the symptoms persist or worsen the patient needs to return immediately for re-evaluation. Based on the history and exam findings, there is no indication for further emergent testing or inpatient evaluation. I discussed with the patient/guardian the need to see the store keeper for further evaluation of the symptoms. 08/31 11:37 Order name: Basic Metabolic Panel; Complete Time: 12:23 rn 08/31 11:37 Order name: CBC with Diff; Complete Time: 12:09 rn 08/31 11:37 Order name: Hepatic Function; Complete Time: 12:23 rn 08/31 11:37 Order name: Lipase; Complete Time: 12:23 rn 08/31 11:37 Order name: CT Abd/Pelvis - IV Contrast Only; Complete Time: 13:12 rn 08/31 11:37 Order name: IV Saline Lock; Complete Time: 12:02 rn 08/31 11:37 Order name: Labs collected and sent; Complete Time: 12:02 rn Administered Medications: 12:00 Drug: GI Cocktail without - (Maalox Suspension 30 ml, Lidocaine Liquid 2 % 15 tw2 ml) Route: PO; 14:04 Follow up: Response: No adverse reaction; RASS: Alert and Calm (0) ll1 Disposition: 08/31/20 13:14 Discharged to Home. Impression: Gastritis, unspecified. - Condition is Stable. - Discharge Instructions: Gastritis, Adult. - Medication Reconciliation Form, Thank You Letter, Antibiotic Education, Prescription Opioid Use form. - Follow up: Private Physician; When: As needed; Reason: Recheck today's complaints, Re-evaluation by your physician. - Problem is new. - Symptoms have improved. Signatures: Dispatcher [employer] Esperanza Carmichael, RN Miguelito Davis MD MD rn Wise, Tara, RN RN tw2 Aly Bustos RN RN ll1 Corrections: (The following items were deleted from the chart) 14:04 13:14 08/31/2020 13:14 Discharged to Home. Impression: Gastritis, unspecified. ll1 Condition is Stable. Forms are Medication Reconciliation Form, Thank You Letter, Antibiotic Education, Prescription Opioid Use. Follow up: Private Physician; When: As needed; Reason: Recheck today's complaints, Re-evaluation by your physician. Problem is new. Symptoms have improved. rn
[2020-09-02 23:54] VITALS: TEMP 97.2
[2020-09-02 23:55] VITALS: O2SAT 100
[2020-09-02 23:57] VITALS: BP 144/81
== END 2020-08-31 14:04 | disposition home or self-care (01) ==
LOC: ER 11:13
DX: K29.70 Gastritis, unspecified, without bleeding (principal); I10 Essential (primary) hypertension; Z72.0 Tobacco use; Z88.2 Allergy status to sulfonamides
CPT/HCPCS: 85025; 80048; 36415; 80076; 83690; 74177; Q9967; 99284

== ENCOUNTER 2024-12-22 13:56 | Emergency (ER) | payer OTHER ==
--- NOTE | 2024-12-22 14:40 | RAD REPORT ---
EXAMINATION: TWO VIEW CHEST XR CLINICAL INDICATION: DYSPNEA TECHNIQUE: 2 views of the chest was performed. COMPARISON: 08/23/2020 FINDINGS: The lungs are hyperexpanded suggesting COPD. The heart is upper limit of normal in size. No displaced fractures evident. Mild lower thoracic levoscoliosis. IMPRESSION: COPD is suspected without acute finding identified.
--- NOTE | 2024-12-22 14:59 | ER ---
Nurse's Notes [facility] Name: Jessica Harrington Age: 64 yrs Sex: Female : 1960 Arrival Date: 12/22/2024 Time: 13:56 Bed 10 Private MD: Diagnosis: COPD/ Chronic obstructive pulmonary disease with (acute) exacerbation;Hypokalemia;Tobacco abuse counseling-VAPING;Tobacco use Presentation: 12/22 15:25 Chief complaint: SOB, anxiety, and decreased appetite x 3 weeks. Has been under family stress and recent of mother. Coronavirus screen: At this time, the client does not indicate any symptoms associated with coronavirus-19. Ebola Screen: No symptoms or risks identified at this time. Initial Sepsis Screen: Does the patient meet any 2 criteria? No. Patient's initial sepsis screen is negative. Does the patient have a suspected source of infection? No. Patient's initial sepsis screen is negative. Risk Assessment: Do you want to hurt yourself or someone else? Patient reports no desire to harm self or others. Onset of symptoms was November 2024. 15:25 Method Of Arrival: Ambulatory 15:25 Acuity: JE 3 hb Triage Assessment: 16:00 Respiratory: Reports shortness of breath on exertion the patient has mild shortness of kj2 breath. 16:00 General: Appears in no apparent distress. Behavior is cooperative. Pain: Denies pain. kj2 Neuro: Level of Consciousness is awake, alert, obeys commands, Oriented to person, place, time, situation. Cardiovascular: Patient's skin is warm and dry. Respiratory: Onset: The symptoms/episode began/occurred gradually. GI: No signs and/or symptoms were reported involving the gastrointestinal system. : No signs and/or symptoms were reported regarding the genitourinary system. Historical: - Allergies: 15:26 Sulfa (Sulfonamide Antibiotics); hb - PMHx: 15:26 acid reflux; Anxiety; chronic knee pain; COPD; Hyperlipidemia; Hypertension; hb - PSHx: 15:26 Appendectomy; section; exploratory abd sx; hysterectomy; Tonsillectomy; hb - Immunization history:: Adult Immunizations up to date. - Infectious Disease History:: Denies. - Social history:: Smoking status: Patient denies any tobacco usage or history of. - Family history:: not pertinent. Screenin:00 [facility] ED Fall Risk Assessment (Adult) History of falling in the last 3 months, kj2 including since admission No falls in past 3 months (0 pts) Confusion or Disorientation No (0 pts) Intoxicated or Sedated No (0 pts) Impaired Gait No (0 pts) Mobility Assist Device Used No (0 pt) Altered Elimination No (0 pt) Score/Fall Risk Level 0 - 2 = Low Risk Maintained a safe environment, Hourly rounding (assess needs \T\ fall precautionary measures) done. Abuse screen: Denies threats or abuse. Denies injuries from another. Nutritional screening: No deficits noted. Tuberculosis screening: No symptoms or risk factors identified. Assessment: 16:00 General: Appears in no apparent distress. Behavior is calm, cooperative. Pain: Denies kj2 pain. Neuro: Level of Consciousness is awake, alert, obeys commands, Oriented to person, place, time, situation. Cardiovascular: Patient's skin is warm and dry. Rhythm is. Respiratory: Airway is patent Respiratory effort is unlabored. GI: No signs and/or symptoms were reported involving the gastrointestinal system. : No signs and/or symptoms were reported regarding the genitourinary system. 16:00 Respiratory: Breath sounds are clear bilaterally. kj2 17:00 Reassessment: Patient appears in no apparent distress at this time. Patient and/or kj2 family updated on plan of care and expected duration. Pain level reassessed. Patient is alert, oriented x 3, equal unlabored respirations, skin warm/dry/pink. 18:00 Reassessment: Patient appears in no apparent distress at this time. Patient and/or kj2 family updated on plan of care and expected duration. Pain level reassessed. Patient is alert, oriented x 3, equal unlabored respirations, skin warm/dry/pink. 18:29 Reassessment: Patient appears in no apparent distress at this time. Patient and/or kj2 family updated on plan of care and expected duration. Pain level reassessed. Patient is alert, oriented x 3, equal unlabored respirations, skin warm/dry/pink. 19:24 Reassessment: Patient appears in no apparent distress at this time. Patient and/or kj2 family updated on plan of care and expected duration. Pain level reassessed. Patient is alert, oriented x 3, equal unlabored respirations, skin warm/dry/pink. Vital Signs: 15:25 BP 143 / 89; Pulse 85; Resp 16; Temp 98.5(O); Pulse Ox 98% on R/A; Weight 60.78 kg; hb Height 5 ft. 2 in. ; Pain 0/10; 17:00 BP 113 / 82; Pulse 92; Resp 20; Pulse Ox 100% ; kj2 18:27 BP 141 / 116; Pulse 69; Resp 20; Temp 98; Pulse Ox 100% ; kj2 19:24 BP 138 / 90; Pulse 97; Resp 20; Temp 98; Pulse Ox 98% on R/A; kj2 15:25 Body Mass Index 24.51 (60.78 kg, 157.48 cm) hb 15:25 Pain Scale: Adult hb ED Course: 13:58 Patient arrived in ED. cj3 14:00 Juve Navarro MD is Attending Physician. sierra 14:20 Patient's name was called from ER lobby. No response. hb 14:29 Chest Pa And Lat (2 Views) XRAY In Process Unspecified. EDMS 14:30 Patient's name was called from ER [employer]. No response. aa5 15:26 Triage completed. hb 15:38 Swati Barrett, RN is Primary Nurse. kj2 16:00 Patient has correct armband on for positive identification. Bed in low position. Call kj2 light in reach. Side rails up X 1. Provided Education on: call light. 16:00 Arm band placed on Patient placed in an exam room. kj2 16:30 First set of blood cultures drawn by ED staff. Inserted saline lock: 24 gauge in right kj2 forearm, using aseptic technique. Blood collected. Flushed with 10 mL NS. 16:52 Second set of blood cultures drawn by ED staff. kj2 17:02 Blood Culture Adult (2) Sent. ty 17:02 Lipase Sent. ty 17:02 D-Dimer Sent. ty 17:02 Basic Metabolic Panel Sent. ty 17:03 CBC with Diff Sent. ty 17:03 LFT's Sent. ty 17:03 Magnesium Sent. ty 17:03 NT PRO-BNP Sent. ty 17:03 PT-INR Sent. ty 17:03 Troponin HS Sent. ty 17:09 COVID-19 Ag + Flu A+B Ag Sent. kj2 17:56 Jose Francisco Montano MD is Referral Physician. [facility] 17:56 Ricardo Montano MD is Referral Physician. [facility] 17:56 Referral Physician role handed off by Jose Francisco Montano MD [facility] 19:22 No provider procedures requiring assistance completed. IV discontinued, intact, kj2 bleeding controlled, No redness/swelling at site. Pressure dressing applied. Administered Medications: 16:57 Drug: NS 0.9% IV 500 ml 500 ml IV at 1 bolus once; to be given as a bolus over 30 kj2 minutes Volume: 500 ml; Route: IV; Rate: 1 bolus; Site: right forearm; 19:22 Follow up: IV Status: Completed infusion; IV Intake: 500ml kj2 18:26 Drug: AZITHromycin PO 500 mg PO once Route: PO; kj2 19:21 Follow up: Response: No adverse reaction kj2 18:26 Drug: Levalbuterol Inhalation 1.25 mg Inhalation once Route: Inhalation; kj2 19:21 Follow up: Response: No adverse reaction kj2 18:26 Drug: Ipratropium Inhalation Aerosol 0.5 mg Inhalation once Route: Inhalation; kj2 19:21 Follow up: Response: No adverse reaction kj2 18:27 Drug: Potassium PO Effervescent Tablet 50 mEq PO once; dissolve in 4 ounces of water or kj2 juice Route: PO; 19:21 Follow up: Response: No adverse reaction kj2 18:27 Drug: predniSONE PO 40 mg PO once Route: PO; kj2 19:21 Follow up: Response: No adverse reaction kj2 Medication: 17:00 VIS not applicable for this client. kj2 Intake: 19:22 IV: 500ml; Total: 500ml. kj2 Outcome: 14:59 Patient left the ED. hb 17:58 Discharge ordered by . [facility] 19:23 Discharged to home ambulatory, kj2 19:23 Condition: stable 19:23 Discharge instructions given to patient, Instructed on discharge instructions, follow up and referral plans. Demonstrated understanding of instructions, follow-up care, 19:48 Patient left the ED. kj2 Signatures: Dispatcher [employer] Juve Ribeiro MD MD cha Calderon, Audri, RN RN aa5 Ly Figueroa RN RN Tramaine Lai Krystal, RN RN kj2 Jeannette Laguna 3
[2024-12-22] MEDS ORDERED: NA CHLORIDE 0.9% 500 ML ONE (16:53)
[2024-12-22 17:08] LABS: Absolute Eosinophils 0.1 K/uL (0-0.5); Absolute Lymphocytes (CBC) 3.2 K/uL (0.7-4.9); Absolute Monocytes 0.6 K/uL (0.1-1.3); Absolute Neutrophil 3.9 K/uL (1.8-8.0); Basophils % 0.6 % (0-1.3); Eosinophils % 0.7 % (0-4.4); Hematocrit 47.3 % (36.0-45.0); Hemoglobin 16.1 g/dL (12.0-15.0); Lymphocytes % 40.7 % (15.3-44.8); MCH 30.4 pg (27.0-35.0); MCV 89.3 fL (80-100); MPV 8.2 fL (7.6-11.3); Monocytes % 8.3 % (3.3-12.3); Neutrophils % 49.7 % (41.7-73.7); Nucleated Red Blood Cells % 0.2 % (0-0); Platelets 331 thou/uL (152-406); Red Cell Distribution Width 13.3 % (12.1-15.2)
[2024-12-22 17:13] LABS: PT Prothrombin Time 12.5 SECONDS (10-13.0)
[2024-12-22 17:21] LABS: D-Dimer < 0.215 FEUug/mL (0-0.500)
[2024-12-22 17:28] LABS: AST/SGOT 18 U/L (15-37); Albumin 4.6 g/dL (3.4-5.0); Alkaline Phosphatase 115 U/L (45-117); Anion Gap 9.9 mEq/L (5.0-15.0); BUN Blood Urea Nitrogen 11 mg/dL (7-18); Bicarbonate 28 mEq/L (21-32); Bilirubin Direct 0.2 mg/dL (0-0.2); Bilirubin Indirect, Calculated 0.4 mg/dL (0.2-0.8); Bilirubin Total 0.6 mg/dL (0.2-1.0); Globulin 4.5 g/dL (2.3-3.5); Glomerular Filtration Rate 74 ml/min (=/>90); Glucose Level 104 mg/dL (74-106); Lipase 18 U/L (13-75); Magnesium 2.3 mg/dL (1.6-2.4); NT PRO-BNP 43 pg/mL (<125); Potassium 2.9 mEq/L (3.5-5.1); Protein, Total 9.1 g/dL (6.4-8.2); Sodium Level 136 mEq/L (136-145); Troponin High Sensitivity 3.4 pg/mL (<58.9)
[2024-12-22 17:29] LABS: ALT/SGPT < 14 U/L (13-56)
[2024-12-22 17:44] LABS: Influenza A Ag Negative; Influenza B Ag Negative; SARS-CoV-2 Antigen Rapid Res Negative (Negative)
--- NOTE | 2024-12-22 17:58 | EDPHYS ---
Physician Documentation [facility] Name: Jessica Harrington Age: 64 yrs Sex: Female : 1960 Arrival Date: 12/22/2024 Time: 13:56 Bed 10 Private MD: ED Physician Juve Navarro HPI: 12/22 17:51 This 64 yrs old Black Female presents to ER via Ambulatory with complaints of Shortness sierra Of Breath. 17:51 The patient has shortness of breath at rest, with light activity. Onset: The sierra symptoms/episode began/occurred 3 day(s) ago. Duration: The symptoms are continuous, and are unchanged since they started. The patient's shortness of breath is aggravated by nothing, is alleviated by nothing. Severity of symptoms: At their worst the symptoms were mild in the emergency department the symptoms are unchanged. The patient has experienced similar episodes in the past, multiple times. Historical: - Allergies: 15:26 Sulfa (Sulfonamide Antibiotics); hb - PMHx: 15:26 acid reflux; Anxiety; chronic knee pain; COPD; Hyperlipidemia; Hypertension; hb - PSHx: 15:26 Appendectomy; section; exploratory abd sx; hysterectomy; Tonsillectomy; hb - Immunization history:: Adult Immunizations up to date. - Infectious Disease History:: Denies. - Social history:: Smoking status: Patient denies any tobacco usage or history of. - Family history:: not pertinent. ROS: 17:52 Constitutional: Negative for fever, chills, and weight loss, Eyes: Negative for injury, sierra pain, redness, and discharge, ENT: Negative for injury, pain, and discharge, Neck: Negative for injury, pain, and swelling, Cardiovascular: Negative for chest pain, palpitations, and edema, Abdomen/GI: Negative for abdominal pain, nausea, vomiting, diarrhea, and constipation, Back: Negative for injury and pain, : Negative for injury, bleeding, discharge, and swelling, MS/Extremity: Negative for injury and deformity, Skin: Negative for injury, rash, and discoloration, Neuro: Negative for headache, weakness, numbness, tingling, and seizure, Psych: Negative for depression, anxiety, suicide ideation, homicidal ideation, and hallucinations, Allergy/Immunology: Negative for hives, rash, and allergies, Endocrine: Negative for neck swelling, polydipsia, polyuria, polyphagia, and marked weight changes, Hematologic/Lymphatic: Negative for swollen nodes, abnormal bleeding, and unusual bruising, 17:52 Respiratory: Positive for cough, shortness of breath, at rest. Exam: 17:52 Constitutional: This is a well developed, well nourished patient who is awake, alert, sierra and in no acute distress. Head/Face: Normocephalic, atraumatic. Eyes: Pupils equal round and reactive to light, extra-ocular motions intact. Lids and lashes normal. Conjunctiva and sclera are non-icteric and not injected. Cornea within normal limits. Periorbital areas with no swelling, redness, or edema. ENT: Nares patent. No nasal discharge, no septal abnormalities noted. Tympanic membranes are normal and external auditory canals are clear. Oropharynx with no redness, swelling, or masses, exudates, or evidence of obstruction, uvula midline. Mucous membranes moist. Neck: Trachea midline, no thyromegaly or masses palpated, and no cervical lymphadenopathy. Supple, full range of motion without nuchal rigidity, or vertebral point tenderness. No Meningismus. Chest/axilla: Normal chest wall appearance and motion. Nontender with no deformity. No lesions are appreciated. Cardiovascular: Regular rate and rhythm with a normal S1 and S2. No gallops, murmurs, or rubs. Normal PMI, no JVD. No pulse deficits. Respiratory: Lungs have equal breath sounds bilaterally, clear to auscultation and percussion. No rales, rhonchi or wheezes noted. No increased work of breathing, no retractions or nasal flaring. Abdomen/GI: Soft, non-tender, with normal bowel sounds. No distension or tympany. No guarding or rebound. No evidence of tenderness throughout. Back: No spinal tenderness. No costovertebral tenderness. Full range of motion. Skin: Warm, dry with normal turgor. Normal color with no rashes, no lesions, and no evidence of cellulitis. MS/ Extremity: Pulses equal, no cyanosis. Neurovascular intact. Full, normal range of motion., bilateral aka Neuro: Awake and alert, GCS 15, oriented to person, place, time, and situation. Cranial nerves II-XII grossly intact. Motor strength 5/5 in all extremities. Sensory grossly intact. Cerebellar exam normal. Normal gait. Psych: Awake, alert, with orientation to person, place and time. Behavior, mood, and affect are within normal limits. 17:52 ECG was reviewed by the Attending Physician. 17:52 Musculoskeletal/extremity: DVT Exam: No signs of deep vein thrombosis. no pain, no swelling, no tenderness, negative Homans' sign noted on exam, no appreciated bluish discoloration, no erythema, no increased warmth, Vital Signs: 15:25 BP 143 / 89; Pulse 85; Resp 16; Temp 98.5(O); Pulse Ox 98% on R/A; Weight 60.78 kg; hb Height 5 ft. 2 in. ; Pain 0/10; 17:00 BP 113 / 82; Pulse 92; Resp 20; Pulse Ox 100% ; kj2 18:27 BP 141 / 116; Pulse 69; Resp 20; Temp 98; Pulse Ox 100% ; kj2 19:24 BP 138 / 90; Pulse 97; Resp 20; Temp 98; Pulse Ox 98% on R/A; kj2 15:25 Body Mass Index 24.51 (60.78 kg, 157.48 cm) hb 15:25 Pain Scale: Adult hb MDM: 14:00 Medical Screening Exam initiated sierra 17:53 Differential diagnosis: Anemia Anxiety Reaction asthma, Bronchitis CHF exacerbation, sierra Chronic Obstructive Pulmonary Disease Myocardial Infarction pneumonia, pulmonary edema, Pulmonary Embolism reactive airway disease, Sepsis Unstable Angina. Antibiotic administration: The patient is discharged and will get outpatient antibiotics, Zithromax. Immunization status: Influenza vaccine: within last 5 years. Data reviewed: vital signs, nurses notes, lab test result(s), EKG, radiologic studies, plain films. Consideration of Admission/Observation Patient was admitted/placed on observation. Escalation of care including admission/observation considered. I considered the following discharge prescriptions or medication management in the emergency department Medications were administered in the Emergency Department. See MAR. Independent interpretation of the following test(s) in the Emergency Department EKG: See my EKG interpretation above. Test considered but Not performed: CT: no ct chest. Historians other than the Patient: pt well informed. Care significantly affected by the following chronic conditions: Hypertension, Chronic Obstructive Pulmonary Disease, anxiety, gerd, hyperlipids. Counseling: I had a detailed discussion with the patient and/or guardian regarding the historical points, exam findings, and any diagnostic results supporting the discharge/admit diagnosis, lab results, radiology results, the need for outpatient follow up, for definitive care, a family practitioner, a laborer pole crew. 12/22 14:01 Order name: Basic Metabolic Panel; Complete Time: 17:42 [facility] 12/22 14:01 Order name: CBC with Diff; Complete Time: 17:42 12/22 14:01 Order name: LFT's; Complete Time: 17:42 12/22 14:01 Order name: Magnesium; Complete Time: 17:42 12/22 14:01 Order name: NT PRO-BNP; Complete Time: 17:42 12/22 14:01 Order name: PT-INR; Complete Time: 17:42 12/22 14:01 Order name: Troponin HS; Complete Time: 17:42 12/22 14:01 Order name: COVID-19 Ag + Flu A+B Ag; Complete Time: 17:49 12/22 14:01 Order name: Lipase; Complete Time: 17:42 12/22 14:01 Order name: D-Dimer; Complete Time: 17:42 12/22 14:01 Order name: Chest Pa And Lat (2 Views) XRAY; Complete Time: 17:42 12/22 14:01 Order name: EKG; Complete Time: 14:02 12/22 14:01 Order name: Cardiac monitoring; Complete Time: 19:29 12/22 14:01 Order name: EKG - Nurse/Tech; Complete Time: 19:29 12/22 14:01 Order name: IV Saline Lock; Complete Time: 17:02 12/22 14:01 Order name: Labs collected and sent; Complete Time: 17:02 12/22 14:01 Order name: O2 Per Protocol; Complete Time: 17:02 12/22 14:01 Order name: O2 Sat Monitoring; Complete Time: 17:02 12/22 17:52 Order name: Misc. Order: juice; Complete Time: 18:26 [facility] Administered Medications: 16:57 Drug: NS 0.9% IV 500 ml 500 ml IV at 1 bolus once; to be given as a bolus over 30 kj2 minutes Volume: 500 ml; Route: IV; Rate: 1 bolus; Site: right forearm; 19:22 Follow up: IV Status: Completed infusion; IV Intake: 500ml kj2 18:26 Drug: AZITHromycin PO 500 mg PO once Route: PO; kj2 19:21 Follow up: Response: No adverse reaction kj2 18:26 Drug: Levalbuterol Inhalation 1.25 mg Inhalation once Route: Inhalation; kj2 19:21 Follow up: Response: No adverse reaction kj2 18:26 Drug: Ipratropium Inhalation Aerosol 0.5 mg Inhalation once Route: Inhalation; kj2 19:21 Follow up: Response: No adverse reaction kj2 18:27 Drug: Potassium PO Effervescent Tablet 50 mEq PO once; dissolve in 4 ounces of water or kj2 juice Route: PO; 19:21 Follow up: Response: No adverse reaction kj2 18:27 Drug: predniSONE PO 40 mg PO once Route: PO; kj2 19:21 Follow up: Response: No adverse reaction kj2 Disposition Summary: 12/22/24 17:58 Discharge Ordered Notes: Location: Home sierra Problem: new sierra Symptoms: have improved sierra Condition: Stable sierra Diagnosis - COPD/ Chronic obstructive pulmonary disease with (acute) exacerbation sierra - Hypokalemia sierra - Tobacco abuse counseling - VAPING sierra - Tobacco use sierra Followup: sierra - With: Private Physician - When: 2 - 3 days - Reason: Recheck today's complaints, Continuance of care, Re-evaluation by your physician Followup: sierra - With: Ricardo Montano MD - When: 2 - 3 days - Reason: Recheck today's complaints, Re-evaluation by your physician Discharge Instructions: - Discharge Summary Sheet sierra - Chronic Obstructive Pulmonary Disease sierra - Potassium Content of Foods sierra - Self-Destructive Behavior sierra - Steps to Quit Smoking sierra - Health Risks of Smoking sierra - Chronic Obstructive Pulmonary Disease Exacerbation sierra - Steps to Quit Smoking, [id number] sierra - Cough, Adult sierra - Hypokalemia sierra - Electronic Cigarette Information [facility] Forms: - Medication Reconciliation Form sierra - Antibiotic Education sierra - Prescription Opioid Use sierra - Patient Portal Instructions [facility] - Leadership Thank You Letter [facility] Prescriptions: - albuterol sulfate 90 mcg/actuation Inhalation HFA Aerosol Inhaler - inhale 2 inhalation INHALATION route every 6 hours as needed for shortness of sierra breath or wheezing; 1 unit; Refills: 0, Product Selection Permitted - Potassium Chloride 20 meq Oral Packet - take 1 packet ORAL route every 12 hours 1 packet in 6 (six) ounces of water or sierra juice; Take after meal; 10 packet; Refills: 0, Product Selection Permitted - Zithromax Z-Albert 250 mg Oral Tablet - take 1 tablet ORAL route as directed for 5 days Day 1 - take two (2) tablets sierra one time. Day 2, 3, 4 , 5 take one (1) tablet once daily.; 6 tablet; Refills: 0, Product Selection Permitted - Prednisone 20 mg Oral Tablet - take 2 tablets ORAL route once daily for 5 days; 10 tablet; Refills: 0, Product sierra Selection Permitted Signatures: Dispatcher [employer] Juve Ribeiro MD MD cha Baxter, Heather RN RN Swati Barnhart RN RN kj2 Corrections: (The following items were deleted from the chart) 15:10 14:59 Before Triage aa5 15:10 14:59 wait time formerly [facility] [email or web address]
[2024-12-22] MEDS ORDERED: IPRATROPIUM BROM 0.5MG/2.5ML ONE (18:18)
[2024-12-22] MEDS ORDERED: predniSONE 10 MG TAB ONE (18:19)
[2024-12-22] MEDS ORDERED: POTASSIUM 25 MEQ EFFERV TAB ONE (18:19)
[2024-12-22] MEDS ORDERED: AZITHROMYCIN 250 MG TAB ONE (18:19)
[2024-12-22] MEDS ORDERED: LEVALBUTEROL 1.25 MG/3 ML NEB ONE (18:19)
[2024-12-22 20:21] VITALS: TEMP 98
[2024-12-22 20:22] VITALS: BP 138/90; O2SAT 98
--- NOTE | 2024-12-25 10:55 | EKG ---
Test Date: 2024-12-22 Test Time: 18:59:32 Dermatology Sales Representative: ASHWINI MEASUREMENT RESULTS: Intervals: Rate: 76 [place]: 150 QRSD: 68 QT: 420 QTc: 472 [place]: P: 31 [place]: 150 QRS: -17 T: -15 INTERPRETIVE STATEMENTS: Normal sinus rhythm ST & T wave abnormality, consider anterior ischemia Prolonged QT Abnormal ECG No previous ECG available for comparison Electronically Signed On 12-25-24 10:50:18 CDT by Angelito Amato
== END 2024-12-22 19:48 | disposition home or self-care (01) ==
LOC: ER 13:56
DX: J44.1 Chronic obstructive pulmonary disease with (acute) exacerbation (principal); E87.6 Hypokalemia; Z72.0 Tobacco use; Z71.6 Tobacco abuse counseling; I10 Essential (primary) hypertension; E78.5 Hyperlipidemia, unspecified; Z11.52 Encounter for screening for COVID-19
CPT/HCPCS: 96361; 85025; 80048; 36415; 83735; 85610; 85379; 80076; 84484; 83690; 83880; 71046; 96360; 99285; 87428; J7512; J7614; J7644; J7040; 93005